=== PATIENT | male | born 1960 | race Caucasian/White ===

== ENCOUNTER 2021-07-30 06:00 | Inpatient (IN) | payer OTHER, SELFPAY ==
[2021-07-30] VITALS (14 sets, daily range): BP systolic 120–153; BP diastolic 73–99; PULSE 66–93; RESP 16–29; TEMP 36.6–36.9; O2SAT 92–97; BMI 24.3; BMI 24.5
--- NOTE | 2021-07-30 06:10 | RAD_ITS ---
STUDY: X-RAY CHEST REASON FOR EXAM: Male, 61 years old patient with cough. TECHNIQUE: Single AP portable view of the chest. COMPARISON: Prior comparison studies are not available for review at this time. FINDINGS: Cardiac monitoring leads are present. The lungs are expanded. There is heterogeneous airspace consolidation within the right upper lobe. There is heterogeneous bilateral ground glass attenuation present in both lungs. There is some peribronchial cuffing. There are small bilateral pleural effusions. Normal size heart. Normal mediastinum and ange. There is prominence of the pulmonary hilar arteries without peripheral pulmonary vascular congestion. There is atherosclerotic calcification of the aortic arch with tortuosity. Normal visualized thoracic spine. Normal visualized ribs, clavicles, and shoulders. There is no demonstrated abnormality of the visualized soft tissue structures of the upper abdomen. RAD/Chest 1 View (Portable) IMPRESSION: Bilateral multifocal pneumonia. Electronically Signed: Raysa Santamaria MD at 7:33 EDT , Service support ,
--- NOTE | 2021-07-30 06:10 | EKG12_ITS ---
Test Reason : SOB Blood Pressure : / mmHG Vent. Rate : 071 BPM Atrial Rate : 071 BPM P-R Int : 082 ms QRS Dur : 126 ms QT Int : 464 ms P-R-T Axes : 075 087 198 degrees QTc Int : 504 ms Sinus rhythm with short DE Non-specific intra-ventricular conduction block Inferior infarct , age undetermined , cannot be excluded Abnormal ECG Confirmed by MELINDA SMALL, MORENITA ([id number]), editorial specialist LENA NEWMAN ([id number]) on 08/01/2021 9:25:54 AM Referred By: ALY Confirmed By:MORENITA LAWRENCE MD
--- NOTE | 2021-07-30 06:14 | EDS_ITS ---
HPI History of Present Illness Chief Complaint: Shortness of Breath Informant: patient and spouse/S.O. Narrative Narrative: Patient presents with worsening dyspnea. This patient did have Covid in early June. He states it did take a fair amount out of him. He has had some mild dyspnea since but mostly had overall weakness and weight loss. He has been slowly improving. He states now the last 2 or so weeks he has been having wheezing and increased coughing. He is bringing up some whitish sputum. No blood. He states he is sore along the anterior lower chest with coughing but not having chest pain. No leg pain or swelling. Never had a DVT or PE. He has smoked a pack a day or more for 35 to 40 years. He has used inhalers before. He also gets Primatene Mist that he buys [id number] and his use that a lot. No fevers or chills. Primatene does help his symptoms but it does not resolve it. Nothing specifically makes things worse. He is not having fevers. Past medical history: Suspected COPD, positive glaucoma Medicines are timolol eyedrops No known drug allergies No recent surgeries Positive smoker lives with family [facility] Medical History Glaucoma Home Medications timolol 07/30/21 [History Last Taken Unknown] Allergy/AdvReac Type Severity Reaction Status Date / Time No Known Allergies Allergy Verified 07/30/21 06:05 Social History Smoking Status: Current every day smoker tobacco type: cigarettes ROS ROS ED Constitutional Constitutional ED: Denies chills, fever(s) or sweats Eyes Eyes: Denies blurry vision ENT ENT ED: Denies rhinorrhea or sore throat Cardiovascular Cardiovascular: Denies palpitations or racing heartbeat Respiratory/Chest Respiratory/Chest: Reports cough, dyspnea and sputum Gastrointestinal Gastrointestinal: Denies abdominal pain, nausea or vomiting Genitourinary Genitourinary ED: Denies dysuria Musculoskeletal Musculoskeletal: Denies arthralgias or myalgias Integumentary Denies rash Neurologic Neurologic: Denies headache(s), paresthesias or weakness Psychiatric Psychiatric: Denies anxiety Endocrine Endocrinology: Denies polydipsia or polyuria Hematologic/Lymphatic Hematologic/Lymphatic: Denies easy bleeding or easy bruising Allergic/Immunologic Allergic/Immunologic ED: Denies urticaria EXAM Physical Exam Const Vital Signs: 07/30/21 06:01 07/30/21 06:06 07/30/21 06:25 Temperature 98.0 F Temperature Source Oral Pulse Rate 93 69 Respiratory Rate 29 H 20 H Respiratory Effort Short of Breath Short of Breath Labored Blood Pressure 140/99 H Blood Pressure Mean 112 Pulse Ox 92 96 Oxygen Delivery Method Room Air Room Air Room Air Patient is in no acute distress but he does have some increased work of breathing. He is able to carry on a normal conversation but does pause a little bit to catch his breath. Positive well nourished and well developed General Appearance ED: well developed and NAD HEENT Reports moist mucous membranes; Denies dry mucous membranes atraumatic Mouth ED: No dry mucous membranes Mouth: No dry mucous membranes Eyes General Eye ED: Negative for pale conjunctiva or scleral icterus Neck no lymphadenopathy and no JVD Resp Resp Narrative: Patient does have slight increased work of breathing. He has decreased air motion and bilateral expiratory wheezing. I hear no rales or rhonchi. There is no pain with a deep breath or palpation. Auscultation: wheezes; Negative for rales or rhonchi Cardio regular rate, regular rhythm and no murmurs GI non-tender and non-distended Palpation: soft Back/Spine no CVA tenderness and normal to inspection Extremity normal to inspection Extremity Narrative: No edema, cords, asymmetry or tenderness along the deep venous system. General Extremety ED: Negative for edema or tenderness General Extremity: Negative for edema Neuro oriented x3 Sensorium / Orientation: alert Psych mental status grossly normal Skin Lesions: no lesions Rashes: no rashes MDM MDM MDM Narrative Medical decision making narrative: 06: 35 patient is actually shown marked improvement with his breathing treatments. He is moving significantly more air and his wheezing is essentially resolved. He feels markedly better. We are awaiting further results. Blood work came back showed mild elevation of his white count. Electrolytes look normal. Glucose is also minimally elevated. Troponin was quite high at 1110. Although this could be from global hypoxia that is relatively high. I went back and talked to the patient again. He states he does get some soreness of his chest primarily with coughing. He states he has some muscle aches all over but that has been there ever since Covid is not different. I really cannot get a history of any acute or recent chest pain pressure or discomfort. I also looked at his x-ray. He does have some findings of Covid but he also has a right small pleural effusion what appears to be a pneumonia in the right upper lobe toward the base. I have added a lactate and blood cultures. We will start antibiotics and aspirin. I discussed case with hospitalist. I have cardiology on page to notify them also. I also discussed case with cardiology. Patient will be admitted. He may need further evaluation including possible CT scan, stress test and/or heart catheterization. Lab Data Labs: Laboratory Results - last 24 hr 07/30/21 07/30/21 06:04 06:04 WBC 11.4 H RBC 4.40 L Hgb 14.4 Hct 43.6 MCV 99.1 H MCH 32.7 H MCHC 33.0 RDW Std Deviation 47.1 H RDW Coeff of Donna 12.7 Plt Count 330 MPV 10.8 Immature Gran % (Auto) 0.400 Neut % (Auto) 74.6 H Lymph % (Auto) 16.7 L Garrard % (Auto) 6.2 Eos % (Auto) 1.5 Baso % (Auto) 0.6 Absolute Neuts (auto) 8.5 H Absolute Lymphs (auto) 1.90 Nucleated RBC % 0 Sodium 138 Potassium 4.5 Chloride 105 Carbon Dioxide 27.0 Anion Gap 6 BUN 9 Creatinine 0.89 Estim Creat Clear Calc 86.06 Est GFR (MDRD) Af Amer 112 Est GFR (MDRD) Non-Af 92 BUN/Creatinine Ratio 10.1 Glucose 111 H Calcium 9.2 Troponin I High Sens 1110 H* EKG Initial EKG: Comments: EKG done for dyspnea and discomfort of his chest with coughing only. EKG read by me shows normal sinus rhythm with overall rate of 71. There is some suspicion of P pulmonale likely with longstanding COPD. No sign of acute infarct or ischemia. MA interval is just slightly short. QRS duration is normal. QTc is slightly long at 504 ms. He does have nonspecific ST flattening. I am not able to find an old EKG on our system for comparison. Discharge Plan Dx/Rx/DC Orders Clinical Impression: COPD with exacerbation, Non-ST elevation RI (NSTEMI), Community acquired pneumonia Disposition Disposition: Acute Care [facility]
[2021-07-30 06:24] LABS: Absolute Neutrophil Count 8.5 X10^3/uL (2.0-7.7); Basophil# 0.07 X10^3/uL; Basophil% 0.6 % (0-1); Eosinophil# 0.17 X10^3/uL; Eosinophils% 1.5 % (0-5); Hematocrit 43.6 % (40-54); Hemoglobin 14.4 g/dL (13.0-16.5); Lymphocyte % 16.7 % (19-41); Mean Corpuscular Hgb 32.7 pg (27.0-32.0); Mean Corpuscular Volume 99.1 fL (80-94); Mean Platelet Vol. 10.8 fl (6.2-12.0); Monocyte% 6.2 % (0-10); NRBC Flagged by Analyzer 0 % (0-5); Neutrophil # 8.46 X10^3/uL (2.7-7.7); Neutrophil % 74.6 % (47-70); Platelet Count 330 K/mm3 (150-450); RBC Distribution Width CV 12.7 % (11.6-14.6); RBC Distribution Width SD 47.1 fl (35.1-43.9); White Blood Count 11.4 K/mm3 (4.4-11.0)
[2021-07-30] MEDS: Ipratropium/Albuterol Sulfate 3 ML AMPUL.NEB INHALATION ×3 (06:24→19:23)
[2021-07-30] MEDS: Albuterol 2.5 MG/3 ML VIAL.NEB. INHALATION (06:24)
[2021-07-30] MEDS: MethylPREDNISolone 125 MG/2 ML Vial IV (06:26)
[2021-07-30 06:51] LABS: Anion Gap 6 (5-15); BUN 9 mg/dL (7-18); BUN/Creat Ratio 10.1 RATIO (10-20); Calcium,Total 9.2 mg/dL (8.5-10.1); Chloride 105 mmol/L (98-107); Creatinine, Serum 0.89 mg/dL (0.70-1.30); EST Glomerular Filtration Rate 92 mL/min (>60); Est Glom Filt Rate - Afr Amer 112 mL/min (>60); Estimated Creatinine Clearance 86.06 ml/min; Glucose 111 mg/dL (74-106); Potassium 4.5 mmol/L (3.5-5.1); Sodium Level 138 mmol/L (136-145); Troponin-I HS 1110 pg/mL (3.0-78.0)
--- NOTE | 2021-07-30 07:04 | NURSING ---
DR SCHUSTER FOR DR LU
[2021-07-30] MEDS: Aspirin 81 MG TAB.CHEW 324 MG PO (07:14)
--- NOTE | 2021-07-30 07:19 | NURSING ---
PCU [place] ELEVATED TROP
[2021-07-30] MEDS: Ceftriaxone 1 GM/50 ML BAG IV (07:41)
--- NOTE | 2021-07-30 07:57 | ECHOD_ITS ---
Reason For Study: NSTEMI Procedure This was a 2D Doppler, Color Flow transthoracic echocardiogram. The exam was of adequate technical quality. Exam performed portable in patient room. Left Ventricle Borderline enlarged left ventricle. Segmental dysfunction with preserved ejection fraction (see wall motion). The estimated ejection fraction is 60 %. There is evidence of diastolic dysfunction. Infero-Basal: Akinetic. Right Ventricle Normal RV size. Normal systolic function. Atria The left atrium is mildly enlarged. Normal right atrium. No doppler evidence for ASD. Mitral Valve There is mild mitral annular calcification. Mild diffuse mitral valve thickening. Mild focal mitral valve calcification of the anterior leaflet. Moderate (2+) eccentric mitral valve insufficiency. Tricuspid Valve Normal tricuspid valve. Mild to moderate (1-2+) tricuspid valve insufficiency. Right ventricular systolic pressure estimated to be 86 mmHg. Aortic Valve Trisinus/trileaflet aortic valve. Mild diffuse aortic valve calcification. Mild (1+) aortic valve insufficiency. Pulmonic Valve The pulmonic valve is not well visualized. Trivial pulmonic valve insufficiency. Great Vessels The aortic root is not well visualized. Pericardium/Pleural No pericardial effusion. MMode/2D Measurements & Calculations LVIDd: 5.7 cm IVSd: 1.4 cm LA dimension: 4.7 cm LVIDs: 4.1 cm LVPWd: 1.3 cm RVDd: 3.7 cm FS: 27.3 % LAV(MOD-bp): 90.7 ml LA A4 area: 24.4 cm2 RA A4 area: 17.4 cm2 LAV(MOD-bp) Indexed: 47.6 ml/m2 LAV(MOD-sp2): 101.7 ml LAV(MOD-sp4): 76.7 ml Time Measurements MV dec time: 0.19 sec Doppler Measurements & Calculations MV E max ganga: 163.1 cm/sec Lat Peak E' Ganga: 8.0 cm/sec Med Peak E' Ganga: 11.0 cm/sec MV A max ganga: 81.0 cm/sec E/E' lat: 20.4 E/E' med: 14.9 MV E/A: 2.0 MV V2 max: 165.0 cm/sec MV P1/2t max ganga: 165.7 cm/sec Ao V2 max: 161.6 cm/sec MV max P.9 mmHg MV P1/2t: 80.7 msec Ao max P.4 mmHg MV V2 mean: 78.4 cm/sec MV dec slope: 601.4 cm/sec2 MV mean P.1 mmHg MVA(P1/2t): 2.7 cm2 MV V2 VTI: 38.5 cm LV V1 max: 109.0 cm/sec MR max ganga: 579.5 cm/sec PA V2 max: 101.1 cm/sec LV V1 max P.8 mmHg MR max P.3 mmHg MR mean ganga: 444.2 cm/sec MR mean P.7 mmHg MR VTI: 180.5 cm TR max ganga: 455.4 cm/sec TR max P.9 mmHg ECHO/Echo Complete Interpretation Summary Borderline enlarged left ventricle. Segmental dysfunction with preserved ejection fraction (see wall motion). The estimated ejection fraction is 60 %. The left atrium is mildly enlarged. There is mild mitral annular calcification. Mild diffuse mitral valve thickening. Mild focal mitral valve calcification of the anterior leaflet. Moderate (2+) eccentric mitral valve insufficiency. Mild to moderate (1-2+) tricuspid valve insufficiency. Mild diffuse aortic valve calcification. Mild (1+) aortic valve insufficiency. Trivial pulmonic valve insufficiency. Right ventricular systolic pressure estimated to be 86 mmHg c/w severe pulmonar y hypertension. There is evidence of diastolic dysfunction. Ordering Physician: Parminder Summers Referring Physician: No PCP noted Performed By: Regulo Jack RCS
[2021-07-30 08:07] LABS: Lactic Acid 1.1 mmol/L (0.4-1.9)
[2021-07-30 08:30] LABS: International Normalized Ratio 1.2; Partial Thromboplast Time 36.5 Seconds (24.1-36.2); Prothrombin Time (Protime)PT. 14.2 SECONDS (11.7-14.9)
[2021-07-30] MEDS: 0.9% Normal Saline 1,000 ML 75 ML IV ×2 (08:33→21:00)
--- NOTE | 2021-07-30 08:49 | NURSING ---
Pt states he had flu shot this year, but unable to tell what month he had it.
--- NOTE | 2021-07-30 08:50 | PCS.PANDOC ---
PANDEMIC DOCUMENTATION INITIATED: Date: 05/19/2021 Time: 190
[2021-07-30 09:01] LABS: Cholesterol 213 mg/dL (200); High Density Lipoprotein 34 mg/dL; Triglycerides 119 mg/dL; Troponin-I HS 1078 pg/mL (3.0-78.0); Very Low Density Lipoprotein 24 mg/dL (5-40)
--- NOTE | 2021-07-30 09:02 | CON.PCM.CA_ITS ---
Assessment & Plan Assessment/Plan (1) Non-ST elevation GA (NSTEMI): PLAN: The patient does have abnormal cardiac enzymes. It is unclear at this time whether this represents a type I event from an acute coronary syndrome versus a type II event brought out by his underlying ongoing pulmonary disease process. At the moment he does not appear to have symptoms compatible with classic acute coronary syndrome/unstable angina pectoris, etc. He does not appear to have acute ECG changes. He will continue to be monitored. He will have follow-up ECGs. He will have an echocardiogram to assess his left ventricular wall motion and systolic function. He will be treated medically for the possibility of underlying CAD with a combination of agents such as aspirin, antiplatelet agents, anticoagulant agents, nitrates as needed, beta-blockers, etc. He will have a fasting lipid profile performed to evaluate his cardiovascular risks and proceed with treatment as deemed appropriate. Eventually he may need further evaluation with diagnostic cardiac catheterization-once his pulmonary process is further evaluated/treated. (2) Community acquired pneumonia: PLAN: There is concern that the patient has an underlying acute pneumonitis superimposed upon his history of COVID-19. His chest x-ray is certainly concerning for bilateral infiltrates. His previous [facility] radiologic studies are unavailable for review/comparison. He will continue evaluation care per internal medicine. (3) COPD with exacerbation: PLAN: The patient does have a history of longstanding tobacco use and may have a history of underlying COPD which may be exacerbated during this process. Again he will continue his pulmonary evaluation care per internal medicine at this time. Addt'l Comments The patient's case was discussed and reviewed with the patient as well as the [facility] emergency department staff. Aforementioned information was also conveyed to the [facility] hospital staff. This note was generated using a voice recognition system and there may be incorrect words, spelling or punctuation that were not noted when reviewing the office note prior to saving. HPI Consult Data Date of Consult: 07/30/21 HPI Narrative HPI Narrative: JOHNY SANTAMARIA, is a 61 year old white male who presents for cardiovascular consultation based upon concerns of abnormal cardiac enzymes in the setting of shortness of breath in the setting of recovering COVID-19. The patient states that in June of this year he was diagnosed with COVID-19. He remained at home and quarantine for 2 weeks. He states he actually remained off of work for additional week for additional rest and recuperation. He did present for outpatient evaluation through the [facility] system based upon his condition and following his quarantine time concerns of fevers documented at home of 102 and 103. He states when he was evaluated as an outpatient he had no fevers. He does not recall receiving any separate COVID-19 outpatient medical therapy. He states a chest x-ray was performed and subsequently a chest CT scan. The results of those studies are unavailable for review. He presented to [facility] based upon concerns of progressive shortness of breath and dyspnea. He states at home he has felt more short of breath and dyspneic and at times has felt better with respect to his breathing sitting up than being in the supine position. He denies no symptoms of acute classic orthopnea or PND. He has not developed peripheral pitting edema. He denies any chest discomfort separate than the discomfort he has experienced when he is coughing. There has been no report of syncope. He states he has had spells in the past where if he feels that he develops tunnel vision, becomes nauseated, has diaphoresis, and sometimes has to go outside to breathe fresh air to feel better. He admits that he has been a smoker since his early 20s. He states he has not been evaluated for a physician for some years. To the best of his knowledge she has no cardiovascular history. In the emergency department he was evaluated by the ED staff. He was found to have abnormal troponin I levels. His ECG demonstrated sinus rhythm with the appearance of a nonspecific IVCD and inferior GA of indeterminate age cannot be excluded. There were no acute ECG changes. A chest x-ray was performed which demonstrated bilateral pulmonary infiltrates. He was recommended for further inpatient evaluation from a cardiopulmonary status. [facility]LY [facility], [facility] Medical History (Updated 07/30/21 @ 08:31 by Barbra Major) Asthma Glaucoma Home Medications timolol 07/30/21 [History Last Taken Unknown] Allergy/AdvReac Type Severity Reaction Status Date / Time No Known Allergies Allergy Verified 07/30/21 06:05 Social History (Updated 07/30/21 @ 08:31 by Barbra Major) household members: spouse housing: house current occupational status: employed Smoking Status: Heavy Smoker (>10/day) alcohol intake: current details: 8 beers per night per pt ROS Constitutional Constitutional: Reports fever(s) Eyes Eyes: Reports as per HPI ENT HEENT: Reports as per HPI Cardiovascular Cardiovascular: Reports dyspnea Respiratory/Chest Respiratory/Chest: Reports cough and dyspnea Gastrointestinal Gastrointestinal: Reports as per HPI Genitourinary Genitourinary: Reports as per HPI Musculoskeletal Musculoskeletal: Reports as per HPI Integumentary Integumentary: Reports as per HPI Neurologic Neurologic: Reports as per HPI Physical Exam Const alert, oriented x3 and no apparent distress Orientation / Consciousness: awake HEENT normocephalic, head/scalp atraumatic and hearing grossly normal bilaterally Eyes PERRL, EOMs intact bilaterally and conjunctivae normal Neck full ROM, supple and no JVD Chest inspection of chest normal Resp normal respiratory effort Resp Narrative: Scattered: Auscultated more anterior than posterior Auscultation: rhonchi Cardio regular rate, regular rhythm, S1 normal heart sound and S2 normal heart sound GI normal to inspection, nondistended, normoactive bowel sounds Extremity no pedal edema Skin no rashes or lesions noted Neuro oriented x3, moves all extremities, no focal motor deficits and no sensory defi cits noted Psych mental status grossly normal Risk Stratification Risk Stratification Applicable: Yes Age >/= 65: No >/= 3 CAD Risk Factors (HTN, HLD, DM, family hx of CAD, or current smoker): No Aspirin Use in the Past 7 Days: No Severe Angina (>/= episodes in 24 hours): No EKG ST Changes >/= 0.5mm: No Positive Cardiac Marker: Yes GEORGE Risk Stratification Score: 1 GEORGE % Risk: 5% Risk Objective Data Vital Signs: Vital Signs Temp Pulse Resp BP Pulse Ox 98.4 F 77 18 148/92 H 96 07/30/21 08:15 07/30/21 08:42 07/30/21 08:15 07/30/21 08:15 07/30/21 08:15 Oxygen Delivery Method Room Air Weight: 165 lb 12.8 oz Body Mass Index (BMI) 24.5 Lab / Micro Data Result Diagrams: 07/30/21 06:04 07/30/21 06:04 Labs: Laboratory Results - last 24 hr 07/30/21 06:04: WBC 11.4 H, RBC 4.40 L, Hgb 14.4, Hct 43.6, MCV 99.1 H, MCH 32.7 H, MCHC 33.0, RDW Std Deviation 47.1 H, RDW Coeff of Donna 12.7, Plt Count 330, MPV 10.8, Immature Gran % (Auto) 0.400, Neut % (Auto) 74.6 H, Lymph % (Auto) 16.7 L, Screven % (Auto) 6.2, Eos % (Auto) 1.5, Baso % (Auto) 0.6, Absolute Neuts (auto) 8.5 H, Absolute Lymphs (auto) 1.90, Nucleated RBC % 0 07/30/21 06:04: Sodium 138, Potassium 4.5, Chloride 105, Carbon Dioxide 27.0, Anion Gap 6, BUN 9, Creatinine 0.89, Estim Creat Clear Calc 86.06, Est GFR (MDRD) Af Amer 112, Est GFR (MDRD) Non-Af 92, BUN/Creatinine Ratio 10.1, Glucose 111 H, Calcium 9.2, Troponin I High Sens 1110 H* 07/30/21 07:25: Lactic Acid 1.1 07/30/21 08:10: Troponin I High Sens 1078 H*, Triglycerides 119, Cholesterol 213 H, LDL Cholesterol 155 H, VLDL Cholesterol 24, HDL Cholesterol 34 L Cardiology Labs/Tests 07/30/21 06:04: WBC 11.4 H, RBC 4.40 L, Hgb 14.4, Hct 43.6, MCV 99.1 H, MCH 32.7 H, MCHC 33.0, Plt Count 330, MPV 10.8, Immature Gran % (Auto) 0.400, Neut % (Auto) 74.6 H, Lymph % (Auto) 16.7 L, Screven % (Auto) 6.2, Eos % (Auto) 1.5, Baso % (Auto) 0.6, Absolute Neuts (auto) 8.5 H, Nucleated RBC % 0 07/30/21 06:04: Sodium 138, Potassium 4.5, Chloride 105, Carbon Dioxide 27.0, Anion Gap 6, BUN 9, Creatinine 0.89, Est GFR (MDRD) Af Amer 112, Est GFR (MDRD) Non-Af 92, BUN/Creatinine Ratio 10.1, Glucose 111 H, Calcium 9.2 07/30/21 07:25: Lactic Acid 1.1 07/30/21 08:10: Triglycerides 119, Cholesterol 213 H, LDL Cholesterol 155 H, VLDL Cholesterol 24, HDL Cholesterol 34 L Rhythm: Sinus rhythm EKG: As noted above Radiography Diagnostic Testing: Radiology Impression Chest X-Ray 07/30/21 06:10 IMPRESSION: Bilateral multifocal pneumonia. Electronically Signed: Raysa Santamaria MD at 7:33 EDT , Service support ,
[2021-07-30] MEDS: Heparin Injection (Vial) 5,000 UNIT/ML VIAL 4000 UNIT IV (09:40)
[2021-07-30] MEDS: Clopidogrel Bisulfate 300 MG Tablet PO (09:40)
[2021-07-30] MEDS: HEPARIN/D5w 25,000 UNITS 25,000 UNITS/250 ML IV.SOLN. 9 UNITS IV (09:41)
[2021-07-30] MEDS: Carvedilol 3.125 MG TABLET PO ×2 (10:32→20:59)
--- NOTE | 2021-07-30 11:50 | CASEMGMT ---
JV EISENBERG assessment: Face to Face with patient for initial transition planning/care coordination assessment. JV EISENBERG introduced self and role at [facility], pt voices understanding and consents to assessment. Pt is sitting up on side of bed in no distress on room air. Pt is A/Ox4 and answers questions appropriately. Care providers, pharmacy, and demographics verified. Presentation: Intermittent SOB worse w/ exertion for last several weeks, muscle aches, MARTINEZ Admitting dx: NSTEMI, Pna w/ COPD PCP: Pt states no PCP so list provided to pt. Specialists: None [facility]erred [facility] Insurance: MMO Prescription Benefit: MMO Living Will/HPOA: Pt states does not currently have LW/HPOA but states he and his are 'working on' getting it completed. LNOK: Mariaelena Santamaria, Living Arrangements: Pt lives with in 1 story home with basement and states no concerns at home. Pt is independent with ADL's. Transportation: Pt states drives self and states no transportation concerns. DME/HHC: Pt states no current DME or need for any further DME. Pt states no hx of HHC or SNF. Pt states no concerns with going home at time of discharge. Pt works [employer]. Pt states smokes a pack of cigarettes daily and drinks 8 beers daily. Pt states no further concerns/needs. CM to follow for any further discharge planning/needs. Advised pt to ask for CM if any further questions/concerns/needs arise, voices understanding. Pt Goal: Home Plan[place]V EISENBERG
[2021-07-30 13:28] LABS: Troponin-I HS 1005 pg/mL (3.0-78.0)
--- NOTE | 2021-07-30 13:32 | HP.PCM.HOS_ITS ---
[facility] - General General Date of Admission: 07/30/21 HPI Narrative JOHNY HENSON, is a 61 M who presents to the hospital with 2 weeks worth of dyspnea on exertion. He states that it is occurring with any type of exertion during the last 2 weeks. He has noticed that he is also had some shortness of breath at home with rest when trying to lay back and now has to sit almost upright in order to not be short of breath he denies any chest pain, lightheadedness, dizziness. He has not seen a doctor since he was a teenager but does state that he has a family history of heart disease in his father and he is a current pack-a-day smoker. He notes that he is being followed up as an outpatient for a lung nodule in his right lung however today in the ER he was found to have a right-sided pneumonia as well as possibly COPD secondary to his tobacco use. He did have significant lung sounds on exam in the ER and was started on breathing treatments which greatly improved his shortness of breath. He was also found to have a troponin of over thousand. [facility] Medical History (Updated 07/30/21 @ 13:[address] Parminder Summers MD) Asthma Glaucoma Home Medications timolol 07/30/21 [History Last Taken Unknown] Allergy/AdvReac Type Severity Reaction Status Date / Time No Known Allergies Allergy Verified 07/30/21 06:05 Family History (Updated 07/30/21 @ 13:[address] Parminder Summers MD) Other Diabetes Heart disease no surgical history Social History (Updated 07/30/21 @ 08:31 by Barbra Major) household members: spouse housing: house current occupational status: employed Smoking Status: Heavy Smoker (>10/day) alcohol intake: current details: 8 beers per night per pt ROS Constitutional Constitutional: Denies chills, fatigue, fever(s) or malaise Eyes Eyes: Denies blurry vision ENT HEENT: Denies headache(s) or nasal discharge Cardiovascular Cardiovascular: Reports dyspnea on exertion and orthopnea; Denies chest pain or syncope Respiratory/Chest Respiratory/Chest: Reports shortness of breath at rest; Denies cough or shortness of breath with exertion Gastrointestinal Gastrointestinal: Denies constipation, diarrhea, nausea or vomiting Genitourinary Genitourinary: Denies dysuria Neurologic Neurologic: Denies focal weakness, numbness or tremor(s) Psychiatric Psychiatric: Denies anxiety or depression Vital Signs Vital Signs Vital Signs: 07/30/21 06:01 07/30/21 06:06 07/30/21 06:25 Temperature 98.0 F Temperature Source Oral Pulse Rate 93 69 Respiratory Rate 29 H 20 H Respiratory Effort Short of Breath Short of Breath Labored Respiratory Depth Respiratory Pattern Blood Pressure 140/99 H Blood Pressure [BP] Blood Pressure Mean 112 Blood Pressure Mean [BP] Blood Pressure Source Blood Pressure Source [BP] Blood Pressure Position Blood Pressure Position [BP] Blood Pressure Location Blood Pressure Location [BP] Pulse Ox 92 96 Oxygen Delivery Method Room Air Room Air Room Air 07/30/21 07:21 07/30/21 08:15 07/30/21 08:20 Temperature 98.2 F 98.4 F Temperature Source Temporal Oral Pulse Rate 74 72 Respiratory Rate 26 H 18 Respiratory Effort Normal Non-Labored Respiratory Depth Normal Respiratory Pattern Normal Blood Pressure 120/97 H 148/92 H Blood Pressure [BP] Blood Pressure Mean 104 110 Blood Pressure Mean [BP] Blood Pressure Source Monitor Blood Pressure Source [BP] Blood Pressure Position Sitting Blood Pressure Position [BP] Blood Pressure Location Right Arm Blood Pressure Location [BP] Pulse Ox 95 96 Oxygen Delivery Method Room Air Room Air Room Air 07/30/21 08:42 07/30/21 10:30 Temperature Temperature Source Pulse Rate 77 70 Respiratory Rate Respiratory Effort Respiratory Depth Respiratory Pattern Blood Pressure Blood Pressure [BP] 153/84 H Blood Pressure Mean Blood Pressure Mean [BP] 107 Blood Pressure Source Blood Pressure Source [BP] Monitor Blood Pressure Position Blood Pressure Position [BP] Sitting Blood Pressure Location Blood Pressure Location [BP] Right Arm Pulse Ox Oxygen Delivery Method Weight Weight: 165 lb 12.8 oz Body Mass Index (BMI) 24.5 Physical Exam Const alert, oriented x3 and no apparent distress General Appearance: cooperative HEENT normocephalic and moist oral mucous membranes Eyes PERRL, EOMs intact bilaterally and conjunctivae normal Neck supple and no JVD Resp normal respiratory effort, no retractions, no use of accessory muscles and clear to auscultation bilaterally Auscultation: Negative for crackles, rales, rhonchi or wheezes Cardio regular rate, regular rhythm, S1 normal heart sound, S2 normal heart sound and n o murmurs GI soft to palpation, non-tender and non-distended; Negative for hepatosplenomegaly Extremity no clubbing, cyanosis or edema Skin no rashes or lesions noted Neuro no focal motor deficits and no sensory deficits noted Psych affect normal Appearance: appropriate Results Lab / Micro Data Result Diagrams: 07/30/21 06:04 07/30/21 06:04 Labs: Laboratory Results - last 24 hr 07/30/21 06:04: WBC 11.4 H, RBC 4.40 L, Hgb 14.4, Hct 43.6, MCV 99.1 H, MCH 32.7 H, MCHC 33.0, RDW Std Deviation 47.1 H, RDW Coeff of Donna 12.7, Plt Count 330, MPV 10.8, Immature Gran % (Auto) 0.400, Neut % (Auto) 74.6 H, Lymph % (Auto) 16.7 L, [place] % (Auto) 6.2, Eos % (Auto) 1.5, Baso % (Auto) 0.6, Absolute Neuts (auto) 8.5 H, Absolute Lymphs (auto) 1.90, Nucleated RBC % 0 07/30/21 06:04: Sodium 138, Potassium 4.5, Chloride 105, Carbon Dioxide 27.0, Anion Gap 6, BUN 9, Creatinine 0.89, Estim Creat Clear Calc 86.06, Est GFR (MDRD) Af Amer 112, Est GFR (MDRD) Non-Af 92, BUN/Creatinine Ratio 10.1, Glucose 111 H, Calcium 9.2, Troponin I High Sens 1110 H* 07/30/21 06:04: PT 14.2, INR 1.2, APTT 36.5 H 07/30/21 07:25: Lactic Acid 1.1 07/30/21 08:10: Troponin I High Sens 1078 H*, Triglycerides 119, Cholesterol 213 H, LDL Cholesterol 155 H, VLDL Cholesterol 24, HDL Cholesterol 34 L 07/30/21 12:15: Troponin I High Sens 1005 H* Radiology Impression Chest X-Ray 07/30/21 06:10 IMPRESSION: Bilateral multifocal pneumonia. Electronically Signed: Raysa Henson MD at 7:33 EDT , Service support , Echocardiogram 10/27/21 07:57 Interpretation Summary Borderline enlarged left ventricle. Segmental dysfunction with preserved ejection fraction (see wall motion). The estimated ejection fraction is 60 %. The left atrium is mildly enlarged. There is mild mitral annular calcification. Mild diffuse mitral valve thickening. Mild focal mitral valve calcification of the anterior leaflet. Moderate (2+) eccentric mitral valve insufficiency. Mild to moderate (1-2+) tricuspid valve insufficiency. Mild diffuse aortic valve calcification. Mild (1+) aortic valve insufficiency. Trivial pulmonic valve insufficiency. Right ventricular systolic pressure estimated to be 86 mmHg c/w severe pulmonary hypertension. There is evidence of diastolic dysfunction. Ordering Physician: Parminder Summers Referring Physician: No PCP noted Performed By: Regulo Jack RCS Assessment & Plan Assessment/Plan (1) Non-ST elevation [place] (NSTEMI): (2) COPD with exacerbation: (3) Community acquired pneumonia: (4) Pulmonary hypertension: PLAN: 1. Non-STEMI/severe pulmonary hypertension -Echo demonstrated severe pulmonary hypertension with an RVSP of 86 mmHg as well as segmental wall dysfunction with normal EF -Appreciate cardiology's input, will continue with the heparin drip -Continue with Coreg, will start him on lisinopril as well as Lipitor -Once off the heparin drip can transition to aspirin and he will likely need further outpatient work-up with a heart cath pending resolution of his pneumonia -Triglycerides of 119 with a total cholesterol of 213 and LDL of 155 and HDL of 34 -We will likely also need initiation of Lasix secondary to signs of orthopnea 2. COPD exacerbation with community-acquired pneumonia/tobacco abuse -Chest x-ray demonstrates a right middle lobe consolidation with bilateral groundglass opacities -We will continue with azithromycin and Rocephin -Continue with p.o. prednisone as well as duo nebs -Smokes a pack a day does not need 1 nicotine patch. Discussed cessation DVT: Heparin drip Charges/Coding Visit Charges Inpatient E&M: 44770 Init Hosp L3
[2021-07-30 14:56] LABS: Partial Thromboplast Time 43.3 Seconds (24.1-36.2)
[2021-07-30] MEDS: Atorvastatin Calcium 40 MG Tablet PO (20:59)
[2021-07-30 21:40] LABS: Partial Thromboplast Time 38.8 Seconds (24.1-36.2)
[2021-07-30] MEDS: Heparin Injection (Vial) 5,000 UNIT/ML VIAL IV (21:55)
[2021-07-31] VITALS (11 sets, daily range): BP systolic 126–150; BP diastolic 71–88; PULSE 68–86; RESP 16–22; TEMP 36.3–36.6; O2SAT 94–99
[2021-07-31 04:09] LABS: Absolute Lymphocyte Count 1.93 X10^3/uL (0.83-4.51); Absolute Neutrophil Count 11.7 X10^3/uL (2.0-7.7); Basophil# 0.04 X10^3/uL; Basophil% 0.3 % (0-1); Eosinophil# 0.02 X10^3/uL; Eosinophils% 0.1 % (0-5); Hematocrit 40.7 % (40-54); Hemoglobin 13.5 g/dL (13.0-16.5); Lymphocyte # 1.93 X10^3/ul (0.83-4.51); Lymphocyte % 13.3 % (19-41); Mean Corp Hgb Conc 33.2 g/dL (32-36); Mean Corpuscular Hgb 32.6 pg (27.0-32.0); Mean Corpuscular Volume 98.3 fL (80-94); Mean Platelet Vol. 10.8 fl (6.2-12.0); Monocyte# 0.75 X10^3/uL; Monocyte% 5.2 % (0-10); NRBC Flagged by Analyzer 0 % (0-5); Neutrophil # 11.67 X10^3/uL (2.7-7.7); Neutrophil % 80.5 % (47-70); Platelet Count 356 K/mm3 (150-450); RBC Distribution Width CV 12.9 % (11.6-14.6); RBC Distribution Width SD 46.1 fl (35.1-43.9); Red Blood Count 4.14 M/mm3 (4.6-6.2); White Blood Count 14.5 K/mm3 (4.4-11.0)
[2021-07-31 04:19] LABS: Anion Gap 7 (5-15); BUN 15 mg/dL (7-18); BUN/Creat Ratio 16.9 RATIO (10-20); Chloride 107 mmol/L (98-107); Creatinine, Serum 0.89 mg/dL (0.70-1.30); EST Glomerular Filtration Rate 92 mL/min (>60); Est Glom Filt Rate - Afr Amer 111 mL/min (>60); Estimated Creatinine Clearance 86.06 ml/min; Glucose 131 mg/dL (74-106); Potassium 4.6 mmol/L (3.5-5.1); Sodium Level 138 mmol/L (136-145)
[2021-07-31 04:24] LABS: Partial Thromboplast Time 64.5 Seconds (24.1-36.2)
--- NOTE | 2021-07-31 05:29 | EKG12_ITS ---
Test Reason : AM EKG Blood Pressure : / mmHG Vent. Rate : 074 BPM Atrial Rate : 074 BPM P-R Int : 110 ms QRS Dur : 100 ms QT Int : 436 ms P-R-T Axes : 050 074 033 degrees QTc Int : 483 ms Sinus rhythm with short NV Nonspecific ST and T wave abnormality Prolonged QT Abnormal ECG Confirmed by MELINDA SMALL, MORENITA ([id number]), manager editorial LENA NEWMAN ([id number]) on 08/14/2021 9:09:04 AM Referred By: LANDEN Confirmed By:MORENITA LAWRENCE MD
[2021-07-31] MEDS: Ipratropium/Albuterol Sulfate 3 ML AMPUL.NEB INHALATION ×4 (07:15→19:23)
[2021-07-31] MEDS: HEPARIN/D5w 25,000 UNITS 25,000 UNITS/250 ML IV.SOLN. 12 UNITS IV (08:00)
--- NOTE | 2021-07-31 08:28 | PN.CARD_ITS ---
Subjective Subjective The patient is awake and alert. He continues to cough. He states he has noted some wheezing. He states he was only able to sleep approximately 3 hours last night because of his coughing. He was able to be somewhat in a supine position for a brief period of time, however, based upon his coughing he states he cannot stay there for any prolonged period of time. He denies any ongoing chest discomfort, palpitations, or sensations of near syncope. Objective Data Vital Signs: Vital Signs Temp Pulse Resp BP Pulse Ox 97.7 F L 76 22 H 144/88 H 95 07/31/21 03:00 07/31/21 07:15 07/31/21 07:15 07/31/21 03:00 07/31/21 07:15 Oxygen Delivery Method Room Air Weight: 165 lb 12.602 oz Body Mass Index (BMI) 24.5 Intake & Output: Intake and Output for Last 24 Hours 07/29/21 07/30/21 07/31/21 23:59 23:59 23:59 Intake Total 1840.75 / 1840.75 120.8 / 120.8 Output Total 0 / 0 Balance 1840.75 / 1840.75 120.8 / 120.8 Lab / Micro Data Result Diagrams: 07/31/21 03:58 07/31/21 03:58 Labs: Laboratory Results - last 24 hr 07/30/21 06:04: PT 14.2, INR 1.2, APTT 36.5 H 07/30/21 08:10: Troponin I High Sens 1078 H*, Triglycerides 119, Cholesterol 213 H, LDL Cholesterol 155 H, VLDL Cholesterol 24, HDL Cholesterol 34 L 07/30/21 12:15: Troponin I High Sens 1005 H* 07/30/21 14:35: APTT 43.3 H 07/30/21 21:09: APTT 38.8 H 07/31/21 03:58: WBC 14.5 H, RBC 4.14 L, Hgb 13.5, Hct 40.7, MCV 98.3 H, MCH 32.6 H, MCHC 33.2, RDW Std Deviation 46.1 H, RDW Coeff of Donna 12.9, Plt Count 356, MPV 10.8, Immature Gran % (Auto) 0.600, Neut % (Auto) 80.5 H, Lymph % (Auto) 13.3 L, [place] % (Auto) 5.2, Eos % (Auto) 0.1, Baso % (Auto) 0.3, Absolute Neuts (auto) 11.7 H, Absolute Lymphs (auto) 1.93, Nucleated RBC % 0 07/31/21 03:58: Sodium 138, Potassium 4.6, Chloride 107, Carbon Dioxide 24.0, Anion Gap 7, BUN 15, Creatinine 0.89, Estim Creat Clear Calc 86.06, Est GFR (MDRD) Af Amer 111, Est GFR (MDRD) Non-Af 92, BUN/Creatinine Ratio 16.9, Glucose 131 H, Calcium 9.0 07/31/21 03:58: APTT 64.5 H Cardiology Labs/Tests 07/30/21 06:04: PT 14.2, INR 1.2, APTT 36.5 H 07/30/21 08:10: Triglycerides 119, Cholesterol 213 H, LDL Cholesterol 155 H, VLDL Cholesterol 24, HDL Cholesterol 34 L 07/30/21 14:35: APTT 43.3 H 07/30/21 21:09: APTT 38.8 H 07/31/21 03:58: WBC 14.5 H, RBC 4.14 L, Hgb 13.5, Hct 40.7, MCV 98.3 H, MCH 32.6 H, MCHC 33.2, Plt Count 356, MPV 10.8, Immature Gran % (Auto) 0.600, Neut % (Auto) 80.5 H, Lymph % (Auto) 13.3 L, [place] % (Auto) 5.2, Eos % (Auto) 0.1, Baso % (Auto) 0.3, Absolute Neuts (auto) 11.7 H, Nucleated RBC % 0 07/31/21 03:58: Sodium 138, Potassium 4.6, Chloride 107, Carbon Dioxide 24.0, Anion Gap 7, BUN 15, Creatinine 0.89, Est GFR (MDRD) Af Amer 111, Est GFR (MDRD) Non-Af 92, BUN/Creatinine Ratio 16.9, Glucose 131 H, Calcium 9.0 07/31/21 03:58: APTT 64.5 H Rhythm: Sinus rhythm EKG: Sinus rhythm; subtle nonspecific ST/T wave abnormality ECHO: As noted below Radiography Diagnostic Testing: Radiology Impression Echocardiogram 07/30/21 07:57 Interpretation Summary Borderline enlarged left ventricle. Segmental dysfunction with preserved ejection fraction (see wall motion). The estimated ejection fraction is 60 %. The left atrium is mildly enlarged. There is mild mitral annular calcification. Mild diffuse mitral valve thickening. Mild focal mitral valve calcification of the anterior leaflet. Moderate (2+) eccentric mitral valve insufficiency. Mild to moderate (1-2+) tricuspid valve insufficiency. Mild diffuse aortic valve calcification. Mild (1+) aortic valve insufficiency. Trivial pulmonic valve insufficiency. Right ventricular systolic pressure estimated to be 86 mmHg c/w severe pulmonary hypertension. There is evidence of diastolic dysfunction. Ordering Physician: Parminder Summers Referring Physician: No PCP noted Performed By: Regulo Jack RCS Physical Exam Const alert, oriented x3 and no apparent distress Orientation / Consciousness: awake HEENT normocephalic, head/scalp atraumatic and hearing grossly normal bilaterally Eyes PERRL, EOMs intact bilaterally and conjunctivae normal Neck full ROM, supple and no JVD Chest inspection of chest normal Resp normal respiratory effort Resp Narrative: Scattered: Auscultated more anterior than posterior Auscultation: rhonchi and wheezes inspiratory wheezes and throughout Cardio regular rate, regular rhythm, S1 normal heart sound and S2 normal heart sound GI normal to inspection, nondistended, normoactive bowel sounds Extremity no pedal edema Skin no rashes or lesions noted Neuro oriented x3, moves all extremities, no focal motor deficits and no sensory deficits noted Psych mental status grossly normal Assessment & Plan Assessment/Plan (1) Non-ST elevation SD (NSTEMI): PLAN: The patient does have abnormal cardiac enzymes. It is unclear at this time whether this represents a type I event from an acute coronary syndrome versus a type II event brought out by his underlying ongoing p ulmonary disease process. At the moment he does not appear to have symptoms compatible with classic acute coronary syndrome/unstable angina pectoris, etc. He does not appear to have new acute ECG changes. He will continue to be monitored. His echocardiogram is as noted. He will be treated medically for the possibility of underlying CAD with a combination of agents such as aspirin, antiplatelet agents, anticoagulant agents, nitrates as needed, beta-blockers, etc. His lipid labs are elevated and thus he has been placed on lipid-lowering therapy. Eventually he may need further evaluation with diagnostic cardiac catheterization-once his pulmonary process is further evaluated/treated. How ever, this may have to be postponed, as long as he remains symptomatically and hemodynamically stable from a cardiac standpoint, until his underlying acute pulmonary disease process improves. (2) Community acquired pneumonia: PLAN: There is concern that the patient has an underlying acute pneumonitis superimposed upon his history of COVID-19. His chest x-ray is certainly concerning for bilateral infiltrates. His previous [facility] radiologic studies are unavailable for review/comparison. He will continue evaluation care per internal medicine. This has included antibiotic therapy. (3) COPD with exacerbation: PLAN: The patient does have a history of longstanding tobacco use and may have a history of underlying COPD which may be exacerbated during this process. Again he will continue his pulmonary evaluation care per internal medicine at this time. (4) HLD (hyperlipidemia): PLAN: Again he has been placed on lipid-lowering therapy. (5) Lung nodule: PLAN: As per internal medicine, he does have a lung nodule, he is being evaluated as an outpatient through the [facility]. Addt'l Comments The patient's case was discussed and reviewed with Dr. Segura. This note was generated using a voice recognition system and there may be incorrect words, spelling or punctuation that were not noted when reviewing the office note prior to saving.
[2021-07-31] MEDS: Carvedilol 3.125 MG TABLET PO ×2 (09:06→20:47)
[2021-07-31] MEDS: Lisinopril 5 MG Tablet PO (09:06)
[2021-07-31] MEDS: Clopidogrel Bisulfate 75 MG Tablet PO (09:07)
[2021-07-31] MEDS: Furosemide 20 MG Tablet PO (09:07)
[2021-07-31] MEDS: Aspirin 81 MG TAB.CHEW PO (09:07)
[2021-07-31] MEDS: Azithromycin 250 MG Tablet 500 MG PO (09:07)
[2021-07-31] MEDS: predniSONE 20 MG Tablet 40 MG PO (09:07)
[2021-07-31] MEDS: Ceftriaxone 1 GM/50 ML BAG IV (09:10)
[2021-07-31 10:13] LABS: Partial Thromboplast Time 53.5 Seconds (24.1-36.2)
--- NOTE | 2021-07-31 11:30 | PN.HOSP_ITS ---
Subjective Subjective Doing well, says that her shortness of breath is improving with laying down. No lightheadedness or dizziness. Objective Data Objective Data Vital Signs: Vital Signs Temp Pulse Resp BP Pulse Ox 97.9 F 80 20 H 150/88 H 95 07/31/21 09:00 07/31/21 09:00 07/31/21 10:49 07/31/21 09:00 07/31/21 09:00 Oxygen Delivery Method Room Air Weight: 165 lb 12.602 oz Body Mass Index (BMI) 24.5 Intake & Output: Intake and Output for Last 24 Hours 07/30/21 07/31/21 08/01/21 03:59 03:59 03:59 Intake Total 1840.75 / 1840.75 1798.8 / 1798.8 Output Total 0 / 0 Balance 1840.75 / 1840.75 1798.8 / 1798.8 Lab / Micro Data Result Diagrams: 07/31/21 03:58 07/31/21 03:58 Labs: Laboratory Results - last 24 hr 07/30/21 12:15: Troponin I High Sens 1005 H* 07/30/21 14:35: APTT 43.3 H 07/30/21 21:09: APTT 38.8 H 07/31/21 03:58: WBC 14.5 H, RBC 4.14 L, Hgb 13.5, Hct 40.7, MCV 98.3 H, MCH 32.6 H, MCHC 33.2, RDW Std Deviation 46.1 H, RDW Coeff of Donna 12.9, Plt Count 356, MPV 10.8, Immature Gran % (Auto) 0.600, Neut % (Auto) 80.5 H, Lymph % (Auto) 13.3 L, [place] % (Auto) 5.2, Eos % (Auto) 0.1, Baso % (Auto) 0.3, Absolute Neuts (auto) 11.7 H, Absolute Lymphs (auto) 1.93, Nucleated RBC % 0 07/31/21 03:58: Sodium 138, Potassium 4.6, Chloride 107, Carbon Dioxide 24.0, Anion Gap 7, BUN 15, Creatinine 0.89, Estim Creat Clear Calc 86.06, Est GFR (MDRD) Af Amer 111, Est GFR (MDRD) Non-Af 92, BUN/Creatinine Ratio 16.9, Glucose 131 H, Calcium 9.0 07/31/21 03:58: APTT 64.5 H 07/31/21 09:55: APTT 53.5 H Physical Exam Const alert, oriented x3 and no apparent distress General Appearance: cooperative HEENT normocephalic and moist oral mucous membranes Eyes PERRL, EOMs intact bilaterally and conjunctivae normal Neck supple and no JVD Resp normal respiratory effort, no retractions and no use of accessory muscles Auscultation: wheezes; Negative for crackles, rales or rhonchi Cardio regular rate, regular rhythm, S1 normal heart sound, S2 normal heart sound and no murmurs GI soft to palpation, non-tender and non-distended; Negative for hepatosplenomegaly Extremity no clubbing, cyanosis or edema Skin no rashes or lesions noted Neuro no focal motor deficits and no sensory deficits noted Psych affect normal Appearance: appropriate Assessment & Plan Assessment/Plan (1) Non-ST elevation MD (NSTEMI): (2) COPD with exacerbation: (3) Community acquired pneumonia: (4) Pulmonary hypertension: PLAN: 1. Non-STEMI/severe pulmonary hypertension -Echo demonstrated severe pulmonary hypertension with an RVSP of 86 mmHg as well as segmental wall dysfunction with normal EF -Appreciate cardiology's input, will continue with the heparin drip -Continue with Coreg, will start him on lisinopril as well as Lipitor -Given pulmonary hypertension, will discontinue his IV fluids and start him on Lasix -Once off the heparin drip can transition to Plavix and he will likely need fu rther outpatient work-up with a heart cath pending resolution of his pneumonia -Triglycerides of 119 with a total cholesterol of 213 and LDL of 155 and HDL of 34 2. COPD exacerbation with community-acquired pneumonia/tobacco abuse -Chest x-ray demonstrates a right middle lobe consolidation with bilateral groundglass opacities -We will continue with azithromycin and Rocephin -Continue with p.o. prednisone as well as duo nebs -Smokes a pack a day does not need 1 nicotine patch. Discussed cessation -He will need to follow-up with pulmonology as an outpatient to monitor his pulmonary nodule as well as his pulmonary hypertension DVT: Heparin drip Charges/Coding Visit Charges Inpatient E&M: 76985 Subs Hosp L2
[2021-07-31 16:45] LABS: Partial Thromboplast Time 41.7 Seconds (24.1-36.2)
[2021-07-31] MEDS: Atorvastatin Calcium 40 MG Tablet PO (20:48)
[2021-07-31 23:20] LABS: Partial Thromboplast Time 59.9 Seconds (24.1-36.2)
[2021-08-01] VITALS (8 sets, daily range): BP systolic 115–131; BP diastolic 76–78; PULSE 60–70; RESP 16–20; TEMP 36.4–36.8; O2SAT 93–97
[2021-08-01] MEDS: HEPARIN/D5w 25,000 UNITS 25,000 UNITS/250 ML IV.SOLN. 14 UNITS IV (01:36)
[2021-08-01 05:18] LABS: Absolute Lymphocyte Count 3.45 X10^3/uL (0.83-4.51); Absolute Neutrophil Count 10.6 X10^3/uL (2.0-7.7); Basophil# 0.06 X10^3/uL; Basophil% 0.4 % (0-1); Eosinophil# 0.09 X10^3/uL; Eosinophils% 0.6 % (0-5); Hematocrit 38.4 % (40-54); Hemoglobin 12.7 g/dL (13.0-16.5); Lymphocyte # 3.45 X10^3/ul (0.83-4.51); Lymphocyte % 22.9 % (19-41); Mean Corp Hgb Conc 33.1 g/dL (32-36); Mean Corpuscular Hgb 32.7 pg (27.0-32.0); Mean Platelet Vol. 10.8 fl (6.2-12.0); Monocyte# 0.75 X10^3/uL; NRBC Flagged by Analyzer 0 % (0-5); Neutrophil # 10.63 X10^3/uL (2.7-7.7); Neutrophil % 70.4 % (47-70); Platelet Count 336 K/mm3 (150-450); RBC Distribution Width CV 13.2 % (11.6-14.6); RBC Distribution Width SD 47.8 fl (35.1-43.9); Red Blood Count 3.88 M/mm3 (4.6-6.2); White Blood Count 15.1 K/mm3 (4.4-11.0)
[2021-08-01] MEDS: Ondansetron 4 MG/2 ML Vial IV (05:24)
[2021-08-01 05:27] LABS: Partial Thromboplast Time 51.5 Seconds (24.1-36.2)
[2021-08-01 05:45] LABS: Anion Gap 6 (5-15); BUN 19 mg/dL (7-18); BUN/Creat Ratio 19.6 RATIO (10-20); Calcium,Total 8.7 mg/dL (8.5-10.1); Chloride 107 mmol/L (98-107); Creatinine, Serum 0.97 mg/dL (0.70-1.30); EST Glomerular Filtration Rate 83 mL/min (>60); Est Glom Filt Rate - Afr Amer 101 mL/min (>60); Estimated Creatinine Clearance 78.96 ml/min; Glucose 110 mg/dL (74-106); Potassium 4.1 mmol/L (3.5-5.1); Sodium Level 138 mmol/L (136-145)
[2021-08-01] MEDS: Ipratropium/Albuterol Sulfate 3 ML AMPUL.NEB INHALATION ×2 (07:10→11:13)
--- NOTE | 2021-08-01 08:51 | PCM.PN.CARD ---
Subjective Subjective The patient is awake and alert. He denies ongoing chest discomfort. He states his main concern is his residual cough at this time. Objective Data Vital Signs: Vital Signs Temp Pulse Resp BP Pulse Ox 97.5 F L 65 20 H 126/78 H 93 08/01/21 02:46 08/01/21 06:59 08/01/21 07:10 08/01/21 02:46 08/01/21 07:10 Oxygen Delivery Method Room Air Weight: 168 lb 6.931 oz Body Mass Index (BMI) 24.5 Intake & Output: Intake and Output for Last 24 Hours 07/30/21 07/31/21 08/01/21 23:59 23:59 23:59 Intake Total 1840.75 / 1840.75 2854.86 / 2854.86 395.43 / 395.43 Output Total 0 / 0 Balance 1840.75 / 1840.75 2854.86 / 2854.86 395.43 / 395.43 Lab / Micro Data Result Diagrams: 08/01/21 05:00 08/01/21 05:00 Labs: Laboratory Results - last 24 hr 07/31/21 09:55: APTT 53.5 H 07/31/21 16:12: APTT 41.7 H 07/31/21 23:00: APTT 59.9 H 08/01/21 05:00: Sodium 138, Potassium 4.1, Chloride 107, Carbon Dioxide 25.0, Anion Gap 6, BUN 19 H, Creatinine 0.97, Estim Creat Clear Calc 78.96, Est GFR (MDRD) Af Amer 101, Est GFR (MDRD) Non-Af 83, BUN/Creatinine Ratio 19.6, Glucose 110 H, Calcium 8.7 08/01/21 05:00: APTT 51.5 H 08/01/21 05:00: WBC 15.1 H, RBC 3.88 L, Hgb 12.7 L, Hct 38.4 L, MCV 99.0 H, MCH 32.7 H, MCHC 33.1, RDW Std Deviation 47.8 H, RDW Coeff of Donna 13.2, Plt Count 336, MPV 10.8, Immature Gran % (Auto) 0.700, Neut % (Auto) 70.4 H, Lymph % (Auto) 22.9, [place] % (Auto) 5.0, Eos % (Auto) 0.6, Baso % (Auto) 0.4, Absolute Neuts (auto) 10.6 H, Absolute Lymphs (auto) 3.45, Nucleated RBC % 0 Micro: Microbiology 07/30/21 07:25 Blood Culture (Wb) - Left Hand Blood Culture - Preliminary No growth in 48 hours. 07/30/21 07:25 Blood Culture (Wb) - Anticubital Left Blood Culture - Preliminary No growth in 48 hours. Cardiology Labs/Tests 07/31/21 09:55: APTT 53.5 H 07/31/21 16:12: APTT 41.7 H 07/31/21 23:00: APTT 59.9 H 08/01/21 05:00: Sodium 138, Potassium 4.1, Chloride 107, Carbon Dioxide 25.0, Anion Gap 6, BUN 19 H, Creatinine 0.97, Est GFR (MDRD) Af Amer 101, Est GFR (MDRD) Non-Af 83, BUN/Creatinine Ratio 19.6, Glucose 110 H, Calcium 8.7 08/01/21 05:00: APTT 51.5 H 08/01/21 05:00: WBC 15.1 H, RBC 3.88 L, Hgb 12.7 L, Hct 38.4 L, MCV 99.0 H, MCH 32.7 H, MCHC 33.1, Plt Count 336, MPV 10.8, Immature Gran % (Auto) 0.700, Neut % (Auto) 70.4 H, Lymph % (Auto) 22.9, [place] % (Auto) 5.0, Eos % (Auto) 0.6, Baso % (Auto) 0.4, Absolute Neuts (auto) 10.6 H, Nucleated RBC % 0 Rhythm: Sinus rhythm Physical Exam Const alert, oriented x3 and no apparent distress Orientation / Consciousness: awake HEENT normocephalic, head/scalp atraumatic and hearing grossly normal bilaterally Eyes PERRL, EOMs intact bilaterally and conjunctivae normal Neck full ROM, supple and no JVD Chest inspection of chest normal Resp normal respiratory effort Resp Narrative: Scattered: Auscultated more anterior than posterior Auscultation: rhonchi Cardio regular rate, regular rhythm, S1 normal heart sound and S2 normal heart sound GI normal to inspection, nondistended, normoactive bowel sounds Extremity no pedal edema Skin no rashes or lesions noted Neuro oriented x3, moves all extremities, no focal motor deficits and no sensory deficits noted Psych mental status grossly normal Assessment & Plan Assessment/Plan (1) Non-ST elevation RI (NSTEMI): PLAN: The patient does have abnormal cardiac enzymes. It is unclear at this time whether this represents a type I event from an acute coronary syndrome versus a type II event brought out by his underlying ongoing pulmonary disease process. At the moment he does not appear to have symptoms compatible with classic acute coronary syndrome/unstable angina pectoris, etc. He does not appear to have new acute ECG changes. He will continue to be monitored. His echocardiogram is as noted. He will be treated medically for the possibility of underlying CAD with a combination of agents such as aspirin, antiplatelet agents, anticoagulant agents, nitrates as needed, beta-blockers, etc. His lipid labs are elevated and thus he has been placed on lipid-lowering therapy. Eventually he may need further evaluation with diagnostic cardiac catheterization-once his pulmonary process is further evaluated/treated. However, this may have to be postponed, as long as he remains symptomatically and hemodynamically stable from a cardiac standpoint, until his underlying acute pulmonary disease process improves. (2) Community acquired pneumonia: PLAN: There is concern that the patient has an underlying acute pneumonitis superimposed upon his history of COVID-19. His chest x-ray is certainly concerning for bilateral infiltrates. His previous [facility] radiologic studies are unavailable for review/comparison. He will continue evaluation care per internal medicine. This has included antibiotic therapy. (3) COPD with exacerbation: PLAN: The patient does have a history of longstanding tobacco use and may have a history of underlying COPD which may be exacerbated during this process. Again he will continue his pulmonary evaluation care per internal medicine at this time. (4) HLD (hyperlipidemia): PLAN: Again he has been placed on lipid-lowering therapy. (5) Lung nodule: PLAN: As per internal medicine, he does have a lung nodule, he is being evaluated as an outpatient through the [facility] system. Addt'l Comments Overall, the patient will continue medical therapy. At this point in time his IV heparin will be discontinued. He will continue pulmonary evaluation care per internal medicine. Over time, as his pulmonary process hopefully improves he will be considered for further evaluation with diagnostic cardiac catheterization. This note was generated using a voice recognition system and there may be incorrect words, spelling or punctuation that were not noted when reviewing the office note prior to saving.
[2021-08-01] MEDS: Aspirin 81 MG TAB.CHEW PO (09:11)
[2021-08-01] MEDS: Azithromycin 250 MG Tablet 500 MG PO (09:11)
[2021-08-01] MEDS: Lisinopril 5 MG Tablet PO (09:11)
[2021-08-01] MEDS: Furosemide 20 MG Tablet PO (09:11)
[2021-08-01] MEDS: Carvedilol 3.125 MG TABLET PO (09:11)
[2021-08-01] MEDS: Clopidogrel Bisulfate 75 MG Tablet PO (09:11)
[2021-08-01] MEDS: predniSONE 20 MG Tablet 40 MG PO (09:11)
[2021-08-01] MEDS: Ceftriaxone 1 GM/50 ML BAG IV (09:15)
[2021-08-01 12:38] LABS: Partial Thromboplast Time 29.8 Seconds (24.1-36.2)
--- NOTE | 2021-08-01 12:44 | PCM.DC ---
Discharge Instructions Diet Discharge Diet: Low fat / Low cholesterol Activity Discharge Activity: Return to Normal Activity Dressing / Incision Call your doctor if you observe: Fever of 101 or Higher, Shortness of breath, Dizziness, Fainting spells, Swelling in the ankles, Chest pain and Increased palpitations (irregular heartbeat) Follow Up Care Test Results: Test results from this visit will be discussed in further detail at your follow-up appointment, if applicable. Discharge Plan Admission Admit Date/Time: 07/30/21 07:07 Attending Provider: Parminder Summers Primary Care Provider: Care Physician,No Primary Consulting Providers: Kulwant Martínez Discharge Orders/Prescriptions Prescriptions: New atorvastatin 40 mg Tablet 40 mg PO QHS Qty: 30 RF: 0 prednisone 20 mg Tablet 40 mg PO BREAKFAST Qty: 14 RF: 0 clopidogrel 75 mg Tablet 75 mg PO DAILY Qty: 30 RF: 0 carvedilol 3.125 mg Tablet 3.125 mg PO BID Qty: 60 RF: 0 aspirin 81 mg Tablet,Chewable 81 mg PO 0800 Qty: 30 RF: 0 lisinopril 5 mg Tablet 5 mg PO DAILY Qty: 30 RF: 0 furosemide 20 mg Tablet 20 mg PO DAILY Qty: 30 RF: 0 cefdinir 300 mg capsule 300 mg PO BID Qty: 6 RF: 0 albuterol sulfate 90 mcg/actuation HFA aerosol inhaler 2 puff inhalation Q6H PRN (Reason: shortness of breath or wheezing) Qty: 8.5 RF: 0 Continued timolol 1 drp EACH EYE BID RF: 0 Referrals / Follow Up: Mars Arnold DO [STAFF PHYSICIAN] - Within 3 Months Kulwant Martínez MD [STAFF PHYSICIAN] - Within 1 Month Kulwant Eng MD [STAFF PHYSICIAN] - 1-2 Days if not improving Care Physician,No Primary [Primary Care Provider] - Disposition Disposition (needs filled in before D/C Order can be placed): Home, Self Care
--- NOTE | 2021-08-01 14:49 | CASEMGMT ---
Pt's meds were sent to [facility] pharmacy but they are not in-network with pt's insurance. Pt would like [facility]s [facility] pharmacy aware and will transfer meds. Pt voices no further questions/concerns/needs. Pt has been on room air since admission. Zan CARIAS CM
--- NOTE | 2021-08-01 15:00 | PHA.DC.MR ---
Pharmacy Service has performed discharge medication reconciliation for this patient. The patient's discharge medication list was reviewed for discrepancies and discrepancies were resolved. Medication education papers prepared, patient discharged when I went to [employer]. Home Medications timolol 1 drp EACH EYE BID 07/30/21 albuterol sulfate 2 puff INHALATION Q6H PRN #8.5 g 08/01/21 aspirin 81 mg PO 0800 #30 tab 08/01/21 atorvastatin 40 mg PO QHS #30 tab 08/01/21 carvedilol 3.125 mg PO BID #60 tab 08/01/21 cefdinir 300 mg PO BID #6 cap 08/01/21 clopidogrel 75 mg PO DAILY #30 tab 08/01/21 furosemide 20 mg PO DAILY #30 tab 08/01/21 lisinopril 5 mg PO DAILY #30 tab 08/01/21 prednisone 40 mg PO BREAKFAST #14 tab 08/01/21
--- NOTE | 2021-08-01 17:21 | DS.PCM_ITS ---
Providers Date of Admission: 07/30/21 Primary Care Physician: No Primary Care Phys Consultations 07/30/21 07:57 Consult: Cardiology Routine Consulting Provider: Kulwant Martínez Reason for Consult: NSTEMI EMERGENT Consult: No MD Notified: Yes Date Notified: 07/30/21 Time Notified: 07:10 Method of Notification: Text Reason For Visit: NSTEMI AND PNEUMONIA WITH COPD Diagnosis Discharge Diagnosis (1) Non-ST elevation [place] (NSTEMI): Status: Acute Code(s): I21.4 - Non-ST elevation (NSTEMI) myocardial infarction (2) Community acquired pneumonia: Status: Acute Code(s): J18.9 - Pneumonia, unspecified organism (3) COPD with exacerbation: Status: Chronic Code(s): J44.1 - Chronic obstructive pulmonary disease with (acute) exacerbation (4) HLD (hyperlipidemia): Status: Acute Code(s): E78.5 - Hyperlipidemia, unspecified (5) Lung nodule: Status: Acute Code(s): R91.1 - Solitary pulmonary nodule Medications at Discharge Home Medications timolol 1 drp EACH EYE BID 07/30/21 albuterol sulfate 2 puff INHALATION Q6H PRN #8.5 g 08/01/21 aspirin 81 mg PO 0800 #30 tab 08/01/21 atorvastatin 40 mg PO QHS #30 tab 08/01/21 carvedilol 3.125 mg PO BID #60 tab 08/01/21 cefdinir 300 mg PO BID #6 cap 08/01/21 clopidogrel 75 mg PO DAILY #30 tab 08/01/21 furosemide 20 mg PO DAILY #30 tab 08/01/21 lisinopril 5 mg PO DAILY #30 tab 08/01/21 prednisone 40 mg PO BREAKFAST #14 tab 08/01/21 Hospital Course Operations None Procedures 2-D Echocardiogram Summary of Care Provided Minutes Spent on Discharge: 45 Hospital Course: Per HPI: JOHNY HENSON, is a 61 M who presents to the hospital with 2 weeks worth of dyspnea on exertion. He states that it is occurring with any type of exertion during the last 2 weeks. He has noticed that he is also had some shortness of breath at home with rest when trying to lay back and now has to sit almost upright in order to not be short of breath he denies any chest pain, lightheadedness, dizziness. He has not seen a doctor since he was a teenager but does state that he has a family history of heart disease in his father and he is a current pack-a-day smoker. He notes that he is being followed up as an outpatient for a lung nodule in his right lung however today in the ER he was found to have a right-sided pneumonia as well as possibly COPD secondary to his tobacco use. He did have significant lung sounds on exam in the ER and was started on breathing treatments which greatly improved his shortness of breath. He was also found to have a troponin of over thousand. Hospital Course: 1. Non-STEMI/severe pulmonary hypertension -Echo demonstrated severe pulmonary hypertension with an RVSP of 86 mmHg as well as segmental wall dysfunction with normal EF -Appreciate cardiology's input, will continue with the heparin drip -Continue with Coreg, will start him on lisinopril as well as Lipitor -Given pulmonary hypertension, will discontinue his IV fluids and start him on Lasix -Once off the heparin drip can transition to Plavix and he will likely need further outpatient work-up with a heart cath pending resolution of his pneumonia -Triglycerides of 119 with a total cholesterol of 213 and LDL of 155 and HDL of 34 -Discussed with him the plan for discharge today, he expressed understanding was most of going home and he wants to go home today. He was discharged on quite a few medications having come in with not being on any medications and having not seen a doctor since he was a teenager. We will continue both his aspirin and his Plavix as well as a statin given his LDL of 155 and his non-STEMI. He was also be discharged on lisinopril as well as Coreg to maintain his blood pressure. And will start him on Lasix 20 mg p.o. daily for pulmonary hypertension I do recommend that he follow-up with pulmonology as an outpatient for management. He will need to follow-up with cardiology as an outpatient for further evaluation of his wall motion abnormality and an outpatient cath once his COPD exacerbation and community-acquired pneumonia resolves. 2. COPD exacerbation with community-acquired pneumonia/tobacco abuse -Chest x-ray demonstrates a right middle lobe consolidation with bilateral groundglass opacities -We will continue with azithromycin and Rocephin -Continue with p.o. prednisone as well as duo nebs -Smokes a pack a day does not need 1 nicotine patch. Discussed cessation -He will need to follow-up with pulmonology as an outpatient to monitor his pulmonary nodule as well as his pulmonary hypertension -He has completed azithromycin will be discharged on 7 more days of steroids as well as an albuterol inhaler. He will also complete 3 more days of oral Omnicef to complete his course for his bacterial pneumonia. He is aware that he does have a pulmonary nodule that is being followed at the [facility], however he follows with one of the [place] resident inspector they can take over management and monitoring of this nodule. Physical Exam Const alert, oriented x3 and no apparent distress General Appearance: cooperative HEENT normocephalic and moist oral mucous membranes Eyes PERRL, EOMs intact bilaterally and conjunctivae normal Neck supple and no JVD Resp normal respiratory effort, no retractions and no use of accessory muscles Auscultation: wheezes; Negative for crackles, rales or rhonchi Cardio regular rate, regular rhythm, S1 normal heart sound, S2 normal heart sound and no murmurs GI soft to palpation, non-tender and non-distended; Negative for hepatosplenomegaly Extremity no clubbing, cyanosis or edema Skin no rashes or lesions noted Neuro no focal motor deficits and no sensory deficits noted Psych affect normal Appearance: appropriate Weight / BMI Weight Weight: 168 lb 6.931 oz Body Mass Index (BMI) 24.5 ABG / Lab / Microbiology Data Result Diagrams: 08/01/21 05:00 08/01/21 05:00 Laboratory: Laboratory Results - last 24 hr 07/31/21 23:00: APTT 59.9 H 08/01/21 05:00: Sodium 138, Potassium 4.1, Chloride 107, Carbon Dioxide 25.0, Anion Gap 6, BUN 19 H, Creatinine 0.97, Estim Creat Clear Calc 78.96, Est GFR (MDRD) Af Amer 101, Est GFR (MDRD) Non-Af 83, BUN/Creatinine Ratio 19.6, Glucose 110 H, Calcium 8.7 08/01/21 05:00: APTT 51.5 H 08/01/21 05:00: WBC 15.1 H, RBC 3.88 L, Hgb 12.7 L, Hct 38.4 L, MCV 99.0 H, MCH 32.7 H, MCHC 33.1, RDW Std Deviation 47.8 H, RDW Coeff of Donna 13.2, Plt Count 336, MPV 10.8, Immature Gran % (Auto) 0.700, Neut % (Auto) 70.4 H, Lymph % (Auto) 22.9, [place] % (Auto) 5.0, Eos % (Auto) 0.6, Baso % (Auto) 0.4, Absolute Neuts (auto) 10.6 H, Absolute Lymphs (auto) 3.45, Nucleated RBC % 0 08/01/21 11:20: APTT 29.8 Microbiology: Microbiology 07/30/21 07:25 Blood Culture (Wb) - Left Hand Blood Culture - Preliminary No growth in 48 hours. 07/30/21 07:25 Blood Culture (Wb) - Anticubital Left Blood Culture - Preliminary No growth in 48 hours. D/C Instructions Discharge Diet: Low fat / Low cholesterol Call your doctor if you observe: Fever of 101 or Higher, Shortness of breath, Dizziness, Fainting spells, Swelling in the ankles, Chest pain and Increased palpitations (irregular heartbeat) Meaningful Use Info Meaningful Use Diagnoses (Choose all that apply): None applicable Discharge Plan Admission Admit Date/Time: 07/30/21 07:07 Attending Provider: Parminder Summers Primary Care Provider: Care Physician,No Primary Consulting Providers: Kulwant Martínez Instructions Additional Instructions / Restrictions: Patient Problems: Altered Health Status related to Hospitalization Patient Goals: *Optimal Level of Health *Keep Appointments *Medication Compliance *Remain Safe Discharge Orders/Prescriptions Prescriptions: New atorvastatin 40 mg Tablet 40 mg PO QHS Qty: 30 RF: 0 prednisone 20 mg Tablet 40 mg PO BREAKFAST Qty: 14 RF: 0 clopidogrel 75 mg Tablet 75 mg PO DAILY Qty: 30 RF: 0 carvedilol 3.125 mg Tablet 3.125 mg PO BID Qty: 60 RF: 0 aspirin 81 mg Tablet,Chewable 81 mg PO 0800 Qty: 30 RF: 0 lisinopril 5 mg Tablet 5 mg PO DAILY Qty: 30 RF: 0 furosemide 20 mg Tablet 20 mg PO DAILY Qty: 30 RF: 0 cefdinir 300 mg capsule 300 mg PO BID Qty: 6 RF: 0 albuterol sulfate 90 mcg/actuation HFA aerosol inhaler 2 puff inhalation Q6H PRN (Reason: shortness of breath or wheezing) Qty: 8.5 RF: 0 Continued timolol 1 drp EACH EYE BID RF: 0 Referrals / Follow Up: Mars Arnold DO [STAFF PHYSICIAN] - Within 3 Months Kulwant Martínez MD [STAFF PHYSICIAN] - Within 1 Month Kulwant Eng MD [STAFF PHYSICIAN] - 1-2 Days if not improving Care Physician,No Primary [Primary Care Provider] - Disposition Disposition (needs filled in before D/C Order can be placed): Home, Self Care Charges/Coding Visit Charges Inpatient E&M: 97511 Disch Hosp
== END 2021-08-01 15:13 | disposition home or self-care (01) | DRG 280 ==
LOC: ED 07:16 → PCU 07:25
PROVIDERS: Internal Medicine Cardiovascular Disease; Admitting Provider Family Medicine; Emergency Provider Emergency Medicine; Visit Provider Family Medicine
DX: I21.4 Non-ST elevation (NSTEMI) myocardial infarction (principal); J15.9 Unspecified bacterial pneumonia; J44.0 Chronic obstructive pulmonary disease with (acute) lower respiratory infection; J44.1 Chronic obstructive pulmonary disease with (acute) exacerbation; I27.20 Pulmonary hypertension, unspecified; E78.5 Hyperlipidemia, unspecified; R91.1 Solitary pulmonary nodule; F17.210 Nicotine dependence, cigarettes, uncomplicated; Z23 Encounter for immunization; Z79.899 Other long term (current) drug therapy; Z86.16 Personal history of COVID-19; Z82.49 Family history of ischemic heart disease and other diseases of the circulatory system
CPT/HCPCS: 36415; 71045; 80048; 80061; 83605; 84484; 85025; 85610; 85730; 87040; 93005; 93306; 94640; 99251; 99285; 99406; J7030; Q9957; A4216; G0463; J2405; J3490

== ENCOUNTER 2021-08-07 15:22 | Emergency (ER) | payer OTHER, SELFPAY ==
[2021-08-07] VITALS (8 sets, daily range): BP systolic 108–149; BP diastolic 80–97; PULSE 60–73; RESP 15–28; TEMP 35.7–36.7; O2SAT 94–97; BMI 24.3
--- NOTE | 2021-08-07 15:49 | CT_ITS ---
EXAM: CT ANGIOGRAPHY CHEST WITHOUT AND WITH INTRAVENOUS CONTRAST CLINICAL INDICATION: dyspnea TECHNIQUE: Helically acquired angiography images were obtained of the chest without and with intravenous contrast. This CT exam was performed using one or more of the following dose reduction techniques: automated exposure control, adjustment of the mA and/or kV according to patient size, and/or use of iterative reconstruction technique. This report was created using [employer] report generation technology. MIP reconstructed images were created and reviewed. CONTRAST: IV 100mL [id number] COMPARISON: None. FINDINGS: PULMONARY ARTERIES: No demonstrated pulmonary embolism or arterial dissection. AORTA: Unremarkable. Normal in caliber. No evidence of dissection. GREAT VESSELS OF AORTIC ARCH: Unremarkable. Normal in caliber. No evidence of dissection. LUNGS AND PLEURAL SPACES: There is bilateral pneumonia. There are bilateral pleural effusions. No mass. HEART: Unremarkable. Heart size is normal. No pericardial effusion. No signs of right heart strain, ratio of right ventricle to left ventricle measures less than 1. MEDIASTINUM: Unremarkable. No mediastinal or hilar adenopathy. Esophagus is unremarkable. No hiatal hernia. THYROID: Unremarkable. No thyroid lesions. BONES/JOINTS: There are degenerative findings of the thoracic spine. No suspicious lytic or blastic abnormality. CT/CTA Chest W/WO Contrast IMPRESSION: 1. No demonstrated pulmonary embolism or arterial dissection. 2. There is bilateral pneumonia. 3. There are bilateral pleural effusions. Electronically Signed: Kirt Allen MD at 19:06 EDT , Service support ,
--- NOTE | 2021-08-07 16:02 | EX.ED.DYSGE1 ---
HPI History of Present Illness Chief Complaint: Shortness of Breath Narrative Narrative: Patient is a 61-year-old male with past medical history of asthma and COPD who has smoked a pack a day for approximately 30 years. He reports he had Covid around mid June. He states that he was seen in the hospital last week secondary to shortness of breath and was admitted at time with pneumonia and possible heart damage. He states he was discharged from the hospital on Wednesday and had 1 or 2 good days but then his shortness of breath has returned and secondary to this he presents for reevaluation [facility] Medical History Asthma Glaucoma HLD (hyperlipidemia) Lung nodule Home Medications timolol 1 drp EACH EYE BID 07/30/21 [History Last Taken Unknown] albuterol sulfate 2 puff INHALATION Q6H PRN #8.5 g 08/01/21 [Rx Last Taken Unknown] aspirin 81 mg PO 0800 #30 tab 08/01/21 [Rx Last Taken Unknown] atorvastatin 40 mg PO QHS #30 tab 08/01/21 [Rx Last Taken Unknown] carvedilol 3.125 mg PO BID #60 tab 08/01/21 [Rx Last Taken Unknown] clopidogrel 75 mg PO DAILY #30 tab 08/01/21 [Rx Last Taken Unknown] furosemide 20 mg PO DAILY #30 tab 08/01/21 [Rx Last Taken Unknown] lisinopril 5 mg PO DAILY #30 tab 08/01/21 [Rx Last Taken Unknown] prednisone 40 mg PO BREAKFAST #14 tab 08/01/21 [Rx Last Taken Unknown] ipratropium-albuterol 3 ml INHALATION Q6H PRN #180 ml 08/07/21 [Rx Last Taken Unknown] Allergy/AdvReac Type Severity Reaction Status Date / Time No Known Allergies Allergy Verified 08/07/21 15:23 Family History (Updated 07/30/21 @ 13:[address] Parminder Summers MD) Other Diabetes Heart disease Social History (Updated 07/30/21 @ 08:31 by Barbra Major) household members: spouse housing: house current occupational status: employed Smoking Status: Heavy Smoker (>10/day) alcohol intake: current details: 8 beers per night per pt ROS ROS ED Constitutional Constitutional ED: Denies chills or fever(s) ENT ENT ED: Denies sore throat Cardiovascular Cardiovascular: Denies chest pain Respiratory/Chest Respiratory/Chest: Reports cough and dyspnea Gastrointestinal Gastrointestinal: Denies abdominal pain, diarrhea, nausea or vomiting Genitourinary Genitourinary ED: Denies dysuria Musculoskeletal Musculoskeletal: Denies myalgias Integumentary Denies rash Neurologic Neurologic: Denies headache(s) Hematologic/Lymphatic Hematologic/Lymphatic: Denies easy bleeding or easy bruising EXAM Physical Exam Const Vital Signs: 08/07/21 15:23 08/07/21 15:56 08/07/21 16:00 Temperature 96.2 F L 98.0 F Temperature Source Temporal Oral Pulse Rate 73 71 Respiratory Rate 18 28 H Respiratory Effort Short of Breath Respiratory Pattern Blood Pressure 149/86 H 130/80 H Blood Pressure Mean 107 96 Pulse Ox 97 94 Oxygen Delivery Method Room Air Room Air Room Air 08/07/21 16:35 08/07/21 17:17 08/07/21 19:04 Temperature Temperature Source Pulse Rate 68 72 63 Respiratory Rate 20 H 18 15 Respiratory Effort Respiratory Pattern Normal Blood Pressure 108/81 H 113/86 H Blood Pressure Mean 90 95 Pulse Ox 97 95 Oxygen Delivery Method Room Air Room Air Positive well nourished and well developed General Appearance ED: well developed HEENT Reports moist mucous membranes HEENT Narrative: No tongue or lip swelling no oral lesions no airway edema or compromise Eyes PERRL and EOMs intact bilaterally Neck supple and no JVD Resp normal respiratory effort Resp Narrative: Breath sounds are diminished throughout with diffuse expiratory wheeze and faint rhonchi in bilateral bases but no respiratory distress changes noted Cardio regular rate and regular rhythm Rate: other Other Details: Radial pulses are +2-4 bilaterally are equal and symmetric GI normal to inspection, nondistended, normoactive bowel sounds, non-tender, non-distended and no masses GI Narrative: No voluntary guarding or rigidity no pulsatile mass or fluid wave Auscultation: normoactive bowel sounds Palpation: soft Extremity normal to inspection Extremity Narrative: No asymmetric edema no pitting edema negative Homans' sign bilaterally Neuro oriented x3 and CN's II-XII intact bilaterally Sensorium / Orientation: alert Motor Exam: strength 5/5 throughout Psych mental status grossly normal Skin no rashes or lesions noted MDM MDM MDM Narrative Medical decision making narrative: Patient presented to the ER afebrile and in no acute respiratory distress with a pulse ox in the mid 90s on room air. With his recent diagnosis of pneumonia as well as a non-STEMI I did elect to perform repeat laboratory studies. His white count is slightly elevated consistent with his recent steroid use. His troponin is also elevated at 346 per chart review reveals this is downtrending with his most recent admission have been in the thousands. I elected perform a repeat Covid test which was negative and a CTA at this time with his worsening symptoms. CT revealed no PE but did show pleural effusion and persistent multifocal pneumonia. Patient was ambulated and his pulse ox remained approximately 95% on room air. Therefore at this time I feel this is troponin is downtrending and he is currently been treated for heart failure on Lasix as well as pneumonia and he does not have signs of sepsis or worsening cardiac damage or need for supplemental oxygen that he can be discharged and follow-up on an outpatient basis Lab Data Attestation: I reviewed the patient's lab results. Labs: Laboratory Results - last 24 hr 08/07/21 08/07/21 08/07/21 15:40 15:40 15:40 WBC 14.3 H RBC 4.39 L Hgb 14.3 Hct 43.3 MCV 98.6 H MCH 32.6 H MCHC 33.0 RDW Std Deviation 46.7 H RDW Coeff of Donna 13.1 Plt Count 404 MPV 11.1 Immature Gran % (Auto) 0.500 Neut % (Auto) 69.5 Lymph % (Auto) 22.0 [place] % (Auto) 6.0 Eos % (Auto) 1.4 Baso % (Auto) 0.6 Absolute Neuts (auto) 9.9 H Absolute Lymphs (auto) 3.15 Nucleated RBC % 0 PT 13.5 INR 1.1 APTT 30.7 Sodium 140 Potassium 4.4 Chloride 105 Carbon Dioxide 27.0 Anion Gap 8 BUN 19 H Creatinine 1.10 Estim Creat Clear Calc 69.63 Est GFR (MDRD) Af Amer 87 Est GFR (MDRD) Non-Af 72 BUN/Creatinine Ratio 17.3 Glucose 117 H Lactic Acid Calcium 9.2 Magnesium 2.5 Troponin I High Sens 346 H* B-Natriuretic Peptide 08/07/21 08/07/21 15:40 16:17 WBC RBC Hgb Hct MCV MCH MCHC RDW Std Deviation RDW Coeff of Donna Plt Count MPV Immature Gran % (Auto) Neut % (Auto) Lymph % (Auto) [place] % (Auto) Eos % (Auto) Baso % (Auto) Absolute Neuts (auto) Absolute Lymphs (auto) Nucleated RBC % PT INR APTT Sodium Potassium Chloride Carbon Dioxide Anion Gap BUN Creatinine Estim Creat Clear Calc Est GFR (MDRD) Af Amer Est GFR (MDRD) Non-Af BUN/Creatinine Ratio Glucose Lactic Acid 1.2 Calcium Magnesium Troponin I High Sens B-Natriuretic Peptide 1067.4 H Radiography Diagnostic Testing: Clinical Impression(s) from Imaging Studies Chest CTA 08/07/21 15:49 IMPRESSION: 1. No demonstrated pulmonary embolism or arterial dissection. 2. There is bilateral pneumonia. 3. There are bilateral pleural effusions. Electronically Signed: Kirt Allen MD at 19:06 EDT , Service support , Discharge Plan Triage Chief Complaint: Shortness of Breath ED Provider: Cr Oh Dx/Rx/DC Orders Clinical Impression: Pneumonia, Pleural effusion, Dyspnea Instructions: Pleural Effusion, Treating Pneumonia, ED Dyspnea Prescriptions: New ipratropium-albuterol 0.5 mg-3 mg(2.5 mg base)/3 mL solution for nebulization 3 ml inhalation Q6H PRN (Reason: shortness of breath or wheezing) Qty: 180 RF: 0 No Action timolol 1 drp EACH EYE BID RF: 0 atorvastatin 40 mg Tablet 40 mg PO QHS Qty: 30 RF: 0 prednisone 20 mg Tablet 40 mg PO BREAKFAST Qty: 14 RF: 0 clopidogrel 75 mg Tablet 75 mg PO DAILY Qty: 30 RF: 0 carvedilol 3.125 mg Tablet 3.125 mg PO BID Qty: 60 RF: 0 aspirin 81 mg Tablet,Chewable 81 mg PO 0800 Qty: 30 RF: 0 lisinopril 5 mg Tablet 5 mg PO DAILY Qty: 30 RF: 0 furosemide 20 mg Tablet 20 mg PO DAILY Qty: 30 RF: 0 albuterol sulfate 90 mcg/actuation HFA aerosol inhaler 2 puff inhalation Q6H PRN (Reason: shortness of breath or wheezing) Qty: 8.5 RF: 0 Primary Care Provider: Care Physician,No Primary Referrals: Alfredo Chiang MD [STAFF PHYSICIAN] - 3-5 Days Care Physician,No Primary [Primary Care Provider] - Disposition Disposition: Home, Self Care
[2021-08-07 16:14] LABS: Absolute Lymphocyte Count 3.15 X10^3/uL (0.83-4.51); Absolute Neutrophil Count 9.9 X10^3/uL (2.0-7.7); Basophil# 0.08 X10^3/uL; Basophil% 0.6 % (0-1); Eosinophils% 1.4 % (0-5); Hematocrit 43.3 % (40-54); Hemoglobin 14.3 g/dL (13.0-16.5); Lymphocyte # 3.15 X10^3/ul (0.83-4.51); Mean Corpuscular Hgb 32.6 pg (27.0-32.0); Mean Corpuscular Volume 98.6 fL (80-94); Mean Platelet Vol. 11.1 fl (6.2-12.0); Monocyte# 0.86 X10^3/uL; NRBC Flagged by Analyzer 0 % (0-5); Neutrophil # 9.93 X10^3/uL (2.7-7.7); Neutrophil % 69.5 % (47-70); Platelet Count 404 K/mm3 (150-450); RBC Distribution Width CV 13.1 % (11.6-14.6); RBC Distribution Width SD 46.7 fl (35.1-43.9); Red Blood Count 4.39 M/mm3 (4.6-6.2); White Blood Count 14.3 K/mm3 (4.4-11.0)
[2021-08-07] MEDS: MethylPREDNISolone 125 MG/2 ML Vial IV (16:15)
[2021-08-07 16:53] LABS: International Normalized Ratio 1.1; Prothrombin Time (Protime)PT. 13.5 SECONDS (11.7-14.9)
[2021-08-07 16:54] LABS: Partial Thromboplast Time 30.7 Seconds (24.1-36.2)
[2021-08-07 16:58] LABS: BNP,B-Type NATRIURETIC PEPTIDE 1067.4 pg/mL (0-100)
[2021-08-07 17:04] LABS: Lactic Acid 1.2 mmol/L (0.4-1.9)
[2021-08-07] MEDS: Ipratropium/Albuterol Sulfate 3 ML AMPUL.NEB INHALATION (17:14)
[2021-08-07] MEDS: Albuterol 2.5 MG/3 ML VIAL.NEB. INHALATION (17:14)
[2021-08-07 17:36] LABS: Anion Gap 8 (5-15); BUN 19 mg/dL (7-18); BUN/Creat Ratio 17.3 RATIO (10-20); Calcium,Total 9.2 mg/dL (8.5-10.1); Chloride 105 mmol/L (98-107); EST Glomerular Filtration Rate 72 mL/min (>60); Est Glom Filt Rate - Afr Amer 87 mL/min (>60); Estimated Creatinine Clearance 69.63 ml/min; Glucose 117 mg/dL (74-106); Magnesium 2.5 mg/dL (1.6-2.6); Potassium 4.4 mmol/L (3.5-5.1); Sodium Level 140 mmol/L (136-145); Troponin-I HS 346 pg/mL (3.0-78.0)
[2021-08-07] MEDS: Furosemide 40 MG/4 ML Vial IV (19:28)
== END 2021-08-07 20:16 | disposition home or self-care (01) ==
PROVIDERS: Emergency Provider Emergency Medicine
DX: J44.0 Chronic obstructive pulmonary disease with (acute) lower respiratory infection (principal); J18.9 Pneumonia, unspecified organism; J90 Pleural effusion, not elsewhere classified; I50.9 Heart failure, unspecified; E78.5 Hyperlipidemia, unspecified; F17.200 Nicotine dependence, unspecified, uncomplicated; Z79.02 Long term (current) use of antithrombotics/antiplatelets; Z79.82 Long term (current) use of aspirin; Z79.52 Long term (current) use of systemic steroids; Z79.899 Other long term (current) drug therapy; Z86.16 Personal history of COVID-19
CPT/HCPCS: 71275; 80048; 83605; 83735; 83880; 84484; 85025; 85610; 85730; 87426; 94640; 96374; 96375; 99283; Q9967; A4216; J1940

== ENCOUNTER 2021-10-30 10:11 | Outpatient (CLI) | payer BC, SELFPAY ==
[2021-10-30 10:16] LABS: Bacteria 0 SEEN /hpf (None Seen); Mucous, Urine 0 SEEN /hpf (<or=2+); Red Blood Cells-Urine 0 SEEN /hpf (0-5)
[2021-10-30 12:26] LABS: Color, Urine Yellow (Yellow); Glucose, Dipstick Normal (Normal); Ketone-Dipstick Negative (Negative); Leukocyte Esterase-Dipstick 25 /ul (Negative); Nitrite-Dipstick Negative (Negative); Occult Blood-Urine Negative /ul (Negative); Protein-Dipstick Negative (Negative); Urine Bilirubin Dipstick Negative (Negative); Urine Clarity Clear (Clear); Urine Urobilinogen Normal (Normal)
[2021-10-30 12:31] LABS: Absolute Lymphocyte Count 1.95 X10^3/uL (0.83-4.51); Absolute Neutrophil Count 7.6 X10^3/uL (2.0-7.7); Basophil# 0.07 X10^3/uL; Basophil% 0.7 % (0-1); Eosinophil# 0.16 X10^3/uL; Eosinophils% 1.5 % (0-5); Hematocrit 50.2 % (40-54); Hemoglobin 17.1 g/dL (13.0-16.5); Lymphocyte # 1.95 X10^3/ul (0.83-4.51); Lymphocyte % 18.6 % (19-41); Mean Corp Hgb Conc 34.1 g/dL (32-36); Mean Corpuscular Hgb 34.1 pg (27.0-32.0); Monocyte% 6.7 % (0-10); NRBC Flagged by Analyzer 0 % (0-5); Neutrophil # 7.55 X10^3/uL (2.7-7.7); Neutrophil % 72.1 % (47-70); Platelet Count 155 K/mm3 (150-450); RBC Distribution Width CV 14.1 % (11.6-14.6); RBC Distribution Width SD 51.9 fl (35.1-43.9); Red Blood Count 5.02 M/mm3 (4.6-6.2); White Blood Count 10.5 K/mm3 (4.4-11.0)
[2021-10-30 12:36] LABS: Squamous Epithelial Cells - UA 0-5 SEEN /hpf (0-5); White Blood Cells 0-5 SEEN /hpf (0-5)
[2021-10-30 13:17] LABS: ALB/GLOB Ratio 0.9 RATIO (0.9-2.4); AST(SGOT) 26 U/L (15-37); Alanine Aminotransfer ALT/SGPT 22 U/L (16-61); Albumin, Serum 3.5 g/dL (3.2-5.0); Alkaline Phosphatase 75 U/L (45-117); Anion Gap 7 (5-15); BUN 8 mg/dL (7-18); BUN/Creat Ratio 8.5 RATIO (10-20); Calcium,Total 9.3 mg/dL (8.5-10.1); Chloride 107 mmol/L (98-107); Cholesterol 268 mg/dL (200); Creatinine, Serum 0.94 mg/dL (0.70-1.30); EST Glomerular Filtration Rate 86 mL/min (>60); Est Glom Filt Rate - Afr Amer 104 mL/min (>60); Globulin 3.9 g/dL (2.2-4.2); Glucose 103 mg/dL (74-106); High Density Lipoprotein 42 mg/dL; Potassium 4.4 mmol/L (3.5-5.1); Protein, Total 7.4 g/dL (6.4-8.2); Sodium Level 138 mmol/L (136-145); Thyroid Stim Hormone (TSH) 1.96 uIU/mL (0.358-3.74); Triglycerides 190 mg/dL; Very Low Density Lipoprotein 38 mg/dL (5-40)
[2021-10-31 15:51] LABS: Ferritin 358 ng/mL (26-388); Iron Binding Capacity,Total 392 ug/dL (250-450)
[2021-10-31 16:22] LABS: Hemoglobin A1c 5.3 % (3.8-5.6)
[2021-10-31 17:52] LABS: Thyroid Peroxidase AB < 8 IU/mL (0-34)
[2021-11-03 18:08] LABS: Transferrin 296 mg/dL (177-329)
== END 2021-10-30 23:59 | disposition short-term general hospital (02) ==
LOC: MFPLAB 10:13
PROVIDERS: PCP Family Medicine; Referring Provider Family Medicine; Visit Provider Family Medicine
DX: R73.09 Other abnormal glucose (principal); D75.1 Secondary polycythemia; I10 Essential (primary) hypertension; E04.1 Nontoxic single thyroid nodule
CPT/HCPCS: 36415; 80053; 80061; 81001; 82728; 83036; 83550; 84439; 84443; 84466; 85025; 86376

== ENCOUNTER 2021-12-04 09:42 | Outpatient (CLI) | payer BC, SELFPAY ==
--- NOTE | 2021-12-04 09:48 | US_ITS ---
STUDY: THYROID ULTRASOUND REASON FOR EXAM: Male, 61 years old. NODULE TECHNIQUE: Ultrasound evaluation of the thyroid was performed with real-time and static ayala-scale imaging. COMPARISON: None. FINDINGS: RIGHT LOBE: The right lobe of the thyroid gland measures 4.9 x 2.1 cm. There is a homogeneous echotexture. There are no demonstrated solid, cystic or complex lesions. LEFT LOBE: The left lobe of the thyroid gland measures 5.1 x 2.1 cm. There is a homogeneous echotexture. There are no demonstrated solid, cystic or complex lesions. ISTHMUS: The isthmus measures 2 mm. US/Thyroid IMPRESSION: There are no acute findings on this ultrasound examination of the thyroid. Electronically Signed: Kirt Allen MD at 22:16 EST ,
== END 2021-12-04 23:59 | disposition home or self-care (01) ==
LOC: US 09:43
PROVIDERS: PCP Family Medicine; Referring Provider Family Medicine; Visit Provider Family Medicine
DX: E04.1 Nontoxic single thyroid nodule (principal)
CPT/HCPCS: 76536

== ENCOUNTER → 2022-02-17 | Outpatient (CLI) | payer BC, SELFPAY ==
[2022-02-17 10:40] LABS: Bacteria 0 SEEN /hpf (None Seen); Mucous, Urine 0 SEEN /hpf (<or=2+); Red Blood Cells-Urine 0 SEEN /hpf (0-5); Squamous Epithelial Cells - UA 0 SEEN /hpf (0-5); White Blood Cells 0 SEEN /hpf (0-5)
[2022-02-17 12:17] LABS: Color, Urine Yellow (Yellow); Glucose, Dipstick Normal (Normal); Ketone-Dipstick Negative (Negative); Leukocyte Esterase-Dipstick Negative /ul (Negative); Nitrite-Dipstick Negative (Negative); Occult Blood-Urine 10 /ul (Negative); Protein-Dipstick Negative (Negative); Urine Bilirubin Dipstick Negative (Negative); Urine Clarity Clear (Clear); Urine Urobilinogen Normal (Normal)
[2022-02-17 12:19] LABS: Absolute Lymphocyte Count 1.75 X10^3/uL (0.83-4.51); Absolute Neutrophil Count 4.8 X10^3/uL (2.0-7.7); Basophil# 0.05 X10^3/uL; Basophil% 0.7 % (0-1); Eosinophil# 0.09 X10^3/uL; Eosinophils% 1.2 % (0-5); Hematocrit 47.7 % (40-54); Hemoglobin 15.7 g/dL (13.0-16.5); Lymphocyte # 1.75 X10^3/ul (0.83-4.51); Mean Corp Hgb Conc 32.9 g/dL (32-36); Mean Corpuscular Hgb 33.8 pg (27.0-32.0); Mean Corpuscular Volume 102.8 fL (80-94); Mean Platelet Vol. 12.2 fl (6.2-12.0); Monocyte# 0.53 X10^3/uL; Monocyte% 7.3 % (0-10); NRBC Flagged by Analyzer 0 % (0-5); Neutrophil # 4.84 X10^3/uL (2.7-7.7); Neutrophil % 66.3 % (47-70); Platelet Count 166 K/mm3 (150-450); RBC Distribution Width CV 12.9 % (11.6-14.6); RBC Distribution Width SD 48.7 fl (35.1-43.9); Red Blood Count 4.64 M/mm3 (4.6-6.2); White Blood Count 7.3 K/mm3 (4.4-11.0)
[2022-02-17 12:24] LABS: AST(SGOT) 62 U/L (15-37); Alanine Aminotransfer ALT/SGPT 59 U/L (16-61); Albumin, Serum 3.9 g/dL (3.2-5.0); Alkaline Phosphatase 93 U/L (45-117); Anion Gap 6 (5-15); BUN 8 mg/dL (7-18); BUN/Creat Ratio 6.2 RATIO (10-20); Calcium,Total 9.3 mg/dL (8.5-10.1); Chloride 107 mmol/L (98-107); Cholesterol 230 mg/dL (200); Creatinine, Serum 1.29 mg/dL (0.70-1.30); EST Glomerular Filtration Rate 60 mL/min (>60); Est Glom Filt Rate - Afr Amer 72 mL/min (>60); Globulin 3.9 g/dL (2.2-4.2); Glucose 113 mg/dL (74-106); High Density Lipoprotein 43 mg/dL; Potassium 4.6 mmol/L (3.5-5.1); Protein, Total 7.8 g/dL (6.4-8.2); Sodium Level 140 mmol/L (136-145); Triglycerides 350 mg/dL; Very Low Density Lipoprotein 70 mg/dL (5-40)
== END | disposition home or self-care (01) ==
LOC: MFPLAB 10:38
PROVIDERS: PCP Family Medicine; Visit Provider Family Medicine
DX: R73.09 Other abnormal glucose (principal); E78.5 Hyperlipidemia, unspecified
CPT/HCPCS: 36415; 80053; 80061; 81001; 83036; 85025

== ENCOUNTER → 2024-06-07 | Outpatient (CLI) | payer BC, MEDICARE, SELFPAY ==
[2024-06-07 09:09] LABS: Bacteria 0 SEEN /hpf (None Seen); Mucous, Urine 0 SEEN /hpf (<or=2+); Red Blood Cells-Urine 0 SEEN /hpf (0-5); White Blood Cells 0 SEEN /hpf (0-5)
[2024-06-07 10:35] LABS: Absolute Lymphocyte Count 1.83 X10^3/uL (0.83-4.51); Absolute Neutrophil Count 4.9 X10^3/uL (2.0-7.7); Basophil# 0.08 X10^3/uL; Eosinophil# 0.47 X10^3/uL; Eosinophils% 5.8 % (0-5); Hematocrit 52.3 % (40-54); Hemoglobin 17.6 g/dL (13.0-16.5); Lymphocyte # 1.83 X10^3/ul (0.83-4.51); Lymphocyte % 22.7 % (19-41); Mean Corp Hgb Conc 33.7 g/dL (32-36); Mean Corpuscular Hgb 33.7 pg (27.0-32.0); Monocyte# 0.81 X10^3/uL; NRBC Flagged by Analyzer 0 % (0-5); Neutrophil # 4.85 X10^3/uL (2.7-7.7); Neutrophil % 60.3 % (47-70); Platelet Count 130 K/mm3 (150-450); RBC Distribution Width CV 12.4 % (11.6-14.6); RBC Distribution Width SD 46.4 fl (35.1-43.9); Red Blood Count 5.23 M/mm3 (4.6-6.2); White Blood Count 8.1 K/mm3 (4.4-11.0)
[2024-06-07 10:42] LABS: Color, Urine Yellow (Yellow); Glucose, Dipstick Normal (Normal); Ketone-Dipstick Negative (Negative); Leukocyte Esterase-Dipstick 25 /ul (Negative); Nitrite-Dipstick Negative (Negative); Occult Blood-Urine 25 /ul (Negative); Protein-Dipstick 15 mg/dl (Negative); Urine Bilirubin Dipstick Negative (Negative); Urine Clarity Clear (Clear); Urine Urobilinogen Normal (Normal)
[2024-06-07 11:07] LABS: ALB/GLOB Ratio 0.9 RATIO (0.9-2.4); AST(SGOT) 73 U/L (15-37); Alanine Aminotransfer ALT/SGPT 74 U/L (16-61); Albumin, Serum 3.6 g/dL (3.2-5.0); Alkaline Phosphatase 86 U/L (45-117); Anion Gap 7 (5-15); BUN 7 mg/dL (7-18); BUN/Creat Ratio 6.5 RATIO (10-20); Calcium,Total 9.7 mg/dL (8.5-10.1); Chloride 104 mmol/L (98-107); Cholesterol 282 mg/dL (200); Creatinine, Serum 1.07 mg/dL (0.70-1.30); EST Glomerular Filtration Rate 74 mL/min (>60); Est Glom Filt Rate - Afr Amer 89 mL/min (>60); Globulin 4.1 g/dL (2.2-4.2); Glucose 124 mg/dL (74-106); High Density Lipoprotein 60 mg/dL; Potassium 4.7 mmol/L (3.5-5.1); Protein, Total 7.7 g/dL (6.4-8.2); Sodium Level 138 mmol/L (136-145); Triglycerides 99 mg/dL; Very Low Density Lipoprotein 20 mg/dL (5-40)
[2024-06-07 11:11] LABS: Squamous Epithelial Cells - UA 0-5 SEEN /hpf (0-5)
[2024-06-08 11:30] LABS: Ferritin 876 ng/mL (26-388); Iron 154 ug/dL (65-175); Iron Binding Capacity,Total 369 ug/dL (250-450); PERCENT IRON SATURATION 41.7 % (15.0-55.0)
[2024-06-08 12:12] LABS: Hemoglobin A1c 5.4 % (3.8-5.6)
== END | disposition home or self-care (01) ==
LOC: MFPLAB 09:03
PROVIDERS: PCP Family Medicine; Visit Provider Family Medicine
DX: R73.09 Other abnormal glucose (principal); D75.1 Secondary polycythemia; R79.89 Other specified abnormal findings of blood chemistry
CPT/HCPCS: 36415; 80053; 80061; 81001; 82728; 83036; 83540; 83550; 85025

== ENCOUNTER → 2024-06-09 | Outpatient (CLI) | payer BC, MEDICARE, SELFPAY ==
[2024-06-09 16:12] LABS: Ferritin 855 ng/mL (26-388); Iron 154 ug/dL (65-175); Iron Binding Capacity,Total 362 ug/dL (250-450); PERCENT IRON SATURATION 42.5 % (15.0-55.0)
[2024-06-09 16:43] LABS: Hepatitis B Surface Antibody Non-Reactive; Hepatitis B Surface Antigen Non-Reactive (Nonreactive); Hepatitis C Antibody Non-Reactive (Nonreactive)
[2024-06-09 19:39] LABS: Hemoglobin A1c 5.3 % (3.8-5.6)
[2024-06-11 08:09] LABS: Transferrin 302 mg/dL (177-329)
== END | disposition home or self-care (01) ==
LOC: MFPLAB 11:59
PROVIDERS: PCP Family Medicine; Visit Provider Family Medicine
DX: R73.09 Other abnormal glucose (principal); R79.89 Other specified abnormal findings of blood chemistry; D75.1 Secondary polycythemia
CPT/HCPCS: 36415; 82728; 83036; 83540; 83550; 84466; 86706; 86803; 87340

== ENCOUNTER → 2024-06-23 | Outpatient (CLI) | payer BC, MEDICARE, SELFPAY ==
--- NOTE | 2024-06-23 07:05 | CT_ITS ---
STUDY: CT CHEST WITHOUT CONTRAST REASON FOR EXAM: Male, 64 years old. NODULE RADIATION DOSAGE (If Supplied By Facility): CTDIvol = ( 10.08 ) mGy, DLP = ( 425.81 ) mGycm TECHNIQUE: Transaxial imaging was performed without the administration of intravenous contrast material. Multiplanar coronal and sagittal images were reformatted. Individualized dose optimization techniques were used for this CT. COMPARISON: Comparison is made with prior study dated August 07, 2021. FINDINGS: CHEST There is a 6 mm calcified granuloma in the anterior aspect of the left upper lobe as seen on axial image #47. Scarring in the right lung apex with a bullous formation. Minimal scarring in the anterolateral aspect of the lingular segment of the left upper lobe. There is no demonstrated pleural abnormality. There are calcifications of the coronary arteries. There are multiple small lymph nodes within the mediastinum, which are normal in size and morphology most compatible with reactive lymph hyperplasia. Normal hilar regions. Normal unenhanced pulmonary arteries. There is atherosclerotic calcification of the aortic arch with tortuosity and elongation of the aortic arch and descending thoracic aorta. There are degenerative changes of the thoracic spine. Calcified splenic granulomas. CT/Chest without Contrast IMPRESSION: Calcified granuloma in the anterior aspect of the left upper lobe as well as scarring with bullous changes in the right lung apex. Electronically Signed: Bruno Ray MD at 10:18 EDT ,
== END | disposition home or self-care (01) ==
PROVIDERS: PCP Family Medicine; Referring Provider Family Medicine; Visit Provider Family Medicine
DX: R91.1 Solitary pulmonary nodule (principal)
CPT/HCPCS: 71250

== ENCOUNTER → 2024-10-10 | Outpatient (CLI) | payer BC, MEDICARE, SELFPAY ==
--- NOTE | 2024-10-10 08:43 | ECHOCS_ITS ---
Reason For Study: PHTN Procedure This was a 2D Doppler, Color Flow transthoracic echocardiogram. Myocardial strain analysis was performed in this exam to aid in the assessment of cardiac function. Contrast injection was performed. Exam performed in department. Left Ventricle Moderately dilated left ventricle. The left ventricular ejection fraction is 45 %. There are regional wall motion abnormalities as specified. Infero-Basal: Akinetic. Posterior-Basal: Akinetic. Mid-Posterior: Akinetic. Septal [place] : Hypokinetic. Right Ventricle Normal RV size. Mild RVH. Normal systolic function. Atria The left atrium is moderately enlarged. The right atrium is moderately enlarged. Mitral Valve Bileaflet diffuse mitral valve thickening. Moderately severe (3+) eccentric mitral valve insufficiency. Tricuspid Valve Normal tricuspid valve. Moderately severe (3+) tricuspid valve insufficiency. Pulmonary artery systolic pressure is 86 mmHg. Severe pulmonary hypertension. Aortic Valve Trisinus/trileaflet aortic valve. Mild focal aortic valve thickening. Mild-Moderate (1-2+) aortic valve insufficiency. Pulmonic Valve Normal pulmonic valve. Great Vessels Normal aortic root. Mild pulmonary artery dilation. The inferior vena cava is dilated. and partially collapses. Pericardium/Pleural No pericardial effusion. Medication Diluted definity 1.5ml given slow IV push to enhance endocardial definition. MMode/2D Measurements & Calculations LVIDd: 6.3 cm IVSd: 1.4 cm asc Aorta Diam: 3.1 cm LVIDs: 5.0 cm LVPWd: 0.69 cm RVDd: 4.0 cm FS: 20.3 % LAV(MOD-bp): 114.3 ml LVAd ap4: 39.2 cm2 LVAd ap2: 46.7 cm2 LAV(MOD-bp) Indexed: 57.9 ml/m2 LVLd ap4: 8.5 cm LVLd ap2: 9.1 cm LAV(MOD-sp2): 113.5 ml EDV(MOD-sp4): 147.2 ml EDV(MOD-sp2): 195.9 ml LAV(MOD-sp4): 105.4 ml EDV(sp4-el): 154.4 ml EDV(sp2-el): 202.6 ml LVAs ap4: 27.0 cm2 LVAs ap2: 32.4 cm2 LVLs ap4: 7.9 cm LVLs ap2: 8.5 cm ESV(MOD-sp4): 74.4 ml ESV(MOD-sp2): 108.8 ml ESV(sp4-el): 78.8 ml ESV(sp2-el): 105.5 ml EF(MOD-sp4): 49.5 % EF(MOD-sp2): 44.5 % EF(sp4-el): 49.0 % SV(MOD-sp4): 72.8 ml SV(MOD-sp2): 87.1 ml SV(sp4-el): 75.6 ml SI(MOD-sp4): 36.8 ml/m2 SI(MOD-sp2): 44.1 ml/m2 LA A4 area: 30.7 cm2 LA dimension(2D): 5.1 cm RA A4 area: 24.9 cm2 TAPSE: 1.8 cm Time Measurements MV dec time: 0.19 sec Doppler Measurements & Calculations MV E max ganga: 156.7 cm/sec Lat Peak E' Ganga: 5.5 cm/sec Med Peak E' Ganga: 3.6 cm/sec MV A max ganga: 56.5 cm/sec E/E' lat: 28.3 E/E' med: 43.3 MV E/A: 2.8 MV dec slope: 833.7 cm/sec2 Ao V2 max: 168.2 cm/sec AI max ganga: 474.5 cm/sec Ao max P.3 mmHg AI max P.1 mmHg Ao V2 mean: 110.2 cm/sec AI dec slope: 256.5 cm/sec2 Ao mean P.8 mmHg AI P1/2t: 541.8 msec Ao V2 VTI: 34.6 cm AV (velocity ratio): 0.68 LV V1 max: 106.9 cm/sec PA V2 max: 91.1 cm/sec PI end-d ganga: 124.2 cm/sec LV V1 max P.6 mmHg LV V1 mean P.1 mmHg LV V1 mean: 64.9 cm/sec LV V1 VTI: 23.6 cm TR max ganga: 445.7 cm/sec TR max P.4 mmHg ECHO/Echo Complete W/ Contrast Interpretation Summary The left ventricular ejection fraction is 45 %. Moderately dilated left ventricle. Moderately severe (3+) eccentric mitral valve insufficiency. Pulmonary artery systolic pressure is 86 mmHg. Severe pulmonary hypertension. Mild-Moderate (1-2+) aortic valve insufficiency. and partially collapses. Paired with the previous the left ventricular systolic function is less and the pulmonary pressures are about the same. Contrast injection was performed. Ordering Physician: Darrion Chaparro V Referring Physician: Marcelino Taylor Performed By: Ellyn Marie, WIN, RVT
== END | disposition home or self-care (01) ==
LOC: CVS 08:41
PROVIDERS: PCP Family Medicine; Referring Provider Internal Medicine Pulmonary Disease; Visit Provider Internal Medicine Pulmonary Disease
DX: I27.20 Pulmonary hypertension, unspecified (principal)
CPT/HCPCS: 93306; Q9957; A4216; C8929

== ENCOUNTER → 2024-10-16 | Outpatient (CLI) | payer BC, MEDICARE, SELFPAY ==
[2024-10-16 15:57] LABS: Absolute Lymphocyte Count 2.06 X10^3/uL (0.83-4.51); Absolute Neutrophil Count 4.2 X10^3/uL (2.0-7.7); Basophil# 0.08 X10^3/uL; Basophil% 1.1 % (0-1); Eosinophil# 0.13 X10^3/uL; Eosinophils% 1.8 % (0-5); Hematocrit 50.9 % (40-54); Hemoglobin 16.4 g/dL (13.0-16.5); Lymphocyte # 2.06 X10^3/ul (0.83-4.51); Lymphocyte % 28.9 % (19-41); Mean Corp Hgb Conc 32.2 g/dL (32-36); Mean Corpuscular Hgb 32.5 pg (27.0-32.0); Mean Corpuscular Volume 100.8 fL (80-94); Mean Platelet Vol. 11.7 fl (6.2-12.0); Monocyte# 0.66 X10^3/uL; Monocyte% 9.3 % (0-10); NRBC Flagged by Analyzer 0 % (0-5); Neutrophil # 4.16 X10^3/uL (2.7-7.7); Neutrophil % 58.5 % (47-70); Platelet Count 157 K/mm3 (150-450); RBC Distribution Width CV 13.5 % (11.6-14.6); RBC Distribution Width SD 50.6 fl (35.1-43.9); Red Blood Count 5.05 M/mm3 (4.6-6.2); White Blood Count 7.1 K/mm3 (4.4-11.0)
[2024-10-16 16:31] LABS: ALB/GLOB Ratio 0.9 RATIO (0.9-2.4); AST(SGOT) 34 U/L (15-37); Alanine Aminotransfer ALT/SGPT 27 U/L (16-61); Albumin, Serum 3.6 g/dL (3.2-5.0); Alkaline Phosphatase 86 U/L (45-117); Anion Gap 6 (5-15); BUN 7 mg/dL (7-18); BUN/Creat Ratio 6.1 RATIO (10-20); Calcium,Total 9.3 mg/dL (8.5-10.1); Chloride 107 mmol/L (98-107); Cholesterol 193 mg/dL (200); Creatinine, Serum 1.15 mg/dL (0.70-1.30); EST Glomerular Filtration Rate 68 mL/min (>60); Est Glom Filt Rate - Afr Amer 82 mL/min (>60); Globulin 3.9 g/dL (2.2-4.2); Glucose 98 mg/dL (74-106); High Density Lipoprotein 39 mg/dL; Potassium 4.1 mmol/L (3.5-5.1); Protein, Total 7.5 g/dL (6.4-8.2); Sodium Level 138 mmol/L (136-145); Triglycerides 145 mg/dL; Very Low Density Lipoprotein 29 mg/dL (5-40)
== END | disposition home or self-care (01) ==
PROVIDERS: PCP Family Medicine; Referring Provider Family Medicine; Visit Provider Family Medicine
DX: E78.5 Hyperlipidemia, unspecified (principal)
CPT/HCPCS: 36415; 80053; 80061; 85025

== ENCOUNTER → 2024-11-07 | Outpatient (CLI) | payer BC, MEDICARE, SELFPAY ==
--- NOTE | 2024-11-07 17:04 | STRESSREP ---
Stress Test Report Exercise myocardial perfusion stress test. 64-year-old man with a history of coronary artery disease and dyspnea Stress protocol: Resting EKG demonstrates sinus rhythm with a rate of 57 bpm resting blood pressure is 96/62 mmHg. The patient exercised according to the regular Drew protocol for a total duration of 3 minutes and 47 seconds attaining a maximum heart rate of 137 bpm which was 88% of maximum predicted heart rate; the maximum workload was 6.4 metabolic equivalents. At rest there were no ST or T wave changes noted to suggest ischemia and at peak exercise 1.[address] depression was noted in leads II, III and aVF and [address] depression noted in V5 and V6 suggestive of ischemia. No clinical angina was noted but the patient got markedly short of breath. The peak blood pressure was 122/64 mmHg. this was an inadequate blood pressure response to exercise. Rate-pressure product was 15,200. Myocardial perfusion protocol. 13 mCi of technetium 99m sestamibi was injected at rest. The patient exercised according to regular Drew protocol for total duration of 3 minutes and 47 seconds and at peak exercise 45 mCi of technetium 99m sestamibi was injected stress images were obtained stress and rest images were reconstructed in comparing the short axis vertical long and horizontal long axis. Gated images were also obtained. Perfusion SPECT analysis: Review of the stress images demonstrate a mildly dilated cardiac silhouette size. There is an extensive defect noted involving the mid anterior wall anteroseptal wall and apex. A medium size defect is also noted involving the inferior wall. The resting images demonstrate improvement in part of the inferior wall and the distal anterior wall. The apex defect appears to be persistent. The above is suggestive of multivessel disease with ischemia involving the anteroseptal wall, inferior wall, and an infarct involving the apex. Gated SPECT analysis: The gated ejection fraction is 35%. Conclusion: Abnormal exercise myocardial perfusion stress test at a low to moderate workload Reduced ejection fraction.
== END | disposition home or self-care (01) ==
LOC: CVS 07:21
PROVIDERS: PCP Family Medicine; Referring Provider Family Medicine; Visit Provider Family Medicine
DX: I25.10 Atherosclerotic heart disease of native coronary artery without angina pectoris (principal)
CPT/HCPCS: 78452; 93017; A9500; A4216

== ENCOUNTER → 2024-11-10 | Outpatient (CLI) | payer BC, MEDICARE, SELFPAY ==
[2024-11-10 15:15] LABS: Absolute Lymphocyte Count 2.61 X10^3/uL (0.83-4.51); Absolute Neutrophil Count 7.3 X10^3/uL (2.0-7.7); Basophil% 0.9 % (0-1); Eosinophil# 0.22 X10^3/uL; Hematocrit 54.7 % (40-54); Lymphocyte # 2.61 X10^3/ul (0.83-4.51); Lymphocyte % 23.6 % (19-41); Mean Corp Hgb Conc 33.5 g/dL (32-36); Mean Corpuscular Hgb 32.6 pg (27.0-32.0); Mean Corpuscular Volume 97.5 fL (80-94); Mean Platelet Vol. 11.1 fl (6.2-12.0); Monocyte# 0.81 X10^3/uL; Monocyte% 7.3 % (0-10); NRBC Flagged by Analyzer 0 % (0-5); Neutrophil # 7.27 X10^3/uL (2.7-7.7); Neutrophil % 65.8 % (47-70); Platelet Count 172 K/mm3 (150-450); RBC Distribution Width CV 12.6 % (11.6-14.6); RBC Distribution Width SD 45.3 fl (35.1-43.9); Red Blood Count 5.61 M/mm3 (4.6-6.2); White Blood Count 11.1 K/mm3 (4.4-11.0)
[2024-11-10 15:22] LABS: Hemoglobin 18.3 g/dL (13.0-16.5)
[2024-11-10 15:47] LABS: Anion Gap 5 (5-15); BUN 14 mg/dL (7-18); BUN/Creat Ratio 12.5 RATIO (10-20); Calcium,Total 10.1 mg/dL (8.5-10.1); Chloride 103 mmol/L (98-107); Creatinine, Serum 1.12 mg/dL (0.70-1.30); EST Glomerular Filtration Rate 70 mL/min (>60); Est Glom Filt Rate - Afr Amer 84 mL/min (>60); Glucose 96 mg/dL (74-106); Potassium 4.5 mmol/L (3.5-5.1); Sodium Level 139 mmol/L (136-145)
== END | disposition home or self-care (01) ==
LOC: LAB 14:22
PROVIDERS: PCP Family Medicine; Referring Provider Internal Medicine Cardiovascular Disease; Visit Provider Internal Medicine Cardiovascular Disease
DX: I27.20 Pulmonary hypertension, unspecified (principal); I21.4 Non-ST elevation (NSTEMI) myocardial infarction; I25.10 Atherosclerotic heart disease of native coronary artery without angina pectoris; R06.00 Dyspnea, unspecified; I05.9 Rheumatic mitral valve disease, unspecified
CPT/HCPCS: 36415; 80048; 85025

== ENCOUNTER 2024-11-15 10:19 | Day surgery (SDC) | payer BC, MEDICARE, SELFPAY ==
[2024-11-14 07:44] VITALS: BMI 25.9
[2024-11-15 12:36] LABS: Blood Gas Specimen Type VEN; O2 Delivery Device Not entered; SITE Not entered; VBG BASE EXCESS -4 mmol/L (-1.0-3.5); VBG Bicarbonate 22 mmol/L (22-26); VBG PO2 89 mmHg (25-40); VBG SO2 97 % (50-70); VBG TCO2 23 mmol/L (23-33); VBG pCO2 37.2 mmHg (41-51); VBG pH 7.37 (7.32-7.42)
[2024-11-15 12:42] LABS: Blood Gas Specimen Type VEN; O2 Delivery Device Not entered; SITE Not entered; VBG BASE EXCESS -1 mmol/L (-1.0-3.5); VBG Bicarbonate 24 mmol/L (22-26); VBG PO2 37 mmHg (25-40); VBG SO2 68 % (50-70); VBG TCO2 25 mmol/L (23-33); VBG pCO2 41.3 mmHg (41-51); VBG pH 7.37 (7.32-7.42)
[2024-11-15 12:47] LABS: Blood Gas Specimen Type VEN; O2 Delivery Device Not entered; SITE Not entered; VBG BASE EXCESS 0 mmol/L (-1.0-3.5); VBG Bicarbonate 25 mmol/L (22-26); VBG PO2 34 mmHg (25-40); VBG SO2 64 % (50-70); VBG TCO2 27 mmol/L (23-33); VBG pCO2 43.5 mmHg (41-51); VBG pH 7.37 (7.32-7.42)
--- NOTE | 2024-11-15 13:24 | CL.D_ITS ---
Patient Name: JOHNY HENSON Study Date: 11/15/2024 Performing: Jamarcus Redd MD Ht: 69 inches 175.26 cm : 1960 Wt: 176 lbs 79.83 kg Age: 64 Gender: male BSA: 1.96 PROCEDURE(S) PERFORMED DC05-(38431)RHC/LHC/COR/LV CLINICAL PROFILE AND INDICATIONS Indications: Suspected CAD, Suspected CAD Heart Failure: NYHA Class: 3, Newly Diagnosed: Yes, Heart Failure Type: Systolic Stress/Imaging Date: 10/28/24 CAD Presentations: Stable angina. CONCLUSIONS Severe triple-vessel disease noted with dilated cardiomyopathy and reduced ejection fraction of 25%, 2+-3+ mitral regurgitation, moderate pulmonary hypertension RECOMMENDATIONS Surgery consult for coronary revascularization DESCRIPTION OF PROCEDURE The patient arrived to the procedure lab. The risks and benefits of the procedure as well as a full description of our services here and current unavailability of surgical backup were fully explained to the patient and/or their significant other prior to the catheterization. The Timeout was completed, verifying the correct patient and procedure. The patient's procedural site was prepped and draped in the usual fashion. Local anesthetic was given subcutaneously to right radial region with Lidocaine 2%. Using a modified Seldinger technique, arterial access was obtained via the right radial artery, a 6Fr sheath was inserted. Venous access was obtained via the right brachiocephalic vein, a 7Fr sheath was inserted. A 7Fr thermal dilution catheter was inserted and right heart pressures were recorded, it was then advanced to PA position for cardiac outputs. O2 saturations were then obtained. Thermal dilution cardiac outputs were then recorded. The Thermal dilution catheter was then removed. Left Coronary Artery selective angiography was performed in multiple views using a 5 Fr. 4.0 [place] catheter. Right Coronary Artery selective angiography was then performed in multiple views using a 5 Fr. 4.0 [place] catheter. Left Ventriculography was performed in POSADAS projection using a 5 Fr. Pigtail catheter. LV to AO pullback pressures were then recorded.The arterial sheath was pulled and a TR Band was applied for hemostasis. 10cc air. The venous sheath was then pulled and manual compression applied until hemostasis achieved CORONARY ANGIOGRAPHY DOMINANCE: Right Dominant LEFT HEART ASSESSMENT Left Ventricular Ejection Fraction: by LV Gram 25 % Inferior Mid Akinesis. Anterior Hypokinesis - Severe Depressed Left Ventricular systolic function RIGHT HEART ASSESSMENT Thermal CO: 4.12 Thermal CI: 2.1 PW: 14/12 10 PA: 60/19 32 RV: 63/-1 7 RA: 8/5 4 PVR: 427 Right Heart pressures - elevated LEFT MAIN: Mild calcification, Mild luminal irregularities LEFT ANTERIOR DESCENDING ARTERY: Moderate calcification, Medium size vessel with severe disease noted in the midsegment with calcification of approximately 90% and then distally of small vessel noted CIRCUMFLEX ARTERY: Medium size nondominant vessel. There is a proximal 90% stenosis noted. A small AV groove branch is noted. [id number] collaterals are noted. RAMUS: Medium size vessel with sequential 80% stenotic lesions noted in the proximal and mid segments. RIGHT CORONARY ARTERY: occluded in the proximal section with [id number] collaterals filling almost the entire vessel. COLLATERAL FLOW: Collateral flow from Left to Right COMPLICATIONS No Complications PROCEDURE MEDICATIONS Fentanyl 50 mcg IV Versed 1 mg IV Heparin given IA 11/15/2024 12:26:45 SUMMARY OF HEMODYNAMIC DATA Time AIR REST ECG 10:37:47 ECG 12:08:15 RA 8/5 (4) SV 12:40:24 PW 14/ (10) PV 12:41:17 PW 16/ (13) 12:41:27 PA 60/19 (32) PA 12:43:39 PA 64/19 (35) 12:46:58 RV 63/-1, 7 12:47:05 RA 9/6 (4) 12:47:22 AO 155/63 (95) SA 12:49:43 LV 163/1, 7 12:56:13 LV 159/2, 7 12:56:26 LV 121/0, 5 12:57:57 LVp 119/4, 16 12:58:02 AOp 132/52 (82) 12:58:07 13:16:35 Type SV CO (l/m) CI (l/m/ HR Time AIR REST Thermal 67.50 4.12 2.10 61 10:37:47 Label % O2 Pres/Loc Time AIR REST AO 97 PV 12:37:10 RA 68 SV 12:48:49 PA 64 PA 12:48:58 Signed By Jamarcus Redd MD On 11/15/2024 13:23:59 Signed By Jamarcus Redd MD On 11/15/2024 13:23:42 Jamarcus Redd MD
== END 2024-11-15 14:49 | disposition home or self-care (01) ==
PROVIDERS: PCP Family Medicine; Referring Provider Internal Medicine Cardiovascular Disease; Visit Provider Internal Medicine Cardiovascular Disease
DX: I25.118 Atherosclerotic heart disease of native coronary artery with other forms of angina pectoris (principal); I27.20 Pulmonary hypertension, unspecified; J44.9 Chronic obstructive pulmonary disease, unspecified; I42.0 Dilated cardiomyopathy; I05.1 Rheumatic mitral insufficiency; I25.2 Old myocardial infarction; F10.10 Alcohol abuse, uncomplicated; F17.200 Nicotine dependence, unspecified, uncomplicated; E78.5 Hyperlipidemia, unspecified; Y90.9 Presence of alcohol in blood, level not specified; Z79.51 Long term (current) use of inhaled steroids; Z79.899 Other long term (current) drug therapy
CPT/HCPCS: 82803; 93460; 99152; 99153; Q9967; C1751; C1769; C1894

== ENCOUNTER → 2025-03-19 | Outpatient (CLI) | payer BC, MEDICARE, SELFPAY ==
[2025-03-19 10:27] LABS: Absolute Lymphocyte Count 2.41 X10^3/uL (0.83-4.51); Absolute Neutrophil Count 5.1 X10^3/uL (2.0-7.7); Basophil# 0.09 X10^3/uL; Basophil% 1.1 % (0-1); Eosinophils% 2.4 % (0-5); Hematocrit 45.8 % (40-54); Hemoglobin 15.4 g/dL (13.0-16.5); Lymphocyte # 2.41 X10^3/ul (0.83-4.51); Lymphocyte % 28.5 % (19-41); Mean Corp Hgb Conc 33.6 g/dL (32-36); Mean Corpuscular Hgb 33.6 pg (27.0-32.0); Mean Corpuscular Volume 99.8 fL (80-94); Mean Platelet Vol. 11.2 fl (6.2-12.0); Monocyte# 0.68 X10^3/uL; NRBC Flagged by Analyzer 0 % (0-5); Neutrophil # 5.05 X10^3/uL (2.7-7.7); Neutrophil % 59.6 % (47-70); Platelet Count 167 K/mm3 (150-450); RBC Distribution Width SD 47.8 fl (35.1-43.9); Red Blood Count 4.59 M/mm3 (4.6-6.2); White Blood Count 8.5 K/mm3 (4.4-11.0)
[2025-03-19 10:55] LABS: Anion Gap 12 (5-15); BUN 12 mg/dL (4-19); BUN/Creat Ratio 10.7 RATIO (10-20); Calcium,Total 9.3 mg/dL (7.6-11.0); Carbon Dioxide 22.6 mmol/L (21.0-32.0); Chloride 102 mmol/L (98-108); Creatinine, Serum 1.08 mg/dL (0.70-1.20); EST Glomerular Filtration Rate 76 (>60); Glucose 111 mg/dL (70-99); Potassium 4.5 mmol/L (3.3-5.1); Sodium Level 137 mmol/L (133-145)
== END | disposition home or self-care (01) ==
LOC: LAB 09:34
PROVIDERS: PCP Family Medicine; Referring Provider Internal Medicine Interventional Cardiology; Visit Provider Internal Medicine Interventional Cardiology
DX: Z01.810 Encounter for preprocedural cardiovascular examination (principal)
CPT/HCPCS: 36415; 80048; 85025

== ENCOUNTER → 2025-04-10 | Outpatient (CLI) | payer BC, MEDICARE, SELFPAY ==
--- NOTE | 2025-04-10 09:33 | CR.HP_ITS ---
CR - History & Physical General Arrival date:: 04/10/25 Arrival time:: 09:33 Date of Referral:: 04/03/25 Date of CR Evaluation:: 04/10/25 Referring Physician: Dr. Redd Primary Diagnosis: PCI w/stenting History of Present Cardiac Event Onset Date PTCA or coronary stenting:: Yes Vessel: LAD and Ramus Intermedius on 03/29/25 Medications Ambulatory Orders ?Medication ?Instructions ?Recorded albuterol sulfate 90 mcg/actuation 2 puff inhalation Q 6H PRN 08/01/21 aerosol inhaler shortness of breath or wheez ing #8.5 grams furosemide 20 mg tablet 20 mg PO DAILY #30 tabs 07/05 06/24 lisinopril 2.5 mg tablet 2.5 mg PO QDAY 11/08/24 rosuvastatin 40 mg tablet 40 mg PO QDAY 11/08/24 aspirin 81 mg tablet,delayed 81 mg PO DAILY #30 tabs 0 11/10/24 release (Adult Aspirin Regimen) latanoprost 0.005 % eye drops 1 drp ophthalmic (eye) Q HS 11/10/24 tiotropium 2.5 mcg-olodaterol 2.5 2 puff inhalation QD AY 11/10/24 mcg/actuation mist for inhalation (Stiolto Respimat) clopidogrel 75 mg tablet 75 mg PO QDAY 04/03/25 dorzolamide-timolol (PF) 2 %-0.5 % 1 drp ophthalmic (e ye) BID 04/03/25 eye drops in a dropperette Allergies Allergies No Known Allergies Allergy (Verified 02/05/25 16:10) Sleep Disorder Evaluation Hx of Sleep Apnea: No Do you snore loudly (louder than talking or can be heard through closed doors)?: No Do you often feel tired/ fatigued/ sleepy during daytime?: No Has anyone observed you stop breathing during sleep?: No History of Hypertension (for STOP score): No STOP Results: Negative Advanced Directives Advanced Directives Do you have a Healthcare Power of Quality Assurance Supervisor Trim?: Yes Living Will: Yes Advance Directives Information Provided: Yes Advance Directives on File: No DNR Order?:: No Past Medical History Covid-19 Screening Physicial Symptoms Other Clinical Concerns Exposure Risk Pertinent Comorbidities 65 years or older:: Yes Has a chronic lung disease or moderate to severe asthma:: Yes Has a serious heart condition:: Yes Past Medical Illness Past Medical History (Updated 02/06/25 @ 07:[address] Tramaine Garrison MD) Alcohol abuse F10.10 Elevated ferritin R79.89 Decreased cardiac ejection fraction R93.1 Mitral valve disease I05.9 CAD (coronary artery disease) I25.10 Dyspnea R06.00 Chest pain R07.9 Lung nodule R91.1 HLD (hyperlipidemia) E78.5 Pulmonary hypertension I27.20 Asthma J45.909 Non-ST elevation MS (NSTEMI) (07/30/21) I21.4 COPD with exacerbation J44.1 Glaucoma H40.9 Past Surgical History Past Surgical History (Updated 04/03/25 @ 09:06 by Elizabeth De Leon) Stented coronary artery (02/27/25) Z95.5 2.5 X 28 mm Synergy XD BASIL to LAD, and a 3.0 X 32 mm Synergy XD BASIL to Proximal Mid Ramus Intermedius 02/27/[address] Almodovar at [facility]. History of dilation of urethra Z98.890 Hx of tonsillectomy Z90.89 Family History Summary Family History Other Diabetes Heart disease Social History Smoking History Smoking Status: Current every day smoker Years Smokin Packs Smoked per Day: 0.2 Alcohol Use Alcohol Usage: Yes Substance Abuse Hx Substance Use: No Occupation Occupation (List type of work in comments):: Retired Social Environment Status Marital Status: Current Living Arrangements Living Environment:: Spouse Children How many children do you have?: 1 Do any of your children live nearby?: Yes Safety Do you feel safe in your surroundings?: Yes Assistance Do you need any assistance at home?: no Review of Systems Review of Systems Hints Review of Present Symptoms: Reports Shortness of Breath at Rest, Shortness of Breath with Exertion, PVD, Angina, Dizziness/Lightheadedness, Fatigue, Appetite - Normal, Appetite - Special Diet and Sleep - Normal; Denies Operative Discomfort, Wound Healing, Heart Arrhythmia/Irregularities or Sexual Changes Pain Is Patient Pain Free?: Yes Risk Factor Assessment Chief Complaint Chief Complaint: PCI w/stenting Vital Signs Pulse Ox: 98 Blood Pressure: 142/62 Pulse Pulse Rate: 63 Pulse Rhythm: Regular Hypertension Blood Pressure Sitting - Right Arm: 142/62 Obesity Height: 5 ft 9 in Weight:: 176 lb Weight in Pounds: 176.0 lbs Body Mass Index (BMI): 25.9 Nutritional Referral for Obesity: No Physical Inactivity Physical Inactivity: Reg Exercise 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) Risk Stratification Risk Guidelines: Moderate Risk: Risk Factor for Diabetes, Risk Factor for Obesity, Risk Factor for Sedentary Lifestyle and Risk Factor for Depression and Highest Risk: Risk Factor for Smoking, Risk Factor for Dyslipidemia and Risk Factor for Hypertension For Smoking Smoking Risk Guidelines For Dyslipidemia Dyslipidemia Risk Guidelines For Diabetes Mellitus Diabetes Risk Guidelines For Obesity/Overweight Obesity/Overweight Risk Guidelines For Hypertension Hypertension Risk Guidelines For Sedentary Lifestyle Sedentary Lifestyle Risk Guidelines For Depression Depression Risk Guidelines Family History Family History Other Diabetes Heart disease Motivation Motivation to Participate On a scale of 1 to 10, how prepared are you to commit to attending program?: 1 What do you see as barriers to successfully being able to complete the program?: nothing What do you see as the benefits of succesfully completing the program? In other words, what do you hope to get out of participating in the program?: improve BP Are there issues you are dealing with that will interfere with completing the program?: no Do you have a spouse or signficant other, family or friends who will help support you to complete the program?: yes
--- NOTE | 2025-04-10 09:39 | PCM.CR.ITP ---
Diagnosis General Information Admitting Diagnosis: PCI w/stenting Personal Learning Style:: Audio/Visual Barriers to Learning: No Barriers Stage of change r/t lifestyle modifications:: Contemplation Gave educational material for:: Treating Heart Disease, How The Heart Works, What it means to have Heart Disease, How Coronary Artery Disease is Diagnosed, Heart Procedures, What Heart Medications Do, Risk Factors & Modifications, Living an Active Life, Nutrition, Emotions & Heart Disease, Stress Management & Relaxation and Sleep Disorders & Heart Disease Education/Goals Cardiac Rehabilitation Goals Personal Goals: Initial Assessment: Improve energy level, Get back to work, or to resume activities faster, Improve muscle strength and endurance and Control risk factors (learn risk factor modification) Scale for measuring improvement of personal goals Diagnosis & Disease Process Outcomes/Goals: Pt IDs own risk factors & lifestyle modifications by Session 10, Verbalizes symptoms of angina & response by session 3. and Pt independently manages Plan/Interventions: Assist Pt to ID & engage in lifestyle modification to reduce CVD risk, Instruct on individual risk factors, Review symptoms of angina & emergency actions and Review secondary diagnosis & identify educational needs. 30 day Reassessments:: Not Met 30 day Reassessments:: Not Met 30 day Reassessments:: Not Met 30 day Reassessments:: Not Met Final Reassessments:: Not Met Safety Referral to Physical Therapy: No Referral to [facility] Case Management: No Fall Risk Assessed:: Yes Assistive Devices:: None Exercise - Initial Assessment Visit Date of Eval: 04/10/25 (initial eval ) Mets: Pre-: >3 METS for 30 minutes by discharge, >5 METS for 30 minutes by discharge, >7 METS for 30 minutes by discharge and Unable to meet goal due to: (see comment below) Physician Prescribed Exercise Modalities: Treadmill, Rower, Schwinn Airdyne AD-7, SciFit Stepper, SciFit Pro-II Ergometer and TruliooFit Lateral [place] Frequency: 3x/week for 12 weeks [36 sessions] Intensity: 60-80% of age predicted maximum heart rate reserve Duration: 30 - 45 minutes Current METSs:: 3 Target Heart Rate:: 92-116 EKG Type: SR-short LA syndrome-occas ectopic vent beat Outcomes & Goals Goals:: Verbalizes understanding of THR, RPE & goal METS by session 6, Documents in home exercise log/reports 30 min aerobic 5 day/wk by DC, Demonstrates accurate pulse taking by DC and Other additional outcome/goals: see below Intervention & Plan Exercise Program Goals: Instruct on personal THR & RPE, Instruct on MET level & personal MET goal, Show patient to take own pulse /validate performance until accurate, Instruct on home exercise and Other additional plan/int Physical Activity Home Exercise Physical Activity - Home Exercise: Safe Exercise, Warm-up, Self-monitoring, Cool-Down, Home Exercise > 30 min Daily and Sitting Time <3 hours/daily Outcomes & Goals Outcomes/Goals: Demonstrates correct Warm-up/exercise Cool-Down (S3) if = 2.5 METs, Verbalizes symptoms of exercise intolerance by Session 3 (S3), Demonstrate safe equipment use (S3) & follows exercise prescrition (6) and Other: See below Intervention & Plan Plan/Intervention: Instruct warm-up & cool-down if exercising at > 2 METs, Instruct on symptoms of exercise intolerance & actions to take, Instruct & monitor on saf, Assess intial functional capacity & safety risk and Other See below Nutrition - Initial Assessment Program Goals Nutrition Program Goals Patient has diagnosis of Hyperlipidemia (ICD E78)?: Yes Visit Date of Eval: 04/10/25 (initial eval ) Cholesterol/Lipids (Other Core Measures) Determine presence & major risk factors that modify LDL goal: Cigarette smoking, Hypertension or hypertensive medication, Low HDL cholesterol <40 mg/dL*, Family history of premature CHD in Male < 55 years: female <65 yearsFa and Age men > 45 years; women >/= 55 years Outcomes/Goals: Pt IDs own risk factors & lifestyle modifications by Session 10, Verbalizes symptoms of angina & response by session 3. and Pt independently manages Intervention/Plan: Advocate for lipid panel cholesterol medication if applicable, Instruct on personal lipid levels & lipid goals/NCEP guidelines, Instruct on cholesterol and Other additional plan/int Referral to dietitian:: No Diabetes (Other Core Measures) Diabetes Type: Not Applicable Weight Mgt (Other Care) Height: 5 ft 9 in Weight:: 176 lb BMI: 25.9 Diagnosis Overweight/Obesity BMI> 30% ICD-10 E66: No Diagnosis High BMI/Morbid Obesity BMI> 35% ICD-10 Z68: No Outcomes/Goals: Pt sets, maintains & shows weight loss goal & trend during rehab and Other additional outcomes/goals Intervention/Plan: Instruct on ideal BMI & set weight loss goal w/patient, Assist pt to ID & incorporate diet changes for weight loss by S9, Refer to Structured Weight Loss program as appropriate, Encourage goal of using 250-300dcal per session for weight loss and Other additional plan/interventions Healthy Eating Habits Will attend diet classes:: Yes Outcomes/Goals:: Consume diet rich in vegs,fruits,whole grain/high fiber,fish,lean meat, Limit sat/trans fats,cholesterol & added salts & sugars and Other additional outcome/goals: Intervention/Plan:: Assess current eating habits and Other Additional plan/interventions Education Gave educational materials for:: Signs & symptoms of hypoglycemia, Signs & symptoms of hyperglycemia, Relate diabetes to coronary artery disease and Healthy eating Core - Initial Assessment Visit Date of Eval: 04/10/25 (initial eval ) Medication Compliance Preventative Medication(s):: Aspirin, [place] inhibitor, Clopidogrel/P2Y12 inhibit and Statin/lipid H/O mental health issues: depression, anxiety, or addiction?: No Doesn?t believe in the benefits of treatment?: No Believes medications are unnecessary or harmful?: No Has a concern about medication side effects?: No Expresses concern over the cost of medications?: No Outcomes/Goals: Verbalizes medications,desired effect & common side effects @ DC, Pt self-reports following medication regimen, Keeps card in wallet w/medications listed by DC and Other additional outcome/goals: Interventions/plans: Instruct on medication effects & side effects, Review medication list w/patient every two weeks, Instruct importance of taking meds as ordered & assist problem solving and Other additional Tobacco Use Tobacco Use: Cigarettes How many cigarettes do you smoke per day?: 2 Years Smokin Outcomes/Goals: Smoking cessation achieved or maintained by discharge, Identify aids/strategies for achieving smoking cessation by session 6 and Other additional outcome/goals Interventions/plan: Instruct on effects of smoking & provide smoking cessation resource, Assist pt to set quit date & provide encouragement, Assist pt to develop strategies to achieve/maintain quit date, Assist pt w/nicotine replacement & medication for cessation success and Other additional plan/interventions Hypertension Resting Blood Pressure:: 142/62 [place] [employer] Hypertension Guidelines Outcomes/Goals: Able to verbalize/achieve optimal blood pressure <130/80, Incorporates diet changes & exercise for blood pressure control by DC and Other additional outcomes/goals Interventions/plan: Instruct on optimal blood pressure, hypertension & medications, Instruct on effects of sodium, alcohol, stress, exercise &hypertension and Other additional plan/interventions Tobacco Cessation Referral Smoking Cessation Referral:: No Individual Education/Counseling:: No Education Schedule Given:: Yes Psychosocial - Initial Assess VIsit Date of Eval: 04/10/25 (initial eval ) History of previous Mental disease:: No Target Goals Target Goals Psychosocial Test Tool Used:: PHQ-9 Questionnaire phq-9 Severity Referral to Behavioral Health PS - Interventions: Yes: Attend Stress Management Classes Outcomes/Goals: See list Psychosocial Outcomes/Goals:: ID's personal stressors & 2 strategies to manage stress by discharge and Other Additional outcome/goals: Intervention/Plan: See List Interventions/Plan:: Assess stressors,coping strategies & signs of derpression on admission, Instruct/assist pt to develop coping & personal stress Mgt strategies, Refer to Behavioral Health if appropriate, Refer to Physician if appropriate, Instruct patient to recognize signs & symptoms of depression, Instruct patient to recog and Other additional plan/intervention Comments:: Pt denies any psychosocial issues at this time. Patient Health Questionnaire PHQ-9 Screening Initial Assessment: 1. Little interest or pleasure in doing things: Not at all 2. Feeling down, depressed, or hopeless: Not at all 3. Trouble falling or staying asleep, or sleeping too much: Not at all 4. Feeling tired or having little energy: Several days 5. Poor appetite or overeating: Not at all 6. Feeling bad about yourself -- or that you are a failure or have let yourself or your family down: Not at all 7. Trouble concentrating on things, such as reading the newspaper or watching television: Not at all 8. Moving or speaking so slowly that other people could have noticed. Or the opposite - being so fidgety or restless that you have been moving around a lot more than usual: Nearly every day 9. Thoughts that you would be better off , or of hurting yourself in some way: Not at all How difficult have these problems made it for you to do your work, take care of things at home, or get along with other people?: Not difficult at all Total Score: 4 CHAYO-Q SV Test Statements CAD is a disease of the arteries in the heart: True Examples of risk factors for heart disease: True Angina is chest pain or discomfort: True The benefits of resistance training include: I Don't Know Eating more meat and dairy products: I Don't Know Anti-platelet medications such as aspirin are important: True The only effective way to manage stress: False An exercise warm-up slowly increases heart rate: I Don't Know Prepared, processed foods usually have high sodium: True Depression is common after a heart attack: I Don't Know The statin medications lower cholesterol: I Don't Know To control blood pressure, lower the amount of sodium: I Don't Know If someone gets chest discomfort during walking: False Transfats are partially hydrogenated vegetable oils: I Don't Know Sleep apnea that is not treated increases the risk: False To control cholesterol, one should become a vegetarian: False Someone knows if he/she is exercising at the right level: I Don't Know Diabetes cannot be prevented with exercise & health eating: I Don't Know Stress is a large risk for heart attack: I Don't Know A diet that can help lower blood pressure is rich in: I Don't Know Total Score Total Correct Responses: 8 Self-Efficacy 6-Item Scale Initial Assessment: We would like to know how confident you are in doing certain activities. Please select your confidence level for: Fatigue Select Number: 5 Physical Discomfort or Pain Select Number: 5 Emotional Distress Select Number: 10 Other Symptoms or Health Problems Select Number: 5 Different Tasks and Activities Select Number: 5 Medication Select Number: 5 Total Score:: 5 Nutrition Survey Nutrition Survey Instructions Scoring Instructions Nutrition Survey Initial: Have you lost >10 lbs over the past 2 months without trying?: No Are you following a special diet at home for diabetes, low fat, or low salt?: No Are you interested in meeting with a dietitian for help understanding your diet?: No Do you eat less than 3 meals a day?: Yes Do you eat fatty meats (garner, sausage, ribs, etc), fried foods, desserts, large amounts of salad dressings, margarine, butter, or cheese most days?: Yes Do you have food allergies? [Enter types in comment field]: No Do you eat in restaurants more than 3 times a week?: No Do you season food with salt, seasoning salt, or garlic salt?: Yes Do you used canned, boxed, frozen meals, or soups, seasoning packets?: Yes Total Score:: 4 Exercise - 30-day Assessment Physician Prescribed Exercise Modalities: Treadmill, Rower, Schwinn Airdyne AD-7, SciFit Stepper, SciFit Pro-II Ergometer and SciFit Lateral Relay Tester Helper Exercise - 60-day Assessment Physician Prescribed Exercise Modalities: Treadmill, Rower, Schwinn Airdyne AD-7, SciFit Stepper, SciFit Pro-II Ergometer and SciFit Lateral [place] Exercise - 90-day Assessment Physician Prescribed Exercise Modalities: Treadmill, Rower, Schwinn Airdyne AD-7, SciFit Stepper, SciFit Pro-II Ergometer and SciFit Lateral Relay Tester Helper Exercise - Final/Discharge Physician Prescribed Exercise Modalities: Treadmill, Rower, Schwinn Airdyne AD-7, SciFit Stepper, SciFit Pro-II Ergometer and SciFit Lateral Relay Tester Helper Frequency: 3x/week for 12 weeks [36 sessions] Intensity: 60-80% of age predicted maximum heart rate reserve Current METSs:: 3 Target Heart Rate:: 92-116 Nutrition - 30-Day Assessment Weight Mgt (Other Care) Height: 5 ft 9 in Weight:: 176 lb BMI: 25.9 Nutrition - 60-Day Assessment Weight Mgt (Other Care) Height: 5 ft 9 in Weight:: 176 lb BMI: 25.9 Core - 30-Day Assessment Tobacco Use Years Smokin Core - Final Assessment Hypertension Resting Blood Pressure:: 142/62 [place] [employer] Hypertension Guidelines Core - 60-Day Assessment Hypertension Resting Blood Pressure:: 142/62 [place] [employer] Hypertension Guidelines Psychosocial - 30-Day Assess Target Goals Target Goals Referral to Behavioral Health PS - Interventions: Yes: Attend Stress Management Classes Psychosocial - 60-Day Assess Target Goals Target Goals Referral to Behavioral Health PS - Interventions: Yes: Attend Stress Management Classes Psychosocial - 90-Day Assess Target Goals Target Goals Referral to Behavioral Health PS - Interventions: Yes: Attend Stress Management Classes Psychosocial - Final Assessmen Target Goals Target Goals Referral to Behavioral Health PS - Interventions: Yes: Attend Stress Management Classes Nutrition - 90-Day Assessment Weight Mgt (Other Care) Height: 5 ft 9 in Weight:: 176 lb BMI: 25.9 Nutrition - Final Assessment Program Goals Patient has diagnosis of Hyperlipidemia (ICD E78)?: Yes Weight Mgt (Other Care) Height: 5 ft 9 in Weight:: 176 lb BMI: 25.9
[2025-04-10 10:01] VITALS: BP 142/62; PULSE 63; O2SAT 98
[2025-04-10 10:40] VITALS: BP 142/62; BMI 25.9
== END | disposition home or self-care (01) ==
PROVIDERS: PCP Family Medicine; Referring Provider Internal Medicine Cardiovascular Disease; Visit Provider Internal Medicine Cardiovascular Disease
DX: I25.10 Atherosclerotic heart disease of native coronary artery without angina pectoris (principal); I27.20 Pulmonary hypertension, unspecified; J44.1 Chronic obstructive pulmonary disease with (acute) exacerbation; I70.8 Atherosclerosis of other arteries; I05.9 Rheumatic mitral valve disease, unspecified; I25.2 Old myocardial infarction; E78.5 Hyperlipidemia, unspecified; J45.909 Unspecified asthma, uncomplicated; F10.10 Alcohol abuse, uncomplicated; F17.200 Nicotine dependence, unspecified, uncomplicated; R93.1 Abnormal findings on diagnostic imaging of heart and coronary circulation; Y90.0 Blood alcohol level of less than 20 mg/100 ml; Z95.5 Presence of coronary angioplasty implant and graft

== ENCOUNTER → 2025-04-26 | Outpatient (CLI) | payer BC, MEDICARE, SELFPAY ==
[2025-04-10 10:40] VITALS: BMI 25.9
--- NOTE | 2025-04-26 09:35 | ART_ITS ---
Reason For Study Reason For Study: Claudication Procedure A bilateral lower extremity continuous wave Doppler with analog waveform analysis,segmental pressures,and ankle brachial indexes without exercise. Left Segmental Pressures Left brachial= 79mmHg. Left high thigh = 71mmHg. Left low thigh = 87mmHg. Left calf = 58mmHg. Left posterior tibial artery = 64mmHg. Left dorsalis pedis artery = 79mmHg. The left dorsalis pedis waveforms are monophasic. The left posterior tibial artery waveforms are monophasic. Right Segmental Pressures Right brachial= 137mmHg. Right posterior tibial artery = 163mmHg. Right dorsalis pedis artery = 152mmHg. Right digit = 59 mmHg. The right dorsalis pedis waveforms are biphasic. The right posterior tibial artery waveforms are triphasic. Indices The right ankle brachial index by the dorsalis pedis is 1.11. The right ankle brachial index by the posterior tibial artery is 1.19. The right digital-brachial index is 0.43. The left ankle brachial index by the dorsalis pedis is 0.58. The left ankle brachial index by the posterior tibial artery is 0.47. VL/Lower Ext Art Exam w/o Exercis Interpretation Summary Right SHERYL 1.19, normal. Doppler/PVR waveforms of the right leg normal at rest. TBI diminished, pedal/digit disease vs spasm. Left SHERYL 0.58, moderate arterial insufficiency. Doppler/PVR waveforms and segme ntal pressures reveal aorto-iliac, distal SFA/popliteal disease. Ordering Physician: Marcelino Marie Referring Physician: Marcelino Taylor Performed By: Mamie Hsu RVT
== END | disposition home or self-care (01) ==
LOC: CVS 09:35
PROVIDERS: PCP Family Medicine; Referring Provider Nurse Practitioner Family; Visit Provider Nurse Practitioner Family
DX: I73.9 Peripheral vascular disease, unspecified (principal); R93.1 Abnormal findings on diagnostic imaging of heart and coronary circulation; F10.10 Alcohol abuse, uncomplicated; F17.200 Nicotine dependence, unspecified, uncomplicated; Y90.9 Presence of alcohol in blood, level not specified; Z95.5 Presence of coronary angioplasty implant and graft
CPT/HCPCS: 93923

== ENCOUNTER 2025-04-30 09:15 | Outpatient (RCR) | payer BC, MEDICARE, SELFPAY ==
[2025-04-10 10:40] VITALS: BMI 25.9
== END 2025-05-03 23:59 ==
LOC: CR 09:15
PROVIDERS: PCP Family Medicine; Referring Provider Internal Medicine Cardiovascular Disease; Visit Provider Internal Medicine Cardiovascular Disease
DX: Z95.5 Presence of coronary angioplasty implant and graft (principal); I70.8 Atherosclerosis of other arteries; Z72.0 Tobacco use; F10.10 Alcohol abuse, uncomplicated; R93.1 Abnormal findings on diagnostic imaging of heart and coronary circulation; I05.9 Rheumatic mitral valve disease, unspecified; I25.10 Atherosclerotic heart disease of native coronary artery without angina pectoris; R06.00 Dyspnea, unspecified; E78.5 Hyperlipidemia, unspecified; I27.20 Pulmonary hypertension, unspecified; J45.909 Unspecified asthma, uncomplicated; I21.4 Non-ST elevation (NSTEMI) myocardial infarction; J44.1 Chronic obstructive pulmonary disease with (acute) exacerbation
CPT/HCPCS: 93798

== ENCOUNTER 2025-05-30 09:15 | Outpatient (RCR) | payer BC, MEDICARE, SELFPAY ==
[2025-04-10 10:40] VITALS: BMI 25.9
--- NOTE | 2025-05-07 07:01 | CR.ITP_ITS ---
Exercise - Initial Assessment Visit Session #:: 6 Physician Prescribed Exercise Modalities: Treadmill, Schwinn Airdyne AD-7 and SciFit Stepper Nutrition - Initial Assessment Weight Mgt (Other Care) Height: 5 ft 9 in Weight:: 176 lb 8 oz BMI: 26.0 Core - Initial Assessment Tobacco Use Years Smokin Psychosocial - Initial Assess Target Goals Target Goals Referral to Behavioral Health PS - Interventions: Yes: Attend Stress Management Classes Patient Health Questionnaire PHQ-9 Screening 30-Day Re-eval Assessment: 1. Little interest or pleasure in doing things: Not at all 2. Feeling down, depressed, or hopeless: Not at all 3. Trouble falling or staying asleep, or sleeping too much: Not at all 4. Feeling tired or having little energy: Several days 5. Poor appetite or overeating: Not at all 6. Feeling bad about yourself -- or that you are a failure or have let yourself or your family down: Not at all 7. Trouble concentrating on things, such as reading the newspaper or watching television: Not at all 8. Moving or speaking so slowly that other people could have noticed. Or the opposite - being so fidgety or restless that you have been moving around a lot more than usual: Nearly every day 9. Thoughts that you would be better off , or of hurting yourself in some way: Not at all How difficult have these problems made it for you to do your work, take care of things at home, or get along with other people?: Not difficult at all Total Score: 4 Self-Efficacy 6-Item Scale 30-Day Re-eval Assessment: We would like to know how confident you are in doing certain activities. Please select your confidence level for: Fatigue Select Number: 5 Physical Discomfort or Pain Select Number: 5 Emotional Distress Select Number: 10 Other Symptoms or Health Problems Select Number: 5 Different Tasks and Activities Select Number: 5 Medication Select Number: 5 Total Score:: 5 Nutrition Survey Nutrition Survey Instructions Scoring Instructions Exercise - 30-day Assessment Visit Date of Eval: 05/07/25 Session #:: 6 Physician Prescribed Exercise Modalities: Treadmill, Schwinn Airdyne AD-7 and SciFit Stepper Frequency: 3x/week for 12 weeks [36 sessions] Intensity: 60-80% of age predicted maximum heart rate reserve Duration: 30 - 45 minutes Current METSs:: 3.9 Target Heart Rate:: 92-116 Current RPE:: 12-15 Maximum Excercise HR:: 90 Resting Blood Pressure: 132/58 Maximum Exercise Blood Pressure: 152/76 EKG Type: NSR w/rare PAC, PVC Outcomes & Goals Goals:: Verbalizes understanding of THR, RPE & goal METS by session 6, Documents in home exercise log/reports 30 min aerobic 5 day/wk by DC, Demonstrates accurate pulse taking by DC and Other additional outcome/goals: see below Intervention & Plan Exercise Program Goals: Instruct on personal THR & RPE, Instruct on MET level & personal MET goal, Show patient to take own pulse /validate performance until accurate, Instruct on home exercise and Other additional plan/int Physical Activity Home Exercise Physical Activity - Home Exercise: Safe Exercise, Warm-up, Self-monitoring, Cool-Down, Home Exercise > 30 min Daily and Sitting Time <3 hours/daily Outcomes & Goals Outcomes/Goals: Demonstrates correct Warm-up/exercise Cool-Down (S3) if = 2.5 METs, Verbalizes symptoms of exercise intolerance by Session 3 (S3), Demonstrate safe equipment use (S3) & follows exercise prescrition (6) and Other: See below Intervention & Plan Plan/Intervention: Instruct warm-up & cool-down if exercising at > 2 METs, Instruct on symptoms of exercise intolerance & actions to take, Instruct & monitor on saf, Assess intial functional capacity & safety risk and Other See below 30-day Reassessments 30 day Reassessments:: Progressing Reassessment Notes & Comments:: RPE explained to pt. Pt demonstrates understanding in his daily sessions. Exercise - 60-day Assessment Physician Prescribed Exercise Modalities: Treadmill, Schwinn Airdyne AD-7 and SciFit Stepper Exercise - 90-day Assessment Physician Prescribed Exercise Modalities: Treadmill, Schwinn Airdyne AD-7 and SciFit Stepper Exercise - Final/Discharge Physician Prescribed Exercise Modalities: Treadmill, Schwinn Airdyne AD-7 and SciFit Stepper Nutrition - 30-Day Assessment Program Goals Nutrition Program Goals Patient has diagnosis of Hyperlipidemia (ICD E78)?: Yes Visit Date of Eval: 05/07/25 Session #:: 6 Cholesterol/Lipids (Other Core Measures) Determine presence & major risk factors that modify LDL goal: Cigarette smoking, Hypertension or hypertensive medication, Low HDL cholesterol <40 mg/dL*, Family history of premature CHD in Male < 55 years: female <65 yearsFa and Age men > 45 years; women >/= 55 years Outcomes/Goals: Pt IDs own risk factors & lifestyle modifications by Session 10, Verbalizes symptoms of angina & response by session 3., Pt independently manages and Other Additional Outcomes/Goals: Intervention/Plan: Advocate for lipid panel cholesterol medication if applicable, Instruct on personal lipid levels & lipid goals/NCEP guidelines, Instruct on cholesterol and Other additional plan/int Diabetes (Other Core Measures) Diabetes Type: Not Applicable Weight Mgt (Other Care) Height: 5 ft 9 in Weight:: 176 lb 8 oz BMI: 26.0 Diagnosis Overweight/Obesity BMI> 30% ICD-10 E66: No Diagnosis High BMI/Morbid Obesity BMI> 35% ICD-10 Z68: No Outcomes/Goals: Pt sets, maintains & shows weight loss goal & trend during rehab and Other additional outcomes/goals Intervention/Plan: Instruct on ideal BMI & set weight loss goal w/patient, Assist pt to ID & incorporate diet changes for weight loss by S9, Refer to Structured Weight Loss program as appropriate, Encourage goal of using 250- 300dcal per session for weight loss and Other additional plan/interventions Healthy Eating Habits Will attend diet classes:: Yes Outcomes/Goals:: Consume diet rich in vegs,fruits,whole grain/high fiber,fish,lean meat, Limit sat/trans fats,cholesterol & added salts & sugars and Other additional outcome/goals: Intervention/Plan:: Assess current eating habits and Other Additional plan/interventions 30-day Reassessments:: Progressing Reassessment Notes & Comments:: Pt is scheduled to attend nutrition class. Heart healthy low sodium diet is encouraged. Pt will be asked to keep a food diary. Education Gave educational materials for:: Signs & symptoms of hypoglycemia, Signs & symptoms of hyperglycemia, Relate diabetes to coronary artery disease and Healthy eating Nutrition - 60-Day Assessment Weight Mgt (Other Care) Height: 5 ft 9 in Weight:: 176 lb 8 oz BMI: 26.0 Core - 30-Day Assessment Visit Date of Eval: 05/07/25 Session #:: 6 Medication Compliance Preventative Medication(s):: Aspirin, [place] inhibitor, Clopidogrel/P2Y12 inhibit and Statin/lipid H/O mental health issues: depression, anxiety, or addiction?: No Doesn?t believe in the benefits of treatment?: No Believes medications are unnecessary or harmful?: No Has a concern about medication side effects?: No Expresses concern over the cost of medications?: No Outcomes/Goals: Verbalizes medications,desired effect & common side effects @ DC, Pt self-reports following medication regimen, Keeps card in wallet w/medications listed by DC and Other additional outcome/goals: Interventions/plans: Instruct on medication effects & side effects, Review medication list w/patient every two weeks, Instruct importance of taking meds as ordered & assist problem solving and Other additional 30-day Reassessments:: Progressing Reassessment Notes & Comments:: 04/23 Lisinopril increased to 20 mg and added Farxiga. Tobacco Use Tobacco Use: Cigarettes How many cigarettes do you smoke per day?: 2 Years Smokin Outcomes/Goals: Smoking cessation achieved or maintained by discharge, Identify aids/strategies for achieving smoking cessation by session 6 and Other additional outcome/goals Interventions/plan: Instruct on effects of smoking & provide smoking cessation resource, Assist pt to set quit date & provide encouragement, Assist pt to develop strategies to achieve/maintain quit date, Assist pt w/nicotine replacement & medication for cessation success and Other additional plan/interventions 30-day Reassessments:: Progressing Reassessment Notes & Comments:: Pt will attend smoking class. Pt is also encouraged to participate in 1 on 1 smoking cessation. Hypertension Hypertension Diagnosis:: Hypertension ICD-10 I10 Resting Blood Pressure:: 132/58 [place] [employer] Hypertension Guidelines Peak Exercise Blood Pressure:: 152/76 Outcomes/Goals: Able to verbalize/achieve optimal blood pressure <130/80, Incorporates diet changes & exercise for blood pressure control by DC and Other additional outcomes/goals Interventions/plan: Instruct on optimal blood pressure, hypertension & medications, Instruct on effects of sodium, alcohol, stress, exercise &hypertension and Other additional plan/interventions 30 day Reassessments:: Progressing Reassessment Notes & Comments:: 04/23 Lisinopril increased to 20 mg and added Farxiga. Will continue to monitor. Tobacco Cessation Referral Education Schedule Given:: Yes Psychosocial - 30-Day Assess VIsit Date of Eval: 05/07/25 History of previous Mental disease:: No Target Goals Target Goals Psychosocial Test Tool Used:: PHQ-9 Questionnaire phq-9 Severity See PHQ-9 Score: 4 Referral to Behavioral Health PS - Interventions: Yes: Attend Stress Management Classes Outcomes/Goals: See list Psychosocial Outcomes/Goals:: ID's personal stressors & 2 strategies to manage stress by discharge and Other Additional outcome/goals: Intervention/Plan: See List Interventions/Plan:: Assess stressors,coping strategies & signs of derpression on admission, Instruct/assist pt to develop coping & personal stress Mgt strategies, Refer to Behavioral Health if appropriate, Refer to Physician if appropriate, Instruct patient to recognize signs & symptoms of depression, Instruct patient to recog and Other additional plan/intervention 30-day Reassessments: 30 day Reassessments:: Progressing Reassessment Notes & Comments:: Pt denies any psychosocial issues at this time. Pt will attend stress management class. Will continue to monitor. Psychosocial - 60-Day Assess Target Goals Target Goals Referral to Behavioral Health PS - Interventions: Yes: Attend Stress Management Classes Outcomes/Goals: See list Psychosocial Outcomes/Goals:: ID's personal stressors & 2 strategies to manage stress by discharge and Other Additional outcome/goals: Psychosocial - 90-Day Assess Target Goals Target Goals Referral to Behavioral Health PS - Interventions: Yes: Attend Stress Management Classes Psychosocial - Final Assessmen Target Goals Target Goals Referral to Behavioral Health PS - Interventions: Yes: Attend Stress Management Classes Nutrition - 90-Day Assessment Weight Mgt (Other Care) Height: 5 ft 9 in Weight:: 176 lb 8 oz BMI: 26.0 Nutrition - Final Assessment Weight Mgt (Other Care) Height: 5 ft 9 in Weight:: 176 lb 8 oz BMI: 26.0
[2025-05-07 07:14] VITALS: BP 132/58; BMI 26.0
== END 2025-06-03 23:59 ==
LOC: CR 09:15
PROVIDERS: PCP Family Medicine; Referring Provider Internal Medicine Cardiovascular Disease; Visit Provider Internal Medicine Cardiovascular Disease
DX: Z95.5 Presence of coronary angioplasty implant and graft (principal); I70.8 Atherosclerosis of other arteries; Z72.0 Tobacco use; F10.10 Alcohol abuse, uncomplicated; R93.1 Abnormal findings on diagnostic imaging of heart and coronary circulation; I05.9 Rheumatic mitral valve disease, unspecified; I25.10 Atherosclerotic heart disease of native coronary artery without angina pectoris; R06.00 Dyspnea, unspecified; E78.5 Hyperlipidemia, unspecified; I27.20 Pulmonary hypertension, unspecified; J45.909 Unspecified asthma, uncomplicated; I21.4 Non-ST elevation (NSTEMI) myocardial infarction; J44.1 Chronic obstructive pulmonary disease with (acute) exacerbation
CPT/HCPCS: 93798

== ENCOUNTER → 2025-06-07 | Outpatient (CLI) | payer BC, MEDICARE, SELFPAY ==
[2025-05-07 07:14] VITALS: BMI 26.0
[2025-06-05 09:53] VITALS: BMI 25.8
--- NOTE | 2025-06-07 06:15 | CT_ITS ---
PROCEDURE: CTA ABD W/RUNOFF W/WO CONTRAST 06/07/2025 REASON FOR EXAM: LLE PAD WITH CLAUDICATION Two-dimensional reconstructions were obtained. TECHNIQUE: Procedure Code: [id number] Modality: CT Procedure: CTA ABD W/RUNOFF W/WO CONTRAST Multiplanar Sagittal and Coronal images were obtained. CONTRAST: Isovue 370 VOLUME: 100 mL One or more dose reduction techniques were used (e.g., Automated exposure control, adjustment of the mA and/or kV according to patient size, use of iterative reconstruction technique). RADIATION DOSE SUMMARY: CTDlvol: 25 mGy DLP: 1249 mGycm COMPARISON: None. FINDINGS: Lung bases: Mild emphysematous changes. ABDOMEN Liver: Moderate fatty infiltration of the liver particularly near the gallbladder fossa. No focal mass. Biliary system: Negative. Negative for intrahepatic or extrahepatic ductal dilatation. Gallbladder: Slightly contracted. Negative for cholecystitis. Spleen: Negative. Pancreas: Negative. Adrenals: Negative. Kidneys: Vascular calcifications of the renal vessels. Negative. Negative for kidney stones, cysts or masses. Bowel: Increased stool in the colon with occasional diverticula. Negative for small or large-bowel obstruction. Appendix: Negative Vasculature: Moderate atherosclerotic vascular calcifications of the abdominal aorta and its branches. Abdominal aorta and iliac vessels. Moderate vascular calcifications. However the mesenteric vessels and renal arteries are patent. Mild disease in both iliac systems without significant stenosis. Right lower extremity: Right common femoral artery patent. No significant stenosis in the proximal or mid right femoral artery. Moderate disease in the distal right femoral artery extends to the adductor canal. Mild disease in the right popliteal artery. Three-vessel origin in the right calf. Moderate disease throughout the calf with poor flow in the calf and single-vessel flow into the right ankle and foot through the posterior tibial artery. Left lower extremity: Mild disease of the left common femoral artery. Severe disease in the left superficial femoral artery which is occluded within 3 cm of the hip. There is reconstitution of flow in the distal aspect of the left thigh in the distal left femoral artery as it enters the adductor canal likely through collateralization. The length of occluded segment of left superficial femoral artery is a proximally 20 cm. Vascular disease in the left popliteal artery with moderate stenosis. Three-vessel origin in the left calf with overall poor flow in the left calf and single-vessel flow into the left foot through the posterior tibial artery. No ulcerations. Peritoneum / Retroperitoneum: Negative. PELVIS Lymph nodes: Negative for inguinal or iliac adenopathy. Bladder: Negative. Reproductive Organs: Prostate negative. Bones and Soft Tissues: Age appropriate degenerative changes of the lumbar spine hips and pelvis. CT/CTA Abd w/Runoff W/WO Contrast IMPRESSION: Negative for acute intra-abdominal or pelvic pathology. 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 Overall poor flow into both calves and feet. Reading Location: [id number]
--- OUTSIDE RECORDS SUMMARY | 2025-06-07 06:17 | XMS RPT_ITS | CCD ---
Author Organization [facility] Care Team Providers Care Stone Operator Name Role Phone Lali Taylor MD Primary Care Provider Noman Burroughs Unavailable Inocencio Mckeon MD Unavailable INOCENCIO MCKEON Attending Unavailable KALPANA PEARCE Referring Unavailable LALI TAYLOR Primary Care Unavailable INOCENCIO MCKEON Referring Unavailable KALPANA PEARCE Attending Unavailable LALI TAYLOR Primary Care Unavailable LALI TAYLOR Primary Care Unavailable INOCENCIO MCKEON Referring Unavailable LALI TAYLOR Primary Care Unavailable INOCENCIO MCKEON Referring Unavailable Unavailable Primary Care Provider Unavailmago perez Unavailable Primary Care Provider UnavailDr. Lali Ramirez MD Primary Care Provider Dr. Lali Taylor MD Referring Provider Dr. Tramaine Garrison MD Attending Provider Consuelo Almodovar MD Attending Provider Consuelo Almodovar MD Referring Provider Lali Taylor MD Primary Care Provider Lali Marie CNP Unavailable Dr. Jamarcus Redd MD Attending Provider Dr. Jamarcus Redd MD Referring Provider Frank BETANCUR-Lali Chavez Attending Provider Lali Mora Referring Provider CONSUELO ALMODOVAR Attending Unavailable KAYLENE ANNA Referring Unavailable LALI TAYLOR Primary Care Unavailable MALOU ROE Attending Unavailable SELF, SELF Referring Unavailable TRAMAINE, JAMARCUS S Referring Unavailable ZAINA OLIVA Attending Unavailable WILLEKAYLENE Referring Unavailable ABHISHEKSTE, KAYLENE Chavez Attending Unavailable KISTE, KAYLENE Chavez Referring Unavailable KISTE, KAYLENE Chavez Attending Unavailable KISTE, KAYLENE Chavez Referring Unavailable KIEKAYLENE Attending Unavailable CONSUELO ALMODOVAR Admitting Unavailable GUMARMINDA, CONSUELO Gómez Attending Unavailable KAYLENE ANNA Attending Unavailable ABHISHEKSTE, KAYLENE Chavez Referring Unavailable GUMINA, CONSUELO Gómez Attending Unavailable WILLE, KAYLENE Chavez Referring Unavailable Bailey Gerber Attending Provider Lali Taylor Referring Unavailable Lali Taylor Primary Care Unavailable Lali Tayolr Attending Unavailable SchLali peck Referring Unavailable SchLali peck Primary Care Unavailable Tramaine, [place] Attending Unavailable Tramaine, [place] Consulting Unavailable Sibsmooth, Darrion V Consulting Unavailable Lali Taylor Consulting Unavailable Lali Taylor Primary Care Unavailable Tramaine, Jamarcus Attending Unavailable Lali Taylor Primary Care Unavailable Roof AUTOCUTTER, Lali Ascencio Referring Unavailable Tramaine Garrison Attending Unavailable Lali Taylor Primary Care Unavailable Roof AUTOCUTTER, Lali Ascencio Referring Unavailable Roof AUTOCUTTER, Lali Ascencio Attending Unavailable Lali Taylor Primary Care Unavailable Tramaine, [place] Attending Unavailable Tramaine, [place] Referring Unavailable Lali Taylor Primary Care Unavailable Tramaine, [place] Referring Unavailable Tramaine, Jamarcus Attending Unavailable Tramaine Garrison Attending Unavailable Lali Taylor Primary Care Unavailable Lali Taylor Referring Unavailable Lali Taylor Primary Care Unavailable Tramaine, Jamarcus Attending Unavailable Tramaine, [place] Referring Unavailable Lali Taylor Primary Care Unavailable Lali Taylor Referring Unavailable Roof AUTOCUTTER, Lali Ascencio Attending Unavailable Lali Taylor Referring Unavailable Lali Taylor Primary Care Unavailable Lali Taylor Attending Unavailable Tramaine, Jamarcus Consulting Unavailable Sibilia, Darrion V Consulting Unavailable Tramaine, [place] Attending Unavailable Tramaine, [place] Referring Unavailable SchLali peck Primary Care Unavailable Sibsmooth, Darrion V Attending Unavailable Lali Taylor Primary Care Unavailable Lali Taylor Primary Care Unavailable Tramaine, [place] Referring Unavailable Tramaine, [place] Attending Unavailable Tramaine, [place] Referring Unavailable Tramaine, Jamarcus Attending Unavailable Schinner, Lali E Primary Care Unavailable Consuelo Almodovar Referring Unavailable Gumarminda, Consuelo Attending Unavailable Schinner, Lali E Primary Care Unavailable Schinner, Lali E Primary Care Unavailable Schinner, Lali E Attending Unavailable Schinner, Lali E Primary Care Unavailable Schinner, Lali E Referring Unavailable Bailey Sapp Attending Unavailable Schinner, Lali E Primary Care Unavailable Schinner, Lali E Attending Unavailable Schinner, Lali E Referring Unavailable Schinner, Lali E Primary Care Unavailable Schinner, Lali E Attending Unavailable Schinner, Lali E Referring Unavailable Schinner, Lali E Primary Care Unavailable Tramaine, [place] Attending Unavailable Schinner, Lali E Primary Care Unavailable Lali Marie NP Attending Unavailable Schinner, Lali E Referring Unavailable Schinner, Lali E Primary Care Unavailable Tramaine, Jamarcus Attending Unavailable Sibilia, Darrion V Referring Unavailable Sibilia, Darrion V Attending Unavailable Schinner, Lali E Primary Care Unavailable Allergies Allergy Classification Reported Allergen(s) Allergy Type Date of Onset Reaction(s) Facility (4 sources) environmental [Other] Propensity to adverse reactions 6 [facility] Work Phone: (1 source) OTHER; Translations: [OTHER] Propensity to adverse reactions (disorder) 6 [facility] Repository (6 sources) *Seasonal Propensity to adverse reactions to substance 5 [facility] Medications Current Medications Medication Drug Class(es) Dates Sig (Normalized) Sig (Original) albuterol 0.833 mg/ml / ipratropium bromide 0.167 mg/ml inhalation solution (10 sources) Anticholinergic, beta2-Adrenergic Agonist Start: 08-07-2021 take 1 mL by inhalation every six hours Ipratropium-Albut niya Active 3 ML INHALATION EVERY 6 HOURS 180 August 07, 2021 8:08pm Start: 08-07-2021 End: 11-10-2024 take 1 mL by inhalation every six hours as needed for wheezing Ipratropium-Albuterol 0.5 mg-3 mg(2.5 mg base)/3 mL solution for nebulization Discontinued 3 mL INHALATION EVERY 6 HOURS as needed for shortness of breath or wheezing 180 0 August 07, 2021 12:00am November 10, 2024 2:42pm clopidogrel 75 mg oral tablet (20 sources) [id number] Platelet Inhibitor Start: 04-03-2025 take 1 tablet by mouth once daily Clopidogrel 75 mg tablet Active 75 mg PO daily April 03, 2025 12:00am Start: 03-31-2025 take 1 tablet by niya th once daily Clopidogrel 75 MG tablet Take 1 tablet by mouth daily. 30 tablet 11 03/31/2025 Active Start: 03-31-2025 End: 03-30-2025 take 75 mg by mouth once daily 75 mg, Oral, DAILY, Fir st dose on Wed03/31/25 at 0900, Until Discontinued Start: 03-30-2025 End: 03-30-2025 take 1 dose by mouth once 600 mg, Oral, ONCE, 1 dose, On Wed03/30/25 at 1000, Post-op/Post-Proc Start: 08-01-2021 End: 11-10-2024 take 1 tablet by mouth once daily Clopidogrel 75 mg Tablet Discontinued 75 mg PO DAILY 30 0 August 01, 2021 12:00am November 10, 2024 2:42pm dapagliflozin 10 mg oral tablet (9 sources) Sodium-Glucose Cotransporter 2 Inhibitor Start: 04-17-2025 End: 05-17-2025 take 1 tablet by mouth once daily Dapagliflozin Propanediol (Farxiga) 10 mg tablet Active 10 mg PO DAILY 90 3 May 17, 2025 9:02am preservative-free dorzolamide 20 mg/ml / timolol 5 mg/ml ophthalmic solution (16 sources) Carbonic Anhydrase Inhibitor, beta-Adrenergic Harper Start: 04-03-2025 Dorzolamide-Timolo l (Pf) 2-0.5 % dropperette Active 1 NMA OPHTHALMIC TWICE A DAY April 03, 2025 12:00am Start: 05-25-2024 take 1 drop(s) into the eye(s) twice daily dorzolamide-timolol (COSOPT) 22.3-6.8 mg/mL ophthalmic solution Use 1 Drop in both eyes two times a day. 05/25/2024 Active furosemide 20 mg oral tablet (14 sources) Loop Diuretic Start: 08-01-2021 End: 06-27-2025 take 1 tablet by mouth once daily Furosemide 20 mg Tablet Active 20 mg PO DAILY 30 0 August 01, 2021 12:00am latanoprost 0.05 mg/ml ophthalmic solution (19 sources) Prostaglandin Analog Start: 11-10-[address] 0.005 % drops Active 1 NMA OPHTHALMIC AT BEDTIME November 10, 2024 1:00am Start: 05-25-2024 End: 03-30-2025 1 drop, Both Eyes, DAILY, Fi rst dose on Wed03/29/25 at 1400, Until Discontinued, Remove contact lenses lisinopril 40 mg oral tablet (20 sources) Angiotensin Converting Enzyme Inhibitor Start: 05-17-2025 take 1 tablet by mouth once daily Lisinopril 40 mg tablet Active 40 mg PO daily 90 3 May 17, 2025 8:57am Start: 04-19-2025 End: 05-17-2025 take 1 tablet by mouth once daily Lisinopril 20 mg tablet Discontinued 20 mg PO daily 90 3 April 19, 2025 4:35pm May 17, 2025 8:58am Start: 04-17-2025 End: 04-19-2025 take 2 tablets by mouth once daily Lisinopril 10 mg tablet Discontinued 20 mg PO daily April 17, 2025 9:42am April 19, 2025 4:36pm Start: 04-17-2025 End: 04-17-2025 take 1 tablet by mouth once daily Lisinopril 10 mg tablet Discontinued 10 mg PO daily April 17, 2025 12:00am April 17, 2025 9:43am Start: 03-30-2025 End: 03-30-2025 take 1 tablet by mouth once daily Lisinopril 10 MG tablet Take 1 tablet by mouth daily. 30 tablet 5 03/30/2025 Active Start: 11-08-2024 End: 04-17-2025 take 1 tablet by mouth once daily Lisinopril 2.5 mg tablet Discontinued 2.5 mg PO daily November 08, 2024 1:00am April 17, 2025 9:05am Start: 08-01-2021 End: 11-08-2024 take 1 tablet by mouth once daily Lisinopril 5 mg Tablet Discontinued 5 mg PO DAILY 30 August 01, 2021 12:00am November 08, 2024 12:28pm Tiotropium-Olodaterol (19 sources) Anticholinergic, beta2-Adrenergic Agonist Start: 11-10-2024 Tiotropium-Olodaterol (Stiolto Respimat) 2.5-2.5 mcg/actuation mist Active 2 NMA INHALATION daily November 10, 2024 1:00am Start: 06-08-2024 End: 03-30-2025 take 2 puff(s) by inhalation once daily 2 puff, Inhalation, DAILY, First dose on Aida 03/29/25 at 1215, Until Discontinued, For self-administered inhalers, contact Respiratory Therapy for canister activation. predniSONE 20 mg oral tablet (10 sources) Start: 08-01-2021 take 40 mg by mouth at breakfast Prednisone Active 40 MG PO WITH BREAKFAST 14 August 01, 2021 12:45pm Start: 08-01-2021 End: 11-08-2024 take 2 tablets by mouth at breakfast Prednisone 20 mg Tablet Discontinued 40 mg PO WITH BREAKFAST 14 0 August 01, 2021 12:00am November 08, 2024 12:28pm Completed/Discontinued Medications Medication Drug Class(es) Dates Sig (Normalized) Sig (Original) acetaminophen 325 mg / oxyCODONE hydrochloride 7.5 mg oral tablet (1 source) Opioid Agonist Start: 11-25-2016 End: 06-24-2021 take 1 tablet by mouth every four hours as needed oxyCODONE-acetamin ophen (PERCOCET) 7.5-325 mg tablet Take 1 tablet by mouth every 4 hours as needed. 20 tablet 11/25/2016 06/24/2021 Discontinued (Other) [id number] 200 actuat albuterol 0.09 mg/actuat metered dose inhaler (20 sources) beta2-Adrenergic Agonist Start: 03-29-2025 End: 03-30-2025 Start: 08-01-2021 take 1 puff(s) by in halation every six hours Albuterol Sulfate Active 2 PUFF INHALATION EVERY 6 HOURS 8.5 August 01, 2021 12:48pm Start: 08-01-2021 Albuterol Sulf ate 90 mcg/actuation HFA aerosol inhaler Active 2 NMA INHALATION EVERY 6 HOURS as needed for shortness of breath or wheezing 8.5 0 October 29th, 2021 12:00am take 2 puff(s) by in halation every four hours as needed Albuterol 108 (90 Base) MCG/ACT Aero Soln inhaler Inhale 2 puffs every 4 hours as needed. Active aspirin 81 mg chewable tablet (20 sources) Platelet Aggregation Inhibitor, Nonsteroidal Anti-inflammatory Drug Start: 03-30-2025 End: 03-30-2025 take 81 mg by mouth once daily 81 mg, Oral, DAILY, First dose on Wed03/30/25 at 0900, Until Discontinued Start: 03-29-2025 End: 03-29-2025 324 mg, Oral, ONCE, 1 dose, On Aida 03/29/25 at 0900, Patient to receive at least 30 minutes prior to procedure. Instruct patient to chew and not swallow., Pre-op/Pre-Proc Start: 11-10-2024 take 1 tablet by niya th once daily Aspirin (Adult Aspirin Regimen) 81 mg tablet,delayed release (DR/EC) Active 81 mg PO DAILY 30 November 10, 2024 1:00am Start: 08-01-2021 End: 11-10-2024 Aspirin 81 mg Tablet,Chewabl e Discontinued 81 mg PO 0800 30 August 01, 2021 12:00am November 10, 2024 2:42pm atorvastatin 40 mg oral tablet (10 sources) HMG-CoA Reductase Inhibitor Start: 08-01-2021 End: 11-08-2024 take 1 tablet by mouth at bedtime Atorvastatin 40 mg Tablet Discontinued 40 mg PO AT BEDTIME 30 August 01, 2021 12:00am November 08, 2024 12:28pm bimatoprost (1 source) Prostaglandin Analog End: 06-24-2021 BIMATOPROST (LUMIGAN OPHTHALMIC) Use in eyes. 06/24/2021 Discontinued (Other) carvedilol 3.125 mg oral tablet (10 sources) alpha-Adrenergic Harper, beta-Adrenergic Harper Start: 08-01-2021 End: 11-10-2024 take 1 tablet by mouth twice daily Carvedilol 3.125 mg Tablet Discontinued 3.125 mg PO TWICE A DAY 60 August 01, 2021 12:00am November 10, 2024 2:42pm dorzolamide 20 mg/ml ophthalmic solution (1 source) Carbonic Anhydrase Inhibitor Start: 03-29-2025 End: 03-30-2025 1 drop, Both Eyes, 2 TIMES DAILY, First dose on Wed03/29/25 at 1400, Until Discontinued, If given with other meds, separate by 5 minutes iohexol (OMNIPAQUE) 350 MG/ML injection 1-171 mL (1 source) Start: 01-02-2025 End: 01-02-2025 1-171 mL, Intravenous, ONCE, 1 dose, On Wed01/02/25 at 1130, Extravasation Risk, CT Procedure phenazopyridine hydrochloride 200 mg oral tablet (1 source) Start: 11-25-2016 End: 06-24-2021 take 1 tablet by mouth twice daily phenazopyridine (PYRIDIUM) 200 mg tablet Take 1 tablet by mouth twice daily. 30 tablet 11/25/2016 06/24/2021 Discontinued (Other) polymyxin b [id number] unt/ml / trimethoprim 1 mg/ml ophthalmic solution (1 source) Dihydrofolate Reductase Inhibitor Antibacterial, Polymyxin-class Antibacterial Start: 06-23-2019 End: 06-24-2021 take 1 drop(s) into the eye(s) every four hours trimethoprim-polymyx in eye drops (POLYTRIM) ophthalmic solution Indications: Conjunctivitis of both eyes, unspecified conjunctivitis type Use 1 Drop in both eyes every 4 hours. 1 Bottle 06/23/2019 06/24/2021 Discontinued (Other) rosuvastatin calcium 20 mg oral tablet (16 sources) HMG-CoA Reductase Inhibitor Start: 03-30-2025 End: 03-30-2025 take 40 mg by mouth once daily 40 mg, Oral, DAILY, First dose on Wed03/30/25 at 0900, Until Discontinued Start: 11-08-2024 take 1 tablet by [facility] once daily Rosuvastatin 40 mg tablet Active 40 mg PO daily November 08, 2024 1:00am 250 ml sodium chloride 9 mg/ml injection (3 sources) Start: 03-29-2025 End: 03-29-2025 take 3 mL intravenously every hour 3 mL/kg/hr 81.6 kg Dosing weight (244.8 mL/hr), Intravenous, CONTINUOUS, Starting on Wed03/29/25 at 1130, Until Wed03/29/25 at 1429, Administer for Post Low Raw Sugar Cutter Hydration to Prevent Acute Kidney Injury. , Post-op/Post-Proc Start: 03-29-2025 End: 03-29-2025 Intravenous, at 75 mL/hr, CO NTINUOUS, Starting on Wed03/29/25 at 0900, Until Aida 03/29/25 at 1442, Pre-op/Pre-Proc Start: 01-02-2025 End: 01-02-2025 1-100 mL, Intravenous, ONCE NEEDED, 1 dose, Starting on Wed01/02/25 at 1117, Until Wed01/02/25 at 1117, Flush, CT Procedure tamsulosin hydrochloride 0.4 mg oral capsule (1 source) alpha-Adrenergic Harper Start: 10-28-2016 End: 06-24-2021 take 1 capsule by mouth once daily tamsulosin ER (FLOMAX) 0.4 mg cp24 Take 1 capsule by mouth once daily. 90 capsule 4 10/28/2016 06/24/2021 Discontinued (Other) ticagrelor 90 mg oral tablet (1 source) Start: 03-29-2025 End: 03-29-2025 180 mg, Oral, ONCE, 1 dose, On Wed03/29/25 at 0945, Maintenance doses of aspirin above 100mg reduce the effectiveness of ticagrelor and should be avoided. After any initial dose, use with aspirin 81mg per day. 12 hr timolol 5 mg/ml ophthalmic solution (12 sources) beta-Adrenergic Harper Start: 03-29-2025 End: 03-30-2025 Start: 07-30-2021 timolol Active 1 DRP EACH EYE TWICE A DAY July 30, 2021 6:06am Start: 07-30-2021 End: 04-03-2025 timolol Discontinued 1 NMA E ACH EYE TWICE A DAY July 30, 2021 12:00am April 03, 2025 9:15am glaucoma Start: 07-30-2021 timolol Active 1 NMA EACH EYE TWICE A DAY July 30, 2021 12:00am glaucoma Start: 07-30-2021 timolol Active 1 NMA EACH EYE TWICE A DAY July 30, 2021 12:00am End: 06-24-2021 TIMOLOL OPHTHALMIC Use in ey es. 06/24/2021 Discontinued (Other) Problems Active Problems Problem Classification Problem Date Documented Date Episodic/Chronic Acute myocardial infarction (9 sources) Myocardial infarction; Translations: [Non-ST elevation (NSTEMI) myocardial infarction] Onset: 07-30-2021 11-08-2024 Chronic Alcohol-related disorders (20 sources) Alcohol abuse; Translations: [Alcohol abuse, uncomplicated] Onset: 11-20-2016 11-20-2016 Chronic Asthma (17 sources) Asthma; Translations: [Unspecified asthma, uncomplicated] 11-08-2024 Chronic Chronic obstructive pulmonary disease and bronchiectasis (9 sources) Acute exacerbation of chronic obstructive airways disease; Translations: [Chronic obstructive pulmonary disease with (acute) exacerbation] 11-08-2024 Chronic Congestive heart failure; nonhypertensive (4 sources) Chronic combined systolic and diastolic heart failure; Translations: [Chronic combined systolic (congestive) and diastolic (congestive) heart failure] Onset: 02-13-2025 02-13-2025 Chronic Coronary atherosclerosis and other heart disease (20 sources) Arteriosclerotic vascular disease; Translations: [Atherosclerotic heart disease of [place] coronary artery without angina pectoris] Onset: 11-21-2024 02-13-2025 Chronic Coronary atherosclerosis and other heart disease (18 sources) Stented coronary artery; Translations: [Presence of coronary angioplasty implant and graft] Onset: 02-27-2025 04-03-2025 Episodic Comment on above: 2.5 X 28 mm Synergy XD BASIL to LAD, and a 3.0 X 32 mm Synergy XD BASIL to Proximal Mid Ramus Intermedius 02/27/[address] Almodovar at [facility]. Disorders of lipid metabolism (18 sources) Hyperlipidemia; Translations: [Hyperlipidemia, unspecified] Onset: 11-06-2024 11-08-2024 Chronic Essential hypertension (7 sources) Essential hypertension; Translations: [Essential (primary) hypertension] Onset: 05-17-2025 05-17-2025 Chronic Glaucoma (9 sources) Glaucoma; Translations: [Unspecified glaucoma] 11-08-2024 Chronic Heart valve disorders (19 sources) Mitral valve disorder; Translations: [Rheumatic mitral valve disease, unspecified] Onset: 05-17-2025 11-08-2024 Chronic Hyperplasia of prostate (4 sources) Benign prostatic hypertrophy with outflow obstruction; Translations: [Benign prostatic hyperplasia with lower urinary tract symptoms] Onset: 11-18-2016 11-18-2016 Chronic Immunizations and screening for infectious disease (1 source) Suspected disease caused by 2019-nCoV; Translations: [Suspected COVID-19 virus infection] 06-23-2021 Episodic Other circulatory disease (2 sources) Stricture of artery; Translations: [Stricture of artery] Onset: 01-02-2025 Chronic Other lower respiratory disease (20 sources) Dyspnea; Translations: [Dyspnea, unspecified] 11-08-2024 Episodic Other lower respiratory disease (10 sources) Nodule of lung; Translations: [Solitary pulmonary nodule] 07-31-2021 Episodic Other screening for suspected conditions (not mental disorders or infectious disease) (20 sources) Protein level - finding; Translations: [Other specified abnormal findings of blood chemistry] Onset: 06-27-2024 06-21-2024 Episodic Peripheral and visceral atherosclerosis (20 sources) Stenosis of left subclavian artery; Translations: [Stricture of artery] Onset: 05-01-2025 01-02-2025 Chronic Comment on above: Duplex- <50% stenosi s bilateralCTA- images reviewed, 50% right ICA stenosis, 25% left ICA stenosis, right CCA 25% stenosis, left CCA 42% stenosis, left subclavian occlusion that extends to origin of vertebral, right vertebral occlusion Pleurisy; pneumothorax; pulmonary collapse (10 sources) Pleural effusion; Translations: [Pleural effusion, not elsewhere classified] 08-15-2021 Episodic Pneumonia (except that caused by tuberculosis or sexually transmitted disease) (20 sources) Community acquired pneumonia; Translations: [Pneumonia, unspecified organism] 11-08-2024 Episodic Pulmonary heart disease (20 sources) Pulmonary hypertension; Translations: [Pulmonary hypertension, unspecified] Onset: 09-20-2024 11-08-2024 Chronic Residual codes; unclassified (18 sources) Tobacco user; Translations: [Tobacco use] 11-10-2024 Episodic Residual codes; unclassified (1 source) Tobacco use; Translations: [Tobacco use] Onset: 04-17-2025 Episodic Substance-related disorders (1 source) Nicotine dependence, cigarettes, uncomplicated; Translations: [Nicotine dependence, cigarettes, uncomplicated] Onset: 11-21-2024 Chronic Unclassified (8 sources) Presence of stent in coronary artery Unclassified (8 sources) Occlusion of left subclavian artery Unclassified (8 sources) Tobacco abuse Unclassified (8 sources) Decreased cardiac ejection fraction Unclassified (8 sources) Mitral valve disease Unclassified (8 sources) Non-ST elevation myocardial infarction (NSTEMI) Unclassified (8 sources) Chronic obstructive pulmonary disease with acute exacerbation Unclassified (8 sources) Z95.5 - Presence of coronary angioplasty implant and graft,I70.8 - Atherosclerosis of other arteries,Z72.0 - Tobacco use,F10.10 - Alcohol abuse, uncomplicated,R93.1 - Abnormal findings on diagnostic imaging of heart and coronary circulation,I05.9 - Rheumatic mitral valve disease, unspecified,I25.10 - Atherosclerotic heart disease of [place] coronary artery without angina pectoris,R06.00 - Dyspnea, unspecified,E78.5 - Hyperlipidemia, unspecified,I27.20 - Pulmonary hypertension, unspecified,J45.909 - Unspecified asthma, uncomplicated,I21.4 - Non-ST elevation (NSTEMI) myocardial infarction,J44.1 - Chronic obstructive pulmonary disease with (acute) exacerbation Past or Other Problems Problem Classification Problem Date Documented Date Episodic/Chronic Diabetes mellitus without complication (1 source) Other abnormal glucose; Translations: [Other abnormal glucose] Onset: 07-01-2024 Episodic Genitourinary symptoms and ill-defined conditions (4 sources) Increased frequency of urination; Translations: [Frequency of micturition] Onset: 11-18-2016 11-18-2016 Episodic Nonspecific chest pain (10 sources) Chest pain; Translations: [Chest pain, unspecified] Onset: 11-10-2024 11-08-2024 Episodic Open wounds of extremities (4 sources) Open wound of finger; Translations: [Unspecified open wound of unspecified finger without damage to nail, initial encounter] Onset: 03-11-2006 04-13-2024 Episodic Other circulatory disease (4 sources) Other specified symptoms and signs involving the circulatory and respiratory systems; Translations: [Other symptoms involving cardiovascular system] Onset: 12-13-2024 12-13-2024 Episodic Other diseases of bladder and urethra (4 sources) Urethral stricture; Translations: [Unspecified urethral stricture, male, unspecified site] Onset: 12-02-2016 12-02-2016 Episodic Other lower respiratory disease (1 source) Dyspnea, unspecified; Translations: [Dyspnea, unspecified] Onset: 11-10-2024 Episodic Other lower respiratory disease (1 source) Shortness of breath; Translations: [Shortness of breath] Onset: 11-21-2024 Episodic Other lower respiratory disease (1 source) Solitary pulmonary nodule; Translations: [Solitary pulmonary nodule] Onset: 07-18-2024 Episodic Residual codes; unclassified (4 sources) Tobacco use and exposure - finding; Translations: [Tobacco use] Onset: 11-20-2016 11-20-2016 Episodic Urinary tract infections (4 sources) Urinary tract infectious disease; Translations: [Urinary tract infection, site not specified] Onset: 11-18-2016 Resolved: 08-12-2019 08-12-2019 Episodic Results Test Name Value Interpretation Reference Range Facility MR/BMSCullen 05-23-2025 MR/BMSANIYAH [facility] Vascular Surgery [address] [place] [address] OFFICE VISIT Date of Service: 05/23/25 MR#: [id number] Acct: [id number] Name: JOHNY SANTAMARIA Jr. Rep #: [id number] : 1960 Provider: ARGENTINA Hobson Age/Sex: 65/M [facility] Status: Signed Intake Vital Signs 04/17/25 08:53 05/17/25 08:21 05/23/25 08:21 Height 5 ft 9 in 5 ft 9 in Weight: 174 lb 175 lb BMI 25.7 BP 140/75 H 153/70 H Blood Pressure Location Lt brachial Rt brachial Position Sitting Sitting Respiration 18 18 Pulse 61 56 L Pulse Source NIBP Monitor Temp 98.4 F Temp Source Temporal Pulse Oximetry (%) 100 Oxygen Delivery Method room air Intake Visit Reasons: Discuss Results Is patient in pain?: No Allergies No Known Allergies Allergy (Verified 05/23/25 08:20) Medications ???Medication ???Instructions ???Recorded ???Confirmed ???Type albuterol sulfate 90 mcg/actuation 2 puff inhalation Q6H PRN 05/23/25 Rx aerosol inhaler shortness of breath or wheezing #8.5 grams furosemide 20 mg tablet 20 mg PO DAILY #30 tabs 08/01/21 0 05/23/25 Rx rosuvastatin 40 mg tablet 40 mg PO QDAY 11/08/24 05/23/25 Hi story aspirin 81 mg tablet,delayed 81 mg PO DAILY #30 tabs 11/10/24 0 05/23/25 Rx release (Adult Aspirin Regimen) latanoprost 0.005 % eye drops 1 drp ophthalmic (eye) QHS 5 05/23/25 History tiotropium 2.5 mcg-olodaterol 2.5 2 puff inhalation QDAY 11/10/24 0 05/23/25 History mcg/actuation mist for inhalation (Stiolto Respimat) clopidogrel 75 mg tablet 75 mg PO QDAY 04/03/25 05/23/25 Hi story dorzolamide-timolol (PF) 2 %-0.5 % 1 drp ophthalmic (eye) BID 04/0305/23/25 History eye drops in a dropperette dapagliflozin propanediol 10 mg 10 mg PO DAILY #90 tabs 05/17/25 0 05/23/25 Rx tablet (Farxiga) lisinopril 40 mg tablet 40 mg PO QDAY #90 tabs 05/17/25 Rx Have you fallen in the past year?: No PFSH Medical History Alcohol abuse Elevated ferritin Decreased cardiac ejection fraction Mitral valve disease CAD (coronary artery disease) Dyspnea Chest pain Lung nodule HLD (hyperlipidemia) Pulmonary hypertension Asthma Non-ST elevation NM (NSTEMI) (07/30/21) COPD with exacerbation Glaucoma Surgical History Stented coronary artery (02/27/25) History of dilation of urethra Hx of tonsillectomy Family History Other Diabetes Heart disease Social History household members: spouse housing: house current occupational status: employed Smoking Status: Light Smoker (<10/day) alcohol intake: current alcohol intake frequency: 3 or more drinks per day Alcohol type: beer details: 12 beers per night per pt substance use type: does not use caffeine: Yes Type: coffee Number of servings: 2 HPI HPI HPI: JOHNY SANTAMARIA, is a 65 M who presents to the office today as referred back by [facility] following abnormal LEAS to discuss results and management. 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 He since was evaluated at [facility] and ultimately underwent PCI rather than CABG due to the feeling CABG would be too high risk. He is now in cardiac rehab, reports this is going well overall; reports he is to have a repeat echo soon. He notes that since his PCI he has had pain in his LLE with walking; he does not have any similar symptoms in his RLE. He notes he can walk about 5 minutes on the treadmill at 1.7mph pace in cardiac rehab before he has to take a minute to allow his LLE pain to subside before walking again. He notes the symptoms start in the calf/behind the knee but if he pushes through that it eventually goes up to his hip. He usually likes to camp and generally be active outside and this has been very limiting in that regard as well. He does not have rest pain or wounds. He has not had any prior lower extremity arterial interventions. He completed LEAS ordered for claudication which demonstrated L SHERYL 0.58 with monophasic waveforms and R SHERYL 1.19 with multiphasic waveforms. ROS General General: Yes fatigue and weakness; No weight change, appetite, colon cancer or breast cancer HEENT HEENT: No difficulty swallowing, eye injury, eye surgery, swollen glands or hoarseness Endo Endocrine: Yes (more content not included)... Normal [facility] Cardiology Visit Reporton Cardiology Visit Report [facility] [address] [place] [address] OFFICE VISIT Date of Service: 05/17/25 MR#: [id number] Acct: [id number] Name: JOHNY SANTAMARIA Jr. Rep #: [id number] : 1960 Provider: RIKI mirza Age/Sex: 65/M Location[place] [facility] [place] Status: Signed HPI HPI History of Present Illness Details: 65-year-old man with a history of significant tobacco and alcohol use who had presented to the hospital in July 2021 with progressive shortness of breath. He denied any classic chest discomfort and did not have any syncope. He was seen in the emergency room at that time and his EKG demonstrated evidence of a possible inferior myocardial infarction. At the time of his evaluation he was noted to have significant pulmonary hypertension with pulm artery systolic pressures which were elevated. There was a discussion as to whether he would undergo a cardiac catheterization but for reasons that are not entirely clear he never underwent the above. He later complained of shortness of breath and was scheduled for and underwent an echocardiographic evaluation which demonstrated an ejection fraction of 45% with segmental wall motion abnormalities, severe mitral regurgitation, 3+ tricuspid gestation and severe pulmonary hypertension with pulmonary systolic pressure estimated to be 86 mmHg. He denied any chest pain. He also underwent stress testing which was noted to be abnormal at a workload of 6.4 metabolic equivalents. It suggested multivessel disease with ischemia involving the anteroseptal wall, inferior wall, and infarct involving the apex. He was sent to us for further evaluation and definitive management. He continues to use tobacco products and alcohol albeit less. Heart catheterization 11/15/2024 showed severe triple- vessel disease with mid segment LAD with 90% stenosis, proximal LCx with 90% stenosis, ramus with 80% stenosis, and occluded RCA with [id number] collateral flow. He was evaluated with [facility] and he proceeded with BASIL to mid LAD and proximal ramus intermedius at [facility] on 02/27/2025. He denies chest, arm, jaw, or neck discomfort. He acknowledges palpitations that he describes as fast. He denies bilateral lower extremity edema. He acknowledges shortness of breath activity and shortness of breath at rest. He states that this comes and goes. He denies orthopnea, cough, or PND. He acknowledges dizziness. He denies lightheadedness, near-syncope, syncope, or weakness. He acknowledges fatigue. Intake Vital Signs 04/17/25 08:53 05/07/25 07:14 05/17/25 08:21 Height 5 ft 9 in 5 ft 9 in 5 ft 9 in Weight: 174 lb BMI 25.7 BP 140/75 H Blood Pressure Location Lt brachial Position Sitting Respiration 18 Pulse 61 Pulse Source NIBP Intake Visit Reasons: 1 M FU Tub Mender Required: No Is patient in pain?: No Allergies No Known Allergies Allergy (Verified 05/17/25 08:28) Medications ???Medication ???Instructions ???Recorded ???Confirmed ???Type albuterol sulfate 90 mcg/actuation 2 puff inhalation Q6H PRN 05/17/25 Rx aerosol inhaler shortness of breath or wheezing #8.5 grams furosemide 20 mg tablet 20 mg PO DAILY #30 tabs 08/01/21 0 05/17/25 Rx rosuvastatin 40 mg tablet 40 mg PO QDAY 11/08/24 05/17/25 Hi story aspirin 81 mg tablet,delayed 81 mg PO DAILY #30 tabs 11/10/24 0 05/17/25 Rx release (Adult Aspirin Regimen) latanoprost 0.005 % eye drops 1 drp ophthalmic (eye) QHS 5 05/17/25 History tiotropium 2.5 mcg-olodaterol 2.5 2 puff inhalation QDAY 11/10/24 0 05/17/25 History mcg/actuation mist for inhalation (Stiolto Respimat) clopidogrel 75 mg tablet 75 mg PO QDAY 04/03/25 05/17/25 Hi story dorzolamide-timolol (PF) 2 %-0.5 % 1 drp ophthalmic (eye) BID 04/0305/17/25 History eye drops in a dropperette dapagliflozin propanediol 10 mg 10 mg PO DAILY #90 tabs 05/17/25 0 05/17/25 Rx tablet (Farxiga) lisinopril 40 mg tablet 40 mg PO QDAY #90 tabs 05/17/25 Rx Ejection fraction %: 45 Have you fallen in the past year?: No PFSH Medical History Alcohol abuse Elevated ferritin Decreased cardiac ejection fraction Mitral valve disease CAD (coronary artery disease) Dyspnea Chest pain Lung nodule HLD (hyperlipidemia) Pulmonary hypertension Asthma Non-ST elevation NM (NSTEMI) (07/30/21) COPD with exacerbation Glaucoma Surgical History Stented coronary artery (02/27/25) History of dilation of urethra Hx of tonsillectomy Family History Other Diabetes Heart disease Social History household members: spouse housing: house current occupationa (more content not included)... Normal [facility] No Panel InformationOrdered By: David Vences on 05-07-2025 [facility] [address] [place] [address] CR - Individual Treatment Plan MR#: [id number] Acct: [id number] Name: JOHNY SANTAMARIA Jr. Rep #:[id number] : 1960 65 From: David Stephens BS, RVT PCP: Dr. Lali Taylor MD DOS: 01/26 Exercise - Initial Assessment Visit Session #:: 6 Physician Prescribed Exercise Modalities: Treadmill, Schwinn Airdyne AD-7 and SciFit Stepper Nutrition - Initial Assessment Weight Mgt (Other Care) Height: 5 ft 9 in Weight:: 176 lb 8 oz BMI: 26.0 Core - Initial Assessment Tobacco Use Years Smokin Psychosocial - Initial Assess Target Goals Target Goals Referral to Behavioral Health PS - Interventions: Yes: Attend Stress Management Classes Patient Health Questionnaire PHQ-9 Screening 30-Day Re-eval Assessment: 1. Little interest or pleasure in doing things: Not at all 2. Feeling down, depressed, or hopeless: Not at all 3. Trouble falling or staying asleep, or sleeping too much: Not at all 4. Feeling tired or having little energy: Several days 5. Poor appetite or overeating: Not at all 6. Feeling bad about yourself -- or that you are a failure or have let yourself or your family down: Not at all 7. Trouble concentrating on things, such as reading the newspaper or watching television: Not at all 8. Moving or speaking so slowly that other people could have noticed. Or the opposite - being so fidgety or restless that you have been moving around a lot more than usual: Nearly every day 9. Thoughts that you would be better off , or of hurting yourself in some way: Not at all How difficult have these problems made it for you to do your work, take care of things at home, or get along with other people?: Not difficult at all Total Score: 4 Self-Efficacy 6-Item Scale 30-Day Re-eval Assessment: We would like to know how confident you are in doing certain activities. Please select your confidence level for: Fatigue Select Number: 5 Physical Discomfort or Pain Select Number: 5 Emotional Distress Select Number: 10 Other Symptoms or Health Problems Select Number: 5 Different Tasks and Activities Select Number: 5 Medication Select Number: 5 Total Score:: 5 Nutrition Survey Nutrition Survey Instructions Scoring Instructions Exercise - 30-day Assessment Visit Date of Eval: 05/07/25 Session #:: 6 Physician Prescribed Exercise Modalities: Treadmill, Schwinn Airdyne AD-7 and SciFit Stepper Frequency: 3x/week for 12 weeks [36 sessions] Intensity: 60-80% of age predicted maximum heart rate reserve Duration: 30 - 45 minutes Current METSs:: 3.9 Target Heart Rate:: 92-116 Current RPE:: 12-15 Maximum Excercise HR:: 90 Resting Blood Pressure: 132/58 Maximum Exercise Blood Pressure: 152/76 EKG Type: NSR w/rare PAC, PVC Outcomes & Goals Goals:: Verbalizes understanding of THR, RPE & goal METS by session 6, Documentsin home exercise log/reports 30 min aerobic 5 day/wk by DC, Demonstrates accurate pulse taking by DC and Other additional outcome/goals: see below Intervention & Plan Exercise Program Goals: Instruct on personal THR & RPE, Instruct on MET level & personal MET goal, Show patient to take own pulse /validate performance until accurate, Instruct on home exercise and Other additional plan/int Physical Activity Home Exercise Physical Activity - Home Exercise: Safe Exercise, Warm-up, Self-monitoring, Cool-Down, Home Exercise > 30 min Daily and Sitting Time <3 hours/daily Outcomes & Goals Outcomes/Goals: Demonstrates correct Warm-up/exercise Cool-Down (S3) if = 2.5 METs, Verbalizes symptoms of exercise intolerance by Session 3 (S3), Demonstratesafe equipment use (S3) & follows exercise prescrition (6) and Other: See below Intervention & Plan Plan/Intervention: Instruct warm-up & cool-down if exercising at > 2 METs, Instruct on symptoms of exercise intolerance & actions to take, Instruct & monitor on saf, Assess intial functional capacity & safety risk and Other See below 30-day Reassessments 30 day Reassessments:: Progressing Reassessment Notes & Comments:: RPE explained to pt. Pt demonstrates understanding in his daily sessions. Exercise - 60-day Assessment Physician Prescribed Exercise Modalities: Treadmill, Schwinn Airdyne AD-7 and SciFit Stepper Exercise - 90-day Assessment Physician Prescribed Exercise Modalities: Treadmill, Schwinn Airdyne AD-7 and SciFit Stepper Exercise - Final/Discharge Physician Prescribed Exercise Modalities: Treadmill, Schwinn Airdyne AD-7 and SciFit Stepper Nutrition - 30-Day Assessment Program Goals Nutrition Program Goals Patient has diagnosis of Hyperlipidemia (ICD E78)?: Yes Visit Date of Eval: 05/07/25 Session #:: 6 Cholesterol/Lipids (Other Core Measures) Determine presence & major risk factors that modify LDL goal: Cigarette smoking,Hypertension or hypertensive medication, Low HDL cholesterol <40 mg/dL*, Family history of premature CHD in Male < 55 years: female <65 yearsFa and Age men > 45years; women >/= 55 years Outcomes/Goals: Pt IDs own risk factors & (more content not included)... [facility] Arterial study reportOrdered By: Tramaine Garrison on 04-26-2025 Noninvasive arteriosclerosis study report [facility] [address] [place] [address] Lower Ext Art Exam w/o Exercis 04/26/25 0940 MR#: [id number] Acct: [id number] Name: JOHNY SANTAMARIA Everardo Braden Rep #:[id number] : 1960 65 From: Tramaine Coburn Attending Dr: RIKI Muhammad Sta tus: REG CLI Ordering Dr: Lali Marie NP AUTOCUTTER-C Date: 04/26/25 Location: [facility] Sex: M C Admitted: Reason For Study Reason For Study: Claudication Procedure A bilateral lower extremity continuous wave Doppler with analog waveform analysis,segmental pressures,and ankle brachial indexes without exercise. Left Segmental Pressures Left brachial= 79mmHg. Left high thigh = 71mmHg. Left low thigh = 87mmHg. Left calf = 58mmHg. Left posterior tibial artery = 64mmHg. Left dorsalis pedis artery = 79mmHg. The left dorsalis pedis waveforms are monophasic. The left posterior tibial artery waveforms are monophasic. Right Segmental Pressures Right brachial= 137mmHg. Right posterior tibial artery = 163mmHg. Right dorsalispedis artery = 152mmHg. Right digit = 59 mmHg. The right dorsalis pedis waveforms are biphasic. The right posterior tibial artery waveforms are triphasic. Indices The right ankle brachial index by the dorsalis pedis is 1.11. The right ankle brachial index by the posterior tibial artery is 1.19. The right digital-brachial index is 0.43. The left ankle brachial index by the dorsalis pedis is 0.58. The left ankle brachial index by the posterior tibial artery is 0.47. VL/Lower Ext Art Exam w/o Exercis Interpretation Summary Right SHERYL 1.19, normal. Doppler/PVR waveforms of the right leg normal at rest. TBI diminished, pedal/digit disease vs spasm. Left SHERYL 0.58, moderate arterial insufficiency. Doppler/PVR waveforms and segmental pressures reveal aorto-iliac, distal SFA/popliteal disease. Ordering Physician: Lali Marie Referring Physician: Lali Taylor Performed By: Mamie Hsu Monica 04/26/251852 Date _ Tramaine Garrison MD CC: AUTOCUTTER-Kathy Marie; Dr. Lali Taylor MD ~ Date Dictated: 04/26/25939 Date Transcribed: 04/26/251852 Bartender: Signed [facility] Work Phone: Lower Ext Art Exam w/o Exerc aris 04-26-2025 Lower Ext Art Exam w/o Exercis [facility] [address] [place] [address]. [place] [address] Lower Ext Art Exam w/o Exercis 04/26/25939 MR#: [id number] Acct: [id number] Name: JOHNY SANTAMARIA Jr. Rep #: [id number] : 1960 65 From: Tramaine Garrison MD Attending Dr: Lali Marie, AUTOCUTTER-C Status: REG CLI Ordering Dr: Lali Marie AUTOCUTTER AUTOCUTTER-C Date: 04/26/25 Location: [facility] Sex: M C Admitted: Reason For Study Reason For Study: Claudication Procedure A bilateral lower extremity continuous wave Doppler with analog waveform analysis,segmental pressures,and ankle brachial indexes without exercise. Left Segmental Pressures Left brachial= 79mmHg. Left high thigh = 71mmHg. Left low thigh = 87mmHg. Left calf = 58mmHg. Left posterior tibial artery = 64mmHg. Left dorsalis pedis artery = 79mmHg. The left dorsalis pedis waveforms are monophasic. The left posterior tibial artery waveforms are monophasic. Right Segmental Pressures Right brachial= 137mmHg. Right posterior tibial artery = 163mmHg. Right dorsalis pedis artery = 152mmHg. Right digit = 59 mmHg. The right dorsalis pedis waveforms are biphasic. The right posterior tibial artery waveforms are triphasic. Indices The right ankle brachial index by the dorsalis pedis is 1.11. The right ankle brachial index by the posterior tibial artery is 1.19. The right digital-brachial index is 0.43. The left ankle brachial index by the dorsalis pedis is 0.58. The left ankle brachial index by the posterior tibial artery is 0.47. VL/Lower Ext Art Exam w/o Exercis Interpretation Summary Right SHERYL 1.19, normal. Doppler/PVR waveforms of the right leg normal at rest. TBI diminished, pedal/digit disease vs spasm. Left SHERYL 0.58, moderate arterial insufficiency. Doppler/PVR waveforms and segmental pressures reveal aorto-iliac, distal SFA/popliteal disease. Ordering Physician: Lali Marie Referring Physician: Lali Taylor Performed By: Mamie Hsu RVT 04/26/251852 Date Tramaine Garrison MD CC: RIKI Marie; Dr. Lali Taylor MD Date Dictated: 04/26/25939 Date Transcribed: 04/26/251852 Bartender: Signed Normal [facility] Cardiology Visit Reporton Cardiology Visit Report [facility] [address] [place] [address] OFFICE VISIT Date of Service: 04/17/25 MR#: [id number] Acct: [id number] Name: JOHNY SANTAMARIA Jr. Rep #: [id number] : 1960 Provider: RIKI mirza Age/Sex: 65/M [place] [facility] [place] Status: Signed HPI HPI History of Present Illness Details: 65-year-old man with a history of significant tobacco and alcohol use who had presented to the hospital in July 2021 with progressive shortness of breath. He denied any classic chest discomfort and did not have any syncope. He was seen in the emergency room at that time and his EKG demonstrated evidence of a possible inferior myocardial infarction. At the time of his evaluation he was noted to have significant pulmonary hypertension with pulm artery systolic pressures which were elevated. There was a discussion as to whether he would undergo a cardiac catheterization but for reasons that are not entirely clear he never underwent the above. He later complained of shortness of breath and was scheduled for and underwent an echocardiographic evaluation which demonstrated an ejection fraction of 45% with segmental wall motion abnormalities, severe mitral regurgitation, 3+ tricuspid gestation and severe pulmonary hypertension with pulmonary systolic pressure estimated to be 86 mmHg. He denied any chest pain. He also underwent stress testing which was noted to be abnormal at a workload of 6.4 metabolic equivalents. It suggested multivessel disease with ischemia involving the anteroseptal wall, inferior wall, and infarct involving the apex. He was sent to us for further evaluation and definitive management. He continues to use tobacco products and alcohol albeit less. Heart catheterization 11/15/2024 showed severe triple- vessel disease with mid segment LAD with 90% stenosis, proximal LCx with 90% stenosis, ramus with 80% stenosis, and occluded RCA with [id number] collateral flow. He was evaluated with [facility] and he proceeded with BASIL to mid LAD and proximal ramus intermedius at [facility] on 02/27/2025. He denies arm, jaw, or neck discomfort. He states occasional chest twinges. He states palpitations that is occasional he described as fast. He denies bilateral lower extremity edema. He denies claudication. He states shortness of breath with activity and shortness of breath at rest. He denies orthopnea or PND. He denies chronic cough. He denies significant, sudden weight gain. He states lightheadedness and dizziness. He denies near-syncope or syncope. He denies blood in urine, blood in stool, or epistaxis. He denies fever with chills. He denies myalgia. He states fatigue. His exercise level has remained stable. Intake Vital Signs 11/10/24 13:37 11/15/24 10:37 04/10/25 09:45 04/17/25 08:53 Height 5 ft 9 in 5 ft 9 in 5 ft 9 in 5 ft 9 in Weight: 176 lb BMI 25.9 BP 171/82 H Blood Pressure Location Rt brachial Position Sitting Respiration 18 Pulse 64 Pulse Source NIBP Intake Visit Reasons: 4 M FU Tub Mender Required: No Is patient in pain?: No Allergies No Known Allergies Allergy (Verified 04/17/25 09:03) Medications ???Medication ???Instructions ???Recorded ???Confirmed ???Type albuterol sulfate 90 mcg/actuation 2 puff inhalation Q6H PRN 04/17/25 Rx aerosol inhaler shortness of breath or wheezing #8.5 grams furosemide 20 mg tablet 20 mg PO DAILY #30 tabs 08/01/21 0 04/17/25 Rx rosuvastatin 40 mg tablet 40 mg PO QDAY 11/08/24 04/17/25 Hi story aspirin 81 mg tablet,delayed 81 mg PO DAILY #30 tabs 11/10/24 0 04/17/25 Rx release (Adult Aspirin Regimen) latanoprost 0.005 % eye drops 1 drp ophthalmic (eye) QHS //2 5 04/17/25 History tiotropium 2.5 mcg-olodaterol 2.5 2 puff inhalation QDAY 11/10/24 0 04/17/25 History mcg/actuation mist for inhalation (Stiolto Respimat) clopidogrel 75 mg tablet 75 mg PO QDAY 04/03/25 04/17/25 Hi story dorzolamide-timolol (PF) 2 %-0.5 % 1 drp ophthalmic (eye) BID 04/0304/17/25 History eye drops in a dropperette dapagliflozin propanediol 10 mg 10 mg PO DAILY #30 tabs 04/17/25 0 04/17/25 Rx tablet (Farxiga) lisinopril 10 mg tablet 20 mg PO QDAY 04/17/25 04/17/25 Hi story Ejection fraction %: 45 Have you fallen in the past year?: No PFSH Medical History Alcohol abuse Elevated ferritin Decreased cardiac ejection fraction Mitral valve disease CAD (coronary artery disease) Dyspnea Chest pain Lung nodule HLD (hyperlipidemia) Pulmonary hypertension Asthma Non-ST elevation NM (NSTEMI) (07/30/21) COPD with exacerbation Glaucoma Surgical History Stented coronary artery (02/27/25) History of dilation of urethra Hx of tons (more content not included)... Normal [facility] Cardiac rehabilitation evalu ation reportOrdered By: David Vences on 04-11-2025 Study report [facility] [address] [place] [address] CR - History & Physical MR#: [id number] Acct: [id number] Name: JOHNY SANTAMARIA Jr. Rep #:[id number] : 1960 65 From: David Stephens BS, RVT PCP: Dr. Lali Taylor MD DOS: 05/28 CR - History & Physical General Arrival date:: 04/10/25 Arrival time:: 09:33 Date of Referral:: 04/03/25 Date of CR Evaluation:: 04/10/25 Referring Physician: Dr. Redd Primary Diagnosis: PCI w/stenting History of Present Cardiac Event Onset Date PTCA or coronary stenting:: Yes Vessel: LAD and Ramus Intermedius on 03/29/25 Medications Ambulatory Orders ?Medication ?Instructions ?Recorded albuterol sulfate 90 mcg/actuation 2 puff inhalation Q 6H PRN 08/01/21 aerosol inhaler shortness of breath or wheez ing #8.5 grams furosemide 20 mg tablet 20 mg PO DAILY #30 tabs 07/05 06/24 lisinopril 2.5 mg tablet 2.5 mg PO QDAY 11/08/24 rosuvastatin 40 mg tablet 40 mg PO QDAY 11/08/24 aspirin 81 mg tablet,delayed 81 mg PO DAILY #30 tabs 0 11/10/24 release (Adult Aspirin Regimen) latanoprost 0.005 % eye drops 1 drp ophthalmic (eye) Q HS 11/10/24 tiotropium 2.5 mcg-olodaterol 2.5 2 puff inhalation QD AY 11/10/24 mcg/actuation mist for inhalation (Stiolto Respimat) clopidogrel 75 mg tablet 75 mg PO QDAY 04/03/25 dorzolamide-timolol (PF) 2 %-0.5 % 1 drp ophthalmic (e ye) BID 04/03/25 eye drops in a dropperette Allergies Allergies No Known Allergies Allergy (Verified 02/05/25 16:10) Sleep Disorder Evaluation Hx of Sleep Apnea: No Do you snore loudly (louder than talking or can be heard through closed doors)?:No Do you often feel tired/ fatigued/ sleepy during daytime?: No Has anyone observed you stop breathing during sleep?: No History of Hypertension (for STOP score): No STOP Results: Negative Advanced Directives Advanced Directives Do you have a Healthcare Power of Genomics Scientist?: Yes Living Will: Yes Advance Directives Information Provided: Yes Advance Directives on File: No DNR Order?:: No Past Medical History Covid-19 Screening Physicial Symptoms Other Clinical Concerns Exposure Risk Pertinent Comorbidities 65 years or older:: Yes Has a chronic lung disease or moderate to severe asthma:: Yes Has a serious heart condition:: Yes Past Medical Illness Past Medical History (Updated 02/06/25 @ 07:[address] Tramaine Garrison MD) Alcohol abuse F10.10 Elevated ferritin R79.89 Decreased cardiac ejection fraction R93.1 Mitral valve disease I05.9 CAD (coronary artery disease) I25.10 Dyspnea R06.00 Chest pain R07.9 Lung nodule R91.1 HLD (hyperlipidemia) E78.5 Pulmonary hypertension I27.20 Asthma J45.909 Non-ST elevation NM (NSTEMI) (07/30/21) I21.4 COPD with exacerbation J44.1 Glaucoma H40.9 Past Surgical History Past Surgical History (Updated 04/03/25 @ 09:06 by Elizabeth De Leon) Stented coronary artery (02/27/25) Z95.5 2.5 X 28 mm Synergy XD BASIL to LAD, and a 3.0 X 32 mm Synergy XD BASIL to Proximal Mid Ramus Intermedius 02/27/[address] Almodovar at [facility]. History of dilation of urethra Z98.890 Hx of tonsillectomy Z90.89 Family History Summary Family History Other Diabetes Heart disease Social History Smoking History Smoking Status: Current every day smoker Years Smokin Packs Smoked per Day: 0.2 Alcohol Use Alcohol Usage: Yes Substance Abuse Hx Substance Use: No Occupation Occupation (List type of work in comments):: Retired Social Environment Status Marital Status: Current Living Arrangements Living Environment:: Spouse Children How many children do you have?: 1 Do any of your children live nearby?: Yes Safety Do you feel safe in your surroundings?: Yes Assistance Do you need any assistance at home?: no Review of Systems Review of Systems Hints Review of Present Symptoms: Reports Shortness of Breath at Rest, Shortness of Breath with Exertion, PVD, Angina, Dizziness/Lightheade dness, Fatigue, Appetite - Normal, Appetite - Special Diet and Sleep - Normal; Denies Operative Discomfort, Wound Healing, Heart Arrhythmia/Irregular ities or Sexual Changes Pain Is Patient Pain Free?: Yes Risk Factor Assessment Chief Complaint Chief Complaint: PCI w/stenting Vital Signs Pulse Ox: 98 Blood Pressure: 142/62 Pulse Pulse Rate: 63 Pulse Rhythm: Regular Hypertension Blood Pressure Sitting - Right Arm: 142/62 Obesity Height: 5 ft 9 in Weight:: 176 lb Weight in Pounds: 176.0 lbs Body Mass Index (BMI): 25.9 Nutritional Referral for Obesity: No Physical Inactivity Physical Inactivity: Reg Exercise 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 [facility] No Panel InformationOrdered By: David Vences on 04-11-2025 [facility] Cardiac Rehab [address] [place] [address] CR - Individual Treatment Plan MR#: [id number] Acct: [id number] Name: JOHNY SANTAMARIA JrMendy Rep #:[id number] : 1960 65 From: David Stephens BS, RVT PCP: Dr. Lali Taylor MD DOS: 05/28 Diagnosis General Information Admitting Diagnosis: PCI w/stenting Personal Learning Style:: Audio/Visual Barriers to Learning: No Barriers Stage of change r/t lifestyle modifications:: Contemplation Gave educational material for:: Treating Heart Disease, How The Heart Works, What it means to have Heart Disease, How Coronary Artery Disease is Diagnosed, Heart Procedures, What Heart Medications Do, Risk Factors & Modifications, Living an Active Life, Nutrition, Emotions & Heart Disease, Stress Management & Relaxation and Sleep Disorders & Heart Disease Education/Goals Cardiac Rehabilitation Goals Personal Goals: Initial Assessment: Improve energy level, Get back to work, or to resume activities faster, Improve muscle strength and endurance and Control risk factors (learn risk factor modification) Scale for measuring improvement of personal goals Diagnosis & Disease Process Outcomes/Goals: Pt IDs own risk factors & lifestyle modifications by Session 10,Verbalizes symptoms of angina & response by session 3. and Pt independently manages Plan/Interventions: Assist Pt to ID & engage in lifestyle modification to reduceCVD risk, Instruct on individual risk factors, Review symptoms of angina & emergency actions and Review secondary diagnosis & identify educational needs. 30 day Reassessments:: Not Met 30 day Reassessments:: Not Met 30 day Reassessments:: Not Met 30 day Reassessments:: Not Met Final Reassessments:: Not Met Safety Referral to Physical Therapy: No Referral to [facility] Case Management: No Fall Risk Assessed:: Yes Assistive Devices:: None Exercise - Initial Assessment Visit Date of Eval: 04/10/25 (initial eval ) Mets: Pre-: >3 METS for 30 minutes by discharge, >5 METS for 30 minutes by discharge, >7 METS for 30 minutes by discharge and Unable to meet goal due to: (see comment below) Physician Prescribed Exercise Modalities: Treadmill, Rower, Schwinn Airdyne AD-7, SciFit Stepper, AwarenessHubFit Pro-II Ergometer and AwarenessHubFit Lateral Plexiglas Former Frequency: 3x/week for 12 weeks [36 sessions] Intensity: 60-80% of age predicted maximum heart rate reserve Duration: 30 - 45 minutes Current METSs:: 3 Target Heart Rate:: 92-116 EKG Type: SR-short IN syndrome-occas ectopic vent beat Outcomes & Goals Goals:: Verbalizes understanding of THR, RPE & goal METS by session 6, Documentsin home exercise log/reports 30 min aerobic 5 day/wk by DC, Demonstrates accurate pulse taking by DC and Other additional outcome/goals: see below Intervention & Plan Exercise Program Goals: Instruct on personal THR & RPE, Instruct on MET level & personal MET goal, Show patient to take own pulse /validate performance until accurate, Instruct on home exercise and Other additional plan/int Physical Activity Home Exercise Physical Activity - Home Exercise: Safe Exercise, Warm-up, Self-monitoring, Cool-Down, Home Exercise > 30 min Daily and Sitting Time <3 hours/daily Outcomes & Goals Outcomes/Goals: Demonstrates correct Warm-up/exercise Cool-Down (S3) if = 2.5 METs, Verbalizes symptoms of exercise intolerance by Session 3 (S3), Demonstratesafe equipment use (S3) & follows exercise prescrition (6) and Other: See below Intervention & Plan Plan/Intervention: Instruct warm-up & cool-down if exercising at > 2 METs, Instruct on symptoms of exercise intolerance & actions to take, Instruct & monitor on saf, Assess intial functional capacity & safety risk and Other See below Nutrition - Initial Assessment Program Goals Nutrition Program Goals Patient has diagnosis of Hyperlipidemia (ICD E78)?: Yes Visit Date of Eval: 04/10/25 (initial eval ) Cholesterol/Lipids (Other Core Measures) Determine presence & major risk factors that modify LDL goal: Cigarette smoking,Hypertension or hypertensive medication, Low HDL cholesterol <40 mg/dL*, Family history of premature CHD in Male < 55 years: female <65 yearsFa and Age men > 45years; women >/= 55 years Outcomes/Goals: Pt IDs own risk factors & lifestyle modifications by Session 10,Verbalizes symptoms of angina & response by session 3. and Pt independently manages Intervention/Plan: Advocate for lipid panel cholesterol medication if applicable, Instruct on personal lipid levels & lipid goals/NCEP guidelines, Instruct on cholesterol and Other additional plan/int Referral to dietitian:: No Diabetes (Other Core Measures) Diabetes Type: Not Applicable Weight Mgt (Other Care) Height: 5 ft 9 in Weight:: 176 lb BMI: 25.9 Diagnosis Overweight/Obesity BMI> 30% ICD-10 E66: No Diagnosis High BMI/Morbid Obesity BMI> 35% ICD-10 Z68: No Outcomes/Goals: Pt sets, maintains & shows weight loss goal & trend during rehaband Other additional outcomes/goals Intervention/Plan: Instruct on ideal BMI & set weight loss goal w/patient, Assist pt to ID & incorporate (more content not included)... [facility] CR - History AND Physicalon 04-10-2025 CR - History & Physical [facility] Cardiac Rehab [address] [place] [address] CR - History Physical MR#: [id number] Acct: [id number] Name: JOHNY SANTAMARIA JrMendy Rep #: [id number] : 1960 65 From: David GRIMES, RVT PCP: Dr. Lali Taylor MD DOS: 04/10/25 CR - History Physical General Arrival date:: 04/10/25 Arrival time:: 09:33 Date of Referral:: 04/03/25 Date of CR Evaluation:: 04/10/25 Referring Physician: Dr. Redd Primary Diagnosis: PCI w/stenting History of Present Cardiac Event Onset Date PTCA or coronary stenting:: Yes Vessel: LAD and Ramus Intermedius on 03/29/25 Medications Ambulatory Orders ???Medication ???Instructions ???Recorded albuterol sulfate 90 mcg/actuation 2 puff inhalation Q6H PRN aerosol inhaler shortness of breath or wheezing #8.5 grams furosemide 20 mg tablet 20 mg PO DAILY #30 tabs 08/01/21 lisinopril 2.5 mg tablet 2.5 mg PO QDAY 11/08/24 rosuvastatin 40 mg tablet 40 mg PO QDAY 11/08/24 aspirin 81 mg tablet,delayed 81 mg PO DAILY #30 tabs 11/10/24 release (Adult Aspirin Regimen) latanoprost 0.005 % eye drops 1 drp ophthalmic (eye) QHS 11/10/ 5 tiotropium 2.5 mcg-olodaterol 2.5 2 puff inhalation QDAY 11/10/24 mcg/actuation mist for inhalation (Stiolto Respimat) clopidogrel 75 mg tablet 75 mg PO QDAY 04/03/25 dorzolamide-timolol (PF) 2 %-0.5 % 1 drp ophthalmic (eye) BID 04/03 eye drops in a dropperette Allergies Allergies No Known Allergies Allergy (Verified 02/05/25 16:10) Sleep Disorder Evaluation Hx of Sleep Apnea: No Do you snore loudly (louder than talking or can be heard through closed doors)?: No Do you often feel tired/ fatigued/ sleepy during daytime?: No Has anyone observed you stop breathing during sleep?: No History of Hypertension (for STOP score): No STOP Results: Negative Advanced Directives Advanced Directives Do you have a Healthcare Power of Genomics Scientist?: Yes Living Will: Yes Advance Directives Information Provided: Yes Advance Directives on File: No DNR Order?:: No Past Medical History Covid-19 Screening Physicial Symptoms Other Clinical Concerns Exposure Risk Pertinent Comorbidities 65 years or older:: Yes Has a chronic lung disease or moderate to severe asthma:: Yes Has a serious heart condition:: Yes Past Medical Illness Past Medical History (Updated 02/06/25 @ 07:[address] Tramaine Garrison MD) Alcohol abuse F10.10 Elevated ferritin R79.89 Decreased cardiac ejection fraction R93.1 Mitral valve disease I05.9 CAD (coronary artery disease) I25.10 Dyspnea R06.00 Chest pain R07.9 Lung nodule R91.1 HLD (hyperlipidemia) E78.5 Pulmonary hypertension I27.20 Asthma J45.909 Non-ST elevation NM (NSTEMI) (07/30/21) I21.4 COPD with exacerbation J44.1 Glaucoma H40.9 Past Surgical History Past Surgical History (Updated 04/03/25 @ 09:06 by Elizabeth De Leon) Stented coronary artery (02/27/25) Z95.5 2.5 X 28 mm Synergy XD BASIL to LAD, and a 3.0 X 32 mm Synergy XD BASIL to Proximal Mid Ramus Intermedius 02/27/[address] Almodovar at [facility]. History of dilation of urethra Z98.890 Hx of tonsillectomy Z90.89 Family History Summary Family History Other Diabetes Heart disease Social History Smoking History Smoking Status: Current every day smoker Years Smokin Packs Smoked per Day: 0.2 Alcohol Use Alcohol Usage: Yes Substance Abuse Hx Substance Use: No Occupation Occupation (List type of work in comments):: Retired Social Environment Status Marital Status: Current Living Arrangements Living Environment:: Spouse Children How many children do you have?: 1 Do any of your children live nearby?: Yes Safety Do you feel safe in your surroundings?: Yes Assistance Do you need any assistance at home?: no Review of Systems Review of Systems Hints Review of Present Symptoms: Reports Shortness of Breath at Rest, Shortness of Breath with Exertion, PVD, Angina, Dizziness/Lightheade dness, Fatigue, Appetite - Normal, Appetite - Special Diet and Sleep - Normal; Denies Operative Discomfort, Wound Healing, Heart Arrhythmia/Irregular ities or Sexual Changes Pain Is Patient Pain Free?: Yes Risk Factor Assessment Chief Complaint Chief Complaint: PCI w/stenting Vital Signs Pulse Ox: 98 Blood Pressure: 142/62 Pulse Pulse Rate: 63 Pulse Rhythm: Regular Hypertension Blood Pressure Sitting - Right Arm: 142/62 Obesity Height: 5 ft 9 in Weight:: 176 lb Weight in Pounds: 176.0 lbs Body Mass Index (BMI): 25.9 Nutritional Referral for Obesity: No Physical Inactivity Physical Inactivity: Reg Exercise 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) Risk Stratification Risk Guidelines: Moderate Risk: Risk Factor for Diabetes, Risk Factor for Obesity, Risk Factor for Sedentary Lifestyle and (more content not included)... Normal [facility] INVASIVE CARDIOVASCULAR PROC [place] 04-02-2025 INVASIVE CARDIOVASCULAR PROCEDURE Impression: Successful PCI to mid LAD and proximal ramus intermedius Recommendations: Continue DAPT for ideally 6-12 months then SAPT indefinitely Medical therapy for CAD Cardiac rehab Follow up with outpatient marketing outreach coordinator Access: Right femoral artery Left Heart Catheterization / Coronary angiogram: It is a right dominant system. 1. The left main is normal. 2. The LAD has a 99% subtotal occlusion in the mid vessel. There is mild-moderate disease in the proximal LAD. 3. The LCx has moderate disease up to 40% in the mid vessel. 4. There is a large ramus intermedius vessel with serial 80% lesions in the proximal and mid vessel (DFR 0.72) 4. The RCA was not selectively engaged, it is occluded proximally and fills via L to R collaterals. 5. LVEDP is 4 mm Hg; there is no aortic valve gradient. Intervention: The left coronary artery was engaged using a XB 3.5 guide and baseline angiography was performed. A WHisper guidewire was used to cross the mid LAD lesion. The lesion was pre dilated with a 2.0 balloon and then a 2.5 X 28 BASIL was deployed. Stent deployment balloon was then removed. Repeat angiography showed good results with GEORGE 3 flow through the vessel. Next, the RI lesion was wired with a Comet guidewire, the proximal-mid vessel was dilated with a 3.0 balloon and then a 3.0 X 32 BASIL was deployed. Repeat angiography showed good results with GEORGE 3 flow through the vessel. Table formatting from the original result was not included. Images from the original result were not included. Johny Santamaria Invasive Cardiology Cath Procedure Ordering Physician: CONSUELO ALMODOVAR Order #: [id number] Study Date: 03/29/2025 Patient Information Name MRN Description Johny Santamaria Jr. [id number] y.o. male Location Name Address [facility] [address] [facility] [address] Physicians Panel Physicians Referring Physician Case Authorizing Physician Consuelo Almodovar MD, PhD (Primary) Consuelo Almodovar MD, PhD Consuelo Almodovar MD, PhD Chris Pelayo MD (Fellow) Procedures STENT-CORONARY IFR CORONARY BALLOON ANGIOPLASTY-CORONARY LEFT HEART CATHETERIZATION Indications 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 [I25.119 (ICD-10-CM)] Abnormal findings on cardiac catheterization [R93.1 (ICD-10-CM)] Conclusion Impression: Successful PCI to mid LAD and proximal ramus intermedius Recommendations: Continue DAPT for ideally 6-12 months then SAPT indefinitely Medical therapy for CAD Cardiac rehab Follow up with outpatient marketing outreach coordinator Access: Right femoral artery Left Heart Catheterization / Coronary angiogram: It is a right dominant system. 1. The left main is normal. 2. The LAD has a 99% subtotal occlusion in the mid vessel. There is mild-moderate disease in the proximal LAD. 3. The LCx has moderate disease up to 40% in the mid vessel. 4. There is a large ramus intermedius vessel with serial 80% lesions in the proximal and mid vessel (DFR 0.72) 4. The RCA was not selectively engaged, it is occluded proximally and fills via L to R collaterals. 5. LVEDP is 4 mm Hg; there is no aortic valve gradient. Intervention: The left coronary artery was engaged using a XB 3.5 guide and baseline angiography was performed. A WHisper guidewire was used to cross the mid LAD lesion. The lesion was pre dilated with a 2.0 balloon and then a 2.5 X 28 BASIL was deployed. Stent deployment balloon was then removed. Repeat angiography showed good results with GEORGE 3 flow through the vessel. Next, the RI lesion was wired with a Comet guidewire, the proximal-mid vessel was dilated with a 3.0 balloon and then a 3.0 X 32 BASIL was deployed. Repeat angiography showed good results with GEORGE 3 flow through the vessel. Medical History Diagnosis Date Comment Source Asthma COPD (chronic obstructive pulmonary disease) Essential hypertension, benign NM (myocardial infarction) Procedure The risks and alternatives of the procedure and sedation were explained. Informed consent was obtained. The patient was brought to the dental laboratory technician apprentice and placed on the table. The planned puncture sites were prepped and draped in the usual sterile fashion. Coronary Findings Diagnostic Dominance: Right Left Anterior Descending Mid LAD lesion is 99% stenosed. Ramus Intermedius Ramus lesion is 80% stenosed. Instantaneous wave-free ratio calculation was performed on the lesion. GUIDEWIRE COMET II .014IN 185CM VASCULAR PRESSURE STERILE used for measurements. DFR measurements obtained were 0.74, 0.72, and 0.69 respectively. Left Circumflex Prox Cx to Mid Cx lesion is 40% stenosed. Right Coronary Artery Prox RCA lesion is 100% stenosed. Second Right Posterolateral Branch Collaterals 2nd RPL filled by collaterals from 2nd Sept. Intervention Mid LAD lesion PCI The pre-interventional distal flow is normal (GEORGE 3). - A CATHETE (more content not included)... Normal [facility], POCon 2024 ACT LOW RANGE, POC 174 High [facility] Interpretation and review of laboratory results Abnormal [facility] Test performed at address of the patient encounter. [facility] ACT LOW RANGE, POC 182 High [facility] Interpretation and review of laboratory results Abnormal [facility] Test performed at address of the patient encounter. [facility] ACT LOW RANGE, POC 182 High [facility] Interpretation and review of laboratory results Abnormal [facility] Test [facility] the [facility] High [facility] Interpretation and review of laboratory results Abnormal [facility] Test performed at address of the patient encounter. [facility] ACT LOW RANGE, POC [facility] Comment on above: Out of Range High. The test result is outside clinical range and should not be used for patient-management decisions. Test performed at address of the patient encounter. [facility] ACT LOW RANGE, POC [facility] Comment on above: Out of Range High. The test result is outside clinical range and should not be used for patient-management decisions. Test performed at address of the patient encounter. [facility] Absolute lymphocyte countOrd ered By: Consuelo Almodovar on 03-19-2025 Lymphocytes Auto (Unsp spec) [#/Vol] 2.41 10*3/uL 0.83-4.51 [facility] Absolute neutrophil countOrd ered By: Consuelo Almodovar on 03-19-2025 Neutrophils (Bld) [#/Vol] 5.1 10*3/uL 2.0-7.7 [facility] Anion gap in Serum or Plasma Ordered By: Consuelo Almodovar on 03-19-2025 Anion gap [Moles/Vol] 12 mmol/L 02-15 [facility] Automated lymphocyte count a s percentage of total leukocytesOrdered By: Consuelo Almodovar on 03-19-2025 Lymphocytes/100 WBC Auto (Unsp spec) 28.5 % [facility] BUN/creatinine ratioOrdered By: Consuelo Almodovar on 03-19-2025 Urea nitrogen/Creatinine [Mass ratio] 10.7 mg/mg - [facility] Basic Metabolic Profile (BMP )on 03-19-2025 BUN/CRE 10.7 RATIO Normal 07-23 [facility] Comment on above: Performed By: #### L 500.2500, L100.0100 #### [facility] Laboratory [address] [place], [address] Calcium [Mass/Vol] 9.3 mg/dL Normal 7.6-11.0 [facility] Comment on above: Performed By: #### L 500.2500, L100.0100 #### [facility] [address] [place], [address] Chloride [Moles/Vol] 102 mmol/L Normal 98-108 [facility] Comment on above: Performed By: #### L 500.2500, L100.0100 #### [facility] [address] [place], [address] CO2 [Moles/Vol] 22.6 mmol/L Normal 21.0-32.0 [facility] Comment on above: Performed By: #### L 500.2500, L100.0100 #### [facility] [address] [place], [address] Creatinine [Mass/Vol] 1.08 mg/dL Normal 0.70-1.20 [facility] Comment on above: Performed By: #### L 500.2500, L100.0100 #### [facility] [address] [place], [address] GAP 12 Normal 5-15 [facility] Comment on above: Performed By: #### L 500.2500, L100.0100 #### [facility] [address] [place], [address] GFR/1.73 sq M.predicted among non-blacks MDRD (S/P/Bld) [Vol rate/Area] 76 mL/min/{1.73_m2} Normal >60 [facility] Comment on above: Result Comment: mL/m in/1.73m2 CKD-EPI Creatinine Equation (2020) Performed By: #### L 500.2500, L100.0100 #### [facility] [address] [place], [address] Glucose [Mass/Vol] 111 mg/dL High 70-99 [facility] Comment on above: Performed By: #### L 500.2500, L100.0100 #### [facility] [address] [place], [address] Potassium [Moles/Vol] 4.5 mmol/L Normal 3.3-5.1 [facility] Comment on above: Performed By: #### L 500.2500, L100.0100 #### [facility] [address] [place], [address] Sodium [Moles/Vol] 137 mmol/L Normal 133-145 [facility] Comment on above: Performed By: #### L 500.2500, L100.0100 #### [facility] [address] [place], [address] Urea nitrogen [Mass/Vol] 12 mg/dL Normal 4-19 [facility] Comment on above: Performed By: #### L 500.2500, L100.0100 #### [facility] [address] [place], [address] Basophil percentageOrdered B y: Consuelo Almodovar on 03-19-2025 Basophils/100 WBC (Bld) 1.1 % High 0-1 [facility] CBC W/Diff, Automatedon 03-04 Absolute Lymph 2.41 X10 3/uL Normal 0.83-4.51 [facility] Comment on above: Performed By: #### L 500.2500, L100.0100 #### [facility] Laboratory [address] [place], [address] Absolute Neut 5.1 X10 3/uL Normal 2.0-7.7 [facility] Comment on above: Performed By: #### L 500.2500, L100.0100 #### [facility] [address] [place], [address] Basophils/100 WBC (Bld) 1.1 % High 0-1 [facility] Comment on above: Performed By: #### L 500.2500, L100.0100 #### [facility] [address] [place], [address] Eosinophils/100 WBC (Bld) 2.4 % Normal 0-5 [facility] Comment on above: Performed By: #### L 500.2500, L100.0100 #### [facility] [address] [place], [address] Erythrocyte distribution width (RBC) [Ratio] 13.0 % Normal 11.6-14.6 [facility] Comment on above: Performed By: #### L 500.2500, L100.0100 #### [facility] [address] [place], [address] Hematocrit (Bld) [Volume fraction] 45.8 % Normal 40-54 [facility] Comment on above: Performed By: #### L 500.2500, L100.0100 #### [facility] [address] [place], [address] Hemoglobin (Bld) [Mass/Vol] 15.4 g/dL Normal 13.0-16.5 [facility] Comment on above: Performed By: #### L 500.2500, L100.0100 #### [facility] [address] [place], [address] IG% 0.400 Normal 0.0-0.9 [facility] Comment on above: Result Comment: IG% - Immature Granulocytes (promyelocytes, myelocytes and metamyelocytes) > 1% indicates that a LEFT SHIFT is Present. Performed By: #### L 500.2500, L100.0100 #### [facility] [address] [place], [address] Lymphocytes/100 WBC (Bld) 28.5 % Normal 19-41 [facility] Comment on above: Performed By: #### L 500.2500, L100.0100 #### [facility] [address] [place], [address] MCH (RBC) [Entitic mass] 33.6 pg High 27.0-32.0 [facility] Comment on above: Performed By: #### L 500.2500, L100.0100 #### [facility] [address] [place], [address] MCHC (RBC) [Mass/Vol] 33.6 g/dL Normal 32-36 [facility] Comment on above: Performed By: #### L 500.2500, L100.0100 #### [facility] [address] [place], [address] MCV (RBC) [Entitic vol] 99.8 fL High 80-94 [facility] Comment on above: Performed By: #### L 500.2500, L100.0100 #### [facility] [address] [place], [address] Monocytes/100 WBC (Bld) 8.0 % Normal 0-10 [facility] Comment on above: Performed By: #### L 500.2500, L100.0100 #### [facility] [address] [place], [address] Neutrophils/100 WBC (Bld) 59.6 % Normal 47-70 [facility] Comment on above: Performed By: #### L 500.2500, L100.0100 #### [facility] [address] [place], [address] Nucleated RBC (Bld) [#/Vol] 0 10*3/uL Normal 0-5 [facility] Comment on above: Performed By: #### L 500.2500, L100.0100 #### [facility] [address] [place], [address] Platelet mean volume (Bld) [Entitic vol] 11.2 fL Normal 6.2-12.0 [facility] Comment on above: Performed By: #### L 500.2500, L100.0100 #### [facility] [address] [place], [address] Platelets (Bld) [#/Vol] 167 10*3/uL Normal 150-450 [facility] Comment on above: Performed By: #### L 500.2500, L100.0100 #### [facility] [address] [place], [address] RBC (Bld) [#/Vol] 4.59 10*6/uL Low 4.6-6.2 [facility] Comment on above: Performed By: #### L 500.2500, L100.0100 #### [facility] [address] [place], [address] RDW SD 47.8 fl High 35.1-43.9 [facility] Comment on above: Performed By: #### L 500.2500, L100.0100 #### [facility] [address] [place], [address] WBC (Bld) [#/Vol] 8.5 10*3/uL Normal 4.4-11.0 [facility] Comment on above: Performed By: #### L 500.2500, L100.0100 #### [facility] [address] [place], [address] Carbon dioxide, total [Moles /volume] in Central venous bloodOrdered By: Consuelo Almodovar on 03-19-2025 CO2 [Moles/Vol] 22.6 mmol/L 21.0-32.0 [facility] Chloride assayOrdered By: Reina Almodovar on 03-19-2025 Chloride [Moles/Vol] 102 mmol/L 98-108 [facility] Eosinophil percentageOrdered By: Consuelo Almodovar on 03-19-2025 Eosinophils/100 WBC (Bld) 2.4 % 0-5 [facility] Erythrocyte distribution wid th ratioOrdered By: Consuelo Almodovar on 03-19-2025 Erythrocyte distribution width (RBC) [Ratio] 13.0 % 11.6-14.6 [facility] Erythrocyte distribution wid th standard deviationOrdered By: Consuelo Almodovar on 03-19-2025 Erythrocyte distribution width (RBC) [Ratio] 47.8 fl High 35.1-43.9 [facility] Glomerular filtration rate ( GFR) estimation/1.73 sq m using serum, plasma, or whole bOrdered By: Consuelo Almodovar on 03-19-2025 GFR/1.73 sq M.predicted among non-blacks MDRD (S/P/Bld) [Vol rate/Area] 76 mL/min/{1.73_m2} >60 [facility] Comment on above: mL/min/1.73m2 CKD-EP I Creatinine Equation (2020) Hematocrit Auto (Bld) [Volum e fraction]Ordered By: Consuelo Almodovar on 03-19-2025 Hematocrit (Bld) [Volume fraction] 45.8 % 40-54 [facility] Hemoglobin measurementOrdere d By: Consuelo Almodovar on 03-19-2025 Hemoglobin (Bld) [Mass/Vol] 15.4 g/dL 13.0-16.5 [facility] Immature granulocytes/100 WB C Auto (Bld)Ordered By: Consuelo Almodovar on 03-19-2025 Immature granulocytes/100 WBC (Bld) 0.400 % 0.0-0.9 [facility] Comment on above: IG% - Immature Granu locytes (promyelocytes, myelocytes and metamyelocytes) > 1% indicates that a LEFT SHIFT is Present. MCV (mean corpuscular volume ) determinationOrdered By: Consuelo Almodovar on 03-19-2025 MCV (RBC) [Entitic vol] 99.8 fL High 80-94 [facility] Mean corpuscular hemoglobin (MCH) determinationOrdered By: Consuelo Almodovar on 03-19-2025 MCH (RBC) [Entitic mass] 33.6 pg High 27.0-32.0 [facility] Mean corpuscular hemoglobin concentration (MCHC) determinationOrdered By: Consuelo Almodovar on 03-19-2025 MCHC (RBC) [Mass/Vol] 33.6 g/dL 32-36 [facility] Mean platelet volume determi nationOrdered By: Consuelo Almodovar on 03-19-2025 Platelet mean volume (Bld) [Entitic vol] 11.2 fL 6.2-12.0 [facility] Monocyte percentageOrdered B y: Consuelo Almodovar on 03-19-2025 Monocytes/100 WBC (Bld) 8.0 % 0-10 [facility] Neutrophil percentageOrdered By: Consuelo Almodovar on 03-19-2025 Neutrophils/100 WBC (Bld) 59.6 % 47-70 [facility] Nucleated red blood cell per centageOrdered By: Consuelo Almodovar on 03-19-2025 Nucleated RBC/100 WBC (Bld) [Ratio] 0 % 0-5 [facility] Platelet countOrdered By: Reina Almodovar on 03-19-2025 Platelets (Bld) [#/Vol] 167 10*3/uL 150-450 [facility] Potassium measurement (mass/ volume)Ordered By: Consuelo Almodovar on 03-19-2025 Potassium (Unsp spec) [Mass/Vol] 4.5 mmol/L 3.3-5.1 [facility] RBC Auto (Bld) [#/Vol]Ordere d By: Consuelo Almodovar on 03-19-2025 RBC (Bld) [#/Vol] 4.59 10*6/uL Low 4.6-6.2 [facility] Serum creatinine measurement (mass/volume)Ordered By: Consuelo Almodovar on 03-19-2025 Creatinine [Mass/Vol] 1.08 mg/dL 0.70-1.20 [facility] Serum glucose measurement (m ass/volume)Ordered By: Consuelo Almodovar on 03-19-2025 Glucose [Mass/Vol] 111 mg/dL High 70-99 [facility] Serum or plasma calcium kelli urement (mass/volume)Ordered By: Consuelo Almodovar on 03-19-2025 Calcium [Mass/Vol] 9.3 mg/dL 7.6-11.0 [facility] Serum or plasma urea nitroge n measurement (mass/volume)Ordered By: Consuelo Almodovar on 03-19-2025 Urea nitrogen [Mass/Vol] 12 mg/dL 4-19 [facility] Sodium levelOrdered By: Ken Almodovar on 03-19-2025 Sodium [Moles/Vol] 137 mmol/L 133-145 [facility] White blood cell (WBC) count Ordered By: Consuelo Almodovar on 03-19-2025 WBC (Bld) [#/Vol] 8.5 10*3/uL 4.4-11.0 [facility] CBC,PLATELETSon 02-13-2025 Hematocrit (Bld) [Volume fraction] 47.6 % Normal 39.6-48.8 [facility] Comment on above: Performed By: #### [facility] #### [facility] (DEFAULT) [address] [address] Hemoglobin (Bld) [Mass/Vol] 15.8 g/dL Normal 13.4-16.8 [facility] Comment on above: Performed By: #### H [facility] #### [facility] (DEFAULT) [address] [address] MCV (RBC) [Entitic vol] 100.0 fL High 79.0-94.5 [facility] Comment on above: Performed By: #### H [facility] #### [facility] (DEFAULT) [address] [address] Mean Cell Hgb 33.2 pg Normal 26.1-33.3 [facility] Comment on above: Performed By: #### H EMOGC #### U [facility] (DEFAULT) [address] [address] Mean Cell Hgb Conc 33.2 g/dL Normal 31.9-36.5 [facility] Comment on above: Performed By: #### H EMOGC #### U [facility] (DEFAULT) [address] [address] Platelet mean volume (Bld) [Entitic vol] 11.6 fL Normal 8.7-12.3 [facility] Comment on above: Performed By: #### H EMOGC #### A[facility] (DEFAULT) [address] [address] Platelets (Bld) [#/Vol] 180 10*3/uL Normal 146-337 [facility] Comment on above: Performed By: #### H EMOGC #### [facility] (DEFAULT) [address] [address] RBC (Bld) [#/Vol] 4.76 10*6/uL Normal 4.38-5.83 [facility] Comment on above: Performed By: #### H EMOGC #### [facility] (DEFAULT) [address] [address] RBC Distribution 13.9 % Normal 10.9-14.3 [facility] Comment on above: Performed By: #### H EMOGC #### [facility] (DEFAULT) [address] [address] WBC (Bld) [#/Vol] 10.41 10*3/uL High 3.73-10.10 [facility] Comment on above: Performed By: #### H EMOGC #### [facility] (DEFAULT) [address] [address] CHEM 6 (LYTES, BUN CREA)on 0 5-13-2025 Anion gap [Moles/Vol] 16 mmol/L Normal 7-17 [facility] Comment on above: Performed By: #### Kathy HM6, HDLT #### [facility] (DEFAULT) [address] [place] [address] Chloride [Moles/Vol] 100 mmol/L Normal 98-108 [facility] Comment on above: Performed By: #### C HM6, HDLT #### [facility] (DEFAULT) [address] [place] [address] CO2 [Moles/Vol] 28 mmol/L Normal 21-31 [facility] Comment on above: Performed By: #### C HM6, HDLT #### [facility] (DEFAULT) [address] [place] [address] Creatinine [Mass/Vol] 1.00 mg/dL Normal 0.70-1.30 [facility] Comment on above: Performed By: #### Kathy HM6, HDLT #### [facility] (DEFAULT) [address] [place] [address] GFR/1.73 sq M.predicted among non-blacks MDRD (S/P/Bld) [Vol rate/Area] 84 mL/min/{1.73_m2} Normal >=60 [facility] Comment on above: Result Comment: Repo rted eGFR is based on the CKD-EPI 2020 equation using creatinine, age, and sex. Performed By: #### C HM6, HDLT #### [facility] (DEFAULT) [address] [place] [address] Potassium [Moles/Vol] 4.1 mmol/L Normal 3.5-5.0 [facility] Comment on above: Performed By: #### C HM6, HDLT #### [facility] (DEFAULT) [address] [place] [address] Sodium [Moles/Vol] 140 mmol/L Normal 135-145 [facility] Comment on above: Performed By: #### C HM6, HDLT #### [facility] (DEFAULT) [address] [place] [address] Urea nitrogen [Mass/Vol] 8 mg/dL Normal 7-25 [facility] Comment on above: Performed By: #### C HM6, HDLT #### [facility] (DEFAULT) [address] [place] [address] Urea nitrogen/Creatinine [Mass ratio] 8 mg/mg Normal [facility] Comment on above: Performed By: #### C HM6, HDLT #### [facility] (DEFAULT) [address] [place] [address] LIPID PANEL W CALCULATED LDL on 02-13-2025 Calculated LDL Cholesterol 104 mg/dL High 0-99 [facility] Comment on above: Result Comment: [<10 0 mg/dL: Optimal] [100-129 mg/dL: Near Optimal] [130-159 mg/dL: Borderline High] [160-189 mg/dL: High] [>189 mg/dL: Very High] Performed By: #### C HM6, HDLT #### [facility] (DEFAULT) [address] [place] [address] Cholesterol [Mass/Vol] 187 mg/dL Normal <200 [facility] Comment on above: Result Comment: [<20 0 mg/dL: Desirable] [200-239 mg/dL: Borderline High] [>239 mg/dL: High] Performed By: #### C HM6, HDLT #### [facility] (DEFAULT) [address] [place] [address] Cholesterol in HDL [Mass/Vol] 55 mg/dL Normal >=40 [facility] Comment on above: Result Comment: [<40 mg/dL: Low (High Risk)] [>59 mg/dL: High (Low Risk)] Performed By: #### C HM6, HDLT #### [facility] (DEFAULT) [address] [place] [address] Non HDL Cholesterol 132 mg/dL High <130 [facility] Comment on above: Performed By: #### C HM6, HDLT #### [facility] (DEFAULT) [address] [place] [address] Total Cholesterol/HDL Ratio 3.4 Normal <4.5 [facility] Comment on above: Performed By: #### C HM6, HDLT #### [facility] (DEFAULT) [address] [place] [address] Triglyceride [Mass/Vol] 139 mg/dL Normal <150 [facility] Comment on above: Result Comment: [<15 0 mg/dL: Desirable] [150-199 mg/dL: Borderline] [200-499 mg/dL: High] [>500 mg/dL: Very High] Performed By: #### C HM6, HDLT #### [facility] (DEFAULT) [address] [place] [address] Laboratory - Chemistry and C hemistry - challengeon 02-13-2025 Anion gap [Moles/Vol] 16 mmol/L 7 - 17 mmol/L [facility] Chloride [Moles/Vol] 100 mmol/L 98 - 10 8 mmol/L [facility] Cholesterol [Mass/Vol] 187 mg/dL NINF - 200 mg/dL [facility] Comment on above: [<200 mg/dL: Desirab le] [200-239 mg/dL: Borderline High] [>239 mg/dL: High] Cholesterol in HDL [Mass/Vol] 55 mg/dL 40 - PINF mg/dL [facility] Comment on above: [<40 mg/dL: Low (Hig h Risk)] [>59 mg/dL: High (Low Risk)] Cholesterol in LDL [Mass/Vol] 104 mg/dL High 0 - 99 mg/dL [facility] Comment on above: [<100 mg/dL: Optimal ] [100-129 mg/dL: Near Optimal] [130-159 mg/dL: Borderline High] [160-189 mg/dL: High] [>189 mg/dL: Very High] Cholesterol non HDL [Mass/Vol] 132 mg/dL High NINF - 130 mg/dL [facility] Cholesterol.total/Marcela sterol in HDL [Mass ratio] 3.4 {ratio} NINF - 4.5 [facility] CO2 [Moles/Vol] 28 mmol/L 21 - 31 mmol/L [facility] Creatinine [Mass/Vol] 1 mg/dL 0.70 - 1.30 mg/dL [facility] Potassium [Moles/Vol] 4.1 mmol/L 3.5 - 5.0 mmol/L [facility] Sodium [Moles/Vol] 140 mmol/L 135 - 145 mmol/L [facility] Triglyceride [Mass/Vol] 139 mg/dL NINF - 150 mg/dL [facility] Comment on above: [<150 mg/dL: Desirab le] [150-199 mg/dL: Borderline] [200-499 mg/dL: High] [>500 mg/dL: Very High] Urea nitrogen [Mass/Vol] 8 mg/dL 7 - 25 mg/dL [facility] Urea nitrogen/Creatinine [Mass ratio] 8 mg/mg [facility] Laboratory - Hematology and Cell countson 02-13-2025 Erythrocyte distribution width (RBC) [Ratio] 13.9 % 10.9 - 14.3 % [facility] Hematocrit (Bld) [Volume fraction] 47.6 % 39.6 - 48.8 % [facility] Hemoglobin (Bld) [Mass/Vol] 15.8 g/dL 13.4 - 16.8 g/dL [facility] MCH (RBC) [Entitic mass] 33.2 pg 26.1 - 33.3 pg [facility] MCHC (RBC) [Mass/Vol] 33.2 g/dL 31.9 - 36.5 g/dL [facility] MCV (RBC) [Entitic vol] 100 fL High 79.0 - 94.5 fL [facility] Platelet mean volume (Bld) [Entitic vol] 11.6 fL 8.7 - 12.3 fL [facility] Platelets (Bld) [#/Vol] 180 10*3/uL 146 - 337 K/uL [facility] RBC (Bld) [#/Vol] 4.76 10*6/uL [facility] WBC (Bld) [#/Vol] 10.41 10*3/uL High 3.73 - 10 .10 K/uL [facility] No Panel Informationon 02-13 eGFR, CKD-EPI, Male 84 - PINF [facility] Comment on above: Reported eGFR is bas ed on the CKD-EPI 2020 equation using creatinine, age, and sex. Interpretation and review of laboratory results Abnormal [facility] Interpretation and review of laboratory results Abnormal [facility] MR/BMS.Joao 02-05-2025 MR/BMS.CUCO [facility] Vascular Surgery [address] [place] [address] OFFICE VISIT Date of Service: 02/05/25 MR#: [id number] Acct: [id number] Name: JOHNY SANTAMARIA Everardo Braden Rep #: [id number] : 1960 Provider: Dr. Tramaine Garrison MD Age/Sex: 64/M Location: [facility] Status: Signed Intake Vital Signs 11/15/24 10:37 02/05/25 16:08 Height 5 ft 9 in Weight: 176 lb 179 lb BP 158/74 H Blood Pressure Location Rt radial Position Sitting Respiration 16 Pulse 62 Pulse Source Monitor Temp 98.2 F Temp Source Temporal Pulse Oximetry (%) 98 Oxygen Delivery Method room air Intake Visit Reasons: Subclavian/carotid stenosis Is patient in pain?: No Allergies No Known Allergies Allergy (Verified 02/05/25 16:10) Medications ???Medication ???Instructions ???Recorded ???Confirmed ???Type timolol 1 drp EACH EYE BID glaucoma 02/05/25 History albuterol sulfate 90 mcg/actuation 2 puff inhalation Q6H PRN 02/05/25 Rx aerosol inhaler shortness of breath or wheezing #8.5 grams furosemide 20 mg tablet 20 mg PO DAILY #30 tabs 08/01/21 0 02/05/25 Rx lisinopril 2.5 mg tablet 2.5 mg PO QDAY 11/08/24 02/05/25 H istory rosuvastatin 40 mg tablet 40 mg PO QDAY 11/08/24 02/05/25 Hi story aspirin 81 mg tablet,delayed 81 mg PO DAILY #30 tabs 11/10/24 0 02/05/25 Rx release (Adult Aspirin Regimen) latanoprost 0.005 % eye drops 1 drp ophthalmic (eye) QHS 5 02/05/25 History tiotropium 2.5 mcg-olodaterol 2.5 2 puff inhalation QDAY 11/10/24 0 02/05/25 History mcg/actuation mist for inhalation (Stiolto Respimat) Have you fallen in the past year?: Yes PFSH Medical History Alcohol abuse Elevated ferritin Decreased cardiac ejection fraction Mitral valve disease CAD (coronary artery disease) Dyspnea Chest pain Lung nodule HLD (hyperlipidemia) Pulmonary hypertension Asthma Non-ST elevation NM (NSTEMI) (07/30/21) COPD with exacerbation Glaucoma Surgical History History of dilation of urethra Hx of tonsillectomy Family History Other Diabetes Heart disease Social History household members: spouse housing: house current occupational status: employed Smoking Status: Heavy Smoker (>10/day) alcohol intake: current details: 8 beers per night per pt HPI HPI HPI: JOHNY SANTAMARIA, is a 64 M who presents to the office today for evaluation of arch vessel disease prior to planned CABG/valve replacement. He denies episodes of lateralized numbness/weakness/vi dean loss/speech difficultly. He does have episodes of dizziness/tunnel vision/diaphoresis that have occurred a few times a year for the past several years with no clear association with any activity. No arm claudication or dizziness with repetitive arm use. He has had a duplex and CTA at [facility]. ROS General General: Yes fatigue; No weight change, appetite, colon cancer, breast cancer or weakness HEENT HEENT: No difficulty swallowing, eye injury, eye surgery, swollen glands or hoarseness Endo Endocrine: No thyroid disease, diabetes mellitus, thyroid cancer, Hair loss, heat intolerance or cold intolerance Skin Skin: No rash or changing moles Musc Musculoskeletal: No back problems, arthritis, rheumatoid arthritis, gout or joint pain Cardio Cardiovascular: Yes murmur, high blood pressure and heart attack; No pacemaker, heart disease, atrial fibrillation, heart stent, palpitations, shortness of breath with exertion or chest pain Psych Psychiatric: No depression, anxiety or hearing voices Resp Respiratory: Yes shortness of breath, No sleep apnea, No cough, Yes COPD, Yes asthma, No emphysema and Yes wheezing Gastro Gastrointestinal: No abdominal pain, No nausea or vomiting, Yes diarrhea, No constipation, No blood in stool, No acid reflux, No hemorrhoids, No ulcers, No gallbladder problem and No black,tarry stools Delmer Hematologic: Yes blood thinners, No blood disorders, No bleeding, No anemia and No blood clots Neuro Neurologic: No system reviewed and no additional complaints, except as documented, No as per HPI, No abnormal gait, No abnormal hearing, No abnormal movements, No abnormal speech, No behavioral changes, No burning sensations, No confusion, No convulsions, Yes disequilibrium, Yes dizziness, No localized weakness, No frequent falls, No headache(s), No lack of coordination, No loss of vision, No memory loss, Yes numbness, Yes other visual disturbances, No radicular pain, No restless legs, No sensory deficit, No syncope, Yes tingling, No tremor(s), No weakness and No other E (more content not included)... Normal [facility] CT ANGIO NECKon 01-09-2025 CT ANGIO NECK EXAM: CT ANGIO NECK, 01/02/2025 11:43 AM COMPARISON: Comparison is made to previous CT angiogram of the chest dated January 02, 2025. CLINICAL INDICATIONS: 64 years Male concerned for left subclavian stenosis RELEVANT CLINICAL HISTORY: I77.1:Subclavian artery stenosis, left TECHNIQUE: A series of transaxial multislice computerized tomographic images are obtained with helical technique from top of aortic arch to vertex following bolus intravenous administration of nonionic contrast. Axial thin section source images, as well as sagittal and coronal thin section reformats, were provided at the scanner. Additional multiplanar and 3D reconstructions were provided. CONTRAST: iohexol (OMNIPAQUE) 350 MG/ML injection 1-171 mL; Route of Administration: Intravenous; Dose: 100 mL. FINDINGS: AORTIC ARCH: Conventional anatomic origin of the great vessels. Scattered atherosclerotic calcifications of the aortic arch are noted. Atherosclerotic calcifications of the origins of the great vessels are present. There is approximately 65 percent stenosis of the origin of the left common carotid artery. Extensive calcification is noted involving the proximal left subclavian which appears occluded. There is reconstitution of flow within the left subclavian artery at the level of the takeoff of the left vertebral artery. This may relate to a subclavian steal. An ultrasound could be obtained in further evaluation and confirmation of this finding.. RIGHT CAROTID ARTERY: Common carotid artery demonstrates evidence of atherosclerotic calcifications at its origin with approximately 55 percent stenosis noted. Scattered atherosclerotic calcifications of the right common carotid artery are present elsewhere.. Internal carotid artery origin at the bifurcation demonstrates evidence of extensive atherosclerotic calcifications with approximately 50 percent stenosis noted.. More distal cervical segments of the internal carotid artery are patent and normal in caliber. LEFT CAROTID ARTERY: Common carotid artery is patent and normal in caliber with scattered atherosclerotic calcifications noted. Internal carotid artery origin at the bifurcation demonstrates extensive atherosclerotic calcifications with approximately 50 percent stenosis noted.. More distal cervical segments of the internal carotid artery are patent and normal in caliber. RIGHT VERTEBRAL ARTERY: Origin is patent. More distal cervical segments demonstrate multifocal areas of significant stenosis and occlusion with atherosclerotic calcifications noted within the foramen transversarium at C5.. LEFT VERTEBRAL ARTERY: Origin demonstrates severe stenosis with atherosclerotic calcifications.. More distal cervical segments are patent and normal in caliber. OTHER: No dissection or pseudoaneurysm. Atherosclerotic calcifications of the carotid siphons are noted without significant stenoses however. IMPRESSION: 1. Occlusion of the proximal left subclavian artery with reconstitution of flow at the level of the left vertebral artery. This raises a question of possible subclavian steal. An ultrasound is recommended in further evaluation. 2. 65 percent stenosis at the origin of the left common carotid artery with approximately 50 percent stenosis at the left carotid bifurcation. 3. 55 percent stenosis at the origin of the right common carotid artery with approximately 50 percent stenosis at the right carotid bifurcation. 4. Evidence of occlusion of the right vertebral artery throughout the cervical region multifocal areas of significant stenosis and/or occlusion related to atherosclerotic calcifications. 5. Severe stenosis of the origin of the left vertebral artery.. Normal [facility] CT ANGIO CHEST (NONCORONARY) on 01-02-2025 CT ANGIO CHEST (NONCORONARY) EXAM: CT ANGIO CHEST (NONCORONARY), 01/02/2025 11:42 AM CLINICAL INDICATIONS: concerned for left subclavian stenosis COMPARISON: No prior studies available for comparison. TECHNIQUE: The imaging was performed using a MDCT system. It included a spiral acquisition from the shoulders to the upper abdomen in order to assess the entire thoracic aorta and arch vessels, as well as suprarenal abdominal aorta. 3D reconstruction was performed on an independent workstation based on specific patient condition and were reviewed and approved by David Kaba MD. CONTRAST: iohexol (OMNIPAQUE) 350 MG/ML injection 1-171 mL; Route of Administration: Intravenous; Dose: 70 mL. FINDINGS: Chest Wall: Degenerative changes of the thoracic spine Mediastinum: Normal, without adenopathy Karol: Calcified granulomatous nodes Pleural Spaces: Normal, without thickening/effusion or pneumothorax Lung Parenchyma: Biapical parenchymal scarring. Emphysematous changes. Remote granulomatous disease. No consolidation or mass. Pericardium: Normal, without thickening/effusion Atria: Mildly dilated left atrium. Right Ventricle: Normal Left Ventricle: Sequela of remote left ventricular infarct. Coronary Arteries: Moderate to severe multivessel coronary calcifications. Valves: Mild aortic valve leaflets calcifications. Pulmonary Arteries: Normal Thoracic Aorta: Severe atherosclerotic disease, with ulcerative plaques and projecting thrombi/plaques within the region of the isthmus/proximal descending segment (series 7, image 147). The descending thoracic aorta measures up to 3 cm in diameter proximally. No dissection. Arch Branches: Proximally occluded 4.7 cm segment of the proximal left subclavian artery, with distal reconstitution. At least moderate stenosis of the origin of the left common carotid artery (series 13, image 240).. Abdominal Aorta: Severe diffuse atherosclerotic disease. No aneurysm or dissection to the extent visualized. Liver: Normal Biliary System: Normal Pancreas: Normal Spleen: Calcified granulomas. Kidneys: Normal Adrenal Glands: Normal Abdominal Wall: Normal IMPRESSION: 1. Proximally occluded left subclavian artery, with distal reconstitution as described above. 2. Moderate stenosis at the origin of the left common carotid artery. 3. Other ancillary findings are noted as above. Normal [facility] IMPRESSION: 1. Proximally occluded left subclavian artery, with distal reconstitution as described above. 2. Moderate stenosis at the origin of the left common carotid artery. 3. Other ancillary findings are noted as above. OLOGY EXAM: CT ANGIO CHEST (NONCORONARY), 01/02/2025 11:42 AM CLINICAL INDICATIONS: concerned for left subclavian stenosis COMPARISON: No prior studies available for comparison. TECHNIQUE: The imaging was performed using a MDCT system. It included a spiral acquisition from the shoulders to the upper abdomen in order to assess the entire thoracic aorta and arch vessels, as well as suprarenal abdominal aorta. 3D reconstruction was performed on an independent workstation based on specific patient condition and were reviewed and approved by David Kaba MD. CONTRAST: iohexol (OMNIPAQUE) 350 MG/ML injection 1-171 mL; Route of Administration: Intravenous; Dose: 70 mL. FINDINGS: Chest Wall: Degenerative changes of the thoracic spine Mediastinum: Normal, without adenopathy Karol: Calcified granulomatous nodes Pleural Spaces: Normal, without thickening/effusion or pneumothorax Lung Parenchyma: Biapical parenchymal scarring. Emphysematous changes. Remote granulomatous disease. No consolidation or mass. Pericardium: Normal, without thickening/effusion Atria: Mildly dilated left atrium. Right Ventricle: Normal Left Ventricle: Sequela of remote left ventricular infarct. Coronary Arteries: Moderate to severe multivessel coronary calcifications. Valves: Mild aortic valve leaflets calcifications. Pulmonary Arteries: Normal Thoracic Aorta: Severe atherosclerotic disease, with ulcerative plaques and projecting thrombi/plaques within the region of the isthmus/proximal descending segment (series 7, image 147). The descending thoracic aorta measures up to 3 cm in diameter proximally. No dissection. Arch Branches: Proximally occluded 4.7 cm segment of the proximal left subclavian artery, with distal reconstitution. At least moderate stenosis of the origin of the left common carotid artery (series 13, image 240).. Abdominal Aorta: Severe diffuse atherosclerotic disease. No aneurysm or dissection to the extent visualized. Liver: Normal Biliary System: Normal Pancreas: Normal Spleen: Calcified granulomas. Kidneys: Normal Adrenal Glands: Normal Abdominal Wall: Normal RADIOLOGY David Kaba MB [facility] - 01/02/2025 EXAM: CT ANGIO CHEST (NONCORONARY), 01/02/2025 11:42 AM CLINICAL INDICATIONS: concerned for left subclavian stenosis COMPARISON: No prior studies available for comparison. TECHNIQUE: The imaging was performed using a MDCT system. It included a spiral acquisition from the shoulders to the upper abdomen in order to assess the entire thoracic aorta and arch vessels, as well as suprarenal abdominal aorta. 3D reconstruction was performed on an independent workstation based on specific patient condition and were reviewed and approved by David Kaba MD. CONTRAST: iohexol (OMNIPAQUE) 350 MG/ML injection 1-171 mL; Route of Administration: Intravenous; Dose: 70 mL. FINDINGS: Chest Wall: Degenerative changes of the thoracic spine Mediastinum: Normal, without adenopathy Karol: Calcified granulomatous nodes Pleural Spaces: Normal, without thickening/effusion or pneumothorax Lung Parenchyma: Biapical parenchymal scarring. Emphysematous changes. Remote granulomatous disease. No consolidation or mass. Pericardium: Normal, without thickening/effusion -- Atria: Mildly dilated left atrium. Right Ventricle: Normal Left Ventricle: Sequela of remote left ventricular infarct. Coronary Arteries: Moderate to severe multivessel coronary calcifications. Valves: Mild aortic valve leaflets calcifications. Pulmonary Arteries: Normal -- Thoracic Aorta: Severe atherosclerotic disease, with ulcerative plaques and projecting thrombi/plaques within the region of the isthmus/proximal descending segment (series 7, image 147). The descending thoracic aorta measures up to 3 cm in diameter proximally. No dissection. Arch Branches: Proximally occluded 4.7 cm segment of the proximal left subclavian artery, with distal reconstitution. At least moderate stenosis of the origin of the left common carotid artery (series 13, image 240).. -- Abdominal Aorta: Severe diffuse atherosclerotic disease. No aneurysm or dissection to the extent visualized. -- Liver: Normal Biliary System: Normal Pancreas: Normal Spleen: Calcified granulomas. Kidneys: Normal Adrenal Glands: Normal Abdominal Wall: Normal IMPRESSION IMPRESSION: 1. Proximally occluded left subclavian artery, with distal reconstitution as described above. 2. Moderate stenosis at the origin of the left common carotid artery. 3. Other ancillary findings are noted as above. [facility] Radiology Study observation (narrative) [facility] CT ANGIO CHEST (NONCORONARY) Ordered By: David Kaba on 01-02-2025 [facility] Liver ultrasound attenuation by transient elastographyon 12-13-2024 IMPRESSION: Mild hepatic steatosis. Elastography values are consistent with minimal risk of clinically significant fibrosis. OLOGY EXAM: ULTRASOUND ABDOMEN LIVER WITH ELASTOGRAPHY, 12/13/2024 14:39 PM CLINICAL INDICATIONS: ETOH use F10.10:ETOH abuse COMPARISON: CT chest dated June 23, 2024. TECHNIQUE: Real-time ultrasound evaluation of the right upper quadrant was performed utilizing a curved array transducer. Duplex scan is performed. Color flow images and spectral waveforms obtained. Elastography performed on a Haile Epiq scanner within segment 8 of liver. The patient was in supine position. Transducer used C5-1. FINDINGS: Liver: Mild increased hepatic echogenicity with normal echotexture and contour.No focal hepatic lesions. Doppler ultrasound demonstrates hepatopetal flow in the main portal vein. Flow velocity is 26.1 cm/sec which is normal. Ascites: There is no ascites in the visualized abdomen. Elastography: Elastography data demonstrates the median stiffness value of 1.29 m/s 5 kPa). Elastography Interpretation: <1.37m/s (<5.7 kPa) - Minimal risk of any clinically significant fibrosis. >1.37m/s but <2.2m/s (>5.7 kPa but < 15 kPa) - Moderate risk of having clinically significant fibrosis (additional testing required). >2.2 m/s (>15 kPa) - Advanced fibrosis/cirrhosis RADIOLOGY Radha Ferrara MD - 12/13/2024 EXAM: ULTRASOUND ABDOMEN LIVER WITH ELASTOGRAPHY, 12/13/2024 14:39 PM CLINICAL INDICATIONS: ETOH use F10.10:ETOH abuse COMPARISON: CT chest dated June 23, 2024. TECHNIQUE: Real-time ultrasound evaluation of the right upper quadrant was performed utilizing a curved array transducer. Duplex scan is performed. Color flow images and spectral waveforms obtained. Elastography performed on a Haile Epiq scanner within segment 8 of liver. The patient was in supine position. Transducer used C5-1. FINDINGS: Liver: Mild increased hepatic echogenicity with normal echotexture and contour.No focal hepatic lesions. Doppler ultrasound demonstrates hepatopetal flow in the main portal vein. Flow velocity is 26.1 cm/sec which is normal. Ascites: There is no ascites in the visualized abdomen. Elastography: Elastography data demonstrates the median stiffness value of 1.29 m/s 5 kPa). Elastography Interpretation: <1.37m/s (<5.7 kPa) - Minimal risk of any clinically significant fibrosis. >1.37m/s but <2.2m/s (>5.7 kPa but < 15 kPa) - Moderate risk of having clinically significant fibrosis (additional testing required). >2.2 m/s (>15 kPa) - Advanced fibrosis/cirrhosis IMPRESSION IMPRESSION: Mild hepatic steatosis. Elastography values are consistent with minimal risk of clinically significant fibrosis. [facility] Radiology Study observation (narrative) [facility] Liver ultrasound attenuation by transient elastographyOrdered By: Radha Ferrara on 12-13-2024 [facility] Work Phone: US ABDOMEN LIVER W/ ELASTOGR APHYon 12-13-2024 US ABDOMEN LIVER W/ ELASTOGRAPHY EXAM: ULTRASOUND ABDOMEN LIVER WITH ELASTOGRAPHY, 12/13/2024 14:39 PM CLINICAL INDICATIONS: ETOH use F10.10:ETOH abuse COMPARISON: CT chest dated June 23, 2024. TECHNIQUE: Real-time ultrasound evaluation of the right upper quadrant was performed utilizing a curved array transducer. Duplex scan is performed. Color flow images and spectral waveforms obtained. Elastography performed on a Haile Epiq scanner within segment 8 of liver. The patient was in supine position. Transducer used C5-1. FINDINGS: Liver: Mild increased hepatic echogenicity with normal echotexture and contour.No focal hepatic lesions. Doppler ultrasound demonstrates hepatopetal flow in the main portal vein. Flow velocity is 26.1 cm/sec which is normal. Ascites: There is no ascites in the visualized abdomen. Elastography: Elastography data demonstrates the median stiffness value of 1.29 m/s 5 kPa). Elastography Interpretation: <1.37m/s (<5.7 kPa) - Minimal risk of any clinically significant fibrosis. >1.37m/s but <2.2m/s (>5.7 kPa but < 15 kPa) - Moderate risk of having clinically significant fibrosis (additional testing required). >2.2 m/s (>15 kPa) - Advanced fibrosis/cirrhosis IMPRESSION: Mild hepatic steatosis. Elastography values are consistent with minimal risk of clinically significant fibrosis. Normal [facility] US.doppler Carotid arteries - bilateralOrdered By: Nuvia Waterman on 12-13-2024 [facility] Work Phone: US.doppler Carotid arteries - bilateralon 12-13-2024 Radiology Study observation (narrative) [facility] Cardiac Cath [facility] Cardiac Cath Diagnostic [facility] Imaging Services [address] [place] [address] Cardiac Cath Diagnostic MR#: [id number] Acct: [id number] Name: JOHNY SANTAMARIA . Rep #: [id number] : 1960 64 From: Jamarcus Redd MD PCP: Dr. Lali Taylor MD Status:REG [facility] Patient Name: JOHNY SANTAMARIA Study Date: 11/15/2024 Performing: Jamarcus Redd MD Ht: 69 inches 175.26 cm : 1960 Wt: 176 lbs 79.83 kg Age: 64 Gender: male BSA: 1.96 PROCEDURE(S) PERFORMED DC05-(40420)RHC/LHC/ COR/LV CLINICAL PROFILE AND INDICATIONS Indications: Suspected CAD, Suspected CAD Heart Failure: NYHA Class: 3, Newly Diagnosed: Yes, Heart Failure Type: Systolic Stress/Imaging Date: 10/28/24 CAD Presentations: Stable angina. CONCLUSIONS Severe triple-vessel disease noted with dilated cardiomyopathy and reduced ejection fraction of 25%, 2+-3+ mitral regurgitation, moderate pulmonary hypertension RECOMMENDATIONS Surgery consult for coronary revascularization DESCRIPTION OF PROCEDURE The patient arrived to the procedure lab. The risks and benefits of the procedure as well as a full description of our services here and current unavailability of surgical backup were fully explained to the patient and/or their significant other prior to the catheterization. The Timeout was completed, verifying the correct patient and procedure. The patient's procedural site was prepped and draped in the usual fashion. Local anesthetic was given subcutaneously to right radial region with Lidocaine 2%. Using a modified Seldinger technique, arterial access was obtained via the right radial artery, a 6Fr sheath was inserted. Venous access was obtained via the right brachiocephalic vein, a 7Fr sheath was inserted. A 7Fr thermal dilution catheter was inserted and right heart pressures were recorded, it was then advanced to PA position for cardiac outputs. O2 saturations were then obtained. Thermal dilution cardiac outputs were then recorded. The Thermal dilution catheter was then removed. Left Coronary Artery selective angiography was performed in multiple views using a 5 Fr. 4.0 [place] catheter. Right Coronary Artery selective angiography was then performed in multiple views using a 5 Fr. 4.0 [place] catheter. Left Ventriculography was performed in POSADAS projection using a 5 Fr. Pigtail catheter. LV to AO pullback pressures were then recorded.The arterial sheath was pulled and a TR Band was applied for hemostasis. 10cc air. The venous sheath was then pulled and manual compression applied until hemostasis achieved CORONARY ANGIOGRAPHY DOMINANCE: Right Dominant LEFT HEART ASSESSMENT Left Ventricular Ejection Fraction: by LV Gram 25 % Inferior Mid Akinesis. Anterior Hypokinesis - Severe Depressed Left Ventricular systolic function RIGHT HEART ASSESSMENT Thermal CO: 4.12 Thermal CI: 2.1 PW: 14/12 10 PA: 60/19 32 RV: 63/-1 7 RA: 8/5 4 PVR: 427 Right Heart pressures - elevated LEFT MAIN: Mild calcification, Mild luminal irregularities LEFT ANTERIOR DESCENDING ARTERY: Moderate calcification, Medium size vessel with severe disease noted in the midsegment with calcification of approximately 90% and then distally of small vessel noted CIRCUMFLEX ARTERY: Medium size nondominant vessel. There is a proximal 90% stenosis noted. A small AV groove branch is noted. Faor-qn-aczsa collaterals are noted. RAMUS: Medium size vessel with sequential 80% stenotic lesions noted in the proximal and mid segments. RIGHT CORONARY ARTERY: occluded in the proximal section with xtto-sk-wbuwp collaterals filling almost the entire vessel. COLLATERAL FLOW: Collateral flow from Left to Right COMPLICATIONS No Complications PROCEDURE MEDICATIONS Fentanyl 50 mcg IV Versed 1 mg IV Heparin given IA 11/15/2024 12:26:45 SUMMARY OF HEMODYNAMIC DATA Time AIR REST ECG 10:37:47 ECG 12:08:15 RA 8/5 (4) SV 12:40:24 PW 14/12 (10) PV 12:41:17 PW 16/13 (13) 12:41:27 PA 60/19 (32) PA 12:43:39 PA 64/19 (35) 12:46:58 RV 63/-1, 7 12:47:05 RA 9/6 (4) 12:47:22 AO 155/63 (95) SA 12:49:43 LV 163/1, 7 12:56:13 LV 159/2, 7 12:56:26 LV 121/0, 5 12:57:57 LVp 119/4, 16 12:58:02 AOp 132/52 (82) 12:58:07 13:16:35 Type SV CO (l/m) CI (l/m/ HR Time AIR REST Thermal 67.50 4.12 2.10 61 10:37:47 Label % O2 Pres/Loc Time AIR REST AO 97 PV 12:37:10 RA 68 SV 12:48:49 PA 64 PA 12:48:58 Signed By Jamarcus Redd MD On 11/15/2024 13:23:59 Signed By Jamarcus Redd MD On 11/15/2024 13:23:42 Jamarcus Redd MD 11/15/24 1324 Date Jamarcus Redd MD Cosigner Signature: Date (if indicated) CC: Dr. Jamarcus Redd MD; Dr. Lali Taylor MD (more content not included)... Normal [facility] Venous Blood Gason 5 Blood Gas Type IMANI Normal [facility] Comment on above: Performed By: #### L 9000.0810 ####[facility] [address] [place], [address] CO2 [Moles/Vol] 27 mmol/L Normal 23-33 [facility] Comment on above: Performed By: #### L 9000.0810 ####[facility] [address] [place], [address] HCO3 (Bld) [Moles/Vol] 25 mmol/L Normal 22-26 [facility] Comment on above: Performed By: #### L 9000.0810 ####[facility] [address] [place], [address] O2 Delivery Dev Not entered Normal [facility] Comment on above: Performed By: #### L 9000.0810 ####[facility] [address] [place], [address] SITE Not entered Normal [facility] Comment on above: Performed By: #### L 9000.0810 ####[facility] [address] [place], [address] VBG BE 0 mmol/L Normal -1.0-3.5 [facility] Comment on above: Performed By: #### L 9000.0810 ####[facility] [address] [place], [address] VBG pCO2 43.5 mmHg Normal 41-51 [facility] Comment on above: Performed By: #### L 9000.0810 ####[facility] [address] [place], [address] VBG pH 7.37 Normal 7.32-7.42 [facility] Comment on above: Performed By: #### L 9000.0810 ####[facility] [address] [place], [address] VBG PO2 34 mmHg Normal 25-40 [facility] Comment on above: Performed By: #### L 9000.0810 ####[facility] [address] [place], [address] VBG SO2 64 Normal 50-70 [facility] Comment on above: Performed By: #### L 9000.0810 ####[facility] [address] [place], [address] Blood Gas Type IMANI Normal [facility] Comment on above: Performed By: #### L 9000.0810 ####[facility] [address] [place], [address] CO2 [Moles/Vol] 25 mmol/L Normal 23-33 [facility] Comment on above: Performed By: #### L 9000.0810 ####[facility] [address] [place], [address] HCO3 (Bld) [Moles/Vol] 24 mmol/L Normal 22-26 [facility] Comment on above: Performed By: #### L 9000.0810 ####[facility] [address] [place], [address] O2 Delivery Dev Not entered Normal [facility] Comment on above: Performed By: #### L 9000.0810 ####[facility] [address] [place], [address] SITE Not entered Normal [facility] Comment on above: Performed By: #### L 9000.0810 ####[facility] [address] [place], [address] VBG BE -1 mmol/L Normal -1.0-3.5 [facility] Comment on above: Performed By: #### L 9000.0810 ####[facility] [address] [place], [address] VBG pCO2 41.3 mmHg Normal 41-51 [facility] Comment on above: Performed By: #### L 9000.0810 ####[facility] [address] [place], [address] VBG pH 7.37 Normal 7.32-7.42 [facility] Comment on above: Performed By: #### L 9000.0810 ####[facility] [address] [place], [address] VBG PO2 37 mmHg Normal 25-40 [facility] Comment on above: Performed By: #### L 9000.0810 ####[facility] [address] [place], [address] VBG SO2 68 Normal 50-70 [facility] Comment on above: Performed By: #### L 9000.0810 ####[facility] [address] [place], [address] Blood Gas Type IAMNI Normal [facility] Comment on above: Performed By: #### L 9000.0810 ####[facility] [address] [place], [address] CO2 [Moles/Vol] 23 mmol/L Normal 23-33 [facility] Comment on above: Performed By: #### L 9000.0810 ####[facility] [address] [place], [place], [address] HCO3 (Bld) [Moles/Vol] 22 mmol/L Normal 22-26 [facility] Comment on above: Performed By: #### L 9000.0810 ####[facility] [address] [place], [address] O2 Delivery Dev Not entered Normal [facility] Comment on above: Performed By: #### L 9000.0810 ####[facility] [address] [place], [address] SITE Not entered Normal [facility] Comment on above: Performed By: #### L 9000.0810 ####[facility] [address] [place], [address] VBG BE -4 mmol/L Low -1.0-3.5 [facility] Comment on above: Performed By: #### L 9000.0810 ####[facility] [address] [place], [address] VBG pCO2 37.2 mmHg Low 41-51 [facility] Comment on above: Performed By: #### L 9000.0810 ####[facility] [address] [place], [address] VBG pH 7.37 Normal 7.32-7.42 [facility] Comment on above: Performed By: #### L 9000.0810 ####[facility] [address] [place], [address] VBG PO2 89 mmHg High 25-40 [facility] Comment on above: Performed By: #### L 9000.0810 ####[facility] [address] [place], [address] VBG SO2 97 High 50-70 [facility] Comment on above: Performed By: #### L 9000.0810 ####[facility] [address] [place], [address] 12 Lead EKG performed by [facility] on 11-10-2024 12 Lead EKG performed by [facility] [address] [place] [address] 12 Lead EKG performed by [facility] 11/10/24 1337 MR#: [id number] Acct: [id number] Name: JOHNY SANTAMARIA Rep #: [id number] : 1960 64 From: Jamarcus Redd MD Attending Dr: Dr. Jamarcus Redd MD Status: DEP A MB Ordering Dr: Jamarcus Redd MD Date: 11/10/24 Location: [facility] Sex: M C Admitted: [facility]/12 Lead EKG performed by [facility] ECG Report Interpretation ------Sinus Rhythm -Short IN syndrome - occasional ectopic ventricular beat ABNORMAL Electronically signed on 11/15/2024 at 09:39 by Jamarcus Redd Software Version 8610 11/15/24 0944 Date Jamarcus Redd MD CC: Dr. Lali Taylor MD Date Dictated: 11/10/241336 Date Transcribed: 11/10/241336 Bartender: CO Signed Normal [facility] Basic Metabolic Profile (BMP )on 11-10-2024 BUN/CRE 12.5 RATIO Normal 10-20 [facility] Comment on above: Performed By: #### L 100.0100, L500.2500 ####[facility] [address] [place], [address] CA,Total 10.1 mg/dL Normal 8.5-10.1 [facility] Comment on above: Performed By: #### L 100.0100, L500.2500 ####[facility] [address] [place], [address] Chloride [Moles/Vol] 103 mmol/L Normal 98-107 [facility] Comment on above: Performed By: #### L 100.0100, L500.2500 ####[facility] [address] [place], [address] CO2 [Moles/Vol] 30.0 mmol/L Normal 21.0-32.0 [facility] Comment on above: Performed By: #### L 100.0100, L500.2500 ####[facility] [address] [place], [address] Creatinine [Mass/Vol] 1.12 mg/dL Normal 0.70-1.30 [facility] Comment on above: Result Comment: The validity of the calculated GFR GFRAA in patients over 70 years has not been determined. Clinical correlation is essential. Performed By: #### L 100.0100, L500.2500 ####[facility] [address] [place], [address] EST GFR - AA 84 mL/min Normal >60 [facility] Comment on above: Result Comment: Afri can Fijian GFR Calc Performed By: #### L 100.0100, L500.2500 ####[facility] [address] [place], [address] GAP 5 Normal 5-15 [facility] Comment on above: Performed By: #### L 100.0100, L500.2500 ####[facility] [address] [place], [address] GFR/1.73 sq M.predicted among non-blacks MDRD (S/P/Bld) [Vol rate/Area] 70 mL/min/{1.73_m2} Normal >60 [facility] Comment on above: Result Comment: Non- GFR Calc Performed By: #### L 100.0100, L500.2500 ####[facility] [address] [place], [address] Glucose [Mass/Vol] 96 mg/dL Normal 74-106 [facility] Comment on above: Performed By: #### L 100.0100, L500.2500 ####[facility] [address] [place], [address] Potassium [Moles/Vol] 4.5 mmol/L Normal 3.5-5.1 [facility] Comment on above: Performed By: #### L 100.0100, L500.2500 ####[facility] [address] [place], [address] Sodium [Moles/Vol] 139 mmol/L Normal 136-145 [facility] Comment on above: Performed By: #### L 100.0100, L500.2500 ####[facility] [address] [place], [address] Urea nitrogen [Mass/Vol] 14 mg/dL Normal 7-18 [facility] Comment on above: Performed By: #### L 100.0100, L500.2500 ####[facility] [address] [place], [address] CBC W/Diff, Automatedon Hemoglobin (Bld) [Mass/Vol] 18.3 g/dL Invalid Interpretation Code 13.0-16.5 [facility] Comment on above: Result Comment: CRIT ICAL VALUE CALLED TO Greg DE LEON RN 11/10/24 1522 oRsaline Monteiro. RESULTS READ BACK BY . Performed By: #### L 100.0100, L500.2500 ####[facility] [address] [place], [address] Absolute Lymph 2.61 X10 3/uL Normal 0.83-4.51 [facility] Comment on above: Performed By: #### L 100.0100, L500.2500 ####[facility] [address] [place], [address] Absolute Neut 7.3 X10 3/uL Normal 2.0-7.7 [facility] Comment on above: Performed By: #### L 100.0100, L500.2500 ####[facility] [address] [place], [address] Basophils/100 WBC (Bld) 0.9 % Normal 0-1 [facility] Comment on above: Performed By: #### L 100.0100, L500.2500 ####[facility] [address] [place], [address] Eosinophils/100 WBC (Bld) 2.0 % Normal 0-5 [facility] Comment on above: Performed By: #### L 100.0100, L500.2500 ####[facility] [address] [place], [address] Erythrocyte distribution width (RBC) [Ratio] 12.6 % Normal 11.6-14.6 [facility] Comment on above: Performed By: #### L 100.0100, L500.2500 ####[facility] [address] [place], [address] Hematocrit (Bld) [Volume fraction] 54.7 % High 40-54 [facility] Comment on above: Performed By: #### L 100.0100, L500.2500 ####[facility] [address] [place], [address] IG% 0.400 Normal 0.0-0.9 [facility] Comment on above: Result Comment: IG% - Immature Granulocytes (promyelocytes, myelocytes and metamyelocytes) > 1% indicates that a LEFT SHIFT is Present. Performed By: #### L 100.0100, L500.2500 ####[facility] [address] [place], [address] Lymphocytes/100 WBC (Bld) 23.6 % Normal 19-41 [facility] Comment on above: Performed By: #### L 100.0100, L500.2500 ####[facility] [address] [place], [address] MCH (RBC) [Entitic mass] 32.6 pg High 27.0-32.0 [facility] Comment on above: Performed By: #### L 100.0100, L500.2500 ####[facility] [address] [place], [address] MCHC (RBC) [Mass/Vol] 33.5 g/dL Normal 32-36 [facility] Comment on above: Performed By: #### L 100.0100, L500.2500 ####[facility] [address] [place], [address] MCV (RBC) [Entitic vol] 97.5 fL High 80-94 [facility] Comment on above: Performed By: #### L 100.0100, L500.2500 ####[facility] [address] [place], [address] Monocytes/100 WBC (Bld) 7.3 % Normal 0-10 [facility] Comment on above: Performed By: #### L 100.0100, L500.2500 ####[facility] [address] [place], [address] Neutrophils/100 WBC (Bld) 65.8 % Normal 47-70 [facility] Comment on above: Performed By: #### L 100.0100, L500.2500 ####[facility] [address] [place], [address] Nucleated RBC (Bld) [#/Vol] 0 10*3/uL Normal 0-5 [facility] Comment on above: Performed By: #### L 100.0100, L500.2500 ####[facility] [address] [place], [address] Platelet mean volume (Bld) [Entitic vol] 11.1 fL Normal 6.2-12.0 [facility] Comment on above: Performed By: #### L 100.0100, L500.2500 ####[facility] [address] [place], [address] Platelets (Bld) [#/Vol] 172 10*3/uL Normal 150-450 [facility] Comment on above: Performed By: #### L 100.0100, L500.2500 ####[facility] [address] [place], [address] RBC (Bld) [#/Vol] 5.61 10*6/uL Normal 4.6-6.2 [facility] Comment on above: Performed By: #### L 100.0100, L500.2500 ####[facility] [address] [place], [address] RDW SD 45.3 fl High 35.1-43.9 [facility] Comment on above: Performed By: #### L 100.0100, L500.2500 ####[facility] [address] [place], [address] WBC (Bld) [#/Vol] 11.1 10*3/uL High 4.4-11.0 [facility] Comment on above: Performed By: #### L 100.0100, L500.2500 ####[facility] [address] [place], [address] Cardiology Visit Reporton Cardiology Visit Report [facility] [address] [place], [place] [address] OFFICE VISIT Date of Service: 11/10/24 MR#: [id number] Acct: [id number] Name: JOHNY SANTAMARIA . Rep #: [id number] : 1960 Provider: Dr. Jamarcus Redd MD Age/Sex: 64/M Location: [facility] Status: Signed HPI HPI History of Present Illness Details: 64-year-old man with a history of significant tobacco and alcohol use who had presented to the hospital in July 2021 with progressive shortness of breath. He denied any classic chest discomfort and did not have any syncope. He was seen in the emergency room at that time and his EKG demonstrated evidence of a possible inferior myocardial infarction. At the time of his evaluation he was noted to have significant pulmonary hypertension with pulm artery systolic pressures which were elevated. There was a discussion as to whether he would undergo a cardiac catheterization but for reasons that are not entirely clear he never underwent the above. More recently he has complained of shortness of breath and was scheduled for and underwent an echocardiographic evaluation which demonstrated an ejection fraction of 45% with segmental wall motion abnormalities, severe mitral regurgitation, 3+ tricuspid gestation and severe pulmonary hypertension with pulmonary systolic pressure estimated to be 86 mmHg. He denied any chest pain. He also underwent stress testing which was noted to be abnormal at a workload of 6.4 metabolic equivalents. It suggested multivessel disease with ischemia involving the anteroseptal wall, inferior wall, and infarct involving the apex. He was sent to us for further evaluation and definitive management. He complains of occasional fast pounding and some dizziness. He did have a near syncopal episode 2 weeks ago. He continues to use tobacco products and alcohol albeit less. His physical exam demonstrates a soft systolic murmur and an S3 noted left sternal border his electrocardiogram demonstrates sinus rhythm with a previous inferior infarct rate of 64 bpm poor R wave progression suggestive of an anterior infarct and premature ventricular complexes. Intake Vital Signs 08/07/21 15:23 11/10/24 13:37 Height 5 ft 9 in 5 ft 9 in Weight: 176 lb BMI 25.9 BP 97/66 Blood Pressure Location Lt brachial Position Sitting Respiration 16 Pulse 61 Pulse Source Monitor Intake Visit Reasons: HX of CP, Dyspnea w/ CAD, Pulmonary HTN (Sibilia) Tub Mender Required: No Accompanied by: Significant Other Is patient in pain?: No Allergies No Known Allergies Allergy (Verified 11/10/24 13:41) Medications ???Medication ???Instructions ???Recorded ???Confirmed ???Type timolol 1 drp EACH EYE BID glaucoma 11/10/24 History albuterol sulfate 90 mcg/actuation 2 puff inhalation Q6H PRN 11/10/24 Rx aerosol inhaler shortness of breath or wheezing #8.5 grams furosemide 20 mg tablet 20 mg PO DAILY #30 tabs 08/01/21 0 11/10/24 Rx lisinopril 2.5 mg tablet 2.5 mg PO QDAY 11/08/24 11/10/24 H istory rosuvastatin 40 mg tablet 40 mg PO QDAY 11/08/24 11/10/24 Hi story latanoprost 0.005 % eye drops 1 drp ophthalmic (eye) QHS 5 11/10/24 History tiotropium 2.5 mcg-olodaterol 2.5 2 puff inhalation QDAY 11/10/24 0 11/10/24 History mcg/actuation mist for inhalation (Stiolto Respimat) Have you fallen in the past year?: No PFSH Medical History Alcohol abuse Elevated ferritin Decreased cardiac ejection fraction Mitral valve disease CAD (coronary artery disease) Dyspnea Chest pain Lung nodule HLD (hyperlipidemia) Pulmonary hypertension Asthma Non-ST elevation NM (NSTEMI) (07/30/21) COPD with exacerbation Glaucoma Surgical History History of dilation of urethra Hx of tonsillectomy Family History Other Diabetes Heart disease Social History household members: spouse housing: house current occupational status: employed Smoking Status: Heavy Smoker (>10/day) alcohol intake: current details: 8 beers per night per pt ROS Const Const: Negative for fatigue, weakness, headache(s) (More pressure in head than ache), daytime sleepiness or difficulty sleeping Eyes Eyes: Positive for blurry vision ENT ENT: Positive for dizziness; Negative for headache(s) (More pressure in head than ache) or Nosebleed/epistaxis Cardio Chest Pain: No Palpitations: Yes feels like its: fast and pounding Edema: None Resp Respiratory: Positive for SOB with activity and SOB at rest; Negative for SOB orthopnea SOB lying down or Cough GI GI: Negative n (more content not included)... Normal [facility] Stress Reporton 11-07-2024 Stress Report [facility] [address] [place] [address] MR#: [id number] Acct: [id number] Name: SIXTOJOHNY Everardo Braden Rep #: [id number] : 1960 64 From: Jamarcus Redd MD Primary Care: Dr. Lali Taylor MD Status: REG CLI Referring Dr: Lali Taylor MD Sex: M C Stress Test Report Exercise myocardial perfusion stress test. 64-year-old man with a history of coronary artery disease and dyspnea Stress protocol: Resting EKG demonstrates sinus rhythm with a rate of 57 bpm resting blood pressure is 96/62 mmHg. The patient exercised according to the regular Drew protocol for a total duration of 3 minutes and 47 seconds attaining a maximum heart rate of 137 bpm which was 88% of maximum predicted heart rate; the maximum workload was 6.4 metabolic equivalents. At rest there were no ST or T wave changes noted to suggest ischemia and at peak exercise 1.[address] depression was noted in leads II, III and aVF and [address] depression noted in V5 and V6 suggestive of ischemia. No clinical angina was noted but the patient got markedly short of breath. The peak blood pressure was 122/64 mmHg. this was an inadequate blood pressure response to exercise. Rate-pressure product was 15,200. Myocardial perfusion protocol. 13 mCi of technetium 99m sestamibi was injected at rest. The patient exercised according to regular Drew protocol for total duration of 3 minutes and 47 seconds and at peak exercise 45 mCi of technetium 99m sestamibi was injected stress images were obtained stress and rest images were reconstructed in comparing the short axis vertical long and horizontal long axis. Gated images were also obtained. Perfusion SPECT analysis: Review of the stress images demonstrate a mildly dilated cardiac silhouette size. There is an extensive defect noted involving the mid anterior wall anteroseptal wall and apex. A medium size defect is also noted involving the inferior wall. The resting images demonstrate improvement in part of the inferior wall and the distal anterior wall. The apex defect appears to be persistent. The above is suggestive of multivessel disease with ischemia involving the anteroseptal wall, inferior wall, and an infarct involving the apex. Gated SPECT analysis: The gated ejection fraction is 35%. Conclusion: Abnormal exercise myocardial perfusion stress test at a low to moderate workload Reduced ejection fraction. 11/07/241708 Date Jamarcus Redd MD CC: Dr. Lali Taylor MD; Dr. Darrion Chaparro MD Date Dictated: 11/07/241703 Date Transcribed: 11/07/241703 Bartender: CO Signed Normal [facility] CBC W/Diff, Automatedon 10-04 Absolute Lymph 2.06 X10 3/uL Normal 0.83-4.51 [facility] Comment on above: Order Comment: Order Date: 07/13/24Order Info: 4-1 - CBCD Performed By: #### L 500.4050, L500.4100, L100.0100 ####[facility] [address] [place], [address] Absolute Neut 4.2 X10 3/uL Normal 2.0-7.7 [facility] Comment on above: Order Comment: Order Date: 07/13/24Order Info: 4- - CBCD Performed By: #### L 500.4050, L500.4100, L100.0100 ####[facility] [address] [place], [address] Basophils/100 WBC (Bld) 1.1 % High 0-1 [facility] Comment on above: Order Comment: Order Date: 07/13/24Order Info: 183- - CBCD Performed By: #### L 500.4050, L500.4100, L100.0100 ####[facility] [address] [place], [address] Eosinophils/100 WBC (Bld) 1.8 % Normal 0-5 [facility] Comment on above: Order Comment: Order Date: 07/13/24Order Info: 183- - CBCD Performed By: #### L 500.4050, L500.4100, L100.0100 ####[facility] [address] [place], [address] Erythrocyte distribution width (RBC) [Ratio] 13.5 % Normal 11.6-14.6 [facility] Comment on above: Order Comment: Order Date: 07/13/24Order Info: 0184-1 - CBCD Performed By: #### L 500.4050, L500.4100, L100.0100 ####[facility] [address] [place], [address] Hematocrit (Bld) [Volume fraction] 50.9 % Normal 40-54 [facility] Comment on above: Order Comment: Order Date: 07/13/24Order Info: 018- - CBCD Performed By: #### L 500.4050, L500.4100, L100.0100 ####[facility] [address] [place], [address] Hemoglobin (Bld) [Mass/Vol] 16.4 g/dL Normal 13.0-16.5 [facility] Comment on above: Order Comment: Order Date: 07/13/24Order Info: 183- - CBCD Performed By: #### L 500.4050, L500.4100, L100.0100 ####[facility] [address] [place], [address] IG% 0.400 Normal 0.0-0.9 [facility] Comment on above: Order Comment: Order Date: 07/13/24Order Info: 183-10 - CBCD Result Comment: IG% - Immature Granulocytes (promyelocytes, myelocytes and metamyelocytes) > 1% indicates that a LEFT SHIFT is Present. Performed By: #### L 500.4050, L500.4100, L100.0100 ####[facility] [address] [place], [address] Lymphocytes/100 WBC (Bld) 28.9 % Normal 19-41 [facility] Comment on above: Order Comment: Order Date: 07/13/24Order Info: 018- - CBCD Performed By: #### L 500.4050, L500.4100, L100.0100 ####[facility] [address] [place], [address] MCH (RBC) [Entitic mass] 32.5 pg High 27.0-32.0 [facility] Comment on above: Order Comment: Order Date: 07/13/24Order Info: 018- - CBCD Performed By: #### L 500.4050, L500.4100, L100.0100 ####[facility] [address] [place], [address] MCHC (RBC) [Mass/Vol] 32.2 g/dL Normal 32-36 [facility] Comment on above: Order Comment: Order Date: 07/13/24Order Info: 0184-1 - CBCD Performed By: #### L 500.4050, L500.4100, L100.0100 ####[facility] [address] [place], [address] MCV (RBC) [Entitic vol] 100.8 fL High 80-94 [facility] Comment on above: Order Comment: Order Date: 07/13/24Order Info: 0184-1 - CBCD Performed By: #### L 500.4050, L500.4100, L100.0100 ####[facility] [address] [place], [address] Monocytes/100 WBC (Bld) 9.3 % Normal 0-10 [facility] Comment on above: Order Comment: Order Date: 07/13/24Order Info: 0184-1 - CBCD Performed By: #### L 500.4050, L500.4100, L100.0100 ####[facility] [address] [place], [address] Neutrophils/100 WBC (Bld) 58.5 % Normal 47-70 [facility] Comment on above: Order Comment: Order Date: 07/13/24Order Info: 0184-1 - CBCD Performed By: #### L 500.4050, L500.4100, L100.0100 ####[facility] [address] [place], [address] Nucleated RBC (Bld) [#/Vol] 0 10*3/uL Normal 0-5 [facility] Comment on above: Order Comment: Order Date: 07/13/24Order Info: 0184-1 - CBCD Performed By: #### L 500.4050, L500.4100, L100.0100 ####[facility] [address] [place], [address] Platelet mean volume (Bld) [Entitic vol] 11.7 fL Normal 6.2-12.0 [facility] Comment on above: Order Comment: Order Date: 07/13/24Order Info: 0184-1 - CBCD Performed By: #### L 500.4050, L500.4100, L100.0100 ####[facility] [address] [place], [address] Platelets (Bld) [#/Vol] 157 10*3/uL Normal 150-450 [facility] Comment on above: Order Comment: Order Date: 07/13/24Order Info: 0184-1 - CBCD Performed By: #### L 500.4050, L500.4100, L100.0100 ####[facility] [address] [place], [address] RBC (Bld) [#/Vol] 5.05 10*6/uL Normal 4.6-6.2 [facility] [facility] Comment on above: Order Comment: Order Date: 07/13/24Order Info: [id number] - CBCD Performed By: #### L 500.4050, L500.4100, L100.0100 ####[facility] [address] [place], [address] RDW SD 50.6 fl High 35.1-43.9 [facility] Comment on above: Order Comment: Order Date: 07/13/24Order Info: [id number] - CBCD Performed By: #### L 500.4050, L500.4100, L100.0100 ####[facility] [address] [place], [address] WBC (Bld) [#/Vol] 7.1 10*3/uL Normal 4.4-11.0 [facility] Comment on above: Order Comment: Order Date: 07/13/24Order Info: [id number] - CBCD Performed By: #### L 500.4050, L500.4100, L100.0100 ####[facility] [address] [place], [address] Comprehensive Metabolic Prof ilon 10-16-2024 Albumin [Mass/Vol] 3.6 g/dL Normal 3.2-5.0 [facility] Comment on above: Order Comment: Order Date: 07/13/24Order Info: [id number] - CMPOrder Info: [id number] - LIPID Performed By: #### L 500.4050, L500.4100, L100.0100 ####[facility] [address] [place], [address] Albumin/Globulin [Mass ratio] 0.9 {ratio} Normal 0.9-2.4 [facility] Comment on above: Order Comment: Order Date: 07/13/24Order Info: [id number] - CMPOrder Info: [id number] - LIPID Performed By: #### L 500.4050, L500.4100, L100.0100 ####[facility] [address] [place], [address] ALK P 86 U/L Normal 45-117 [facility] Comment on above: Order Comment: Order Date: 07/13/24Order Info: [id number] - CMPOrder Info: [id number] - LIPID Performed By: #### L 500.4050, L500.4100, L100.0100 ####[facility] [address] [place], [address] ALT [Catalytic activity/Vol] 27 U/L Normal 16-61 [facility] Comment on above: Order Comment: Order Date: 07/13/24Order Info: [id number] - CMPOrder Info: [id number] - LIPID Performed By: #### L 500.4050, L500.4100, L100.0100 ####[facility] [address] [place], [address] AST [Catalytic activity/Vol] 34 U/L Normal 15-37 [facility] Comment on above: Order Comment: Order Date: 07/13/24Order Info: [id number] - CMPOrder Info: [id number] - LIPID Performed By: #### L 500.4050, L500.4100, L100.0100 ####[facility] [address] [place], [address] Bilirubin [Mass/Vol] 1.00 mg/dL Normal 0.20-1.00 [facility] Comment on above: Order Comment: Order Date: 07/13/24Order Info: [id number]- - CMPOrder Info: [id number] - LIPID Result Comment: For patients on eltrombopag therapy, use of Dimension [place] TBIL is not recommended. Performed By: #### L 500.4050, L500.4100, L100.0100 ####[facility] [address] [place], [address] BUN/CRE 6.1 RATIO Low 10-20 [facility] Comment on above: Order Comment: Order Date: 07/13/24Order Info: [id number]- - CMPOrder Info: [id number] - LIPID Performed By: #### L 500.4050, L500.4100, L100.0100 ####[facility] [address] [place], [address] CA,Total 9.3 mg/dL Normal 8.5-10.1 [facility] Comment on above: Order Comment: Order Date: 07/13/24Order Info: [id number] - CMPOrder Info: [id number] - LIPID Performed By: #### L 500.4050, L500.4100, L100.0100 ####[facility] [address] [place], [address] Chloride [Moles/Vol] 107 mmol/L Normal 98-107 [facility] Comment on above: Order Comment: Order Date: 07/13/24Order Info: [id number] - CMPOrder Info: [id number] - LIPID Performed By: #### L 500.4050, L500.4100, L100.0100 ####[facility] [address] [place], [address] CO2 [Moles/Vol] 25.0 mmol/L Normal 21.0-32.0 [facility] Comment on above: Order Comment: Order Date: 07/13/24Order Info: [id number] - CMPOrder Info: [id number] - LIPID Performed By: #### L 500.4050, L500.4100, L100.0100 ####[facility] [address] [place], [address] Creatinine [Mass/Vol] 1.15 mg/dL Normal 0.70-1.30 [facility] Comment on above: Order Comment: Order Date: 07/13/24Order Info: [id number] - CMPOrder Info: [id number] - LIPID Result Comment: The validity of the calculated GFR GFRAA in patients over 70 years has not been determined. Clinical correlation is essential. Performed By: #### L 500.4050, L500.4100, L100.0100 ####[facility] [address] [place], [address] EST GFR - AA 82 mL/min Normal >60 [facility] Comment on above: Order Comment: Order Date: 07/13/24Order Info: [id number] - CMPOrder Info: [id number] - LIPID Result Comment: Afri can Fijian GFR Calc Performed By: #### L 500.4050, L500.4100, L100.0100 ####[facility] [address] [place], [address] GAP 6 Normal 5-15 [facility] Comment on above: Order Comment: Order Date: 07/13/24Order Info: 07- - CMPOrder Info: [id number] - LIPID Performed By: #### L 500.4050, L500.4100, L100.0100 ####[facility] [address] [place], [address] GFR/1.73 sq M.predicted among non-blacks MDRD (S/P/Bld) [Vol rate/Area] 68 mL/min/{1.73_m2} Normal >60 [facility] Comment on above: Order Comment: Order Date: 07/13/24Order Info: 07- - CMPOrder Info: [id number] - LIPID Result Comment: Non- GFR Calc Performed By: #### L 500.4050, L500.4100, L100.0100 ####[facility] [address] [place], [address] Globulin (S) [Mass/Vol] 3.9 g/dL Normal 2.2-4.2 [facility] Comment on above: Order Comment: Order Date: 07/13/24Order Info: 07- - CMPOrder Info: [id number] - LIPID Performed By: #### L 500.4050, L500.4100, L100.0100 ####[facility] [address] [place], [address] Glucose [Mass/Vol] 98 mg/dL Normal 74-106 [facility] Comment on above: Order Comment: Order Date: 07/13/24Order Info: [id number]- - CMPOrder Info: [id number] - LIPID Performed By: #### L 500.4050, L500.4100, L100.0100 ####[facility] [address] [place], [address] Potassium [Moles/Vol] 4.1 mmol/L Normal 3.5-5.1 [facility] Comment on above: Order Comment: Order Date: 07/13/24Order Info: [id number] - CMPOrder Info: [id number] - LIPID Performed By: #### L 500.4050, L500.4100, L100.0100 ####[facility] [address] [place], [address] Sodium [Moles/Vol] 138 mmol/L Normal 136-145 [facility] Comment on above: Order Comment: Order Date: 07/13/24Order Info: [id number] - CMPOrder Info: [id number] - LIPID Performed By: #### L 500.4050, L500.4100, L100.0100 ####[facility] [address] [place], [address] T PROT 7.5 g/dL Normal 6.4-8.2 [facility] Comment on above: Order Comment: Order Date: 07/13/24Order Info: [id number] - CMPOrder Info: [id number] - LIPID Performed By: #### L 500.4050, L500.4100, L100.0100 ####[facility] [address] [place], [address] Urea nitrogen [Mass/Vol] 7 mg/dL Normal 7-18 [facility] Comment on above: Order Comment: Order Date: 07/13/24Order Info: [id number] - CMPOrder Info: [id number] - LIPID Performed By: #### L 500.4050, L500.4100, L100.0100 ####[facility] [address] [place], [address] Lipid Profileon 10-16-2024 Cholesterol [Mass/Vol] 193 mg/dL Normal 200 [facility] Comment on above: Order Comment: Order Date: 07/13/24Order Info: [id number] - CMPOrder Info: [id number] - LIPID Result Comment: <200 mg/dL Desirable 200-240 mg/dL Borderline >240 mg/dL High Risk Performed By: #### L 500.4050, L500.4100, L100.0100 ####[facility] [address] [place], [address] Cholesterol in HDL [Mass/Vol] 39 mg/dL Low [facility] Comment on above: Order Comment: Order Date: 07/13/24Order Info: [id number] - CMPOrder Info: [id number] - LIPID Result Comment: The drugs N-Acetylcysteine and Metamizole may falsely depress this assay. Reference Range HDL <40 mg/dL Low HDL Cholesterol HDL >or= 60 mg/dL High HDL Cholesterol Performed By: #### L 500.4050, L500.4100, L100.0100 ####[facility] [address] [place], [address] Cholesterol in LDL [Mass/Vol] 125 mg/dL Normal 0-130 [facility] Comment on above: Order Comment: Order Date: 07/13/24Order Info: [id number] - CMPOrder Info: [id number] - LIPID Performed By: #### L 500.4050, L500.4100, L100.0100 ####[facility] [address] [place], [address] Cholesterol in VLDL [Mass/Vol] 29 mg/dL Normal 5-40 [facility] Comment on above: Order Comment: Order Date: 07/13/24Order Info: [id number]- - CMPOrder Info: [id number] - LIPID Performed By: #### L 500.4050, L500.4100, L100.0100 ####[facility] [address] [place], [address] Triglyceride [Mass/Vol] 145 mg/dL Normal [facility] Comment on above: Order Comment: Order Date: 07/13/24Order Info: [id number]- - CMPOrder Info: [id number] - LIPID Result Comment: The drugs N-Acetylcysteine and Metamizole may falsely depress this assay. Serum Triglycerides Reference Interval Normal <150 mg/dL Borderline high 150 - 199 mg/dL High 200 - 499 mg/dL Very High > or = 500 mg/dL Performed By: #### L 500.4050, L500.4100, L100.0100 ####[facility] [address] [place], [address] Echo Complete W/ Contraston 10-10-2024 Echo Complete W/ Contrast [facility] [address] [place] [address] Echo Complete W/ Contrast 10/10/24 0912 MR#: [id number] Acct: [id number] Name: JOHNY SANTAMARIA Jr. Rep #: [id number] : 1960 64 From: Jamarcus Redd MD Attending Dr: Dr. Darrion Chaparro MD Status: REG CLI Ordering Dr: Darrion Chaparro MD Date: 10/10/24 Location: [facility] Sex: M C Admitted: Reason For Study: PHTN Procedure This was a 2D Doppler, Color Flow transthoracic echocardiogram. Myocardial strain analysis was performed in this exam to aid in the assessment of cardiac function. Contrast injection was performed. Exam performed in department. Left Ventricle Moderately dilated left ventricle. The left ventricular ejection fraction is 45 %. There are regional wall motion abnormalities as specified. Infero-Basal: Akinetic. Posterior-Basal: Akinetic. Mid-Posterior: Akinetic. Septal [place] : Hypokinetic. Right Ventricle Normal RV size. Mild RVH. Normal systolic function. Atria The left atrium is moderately enlarged. The right atrium is moderately enlarged. Mitral Valve Bileaflet diffuse mitral valve thickening. Moderately severe (3+) eccentric mitral valve insufficiency. Tricuspid Valve Normal tricuspid valve. Moderately severe (3+) tricuspid valve insufficiency. Pulmonary artery systolic pressure is 86 mmHg. Severe pulmonary hypertension. Aortic Valve Trisinus/trileaflet aortic valve. Mild focal aortic valve thickening. Mild-Moderate (1-2+) aortic valve insufficiency. Pulmonic Valve Normal pulmonic valve. Great Vessels Normal aortic root. Mild pulmonary artery dilation. The inferior vena cava is dilated. and partially collapses. Pericardium/Pleural No pericardial effusion. Medication Diluted definity 1.5ml given slow IV push to enhance endocardial definition. MMode/2D Measurements Calculations LVIDd: 6.3 cm IVSd: 1.4 cm asc Aorta Diam: 3.1 cm LVIDs: 5.0 cm LVPWd: 0.69 cm RVDd: 4.0 cm FS: 20.3 % _ LAV(MOD-bp): 114.3 ml LVAd ap4: 39.2 cm2 LVAd ap2: 46.7 cm2 LAV(MOD-bp) Indexed: 57.9 ml/m2 LVLd ap4: 8.5 cm LVLd ap2: 9.1 cm LAV(MOD-sp2): 113.5 ml EDV(MOD-sp4): 147.2 ml EDV(MOD-sp2): 195.9 ml LAV(MOD-sp4): 105.4 ml EDV(sp4-el): 154.4 ml EDV(sp2-el): 202.6 ml LVAs ap4: 27.0 cm2 LVAs ap2: 32.4 cm2 LVLs ap4: 7.9 cm LVLs ap2: 8.5 cm ESV(MOD-sp4): 74.4 ml ESV(MOD-sp2): 108.8 ml ESV(sp4-el): 78.8 ml ESV(sp2-el): 105.5 ml EF(MOD-sp4): 49.5 % EF(MOD-sp2): 44.5 % EF(sp4-el): 49.0 % _ SV(MOD-sp4): 72.8 ml SV(MOD-sp2): 87.1 ml SV(sp4-el): 75.6 ml SI(MOD-sp4): 36.8 ml/m2 SI(MOD-sp2): 44.1 ml/m2 _ LA A4 area: 30.7 cm2 LA dimension(2D): 5.1 cm RA A4 area: 24.9 cm2 _ TAPSE: 1.8 cm Time Measurements MV dec time: 0.19 sec Doppler Measurements Calculations MV E max humphrey: 156.7 cm/sec Lat Peak E' Humphrey: 5.5 cm/sec Med Peak E' Humphrey: 3.6 cm/sec MV A max humphrey: 56.5 cm/sec E/E' lat: 28.3 E/E' med: 43.3 MV E/A: 2.8 _ MV dec slope: 833.7 cm/sec2 Ao V2 max: 168.2 cm/sec AI max humphrey: 474.5 cm/sec Ao max P.3 mmHg AI max P.1 mmHg Ao V2 mean: 110.2 cm/sec AI dec slope: 256.5 cm/sec2 Ao mean P.8 mmHg AI P1/2t: 541.8 msec Ao V2 VTI: 34.6 cm AV (velocity ratio): 0.68 _ LV V1 max: 106.9 cm/sec PA V2 max: 91.1 cm/sec PI end-d humphrey: 124.2 cm/sec LV V1 max P.6 mmHg LV V1 mean P.1 mmHg LV V1 mean: 64.9 cm/sec LV V1 VTI: 23.6 cm _ TR max humphrey: 445.7 cm/sec TR max P.4 mmHg ECHO/Echo Complete W/ Contrast Interpretation Summary The left ventricular ejection fraction is 45 %. Moderately dilated left ventricle. Moderately severe (3+) eccentric mitral valve insufficiency. Pulmonary artery systolic pressure is 86 mmHg. Severe pulmonary hypertension. Mild-Moderate (1-2+) aortic valve insufficiency. and partially collapses. Paired with the previous the left ventricular systolic function is less and the pulmonary pressures are about the same. Contrast injection was performed. Ordering Physician: Darrion Chaparro V Referring Physician: Lali Taylor Performed By: Ellyn Marie, WIN, RVT 10/10/24 9769 Date Cy (more content not included)... Normal [facility] C-REACTIVE PROTEINon 024 CRP [Mass/Vol] 0.4 mg/dL NINF - 0.9 mg/dL [facility] CNOVSPon 07-06-2024 CNOVSP Visit (SP) Office ([facility]) JOHNY SANTAMARIA ([id number]) 1960 M Date Time Provider Department 07/06/24 9:00 AM KALPANA PEARCE During your visit today, we recorded the following information about you: Temperature Pulse Respiration Blood pressure 97.8 degrees 64/minute 12/minute 186/80 Weight 80.3 kg Kalpana Pearce 07/08/2024 6:32 AM Signed Johny Santamaria 1960 07/06/2024 HISTORY OF PRESENT ILLNESS: Johny Santamaria is a 64 year old male referred for evaluation of elevated ferritin. Iron studies reviewed, iron sat 41% LFT elevated also AST/ALT 73/74 respectively. Drinks 12 beers a day Interval Hx: Mr. Santamaria presents today for follow up and lab review. We discussed workup negative for blood disorders causing elevated ferritin. He denies any new issues since last being seen. No recent illness. Denies fevers, chills, NS. Appetite is good. No unintentional weight loss. He continues drinking 12 beers per day. Long discussion today on EtOH causing elevated ferritin. Pt acknowledged. Current smoker, has cut back some CLINICAL IMPRESSION: Elevated ferritin, iron sat normal, ?iron overload versus primary liver issue Elevated LFT RECOMMENDATION/PLAN: 1. US liver - hepatic steatosis. 2. Hemochromatosis mutation assay negative Encouraged lifestyle changes. - Reviewed elevated ferritin likely caused by EtOH use. Pt drinks 12 beers daily, no hard liquor - Will recheck LFTs, CRP, GGT, today - Advised patient to cut back alcohol use. Ultimately would recommend complete cessation for 3 months and then repeat ferritin. Discussed risks and concern for eventual liver failure with pt. Liver disease likely causing thrombocytopenia as well. Reviewed this will pt at increased risk of bleeding. Pt acknowledged and states that he will try to cut back. Follow up with Dr. Taylor for monitoring. If no improvement in ferritin with 3 months of no alcohol use could work up further with MRI. Written and verbal health teaching given to patient, patient verbalizes understanding and agrees with treatment plan. PAST MEDICAL HISTORY Diagnosis Date ETOH abuse Glaucoma Tobacco use PAST SURGICAL HISTORY Procedure Laterality Date TONSILLECTOMY AND ADENOIDECTOMY HX URETHRAL DILATION, MALE FAMILY HISTORY Problem Relation Age of Onset Hypertension Mother Diabetes Mother Blindness Mother Heart Father Hypertension Father NM multiple around age 60; stents and CABG Lipids Father Coronary Artery Disease Father Social History Tobacco Use Smoking status: Every Day Current packs/day: 1.00 Types: Cigarettes Smokeless tobacco: Never Vaping Use Vaping status: Never Used Substance Use Topics Alcohol use: Yes Comment: 12 pack beer daily Drug use: No ALLERGIES: ALLERGIES Allergen Reactions Environmental [Othe* CURRENT OUTPATIENT MEDICATIONS: latanoprost (XALATAN) 0.005 % ophthalmic solution Use 1 Drop in both eyes once daily. albuterol HFA (PROVENTIL HFA, VENTOLIN HFA) 90 mcg/actuation inhaler Inhale 2 Puffs as instructed every 4 hours as needed. STIOLTO RESPIMAT 2.5-2.5 mcg/actuation inhaler Inhale 2 Puffs as instructed once daily. dorzolamide-timolol (COSOPT) 22.3-6.8 mg/mL ophthalmic solution Use 1 Drop in both eyes two times a day. REVIEW OF SYSTEMS: GENERAL: No fever, night sweats, weight loss or malaise. All other reviewed and negative other than HPI. All systems reviewed on 07/06/2024 with pertinent positives and negatives as outlined in the interval history. PHYSICAL EXAMINATION: VITAL SIGNS: BP 186/80 Pulse 64 Temp 97.8 Resp 12 Wt 177 lb (80.3kg) SpO2 99% GENERAL APPEARANCE: Well appearing, in no acute distress, alert and oriented x3, well-hydrated, well nourished. LUNGS: clear HEART: RRR EXTREMITIES: no edema SKIN: No ulceration, rashes, No jaundice I have performed the physical exam today (07/08/2024) and have edited the note to correlate with current findings. Kalpana Pearce APRN.STAFF DEVELOPMENT COORDINATOR I spent a total of 30 minutes on the date of the service which included preparing to see the patient, dgge-ju-hfyv patient care, completing clinical documentation, and counseling and educating the patient/family/careg iver. Portions of this note including HPI, ROS, impression/plan may have been copied forward as to provide important historical information essential in contributing to medical decision making. Documentation has been reviewed and edited as necessary to support clinical decision making for today's visit and to reflect my own independent evaluation of this patient. Referring Provider: INOCENCIO MCKEON [[id number]] Allergies As of Date: 07/06/2024 Noted Allergy Reaction environmental [Other] 03/11/2006 Date Reviewed: 07/06/2024 Reviewed by: Fay Rojo LPN - Fully Assessed Reason for Visit: Established Patient [175] Cmt: OV, (more content not included)... Normal [facility] CRP SerPl-mCncon 07-06-2024 CRP [Mass/Vol] 0.4 mg/dL Normal <0.9 [facility] Comment on above: Order Comment: Trinity bright Type: BLOOD SPECIMEN Ordering Facility: [facility] Address: [address] [place] [address] Performed By: #### 1 988-5, 2324-2 #### [facility] CLIA [id number] [address] [place] [address] [place] CRP [Mass/Vol]on 07-06-2024 Interpretation and review of laboratory results Normal [facility] GGTon 07-06-2024 Gamma glutamyl transferase [Catalytic activity/Vol] 133 U/L High 10 - 70 U/L [facility] GGT SerPl-cCncon 07-06-2024 Gamma glutamyl transferase [Catalytic activity/Vol] 133 U/L High 10-70 [facility] Comment on above: Order Comment: Trinity bright Type: BLOOD SPECIMENOrdering Facility: [facility] Address: [address] [place] [address] Performed By: #### 1 988-5, 2324-2 ####[facility] [id number] [place] [address] [place] Gamma glutamyl transferase [ Catalytic activity/Vol]on 07-06-2024 Interpretation and review of laboratory results Abnormal [facility] Hepatic function 2000 panelO rdered By: Albertina Conner on 07-06-2024 Albumin [Mass/Vol] 4.2 g/dL 3.9 - 4.9 g/dL [facility] ALP [Catalytic activity/Vol] 74 U/L 38 - 113 U/L [facility] ALT [Catalytic activity/Vol] 41 U/L 10 - 54 U/L [facility] AST [Catalytic activity/Vol] 50 U/L High 14 - 40 U/L [facility] Bilirubin [Mass/Vol] 0.5 mg/dL 0.2 - 1 .3 mg/dL [facility] Bilirubin.conjugated [Mass/Vol] 0.2 mg/dL High NINF - 0.2 mg/dL [facility] Interpretation and review of laboratory results Abnormal [facility] Protein [Mass/Vol] 7.0 g/dL 6.3 - 8.0 g/dL [facility] Hepatic function 2000 panelo n 07-06-2024 Albumin [Mass/Vol] 4.2 g/dL Normal 3.9-4.9 [facility] Comment on above: Order Comment: Speci men Type: BLOOD SPECIMEN Ordering Facility: [facility] Address: [address] [place] [address] Performed By: #### 2 4325-3 #### [facility] CLIA [id number] [address] [place] [address] [place] ALP [Catalytic activity/Vol] 74 U/L Normal 38-113 [facility] Comment on above: Order Comment: Speci men Type: BLOOD SPECIMEN Ordering Facility: [facility] Address: [address] [place] [address] Performed By: #### 2 4325-3 #### [facility] CLIA [id number] [address] [place] [address] [place] ALT [Catalytic activity/Vol] 41 U/L Normal 10-54 [facility] Comment on above: Order Comment: Speci men Type: BLOOD SPECIMEN Ordering Facility: [facility] Address: [address] [place] [address] Performed By: #### 2 4325-3 #### [facility] CLIA [id number] [address] [place] [address] [place] AST [Catalytic activity/Vol] 50 U/L High 14-40 [facility] Comment on above: Order Comment: Speci men Type: BLOOD SPECIMEN Ordering Facility: [facility] Address: [address] [place] [address] Performed By: #### 2 4325-3 #### [facility] CLIA [id number] [address] [place] [address] [place] Bilirubin [Mass/Vol] 0.5 mg/dL Normal 0.2-1.3 [facility] Comment on above: Order Comment: Speci men Type: BLOOD SPECIMEN Ordering Facility: [facility] Address: [address] [place] [address] Performed By: #### 2 4325-3 #### [facility] [id number] [address] [place] [address] [place] Bilirubin.conjugated [Mass/Vol] 0.2 mg/dL High <0.2 [facility] Comment on above: Order Comment: Speci men Type: BLOOD SPECIMEN Ordering Facility: [facility] Address: [address] [place] [address] Performed By: #### 2 4325-3 #### [facility] [id number] [address] [place] [address] [place] Protein [Mass/Vol] 7.0 g/dL Normal 6.3-8.0 [facility] Comment on above: Order Comment: Speci men Type: BLOOD SPECIMEN Ordering Facility: [facility] Address: [address] [place], [place] [id number] Performed By: #### 2 4325-3 #### [facility] [id number] [address] [place] [address] [place] No Panel Informationon 07-06 [facility] US ABD RIGHT UPPER QUADRANTo n 06-27-2024 US ABD RIGHT UPPER QUADRANT * * *Final Report* * * DATE OF EXAM: Jun 27 2024 9:55AM [facility] 1032 - US ABD RIGHT UPPER QUADRANT / PROCEDURE REASON: multiple diagnoses * * * * Physician Interpretation * * * * EXAMINATION: RIGHT UPPER QUADRANT ULTRASOUND CLINICAL HISTORY: Elevated liver function tests. Elevated ferritin. TECHNIQUE: Sonography of the right upper quadrant was performed. Images were obtained and stored in a permanent archive and interpreted remotely. MQ: URUQ_2 COMPARISON: Correlation made to CT abdomen dated 11/06/2016 RESULT: Pancreas: Normal sonographic appearance. Portions obscured: tail Liver: Echotexture: Normal, homogeneous. Echogenicity: Increased Surface contour: Smooth Lesions: None. Biliary: No intrahepatic biliary duct dilation. CBD: 0.3 cm at the hilum. Gallbladder: Normal caliber -Contents: No cholelithiasis -Wall: Normal -Other: No pericholecystic fluid. Right Kidney: Normal cortical echogenicity. No hydronephrosis. Ascites: None. IMPRESSION: Increased hepatic echogenicity, a nonspecific finding though most often seen in the setting of hepatic steatosis. Bartender: AD Transcribe Date/Time: Jun 27 2024 10:36A Dictated by : GEOVANNA ROCHA MD This examination was interpreted and the report reviewed and electronically signed by: GEOVANNA ROCHA MD on Jun 27 2024 10:37AM EST [id number] CN Normal [facility] US Abdomen RUQon 06-27-2024 IMPRESSION: Increased hepatic echogenicity, a nonspecific finding though most often seen in the setting of hepatic steatosis. Bartender: [facility] Transcribe Date/Time: Jun 27 2024 10:36A Dictated by : GEOVANNA ROCHA MD This examination was interpreted and the report reviewed and electronically signed by: GEOVANNA ROCHA MD on Jun 27 2024 10:37AM EST DIVISION OF RADIOLOGY * * *Final Report* * * DATE OF EXAM: Jun 27 2024 9:55AM WRU 1032 - US ABD RIGHT UPPER QUADRANT / PROCEDURE REASON: multiple diagnoses * * * * Physician Interpretation * * * * EXAMINATION: RIGHT UPPER QUADRANT ULTRASOUND CLINICAL HISTORY: Elevated liver function tests. Elevated ferritin. TECHNIQUE: Sonography of the right upper quadrant was performed. Images were obtained and stored in a permanent archive and interpreted remotely. MQ: URUQ_2 COMPARISON: Correlation made to CT abdomen dated 11/06/2016 RESULT: Pancreas: Normal sonographic appearance. Portions obscured: tail Liver: Echotexture: Normal, homogeneous. Echogenicity: Increased Surface contour: Smooth Lesions: None. Biliary: No intrahepatic biliary duct dilation. CBD: 0.3 cm at the hilum. Gallbladder: Normal caliber -Contents: No cholelithiasis -Wall: Normal -Other: No pericholecystic fluid. Right Kidney: Normal cortical echogenicity. No hydronephrosis. Ascites: None. DIVISION OF RADIOLOGY Provider, [facility] [place] - 06/27/2024 * * *Final Report* * * DATE OF EXAM: Jun 27 2024 9:55AM WRU 1032 - US ABD RIGHT UPPER QUADRANT / PROCEDURE REASON: multiple diagnoses * * * * Physician Interpretation * * * * EXAMINATION: RIGHT UPPER QUADRANT ULTRASOUND CLINICAL HISTORY: Elevated liver function tests. Elevated ferritin. TECHNIQUE: Sonography of the right upper quadrant was performed. Images were obtained and stored in a permanent archive and interpreted remotely. MQ: URUQ_2 COMPARISON: Correlation made to CT abdomen dated 11/06/2016 RESULT: Pancreas: Normal sonographic appearance. Portions obscured: tail Liver: Echotexture: Normal, homogeneous. Echogenicity: Increased Surface contour: Smooth Lesions: None. Biliary: No intrahepatic biliary duct dilation. CBD: 0.3 cm at the hilum. Gallbladder: Normal caliber -Contents: No cholelithiasis -Wall: Normal -Other: No pericholecystic fluid. Right Kidney: Normal cortical echogenicity. No hydronephrosis. Ascites: None. IMPRESSION IMPRESSION: Increased hepatic echogenicity, a nonspecific finding though most often seen in the setting of hepatic steatosis. Bartender: PSCB Transcribe Date/Time: Jun 27 2024 10:36A Dictated by : GEOVANNA ROCHA MD This examination was interpreted and the report reviewed and electronically signed by: GEOVANNA ROCHA MD on Jun 27 2024 10:37AM EST [facility] Radiology Study observation (narrative) [facility] US Abdomen RUQOrdered By: Cc f Provider on 06-27-2024 [facility] Chest without Contraston Chest without Contrast [facility] Imaging Services [address] [place] [address] Chest without Contrast MR#: [id number] Acct: [id number] Name: JOHNY SANTAMARIA Jr. Rep #: [id number] : 1960 M 64 From: Bruno gifford MD PCP: Dr. Lali Taylor MD Status: [facility] Study: Chest without Contrast Date of Exam: 06/23/24 Exam# [id number] Ordering Dr: Lali Taylor MD [id number] STUDY: CT CHEST WITHOUT CONTRAST REASON FOR EXAM: Male, 64 years old. NODULE RADIATION DOSAGE (If Supplied By Facility): CTDIvol = ( 10.08 ) mGy, DLP = ( 425.81 ) mGycm TECHNIQUE: Transaxial imaging was performed without the administration of intravenous contrast material. Multiplanar coronal and sagittal images were reformatted. Individualized dose optimization techniques were used for this CT. COMPARISON: Comparison is made with prior study dated August 07, 2021. FINDINGS: CHEST There is a 6 mm calcified granuloma in the anterior aspect of the left upper lobe as seen on axial image #47. Scarring in the right lung apex with a bullous formation. Minimal scarring in the anterolateral aspect of the lingular segment of the left upper lobe. There is no demonstrated pleural abnormality. There are calcifications of the coronary arteries. There are multiple small lymph nodes within the mediastinum, which are normal in size and morphology most compatible with reactive lymph hyperplasia. Normal hilar regions. Normal unenhanced pulmonary arteries. There is atherosclerotic calcification of the aortic arch with tortuosity and elongation of the aortic arch and descending thoracic aorta. There are degenerative changes of the thoracic spine. Calcified splenic granulomas. CT/Chest without Contrast IMPRESSION: Calcified granuloma in the anterior aspect of the left upper lobe as well as scarring with bullous changes in the right lung apex. Electronically Signed: Bruno Ray MD at 10:18 EDT , CC: Dr. Lali Taylor MD Bartender: Signed [facility] CNOVSPon 06-21-2024 CNOVSP Visit (SP) Office (HEMAWS) JOHNY SANTAMARIA ([id number]) 1960 M Date Time Provider Department 06/21/24 9:00 AM INOCENCIO MCKEON During your visit today, we recorded the following information about you: Temperature Pulse Blood pressure Weight 98.2 degrees 55/minute 175/90 78 kg Height 1.76 m Inocencio Mckeon MD 06/21/2024 11:59 AM Signed HISTORY OF PRESENT ILLNESS: Johny Santamaria is a 64 year old male referred for evaluation of elevated ferritin. Iron studies reviewed, iron sat 41% LFT elevated also AST/ALT 73/74 respectively. Drinks 12 beers a day CLINICAL IMPRESSION: Elevated ferritin, iron sat normal, ?iron overload versus primary liver issue Elevated LFT RECOMMENDATION/PLAN: 1. US liver 2. Hemochromatosis mutation assay Written and verbal health teaching given to patient, patient verbalizes understanding and agrees with treatment plan. PAST MEDICAL HISTORY Diagnosis Date ETOH abuse Glaucoma Tobacco use PAST SURGICAL HISTORY Procedure Laterality Date TONSILLECTOMY AND ADENOIDECTOMY HX URETHRAL DILATION, MALE FAMILY HISTORY Problem Relation Age of Onset Hypertension Mother Diabetes Mother Blindness Mother Heart Father Hypertension Father NM multiple around age 60; stents and CABG Lipids Father Coronary Artery Disease Father Social History Tobacco Use Smoking status: Every Day Current packs/day: 1.00 Types: Cigarettes Smokeless tobacco: Never Vaping Use Vaping status: Never Used Substance Use Topics Alcohol use: Yes Comment: 12 pack beer daily Drug use: No ALLERGIES: ALLERGIES Allergen Reactions Environmental [Othe* CURRENT OUTPATIENT MEDICATIONS: latanoprost (XALATAN) 0.005 % ophthalmic solution Use 1 Drop in both eyes once daily. albuterol HFA (PROVENTIL HFA, VENTOLIN HFA) 90 mcg/actuation inhaler Inhale 2 Puffs as instructed every 4 hours as needed. STIOLTO RESPIMAT 2.5-2.5 mcg/actuation inhaler Inhale 2 Puffs as instructed once daily. dorzolamide-timolol (COSOPT) 22.3-6.8 mg/mL ophthalmic solution Use 1 Drop in both eyes two times a day. REVIEW OF SYSTEMS: GENERAL: No fever, night sweats, weight loss or malaise. All other reviewed and negative other than HPI. PHYSICAL EXAMINATION: VITAL SIGNS: BP 175/90 Pulse 55 Temp (Src) 98.2 (Temporal) Ht 5' 9.291 (1.76m) Wt 172 lb (78.0kg) SpO2 98% BMI 25.19 kg/(m2). GENERAL APPEARANCE: Well appearing, in no acute distress, alert and oriented x3, well-hydrated, well nourished. I spent a total of 45 minutes on the date of the service which included preparing to see the patient, [id number] patient care, completing clinical documentation, obtaining and/or reviewing separately obtained history, counseling and educating the patient/family/careg iver, ordering medications, tests, or procedures, independently interpreting results (not separately reported), and communicating results to the patient/family/careg iver. Electronically Signed: Inocencio Mckeon MD June 21, 2024 9:01 AM Allergies As of Date: 06/21/2024 Noted Allergy Reaction environmental [Other] 03/11/2006 Date Reviewed: 06/21/2024 Reviewed by: Sudarshan Green MA - Fully Assessed Reason for Visit: New Patient [172] Primary Visit Diagnosis:Elevated ferritin [R79.89] Other Visit Diagnosis:Elevated LFTs [R79.89] Order(s):FERRITIN [SQFERR] Order #: [id number] FUTURE IRON AND TIBC [SQIRON] Order #: [id number] FUTURE HFE (HEMOCHROMATOSIS) [SQHEMDNA] Order #: [id number] FUTURE US ABD RIGHT UPPER QUADRANT [[id number]] Order #: [id number] FUTURE Follow-up and Disposition History for Encounter Date Provider Department Center 06/21/2024 [id number], DREW VICKY [place] Prescriptions as of 06/21/2024 - latanoprost (XALATAN) 0.005 % ophthalmic solution Use 1 Drop in both eyes once daily. - albuterol HFA (PROVENTIL HFA, VENTOLIN HFA) 90 mcg/actuation inhaler Inhale 2 Puffs as instructed every 4 hours as needed. - STIOLTO RESPIMAT 2.5-2.5 mcg/actuation inhaler Inhale 2 Puffs as instructed once daily. - dorzolamide-timolol (COSOPT) 22.3-6.8 mg/mL ophthalmic solution Use 1 Drop in both eyes two times a day. Problem List As Of Date 06/21/2024 Noted Resolved WOUND (NOT COMPLICATED) - OPEN FINGER(S) [S61.*03/11/2006 Urinary tract infection with hematuria [N39.0, *11/18/2016 08/12/2019 Pre-operative clearance [Z01.818] 11/18/2016 BPH (benign prostatic hypertrophy) with urinary*11/18/2016 Frequency of micturition [R35.0] 11/18/2016 ETOH abuse [F10.10] 11/20/2016 Tobacco use [Z72.0] 11/20/2016 Urethral stricture [N35.919] 12/02/2016 Encounter Status:Closed by INOCENCIO MCKEON on 06/21/24 Normal [facility] Ferritin SerPl-mCncon 2023 Ferritin [Mass/Vol] 1038.0 ng/mL High 30.3-565.7 [facility] Comment on above: Order Comment: Speci men Type: BLOOD SPECIMEN Ordering Facility: [facility] Address: [address] [place] [address] Performed By: #### 5 0190-8, 2276-4 #### [facility] CLIA [id number] [address] [place] [address] [place] [address] [place] HFE (HEMOCHROMATOSIS)on 06-04 INTERPRETATION (HEMDNA) [facility] Comment on above: Order Comment: Speci men Type: BLOOD SPECIMEN Ordering Facility: [facility] Address: [address] [place] [address] Result Comment: HFE (Hemochromatosis) Laboratory Accession Number: [id number] Result: C282Y: WT H63D: WT S65C: WT Interpretation: No variant detected: The DNA sample is negative for the C282Y, H63D and S65C variants of the HFE gene. Variants at these loci are commonly associated with hereditary hemochromatosis (HH). Approximately 13% of clinically affected individuals may have this negative result, suggesting other etiologies for hereditary hemochromatosis. Methodology: Patient DNA was evaluated for three missense variants in the HFE gene (NM_000410.3) using multiplex polymerase chain reaction (PCR) followed by melting curve analysis. The variants interrogated are c.845G>A, p.Hff946Pcw; g.82206328; [id number] (legacy name C282Y), c.187C>G, p.Juf89Pgw; g.31059398; [id number] (legacy name H63D) and c.193A>T, p.Csa77Gxc; g.61453348; [id number] (legacy name S65C). The reference genome used was GRCh37/hg19. Limitations: DNA studies do not provide a definitive genetic risk in all individuals. This targeted test is designed to detect three specific variants (see methodology for details) in HFE (OMIM 589298). Uncommon variants or single nucleotide polymorphisms may affect binding of probes and thus result in false negative, false positive, or indeterminate results. This test does not detect other HFE variants. Disclaimer: This test was developed and its performance characteristics determined by [facility]'s Pathology and Laboratory Medicine Department. It has not been cleared or approved by the FDA. [facility] Pathology [facility] Department is regulated under CLIA as certified to perform high-complexity testing. This test is used for clinical purposes. It should not be regarded as investigational or for research. Testing and interpretation performed at [facility], [address] [place] [address]. CLIA Number: [id number] As reviewed by Trudy Tinoco MD, PhD Performed By: #### H EMDNA #### [facility] CLIA [id number] [address] [place] [address] [place] Iron and Iron binding capaci ty panelon 06-21-2024 Interpretation and review of laboratory results Normal [facility] Iron [Mass/Vol] 121 ug/dL 41 - 186 ug/dL [facility] Iron binding capacity [Mass/Vol] 360 ug/dL 232 - 386 ug/dL [facility] Iron/TIBC [Molar ratio] 33.6 % 15.0 - 57.0 % [facility] Iron [Mass/Vol] 121 ug/dL Normal 41-186 [facility] Comment on above: Order Comment: Speci men Type: BLOOD SPECIMEN Ordering Facility: [facility] Address: [address] [place] [address] Performed By: #### 5 0190-8, 6-4 #### [facility] CLIA [id number] [address] [place] [address] [place] Iron binding capacity [Mass/Vol] 360 ug/dL Normal 232-386 [facility] Comment on above: Order Comment: Speci men Type: BLOOD SPECIMEN Ordering Facility: [facility] Address: [address] [place] [address] Performed By: #### 5 0190-8, 2275-4 #### [facility] CLIA [id number] [address] [place] [address] [place] Iron/TIBC [Molar ratio] 33.6 % Normal 15.0-57.0 C [facility] Comment on above: Order Comment: Speci men Type: BLOOD SPECIMEN Ordering Facility: [facility] Address: [address] [place] [address] Performed By: #### 5 0190-8, 2275-4 #### [facility] CLIA [id number] [address] [place] [address] [place] Transferrinon 06-11-2024 Transferrin [Mass/Vol] 302 mg/dL Normal 177-329 [facility] Comment on above: Result Comment: Perf ormed at: CB - [facility] [address] [id number] Showroom Consultant: Carl Roldan PhD, Phone: [phone] Performed By: #### L 3890.6300, L3890.6100, L3890.6200, L503.6030, L503.6550, L501.9985, L3400.3800 ####[facility] [address] [place], [place], [id number] Ferritinon 06-09-2024 Ferritin [Mass/Vol] 855 ng/mL High 26-388 [facility] Comment on above: Performed By: #### L 3890.6300, L3890.6100, L3890.6200, L503.6030, L503.6550, L501.9985, L3400.3800 ####[facility] [address] [place], [place], [id number] Hemoglobin A1con 06-09-2024 HbA1c (Bld) [Mass fraction] 5.3 % Normal 3.8-5.6 [facility] Comment on above: Result Comment: Norm al < 5.7 % Prediabetic 5.7 - 6.4 % Diabetic >or= 6.5 % Please note range changes. Performed By: #### L 3890.6300, L3890.6100, L3890.6200, L503.6030, L503.6550, L501.9985, L3400.3800 ####[facility] [address] [place], [place], [id number] Hepatitis B Surface Antibody on 06-09-2024 HEP B Surf Ab Non-Reactive Normal [facility] Comment on above: Result Comment: Non Reactive: Inconsistent with immunity less than <10 mIU/mL Reactive: Consistent with immunity greater than or equal to 10 mIU/mL Performed By: #### L 3890.6300, L3890.6100, L3890.6200, L503.6030, L503.6550, L501.9985, L3400.3800 ####[facility] [address] [place], [address] Hepatitis B Surface Antigeno n 06-09-2024 HEP B Surf Ag Non-Reactive Normal Nonreactive [facility] Comment on above: Performed By: #### L 3890.6300, L3890.6100, L3890.6200, L503.6030, L503.6550, L501.9985, L3400.3800 ####[facility] [address] [place], [address] Hepatitis C Antibodyon 06-09 Hepatitis C AB Non-Reactive Normal Nonreactive [facility] Comment on above: Result Comment: Non Reactive: < 0.8 Equivocal: >/= 0.8 to < 1.0 Reactive: >/= 1.0 The [facility] requires that a reactive/equivocal HCV antibody result be sent out for confirmation. HCV Quant by PCR testing. Performed By: #### L 3890.6300, L3890.6100, L3890.6200, L503.6030, L503.6550, L501.9985, L3400.3800 ####[facility] [address], [address] Iron+Iron Binding Capacityon 06-09-2024 Iron [Mass/Vol] 154 ug/dL Normal 65-175 [facility] Comment on above: Performed By: #### L 3890.6300, L3890.6100, L3890.6200, L503.6030, L503.6550, L501.9985, L3400.3800 ####[facility] [address] [place], [address] IRON SATURATION 42.5 Normal 15.0-55.0 [facility] Comment on above: Performed By: #### L 3890.6300, L3890.6100, L3890.6200, L503.6030, L503.6550, L501.9985, L3400.3800 ####[facility] [address] [place], [address] TIBC 362 ug/dL Normal 250-450 [facility] Comment on above: Performed By: #### L 3890.6300, L3890.6100, L3890.6200, L503.6030, L503.6550, L501.9985, L3400.3800 ####[facility] [address] [place], [address] Ferritinon 06-08-2024 Ferritin [Mass/Vol] 876 ng/mL High 26-388 [facility] Comment on above: Order Comment: LEXI Perez ADD A1C AND RADHA IBC TO BLOOD DRAWN 06/07/24 PEROrder Date: 06/07/24Order Info: [id number] - CMPOrder Info: [id number] - LIPID Performed By: #### L 501.9985, L503.6030, L400.0001, L503.6550 ####[facility] [address] [place], [address] Hemoglobin A1con 06-08-2024 HbA1c (Bld) [Mass fraction] 5.4 % Normal 3.8-5.6 [facility] Comment on above: Order Comment: LXEI Perez ADD A1C AND RADHA TO BLOOD DRAWN 06/07/24 PER Result Comment: Norm al < 5.7 % Prediabetic 5.7 - 6.4 % Diabetic >or= 6.5 % Please note range changes. Performed By: #### L 501.9985, L503.6030, L400.0001, L503.6550 ####[facility] [address] [place], [address] Iron+Iron Binding Capacityon 06-08-2024 Iron [Mass/Vol] 154 ug/dL Normal 65-175 [facility] Comment on above: Order Comment: LEXI Perez ADD A1C AND RADHA IBC TO BLOOD DRAWN 06/07/24 PER Order Date: 06/07/24 Order Info: [id number] - CMP Order Info: [id number] - LIPID Performed By: #### L 501.9985, L503.6030, L400.0001, L503.6550 #### [facility] [address] [place], [address] IRON SATURATION 41.7 Normal 15.0-55.0 [facility] Comment on above: Order Comment: LEXI Perez ADD A1C AND RADHA IBC TO BLOOD DRAWN 06/07/24 PER Order Date: 06/07/24 Order Info: [id number] - CMP Order Info: [id number] - LIPID Performed By: #### L 501.9985, L503.6030, L400.0001, L503.6550 #### [facility] [address] [place], [address] TIBC 369 ug/dL Normal 250-450 [facility] Comment on above: Order Comment: LEXI Perez ADD A1C AND RADHA IBC TO BLOOD DRAWN 06/07/24 PER Order Date: 06/07/24 Order Info: [id number] - CMP Order Info: [id number] - LIPID Performed By: #### L 501.9985, L503.6030, L400.0001, L503.6550 #### [facility] [address] [place], [address] CBC W/Diff, Automatedon 09-0 Absolute Lymph 1.83 X10 3/uL Normal 0.83-4.51 [facility] Comment on above: Order Comment: Order Date: 06/07/24 Order Info: [id number] - CBCD Performed By: #### L 500.4050, L500.4100, L100.0100 #### [facility] [address] [place], [address] Absolute Neut 4.9 X10 3/uL Normal 2.0-7.7 [facility] Comment on above: Order Comment: Order Date: 06/07/24 Order Info: [id number] - CBCD Performed By: #### L 500.4050, L500.4100, L100.0100 #### [facility] [address] [place], [address] Basophils/100 WBC (Bld) 1.0 % Normal 0-1 [facility] Comment on above: Order Comment: Order Date: 06/07/24 Order Info: [id number] - CBCD Performed By: #### L 500.4050, L500.4100, L100.0100 #### [facility] [address] [place], [address] Eosinophils/100 WBC (Bld) 5.8 % High 0-5 [facility] Comment on above: Order Comment: Order Date: 06/07/24 Order Info: [id number] - CBCD Performed By: #### L 500.4050, L500.4100, L100.0100 #### [facility] [address] [place], [address] Erythrocyte distribution width (RBC) [Ratio] 12.4 % Normal 11.6-14.6 [facility] Comment on above: Order Comment: Order Date: 06/07/24 Order Info: [id number] - CBCD Performed By: #### L 500.4050, L500.4100, L100.0100 #### [facility] [address] [place], [address] Hematocrit (Bld) [Volume fraction] 52.3 % Normal 40-54 [facility] Comment on above: Order Comment: Order Date: 06/07/24 Order Info: [id number] - CBCD Performed By: #### L 500.4050, L500.4100, L100.0100 #### [facility] [address] [place], [address] Hemoglobin (Bld) [Mass/Vol] 17.6 g/dL High 13.0-16.5 [facility] Comment on above: Order Comment: Order Date: 06/07/24 Order Info: [id number] - CBCD Performed By: #### L 500.4050, L500.4100, L100.0100 #### [facility] [address] [place], [address] IG% 0.200 Normal 0.0-0.9 [facility] Comment on above: Order Comment: Order Date: 06/07/24 Order Info: 018- - CBCD Result Comment: IG% - Immature Granulocytes (promyelocytes, myelocytes and metamyelocytes) > 1% indicates that a LEFT SHIFT is Present. Performed By: #### L 500.4050, L500.4100, L100.0100 #### [facility] [address] [place], [address] Lymphocytes/100 WBC (Bld) 22.7 % Normal 19-41 [facility] Comment on above: Order Comment: Order Date: 06/07/24 Order Info: 018- - CBCD Performed By: #### L 500.4050, L500.4100, L100.0100 #### [facility] [address] [place], [address] MCH (RBC) [Entitic mass] 33.7 pg High 27.0-32.0 [facility] Comment on above: Order Comment: Order Date: 06/07/24 Order Info: 0184- - CBCD Performed By: #### L 500.4050, L500.4100, L100.0100 #### [facility] [address] [place], [address] MCHC (RBC) [Mass/Vol] 33.7 g/dL Normal 32-36 [facility] Comment on above: Order Comment: Order Date: 06/07/24 Order Info: [id number] CBCD Performed By: #### L 500.4050, L500.4100, L100.0100 #### [facility] [address] [place], [address] MCV (RBC) [Entitic vol] 100.0 fL High 80-94 [facility] Comment on above: Order Comment: Order Date: 06/07/24 Order Info: [id number] - CBCD Performed By: #### L 500.4050, L500.4100, L100.0100 #### [facility] [address] [place], [address] Monocytes/100 WBC (Bld) 10.0 % Normal 0-10 [facility] Comment on above: Order Comment: Order Date: 06/07/24 Order Info: [id number] - CBCD Performed By: #### L 500.4050, L500.4100, L100.0100 #### [facility] [address] [place], [address] Neutrophils/100 WBC (Bld) 60.3 % Normal 47-70 [facility] Comment on above: Order Comment: Order Date: 06/07/24 Order Info: [id number] - CBCD Performed By: #### L 500.4050, L500.4100, L100.0100 #### [facility] [address] [place], [address] Nucleated RBC (Bld) [#/Vol] 0 10*3/uL Normal 0-5 [facility] Comment on above: Order Comment: Order Date: 06/07/24 Order Info: [id number] - CBCD Performed By: #### L 500.4050, L500.4100, L100.0100 #### [facility] [address] [place], [address] Platelet mean volume (Bld) [Entitic vol] 12.0 fL Normal 6.2-12.0 [facility] Comment on above: Order Comment: Order Date: 06/07/24 Order Info: [id number] - CBCD Performed By: #### L 500.4050, L500.4100, L100.0100 #### [facility] [address] [place], [address] Platelets (Bld) [#/Vol] 130 10*3/uL Low 150-450 [facility] Comment on above: Order Comment: Order Date: 06/07/24 Order Info: [id number] - CBCD Performed By: #### L 500.4050, L500.4100, L100.0100 #### [facility] [address] [place], [address] RBC (Bld) [#/Vol] 5.23 10*6/uL Normal 4.6-6.2 [facility] Comment on above: Order Comment: Order Date: 06/07/24 Order Info: [id number] - CBCD Performed By: #### L 500.4050, L500.4100, L100.0100 #### [facility] [address] [place], [address] RDW SD 46.4 fl High 35.1-43.9 [facility] Comment on above: Order Comment: Order Date: 06/07/24 Order Info: [id number] - CBCD Performed By: #### L 500.4050, L500.4100, L100.0100 #### [facility] [address] [place], [address] WBC (Bld) [#/Vol] 8.1 10*3/uL Normal 4.4-11.0 [facility] Comment on above: Order Comment: Order Date: 06/07/24 Order Info: [id number] - CBCD Performed By: #### L 500.4050, L500.4100, L100.0100 #### [facility] [address] [place], [address] Comprehensive Metabolic Prof ilon 06-07-2024 Albumin [Mass/Vol] 3.6 g/dL Normal 3.2-5.0 [facility] Comment on above: Order Comment: Order Date: 06/07/24 Order Info: [id number] - CMP Order Info: [id number] - LIPID Performed By: #### L 500.4050, L500.4100, L100.0100 #### [facility] [address] [place], [address] Albumin/Globulin [Mass ratio] 0.9 {ratio} Normal 0.9-2.4 [facility] Comment on above: Order Comment: Order Date: 06/07/24 Order Info: [id number] - CMP Order Info: [id number] - LIPID Performed By: #### L 500.4050, L500.4100, L100.0100 #### [facility] [address] [place], [address] ALK P 86 U/L Normal 45-117 [facility] Comment on above: Order Comment: Order Date: 06/07/24 Order Info: [id number] - CMP Order Info: [id number] - LIPID Performed By: #### L 500.4050, L500.4100, L100.0100 #### [facility] [address] [place], [address] ALT [Catalytic activity/Vol] 74 U/L High 16-61 [facility] Comment on above: Order Comment: Order Date: 06/07/24 Order Info: [id number] - CMP Order Info: [id number] - LIPID Performed By: #### L 500.4050, L500.4100, L100.0100 #### [facility] [address] [place], [address] AST [Catalytic activity/Vol] 73 U/L High 15-37 [facility] Comment on above: Order Comment: Order Date: 06/07/24 Order Info: [id number] - CMP Order Info: [id number] - LIPID Performed By: #### L 500.4050, L500.4100, L100.0100 #### [facility] [address] [place], [address] Bilirubin [Mass/Vol] 1.30 mg/dL High 0.20-1.00 [facility] Comment on above: Order Comment: Order Date: 06/07/24 Order Info: [id number] - CMP Order Info: [id number] - LIPID Result Comment: For patients on eltrombopag therapy, use of Dimension [place] TBIL is not recommended. Performed By: #### L 500.4050, L500.4100, L100.0100 #### [facility] [address] [place], [address] BUN/CRE 6.5 RATIO Low 10-20 [facility] Comment on above: Order Comment: Order Date: 06/07/24 Order Info: [id number] - CMP Order Info: [id number] - LIPID Performed By: #### L 500.4050, L500.4100, L100.0100 #### [facility] [address] [place], [address] CA,Total 9.7 mg/dL Normal 8.5-10.1 [facility] Comment on above: Order Comment: Order Date: 06/07/24 Order Info: [id number] - CMP Order Info: [id number] - LIPID Performed By: #### L 500.4050, L500.4100, L100.0100 #### [facility] [address] [place], [address] Chloride [Moles/Vol] 104 mmol/L Normal 98-107 [facility] Comment on above: Order Comment: Order Date: 06/07/24 Order Info: [id number] - CMP Order Info: [id number] - LIPID Performed By: #### L 500.4050, L500.4100, L100.0100 #### [facility] [address] [place], [address] CO2 [Moles/Vol] 27.0 mmol/L Normal 21.0-32.0 [facility] Comment on above: Order Comment: Order Date: 06/07/24 Order Info: [id number] - CMP Order Info: [id number] - LIPID Performed By: #### L 500.4050, L500.4100, L100.0100 #### [facility] [address] [place], [address] Creatinine [Mass/Vol] 1.07 mg/dL Normal 0.70-1.30 [facility] Comment on above: Order Comment: Order Date: 06/07/24 Order Info: [id number] - CMP Order Info: [id number] - LIPID Result Comment: The validity of the calculated GFR GFRAA in patients over 70 years has not been determined. Clinical correlation is essential. Performed By: #### L 500.4050, L500.4100, L100.0100 #### [facility] [address] [place], [address] EST GFR - AA 89 mL/min Normal >60 [facility] Comment on above: Order Comment: Order Date: 06/07/24 Order Info: [id number] - CMP Order Info: [id number] - LIPID Result Comment: Afri can Fijian GFR Calc Performed By: #### L 500.4050, L500.4100, L100.0100 #### [facility] [address] [place], [address] GAP 7 Normal 5-15 [facility] Comment on above: Order Comment: Order Date: 06/07/24 Order Info: [id number] - CMP Order Info: [id number] - LIPID Performed By: #### L 500.4050, L500.4100, L100.0100 #### [facility] [address] [place], [address] GFR/1.73 sq M.predicted among non-blacks MDRD (S/P/Bld) [Vol rate/Area] 74 mL/min/{1.73_m2} Normal >60 [facility] Comment on above: Order Comment: Order Date: 06/07/24 Order Info: [id number] - CMP Order Info: [id number] - LIPID Result Comment: Non- GFR Calc Performed By: #### L 500.4050, L500.4100, L100.0100 #### [facility] [address] [place], [address] Globulin (S) [Mass/Vol] 4.1 g/dL Normal 2.2-4.2 [facility] Comment on above: Order Comment: Order Date: 06/07/24 Order Info: [id number] - CMP Order Info: [id number] - LIPID Performed By: #### L 500.4050, L500.4100, L100.0100 #### [facility] [address] [place], [address] Glucose [Mass/Vol] 124 mg/dL High 74-106 [facility] Comment on above: Order Comment: Order Date: 06/07/24 Order Info: [id number]- - CMP Order Info: [id number] - LIPID Result Comment: Fast ing Glucose result from 100 to 125 mg/dL suggests IMPAIRED HOMEOSTASIS per A.D.A. criteria. Performed By: #### L 500.4050, L500.4100, L100.0100 #### [facility] [address] [place], [address] Potassium [Moles/Vol] 4.7 mmol/L Normal 3.5-5.1 [facility] Comment on above: Order Comment: Order Date: 06/07/24 Order Info: [id number] - CMP Order Info: [id number] - LIPID Performed By: #### L 500.4050, L500.4100, L100.0100 #### [facility] [address] [place], [address] Sodium [Moles/Vol] 138 mmol/L Normal 136-145 [facility] Comment on above: Order Comment: Order Date: 06/07/24 Order Info: [id number]- - CMP Order Info: [id number] - LIPID Performed By: #### L 500.4050, L500.4100, L100.0100 #### [facility] [address] [place], [address] T PROT 7.7 g/dL Normal 6.4-8.2 [facility] Comment on above: Order Comment: Order Date: 06/07/24 Order Info: [id number] - CMP Order Info: [id number] - LIPID Performed By: #### L 500.4050, L500.4100, L100.0100 #### [facility] [address] [place], [address] Urea nitrogen [Mass/Vol] 7 mg/dL Normal 7-18 [facility] Comment on above: Order Comment: Order Date: 06/07/24 Order Info: [id number] - CMP Order Info: [id number] - LIPID Performed By: #### L 500.4050, L500.4100, L100.0100 #### [facility] [address] [place], [address] Lipid Profileon 06-07-2024 Cholesterol [Mass/Vol] 282 mg/dL High 200 [facility] Comment on above: Order Comment: Order Date: 06/07/24 Order Info: [id number] - CMP Order Info: [id number] - LIPID Result Comment: <200 mg/dL Desirable 200-240 mg/dL Borderline >240 mg/dL High Risk Performed By: #### L 500.4050, L500.4100, L100.0100 #### [facility] [address] [place], [address] Cholesterol in HDL [Mass/Vol] 60 mg/dL Normal [facility] Comment on above: Order Comment: Order Date: 06/07/24 Order Info: [id number] - CMP Order Info: [id number] - LIPID Result Comment: The drugs N-Acetylcysteine and Metamizole may falsely depress this assay. Reference Range HDL <40 mg/dL Low HDL Cholesterol HDL >or= 60 mg/dL High HDL Cholesterol Performed By: #### L 500.4050, L500.4100, L100.0100 #### [facility] [address] [place], [address] Cholesterol in LDL [Mass/Vol] 202 mg/dL High 0-130 [facility] Comment on above: Order Comment: Order Date: 06/07/24 Order Info: [id number] - CMP Order Info: [id number] - LIPID Performed By: #### L 500.4050, L500.4100, L100.0100 #### [facility] [address] [place], [address] Cholesterol in VLDL [Mass/Vol] 20 mg/dL Normal 5-40 [facility] Comment on above: Order Comment: Order Date: 06/07/24 Order Info: [id number] - CMP Order Info: [id number] - LIPID Performed By: #### L 500.4050, L500.4100, L100.0100 #### [facility] [address] [place], [address] Triglyceride [Mass/Vol] 99 mg/dL Normal [facility] Comment on above: Order Comment: Order Date: 06/07/24 Order Info: [id number] - CMP Order Info: [id number] - LIPID Result Comment: The drugs N-Acetylcysteine and Metamizole may falsely depress this assay. Serum Triglycerides Reference Interval Normal <150 mg/dL Borderline high 150 - 199 mg/dL High 200 - 499 mg/dL Very High > or = 500 mg/dL Performed By: #### L 500.4050, L500.4100, L100.0100 #### [facility] [address] [place], [address] Urinalysis, Completeon 06-07 EPI,SQUAMOUS 0-5 SEEN Normal 0-5 [facility] Comment on above: Order Comment: CLEAN CATCH Performed By: #### L 501.9985, L503.6030, L400.0001, L503.6550 #### [facility] [address] [place], [address] BACTERIA 0 SEEN Normal None Seen [facility] Comment on above: Order Comment: CLEAN CATCH Performed By: #### L 501.9985, L503.6030, L400.0001, L503.6550 #### [facility] [address] [place], [address] Mucus Ql (Urine sed) 0 SEEN Normal [facility] Comment on above: Order Comment: CLEAN CATCH Performed By: #### L 501.9985, L503.6030, L400.0001, L503.6550 #### [facility] [address] [place], [address] RBC 0 SEEN Normal 0-5 [facility] Comment on above: Order Comment: CLEAN CATCH Performed By: #### L 501.9985, L503.6030, L400.0001, L503.6550 #### [facility] [address] [place], [address] WBC 0 SEEN Normal 0-5 [facility] Comment on above: Order Comment: CLEAN CATCH Performed By: #### L 501.9985, L503.6030, L400.0001, L503.6550 #### [facility] [address] [place], [address] Absolute lymphocyte counton 02-17-2022 Lymphocytes Auto (Unsp spec) [#/Vol] 1.75 10*3/uL 0.83-4.51 [facility] Work Phone: Basophil percentageon 2021 Basophil percentage 0 SEEN /hpf [facility] Work Phone: Basophils/100 WBC (Bld) 0.7 % 0-1 [facility] Work Phone: Bilirubin [Mass/Vol] 0.90 mg/dL 0.20-1.00 [facility] Work Phone: Comment on above: For patients on eltr ombopag therapy, use of Dimension [place] TBIL is not recommended. Chloride [Moles/Vol] 107 mmol/L 98-107 [facility] Work Phone: Cholesterol [Mass/Vol] 230 mg/dL <[address] [facility] Work Phone: Comment on above: <200 mg/dL Desirable 200-240 mg/dL Borderline >240 mg/dL High Risk Eosinophils/100 WBC (Bld) 1.2 % 0-5 [facility] Work Phone: Glucose [Mass/Vol] 113 mg/dL 74-106 [facility] Work Phone: Comment on above: Fasting Glucose resu lt from 100 to 125 mg/dL suggests IMPAIRED HOMEOSTASIS per A.D.A. criteria. Neutrophils (Bld) [#/Vol] 4.8 10*3/uL 2.0-7.7 [facility] Work Phone: Neutrophils/100 WBC (Bld) 66.3 % 47-70 [facility] Work Phone: Potassium [Moles/Vol] 4.6 mmol/L 3.5-5.1 [facility] Work Phone: Protein [Mass/Vol] 7.8 g/dL 6.4-8.2 [facility] Work Phone: Sodium [Moles/Vol] 140 mmol/L 136-145 [facility] Work Phone: Triglyceride [Mass/Vol] 350 mg/dL [facility] Work Phone: Comment on above: The drugs N-Acetylcy steine and Metamizole may falsely depress this assay.Serum Triglycerides Reference Interval Normal <150 mg/dL Borderline high 150 - 199 mg/dL High 200 - 499 mg/dL Very High > or = 500 mg/dL WBC (Bld) [#/Vol] 7.3 10*3/uL 4.4-11.0 [facility] Work Phone: Bilirubin Test strip Ql (U)o n 02-17-2022 Bilirubin Ql (U) Negative Negative [facility] Work Phone: Blood erythrocytes count (nu mber/volume)on 02-17-2022 RBC (Bld) [#/Vol] 4.64 10*6/uL 4.6-6.2 [facility] Work Phone: Blood hemoglobin measurement (mass/volume)on 02-17-2022 Hemoglobin (Bld) [Mass/Vol] 15.7 g/dL 13.0-16.5 [facility] Work Phone: [phone] Blood lymphocytes/100 leukoc yteson 02-17-2022 Lymphocytes/100 WBC (Bld) 24.0 % 19-41 [facility] Work Phone: [phone] Blood monocytes/100 leukocyt eson 02-17-2022 Monocytes/100 WBC (Bld) 7.3 % 0-10 [facility] Work Phone: Blood platelet mean volumeon 02-17-2022 Platelet mean volume (Bld) [Entitic vol] 12.2 fL 6.2-12.0 [facility] Work Phone: Determination of erythrocyte mean corpuscular volume (MCV)on 02-17-2022 MCV (RBC) [Entitic vol] 102.8 fL 80-94 [facility] Work Phone: Hematocrit Auto (Bld) [Volum e fraction]on 02-17-2022 Hematocrit (Bld) [Volume fraction] 47.7 % 40-54 [facility] Work Phone: Ketones Test strip Ql (U)on 02-17-2022 Ketones Ql (U) Negative Negative [facility] Work Phone: [phone] Laboratory - Chemistry and C hemistry - challengeon 02-17-2022 ALP [Catalytic activity/Vol] 93 U/L 45-117 [facility] Work Phone: ALT [Catalytic activity/Vol] 59 U/L 16-61 [facility] Work Phone: CO2 [Moles/Vol] 27.0 mmol/L 21.0-32.0 [facility] Work Phone: [phone] Globulin (S) [Mass/Vol] 3.9 g/dL 2.2-4.2 [facility] Work Phone: [phone] Urea nitrogen/Creatinine [Mass ratio] 6.2 mg/mg 10-20 [facility] Work Phone: [phone] Laboratory - Hematology and Cell countson 02-17-2022 Erythrocyte distribution width (RBC) [Entitic vol] 48.7 fL 35.1-43.9 [facility] Work Phone: [phone] Erythrocyte distribution width (RBC) [Ratio] 12.9 % 11.6-14.6 [facility] Work Phone: [phone] Immature granulocytes/100 WBC (Bld) 0.500 % 0.0-0.9 [facility] Work Phone: [phone] Comment on above: IG% - Immature Granu locytes (promyelocytes, myelocytes and metamyelocytes) > 1% indicates that a LEFT SHIFT is Present. MCH (RBC) [Entitic mass] 33.8 pg 27.0-32.0 [facility] Work Phone: [phone] Nucleated RBC/100 WBC (Bld) [Ratio] 0 % 0-5 [facility] Work Phone: [phone] MCHC Auto (RBC) [Mass/Vol]on 02-17-2022 MCHC (RBC) [Mass/Vol] 32.9 g/dL 32-36 [facility] Work Phone: [phone] Mucus LM Ql (Urine sed)on Mucus Ql (Urine sed) 0 SEEN /hpf [facility] Work Phone: [phone] Nitrite Test strip Ql (U)on 02-17-2022 Nitrite Ql (U) Negative Negative [facility] Work Phone: [phone] No Panel Informationon 02-17 Estimated GFR (MDRD) Amer 72 mL/min >60 [facility] Work Phone: [phone] Comment on above: GFR Calc Estimated GFR (MDRD) Non-Af Amer 60 mL/min >60 [facility] Work Phone: Comment on above: Non- GFR Calc Platelets bldon 02-17-2022 Platelets (Bld) [#/Vol] 166 10*3/uL 150-450 [facility] Work Phone: Protein Test strip Ql (U)on 02-17-2022 Protein Ql (U) Negative Negative [facility] Work Phone: Serum or plasma albumin kelli urement (mass/volume)on 02-17-2022 Albumin [Mass/Vol] 3.9 g/dL 3.2-5.0 [facility] Work Phone: Serum or plasma albumin/glob ulin mass ratioon 02-17-2022 Albumin/Globulin [Mass ratio] 1.0 {ratio} 0.9-2.4 [facility] Work Phone: Serum or plasma calcium kelli urement (mass/volume)on 02-17-2022 Calcium [Mass/Vol] 9.3 mg/dL 8.5-10.1 [facility] Work Phone: Serum or plasma cholesterol in HDL measurement (mass/volume)on 02-17-2022 Cholesterol in HDL [Mass/Vol] 43 mg/dL [facility] Work Phone: Comment on above: The drugs N-Acetylcy steine and Metamizole may falsely depress this assay. Reference Range HDL <40 mg/dL Low HDL Cholesterol HDL >or= 60 mg/dL High HDL Cholesterol Serum or plasma cholesterol in VLDL measurement (mass/volume)on 02-17-2022 Cholesterol in VLDL [Mass/Vol] 70 mg/dL 5-40 [facility] Work Phone: Serum or plasma creatinine m easurement (mass/volume)on 02-17-2022 Creatinine [Mass/Vol] 1.29 mg/dL 0.70-1.30 [facility] Work Phone: Comment on above: The validity of the calculated GFR & GFRAA in patients over 70 years has not been determined. Clinical correlation is essential. Serum or plasma low density lipoprotein (LDL) cholesterol measurement (mass/volume)on 02-17-2022 Cholesterol in LDL [Mass/Vol] 117 mg/dL 0-130 [facility] Work Phone: Serum or plasma urea nitroge n measurement (mass/volume)on 02-17-2022 Urea nitrogen [Mass/Vol] 8 mg/dL 7-18 [facility] Work Phone: Squamous epithelial cells de tection in urine sediment by light microscopyon 02-17-2022 Epithelial cells.squamous LM Ql (Urine sed) 0 SEEN /hpf [facility] Work Phone: Thin prep Papanicolaou smear with manual screeningon 02-17-2022 Thin prep Papanicolaou smear with manual screening 62 U/L 15-37 [facility] Work Phone: Thin prep Papanicolaou smear with manual screening 6 5-15 [facility] Work Phone: Urine blood detectionon 02-01 RBC Ql (U) 10 /ul Negative [facility] Work Phone: RBC Ql (U) 0 SEEN /hpf [facility] Work Phone: Urine clarityon 02-17-2022 Clarity (U) Clear Clear [facility] Work Phone: Urine color determinationon 02-17-2022 Color (U) Yellow Yellow [facility] Work Phone: Urine glucose detectionon Glucose Ql (U) Normal mg/dl Normal [facility] Work Phone: Urine leukocyte esterase det ection by dipstickon 02-17-2022 Leukocyte esterase Test strip Ql (U) Negative Negative [facility] Work Phone: Urine pHon 02-17-2022 pH (U) 7.0 [pH] [facility] Work Phone: Urine sediment bacteria coun t by microscopy (number/high power field)on 02-17-2022 Bacteria LM.HPF (Urine sed) [#/Area] 0 /[HPF] None Seen [facility] Work Phone: Urine specific gravity measu rementon 02-17-2022 Specific gravity (U) [Rel density] 1.010 [facility] Work Phone: Urobilinogen Auto test strip Ql (U)on 02-17-2022 Urobilinogen Ql (U) Normal mg/dl Normal [facility] Work Phone: Whole blood hemoglobin A1c/t otal hemoglobin ratio (mass fraction)on 02-17-2022 HbA1c (Bld) [Mass fraction] 5.0 % 3.8-5.6 [facility] Work Phone: Comment on above: Normal < 5.7 % Predi abetic 5.7 - 6.4 % Diabetic >or= 6.5 % Please note range changes. Absolute lymphocyte counton 10-30-2021 Lymphocytes Auto (Unsp spec) [#/Vol] 1.95 10*3/uL 0.83-4.51 [facility] Work Phone: Basophil percentageon 2021 Basophil percentage 0-5 SEEN /hpf [facility] Work Phone: Basophils/100 WBC (Bld) 0.7 % 0-1 [facility] Work Phone: Bilirubin [Mass/Vol] 0.60 mg/dL 0.20-1.00 [facility] Work Phone: Comment on above: For patients on eltr ombopag therapy, use of Dimension [place] TBIL is not recommended. Chloride [Moles/Vol] 107 mmol/L 98-107 [facility] Work Phone: Cholesterol [Mass/Vol] 268 mg/dL <200 [facility] Work Phone: Comment on above: <200 mg/dL Desirable 200-240 mg/dL Borderline >240 mg/dL High Risk Eosinophils/100 WBC (Bld) 1.5 % 0-5 [facility] Work Phone: Glucose [Mass/Vol] 103 mg/dL 74-106 [facility] Work Phone: Comment on above: Fasting Glucose resu lt from 100 to 125 mg/dL suggests IMPAIRED HOMEOSTASIS per A.D.A. criteria. Neutrophils (Bld) [#/Vol] 7.6 10*3/uL 2.0-7.7 [facility] Work Phone: [phone] Neutrophils/100 WBC (Bld) 72.1 % 47-70 [facility] Work Phone: [phone] Potassium [Moles/Vol] 4.4 mmol/L 3.5-5.1 [facility] Work Phone: [phone] Protein [Mass/Vol] 7.4 g/dL 6.4-8.2 [facility] Work Phone: [phone] Sodium [Moles/Vol] 138 mmol/L 136-145 [facility] Work Phone: [phone] Triglyceride [Mass/Vol] 190 mg/dL [facility] Work Phone: [phone] Comment on above: The drugs N-Acetylcy steine and Metamizole may falsely depress this assay.Serum Triglycerides Reference Interval Normal <150 mg/dL Borderline high 150 - 199 mg/dL High 200 - 499 mg/dL Very High > or = 500 mg/dL WBC (Bld) [#/Vol] 10.5 10*3/uL 4.4-11.0 [facility] Work Phone: [phone] Bilirubin Test strip Ql (U)o n 10-30-2021 Bilirubin Ql (U) Negative Negative [facility] Work Phone: [phone] Blood erythrocytes count (nu mber/volume)on 10-30-2021 RBC (Bld) [#/Vol] 5.02 10*6/uL 4.6-6.2 [facility] Work Phone: [phone] Blood hemoglobin measurement (mass/volume)on 10-30-2021 Hemoglobin (Bld) [Mass/Vol] 17.1 g/dL 13.0-16.5 [facility] Work Phone: Blood lymphocytes/100 leukoc yteson 10-30-2021 Lymphocytes/100 WBC (Bld) 18.6 % 19-41 [facility] Work Phone: Blood monocytes/100 leukocyt eson 10-30-2021 Monocytes/100 WBC (Bld) 6.7 % 0-10 [facility] Work Phone: [phone] Blood platelet mean volumeon 10-30-2021 Platelet mean volume (Bld) [Entitic vol] 12.0 fL 6.2-12.0 [facility] Work Phone: [phone] Determination of erythrocyte mean corpuscular volume (MCV)on 10-30-2021 MCV (RBC) [Entitic vol] 100.0 fL 80-94 [facility] Work Phone: [phone] Hematocrit Auto (Bld) [Volum e fraction]on 10-30-2021 Hematocrit (Bld) [Volume fraction] 50.2 % 40-54 [facility] Work Phone: [phone] Ketones Test strip Ql (U)on 10-30-2021 Ketones Ql (U) Negative Negative [facility] Work Phone: Laboratory - Chemistry and C hemistry - challengeon 10-30-2021 ALP [Catalytic activity/Vol] 75 U/L 45-117 [facility] Work Phone: ALT [Catalytic activity/Vol] 22 U/L 16-61 [facility] Work Phone: [phone] CO2 [Moles/Vol] 24.0 mmol/L 21.0-32.0 [facility] Work Phone: [phone] Free T4 [Mass/Vol] 0.80 ng/dL 0.76-1.46 [facility] Work Phone: [phone] Globulin (S) [Mass/Vol] 3.9 g/dL 2.2-4.2 [facility] Work Phone: [phone] Transferrin [Mass/Vol] 296 mg/dL [facility] Work Phone: [phone] Urea nitrogen/Creatinine [Mass ratio] 8.5 mg/mg 10-20 [facility] Work Phone: Laboratory - Hematology and Cell countson 01-27-2022 Erythrocyte distribution width (RBC) [Entitic vol] 51.9 fL 35.1-43.9 [facility] Work Phone: [phone] Erythrocyte distribution width (RBC) [Ratio] 14.1 % 11.6-14.6 [facility] Work Phone: [phone] Immature granulocytes/100 WBC (Bld) 0.400 % 0.0-0.9 [facility] Work Phone: [phone] Comment on above: IG% - Immature Granu locytes (promyelocytes, myelocytes and metamyelocytes) > 1% indicates that a LEFT SHIFT is Present. MCH (RBC) [Entitic mass] 34.1 pg 27.0-32.0 [facility] Work Phone: [phone] Nucleated RBC/100 WBC (Bld) [Ratio] 0 % 0-5 [facility] Work Phone: [phone] MCHC Auto (RBC) [Mass/Vol]on 10-30-2021 MCHC (RBC) [Mass/Vol] 34.1 g/dL 32-36 [facility] Work Phone: Mucus LM Ql (Urine sed)on Mucus Ql (Urine sed) 0 SEEN /hpf [facility] Work Phone: [phone] Nitrite Test strip Ql (U)on 10-30-2021 Nitrite Ql (U) Negative Negative [facility] Work Phone: [phone] Panel Informationon 10-30 Estimated GFR (MDRD) Amer 104 mL/min >60 [facility] Work Phone: [phone] Comment on above: GFR Calc Estimated GFR (MDRD) Non-Af Amer 86 mL/min >60 [facility] Work Phone: [phone] Comment on above: Non- GFR Calc Thyroid Stimulating Hormone (TSH) 1.96 uIU/mL 0.358-3.74 [facility] Work Phone: [phone] Total Iron Binding Capacity 392 ug/dL 250-450 [facility] Work Phone: Platelets bldon 10-30-2021 Platelets (Bld) [#/Vol] 155 10*3/uL 150-450 [facility] Work Phone: Protein Test strip Ql (U)on 10-30-2021 Protein Ql (U) Negative Negative [facility] Work Phone: [phone] Serum or plasma albumin kelli urement (mass/volume)on 10-30-2021 Albumin [Mass/Vol] 3.5 g/dL 3.2-5.0 [facility] Work Phone: [phone] Serum or plasma albumin/glob ulin mass ratioon 10-30-2021 Albumin/Globulin [Mass ratio] 0.9 {ratio} 0.9-2.4 [facility] Work Phone: [phone] Serum or plasma calcium kelli urement (mass/volume)on 10-30-2021 Calcium [Mass/Vol] 9.3 mg/dL 8.5-10.1 [facility] Work Phone: Serum or plasma cholesterol in HDL measurement (mass/volume)on 10-30-2021 Cholesterol in HDL [Mass/Vol] 42 mg/dL [facility] Work Phone: [phone] Comment on above: The drugs N-Acetylcy steine and Metamizole may falsely depress this assay. Reference Range HDL <40 mg/dL Low HDL Cholesterol HDL >or= 60 mg/dL High HDL Cholesterol Serum or plasma cholesterol in VLDL measurement (mass/volume)on 10-30-2021 Cholesterol in VLDL [Mass/Vol] 38 mg/dL 5-40 [facility] Work Phone: [phone] Serum or plasma creatinine m easurement (mass/volume)on 10-30-2021 Creatinine [Mass/Vol] 0.94 mg/dL 0.70-1.30 [facility] Work Phone: [phone] Comment on above: The validity of the calculated GFR & GFRAA in patients over 70 years has not been determined. Clinical correlation is essential. Serum or plasma ferritin prince surement (mass/volume)on 10-30-2021 Ferritin [Mass/Vol] 358 ng/mL 26-388 [facility] Work Phone: [phone] Serum or plasma low density lipoprotein (LDL) cholesterol measurement (mass/volume)on 10-30-2021 Cholesterol in LDL [Mass/Vol] 188 mg/dL 0-130 [facility] Work Phone: Serum or plasma thyroperoxid ase antibody assay (units/volume)on 10-30-2021 TPO Ab Qn [IU]/mL [facility] Work Phone: Comment on above: Performed at: [address] [id number] Director: Carl Roldan PhD, Phone: [phone] Serum or plasma urea nitroge n measurement (mass/volume)on 10-30-2021 Urea nitrogen [Mass/Vol] 8 mg/dL 7-18 [facility] Work Phone: Squamous epithelial cells de tection in urine sediment by light microscopyon 10-30-2021 Epithelial cells.squamous LM Ql (Urine sed) 0-5 SEEN /hpf [facility] Work Phone: Thin prep Papanicolaou smear with manual screeningon 10-30-2021 Thin prep Papanicolaou smear with manual screening 26 U/L 15-37 [facility] Work Phone: Thin prep Papanicolaou smear with manual screening 7 5-15 [facility] Work Phone: Urine blood detectionon 10-05 RBC Ql (U) Negative Negative [facility] Work Phone: RBC Ql (U) 0 SEEN /hpf [facility] Work Phone: Urine clarityon 10-30-2021 Clarity (U) Clear Clear [facility] Work Phone: Urine color determinationon 10-30-2021 Color (U) Yellow Yellow [facility] Work Phone: [phone] Urine glucose detectionon Glucose Ql (U) Normal mg/dl Normal [facility] Work Phone: Urine leukocyte esterase det ection by dipstickon 10-30-2021 Leukocyte esterase Test strip Ql (U) 25 /ul Negative [facility] Work Phone: Urine pHon 10-30-2021 pH (U) 5.0 [pH] [facility] Work Phone: Urine sediment bacteria coun t by microscopy (number/high power field)on 10-30-2021 Bacteria LM.HPF (Urine sed) [#/Area] 0 /[HPF] None Seen [facility] Work Phone: Urine specific gravity measu rementon 10-30-2021 Specific gravity (U) [Rel density] 1.010 [facility] Work Phone: Urobilinogen Auto test strip Ql (U)on 10-30-2021 Urobilinogen Ql (U) Normal mg/dl Normal [facility] Work Phone: Whole blood hemoglobin A1c/t otal hemoglobin ratio (mass fraction)on 10-30-2021 HbA1c (Bld) [Mass fraction] 5.3 % 3.8-5.6 [facility] Work Phone: Comment on above: Normal < 5.7 % Predi abetic 5.7 - 6.4 % Diabetic >or= 6.5 % Please note range changes. XR Chest PA and LateralOrder ed By: [facility] Provider on 06-23-2021 Interpretation and review of laboratory results Abnormal [facility] Radiology Result ACTIONABLE Abnormal [facility] Comment on above: This report contains an incidental or actionable finding. This is a new finding that is separate from the reason your provider ordered the imaging test. Because of this incidental or actionable finding, you may need another imaging test to evaluate it. Please contact your provider for the next steps. [facility] XR Chest PA and Lateralon Addendum by Provider, [facility] [place] on 06/23/2021 2:41 PM EDT * * *Final Report* * * * * * SEE BOTTOM OF REPORT FOR ADDENDED TEXT * * * DATE OF EXAM: Jun 23 2021 1:55PM WOX [id number] - XR CHEST 2V FRONTAL/LAT / PROCEDURE REASON: Suspected COVID-19 virus infection * * * * Physician Interpretation * * * * * * * * * * * * ORIGINAL REPORT * * * * * * * * EXAMINATION: CHEST RADIOGRAPH (2 VIEW FRONTAL & LATERAL) CLINICAL HISTORY: Suspected COVID-19 virus infection MQ: [id number] EXAM DATE/TIME: 06/23/2021 1:55 PM COMPARISON: No relevant prior studies available. RESULT: Lines, tubes, and devices: None. Lungs and pleura: There is increased density overlying the RIGHT hilum on the frontal radiograph with corresponding increased density on lateral radiograph anterior to the hilum. Lungs otherwise appear clear. No evidence of pulmonary vascular redistribution or pleural effusion. Cardiomediastinal silhouette: Normal cardiomediastinal silhouette. Bones and soft tissues: Unremarkable. IMPRESSION: Indeterminate opacity in region of RIGHT hilum. Recommend further characterization with contrast-enhanced CT of the chest. ACTIONABLE RESULT: FOLLOW-UP Acuity: Actionable Findings: Thoracic-Other Routing Code: CT_1 Recommendation: CT Chest W IVCON Time Frame: as soon as possible, when the patient's clinical state allows. COMMUNICATION: Results will be communicated with the ordering provider via [employer] staff message or phone message by [facility] within 2 business days of report finalization. Algorithms for management of incidental imaging findings can be found on the [facility] Intranet Sharepoint site at: [email or web address] [email or web address] * * * * * * * * ADDENDUM #1 * * * * * * * * COMMUNICATION: Communicated with Dr. Musa Adler on 06/23/2021 2:17 PM via verbal communication. Bartender: PSCB Transcribe Date/Time: Jun 23 2021 2:16P Dictated by : CHARLEY BLAKE MD This examination was interpreted and the report reviewed and electronically signed by: CHARLEY BLAKE MD on Jun 23 2021 2:02PM EST This document has been addended by: CHARLEY BLAKE MD on Jun 23 2021 2:17PM EST [facility] Study observation (narrative) [facility] annmarie [facility] Vital Signs Date Time Vital Sign Value Performing Clinician Facility 05-23-2025 08:21-0400 Body temperature 98.4 [degF] Dr. Lali Taylor MD Work Phone: 8(803)944-296636 [place] [address] 05-23-2025 08:21-0400 Body weight 79.[address] Lali Taylor MD Work Phone: 2(795)317-444307 [address] 05-23-2025 08:21-0400 Diastolic blood pressure 70 mm[Hg] Dr. Lali Taylor MD Work Phone: 3(560)195-686104 [place] [address] 05-23-2025 08:21-0400 Heart rate 56 /min Dr. Lali Taylor MD Work Phone: 4(107)784-204504 [place] [address] 05-23-2025 08:21-0400 Respiratory rate 18 /min Dr. Lali Taylor MD Work Phone: 3(952)439-256804 [place] [address] 05-23-2025 08:21-0400 SaO2% (BldA) [Mass fraction] 100 % Dr. Lali Taylor MD Work Phone: 4(685)307-272204 [place] [address] 05-23-2025 08:21-0400 Systolic blood pressure 153 mm[Hg] Dr. Lali Taylor MD Work Phone: 9(499)382-411904 [place] [address] 05-17-2025 08:21-0400 Body height 175.[address] Lali Taylor MD Work Phone: 7(976)456-762704 [place] [address] 05-17-2025 08:21-0400 Body mass index (BMI) [Ratio] 25.7 kg/m2 Dr. Lali Taylor MD Work Phone: 8(649)458-150836 [place] [address] 05-17-2025 08:21-0400 Body weight 78.[address] Lali Taylor MD Work Phone: 3(406)391-893104 [place] [address] 05-17-2025 08:21-0400 Diastolic blood pressure 75 mm[Hg] Dr. Lali Taylor MD Work Phone: 8(368)250-765007 [address] 05-17-2025 08:21-0400 Heart rate 61 /min Dr. Lali Taylor MD Work Phone: 5(040)703-523107 [address] 05-17-2025 08:21-0400 Respiratory rate 18 /min Dr. Lali Taylor MD Work Phone: [facility] 05-17-2025 08:21-0400 Systolic blood pressure 140 mm[Hg] Dr. Lali Taylor MD Work Phone: [facility] 05-07-2025 07:14-0400 Body weight 80.[address] Lali Taylor MD Work Phone: [facility] 04-17-2025 08:53-0400 Body height 175.[address] Lali Taylor MD Work Phone: 5(672)977-952336 [place] [address] 04-17-2025 08:53-0400 Body mass index (BMI) [Ratio] 25.9 kg/m2 Dr. Lali Taylor MD Work Phone: [facility] 04-17-2025 08:53-0400 Body weight 79.[address] Lali Taylor MD Work Phone: [facility] 04-17-2025 08:53-0400 Diastolic blood pressure 82 mm[Hg] Dr. Lali Taylor MD Work Phone: [facility] 04-17-2025 08:53-0400 Heart rate 64 /min Dr. Lali Taylor MD Work Phone: [facility] 04-17-2025 08:53-0400 Respiratory rate 18 /min Dr. Lali Taylor MD Work Phone: [facility] 04-17-2025 08:53-0400 Systolic blood pressure 171 mm[Hg] Dr. Lali Taylor MD Work Phone: [facility] 04-10-2025 10:40-0400 Body mass index (BMI) [Ratio] 25.9 kg/m2 Dr. Lali Taylor MD Work Phone: [facility] 04-10-2025 10:40-0400 Body weight 79.[address] Lali Taylor MD Work Phone: [facility] 04-10-2025 10:01-0400 Diastolic blood pressure 62 mm[Hg] Dr. Lali Taylor MD Work Phone: [facility] 04-10-2025 10:01-0400 Heart rate 63 /min Dr. Lali Taylor MD Work Phone: [facility] 04-10-2025 10:01-0400 SaO2% (BldA) [Mass fraction] 98 % Dr. Lali Taylor MD Work Phone: [facility] 04-10-2025 10:01-0400 Systolic blood pressure 142 mm[Hg] Dr. Lali Taylor MD Work Phone: [facility] 04-10-2025 09:45-0400 Body height 175.[address] Lali Taylor MD Work Phone: [facility] 03-30-2025 10:26-0400 Diastolic blood pressure 70 mm[Hg] Consuelo Almodovar MD, PhD Work Phone: [facility] 03-30-2025 10:26-0400 Systolic blood pressure 150 mm[Hg] Consuelo Almodovar MD, PhD Work Phone: 5(446)192-895425 [address] 03-30-2025 10:07-0400 Heart rate 63 /min Consuelo Almodovar MD, PhD Work Phone: [facility] 03-30-2025 10:04-0400 SaO2% (BldA) [Mass fraction] 99 % Consuelo Almodovar MD, PhD Work Phone: [facility] 03-30-2025 07:24-0400 Body temperature 98.71 [degF] Consuelo Almodovar MD, PhD Work Phone: 4(185)390-608225 [address] 03-30-2025 07:24-0400 Respiratory rate 16 /min Consuelo Almodovar MD, PhD Work Phone: 3(524)032-049525 [address] 03-30-2025 03:10-0400 Body mass index (BMI) [Ratio] 26.06 kg/m2 Consuelo Almodovar MD, PhD Work Phone: 2(878)751-291692 [place] [address] 03-30-2025 03:10-0400 Body weight 80.03 kg Consuelo Almodovar MD, PhD Work Phone: 1(606)[phone] [place] [address] Comment on above: Standing 03-29-2025 09:16-0400 Body height 175.3 cm Consuelo Almodovar MD, PhD Work Phone: 4(559)037-975992 [place] [address] 02-13-2025 11:28-0400 Body height 175.3 cm Consuelo Almodovar MD, PhD Work Phone: 3(056)755-992592 [place] [address] 02-13-2025 11:28-0400 Body mass index (BMI) [Ratio] 26.29 kg/m2 Consuelo Almodovar MD, PhD Work Phone: 0(014)018-140692 [place] [address] 02-13-2025 11:28-0400 Body weight 80.74 kg Consuelo Almodovar MD, PhD Work Phone: 1(565)074-352292 [place] [address] 02-13-2025 11:28-0400 Diastolic blood pressure 60 mm[Hg] Consuelo Almodovar MD, PhD Work Phone: 7(038)407-954392 [place] [address] 02-13-2025 11:28-0400 Heart rate 57 /min Consuelo Almodovar MD, PhD Work Phone: 7(207)045-383392 [place] [address] 02-13-2025 11:28-0400 SaO2% (BldA) [Mass fraction] 99 % Consuelo Almodovar MD, PhD Work Phone: 4(797)700-879092 [place] [address] 02-13-2025 11:28-0400 Systolic blood pressure 140 mm[Hg] Consuelo Almodovar MD, PhD Work Phone: 8(846)421-020292 [place] [address] 02-05-2025 16:08-0400 Body temperature 98.2 [degF] Dr. Lali Taylor MD Work Phone: [facility] 02-05-2025 16:08-0400 Body weight 81.[address] Lali Taylor MD Work Phone: [facility] 02-05-2025 16:08-0400 Diastolic blood pressure 74 mm[Hg] Dr. Lali Taylor MD Work Phone: [facility] 02-05-2025 16:08-0400 Heart rate 62 /min Dr. Lali Taylor MD Work Phone: [facility] 02-05-2025 16:08-0400 Respiratory rate 16 /min Dr. Lali Taylor MD Work Phone: [facility] 02-05-2025 16:08-0400 SaO2% (BldA) [Mass fraction] 98 % Dr. Lali Taylor MD Work Phone: [facility] 02-05-2025 16:08-0400 Systolic blood pressure 158 mm[Hg] Dr. Lali Taylor MD Work Phone: [facility] 07-06-2024 08:41-0400 Body mass index (BMI) [Ratio] 25.92 kg/m2 Kalpana Pearce Work Phone: [facility] 07-06-2024 08:41-0400 Body temperature 97.81 [degF] Kalpana Pearce Work Phone: [facility] 07-06-2024 08:41-0400 Body weight 80.29 kg Kalpana Pearce Work Phone: [facility] 07-06-2024 08:41-0400 Diastolic blood pressure 80 mm[Hg] Kalpana Pearce Work Phone: [facility] 07-06-2024 08:41-0400 Heart rate 64 /min Kalpana Pearce Work Phone: [facility] 07-06-2024 08:41-0400 Respiratory rate 12 /min Kalpana Pearce Work Phone: [facility] 07-06-2024 08:41-0400 SaO2% (BldA) [Mass fraction] 99 % Kalpanaerin Pearce Work Phone: [facility] 07-06-2024 08:41-0400 Systolic blood pressure 186 mm[Hg] Kalpana Ivanight Work Phone: [facility] 06-21-2024 08:44-0400 Body height 176 cm Inocencio Mckeon MD Work Phone: [facility] 06-21-2024 08:44-0400 Body mass index (BMI) [Ratio] 25.19 kg/m2 Inocencio Mckeon MD Work Phone: [facility] 06-21-2024 08:44-0400 Body temperature 98.2 [degF] Inocencio Mckeon MD Work Phone: [facility] 06-21-2024 08:44-0400 Body weight 78.02 kg Inocencio Mckeon MD Work Phone: [facility] 06-21-2024 08:44-0400 Diastolic blood pressure 90 mm[Hg] Inocencio Mckeon MD Work Phone: [facility] 06-21-2024 08:44-0400 Heart rate 55 /min Inocencio Mckeon MD Work Phone: [facility] 06-21-2024 08:44-0400 SaO2% (BldA) [Mass fraction] 98 % Inocencio Mckeon MD Work Phone: [facility] 06-21-2024 08:44-0400 Systolic blood pressure 175 mm[Hg] Inocencio Mckeon MD Work Phone: [facility] Encounters Encounter Date Encounter Type Care Provider Facility Start: 06-06-2025 ambulatory Lali Taylor Facilit y:[facility] Start: 05-30-2025 End: 06-03-[address] Lali Taylor MD Work Phone: -Cardiac Rehab Start: 05-30-2025 End: 06-03-[address] Jamarcus Redd MD -Cardiac Rehab Work Phone: Start: 05-23-2025 End: 05-23-2025 Patient encounter procedure Bailey Sapp PA -[facility] Work Phone: Start: 05-23-2025 End: 05-23-[address] Lali Taylor MD Work Phone: -[facility] Start: 05-21-[address] Jamarcus Redd MD -Cardiac Rehab Work Phone: Start: 05-17-2025 End: 05-17-2025 Patient encounter procedure Lali LYN -[facility] Work Phone: Start: 05-17-2025 End: 05-17-[address] Lali Taylor MD Work Phone: -[facility] Start: 05-16-[address] Jamarcus Redd MD -Cardiac Rehab Work Phone: Start: 05-02-2025 ambulatory [facility] Facility: [facility] Start: 04-30-2025 End: 05-03-[address] Lali Taylor MD Work Phone: -Cardiac Rehab Start: 04-30-2025 End: 05-03-[address] Jamarcus Redd MD -Cardiac Rehab Work Phone: Start: 04-30-[address] Jamarcus Redd MD -Cardiac Rehab Work Phone: Start: 04-26-2025 Non-patient / Non-visit Dr. Tramaine luong MD -[facility] Start: 04-26-2025 End: 04-26-[address] Lali Taylor MD Work Phone: -Cardiovascular Services Start: 04-26-2025 End: 04-26-2025 Patient encounter procedure Lali LYN -Cardiovascular Services Work Phone: Start: 04-26-2025 End: 04-26-2025 ambulatory Lali Taylor Facility:[facility] Start: 04-17-2025 End: 04-17-2025 Patient encounter procedure Lali LYN -[facility] Work Phone: Start: 04-17-2025 End: 04-17-[address] Lali Taylor MD Work Phone: -[facility] Start: 04-16-[address] Jamarcus Redd MD -Cardiac Rehab Work Phone: Start: 04-10-2025 End: 04-10-[address] Lali Taylor MD Work Phone: -Cardiac Rehab Start: 04-10-2025 End: 04-10-[address] Jamarcus Redd MD -Cardiac Rehab Work Phone: Start: 04-10-2025 End: 04-10-2025 ambulatory Jamarcus Redd Facility:[facility] Start: 04-03-2025 Non-patient / Non-visit Dr. Sharda SMALL -[facility] Start: 04-03-[address] 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 Lali Taylor MD Work Phone: [facility] Work Phone: Start: 03-19-2025 End: 03-19-2025 Patient encounter procedure Consuelo Almodovar MD -Laboratory Work Phone: Start: 03-19-2025 End: 03-19-2025 ambulatory Consuelo Almodovar Facility:[facility] Start: 02-13-2025 End: 02-13-2025 Office consultation new/estab patient 60 min Consuelo Almodovar MD, PhD Work Phone: [facility] Comment on above: ASCVD (arteriosclero tic cardiovascular disease) (Primary Dx); Chronic combined systolic and diastolic congestive heart failure Start: 02-13-2025 ambulatory CONSUELO ALMODOVAR Facili ty:[facility] Start: 02-05-2025 End: 02-05-[address] Tramaine Garrison MD -[facility] Work Phone: Start: 02-05-2025 End: 02-05-2025 ambulatory Tramaine Garrison Facility:[facility] Start: 01-02-2025 End: 01-02-2025 Subsequent hospital visit by physician Kaylene Anna COIN COUNTER AND WRAPPER-STAFF DEVELOPMENT COORDINATOR Work Phone: [facility] Comment on above: Arrived Start: 01-02-2025 ambulatory KAYLENE ANNA Facility :[facility] Start: 12-13-2024 End: 12-13-2024 Subsequent hospital visit by physician Kaylene Anna COIN COUNTER AND WRAPPER-STAFF DEVELOPMENT COORDINATOR Work Phone: [facility] Comment on above: Arrived Start: 12-13-2024 ambulatory KAYLENE ANNA Facility :[facility] Start: 11-21-2024 ambulatory JAMARCUS REDD Facility: [facility] Start: 11-15-2024 End: 11-15-2024 ambulatory Lali Taylor Facility:[facility] Start: 11-10-2024 End: 11-10-2024 ambulatory Lali Taylor Facility:[facility] Start: 11-10-2024 End: 11-10-2024 ambulatory Lali Taylor Facility:[facility] Start: 11-07-2024 ambulatory Lali Taylor Facilit y:[facility] Start: 11-07-2024 End: 11-07-2024 ambulatory Lali Taylor Facility:[facility] Start: 10-16-2024 End: 10-16-2024 ambulatory Lali Taylor Facility:[facility] Start: 10-10-2024 ambulatory Lali Taylor Facilit y:[facility] Start: 10-10-2024 End: 10-10-2024 ambulatory Darroin V Pariilia Facility:[facility] Start: 09-20-2024 ambulatory Darrion V Sibilia Facili ty:[facility] Start: 07-06-2024 End: 07-06-2024 ambulatory KALPANA PEARCE Facility:[facility] Comment on above: Elevated ferritin (P rimary Dx); ETOH abuse Start: 07-06-2024 End: 07-06-2024 Patient encounter procedure Kalpanadomonique Pearce Work Phone: Hematology/Oncology Start: 06-27-2024 End: 06-27-2024 ambulatory LALI TAYLOR Facility:[facility] Start: 06-27-2024 End: 06-27-2024 Subsequent hospital visit by physician [facility] Work Phone: Radiology Comment on above: Elevated ferritin [R 79.89] Start: 06-23-2024 End: 06-23-2024 ambulatory Lali Taylor Facility:[facility] Start: 06-21-2024 End: 06-21-2024 ambulatory Inocencio Mckeon MD Work Phone: Hematology/Oncology Comment on above: Elevated ferritin (P rimary Dx); Elevated LFTs Start: 06-21-2024 End: 06-21-2024 Patient encounter procedure Inocencio Mckeon MD Work Phone: Hematology/Oncology Start: 06-09-2024 End: 06-09-2024 ambulatory Lali Taylor Facility:[facility] Start: 06-07-2024 End: 06-07-2024 ambulatory Lali Taylor Facility:[facility] Start: 02-17-2022 End: 02-17-2022 [facility] Start: 12-04-2021 End: 12-04-2021 Patient encounter procedure [facility]-Ultrasound, [facility] Start: 10-30-2021 End: 10-30-2021 Patient encounter procedure [facility] Start: 06-23-2021 End: 06-23-2021 Subsequent hospital visit by physician [facility] Work Phone: Radiology Comment on above: Suspected COVID-19 v irus infection [Z20.822] Start: 11-18-2016 Preoperative state Inocencio ceballos MD Work Phone: [facility] Work Phone: Procedures Date Procedure Procedure Detail Performing Clinician Start: 03-30-2025 CARDIAC RHYTHM Other Ot her OT Start: 03-29-2025 End: 03-29-2025 ACT* LOW RANGE, POC Consuelo Almodovar MD, PhD Work Phone: Start: 03-29-2025 Ecg routine ecg w/le ast 12 lds w/i&r Chris Pelayo MD Work Phone: Start: 03-29-2025 Cardiac catheterization Consuelo Almodovar MD, PhD Work Phone: Start: 03-29-2025 Iv dop humphrey&/or press c/dalila rsrv kelli 1st vsl Consuelo Almodovar MD, PhD Work Phone: Start: 03-29-2025 Prq trluml coronary stent w/angio one art/brnch Consuelo Almodovar MD, PhD Work Phone: Start: 03-29-2025 End: 03-29-2025 ACT* LOW RANGE, POC Consuelo Almodovar MD, PhD Work Phone: Start: 03-29-2025 Ecg routine ecg w/le ast 12 lds w/i&r Chris Pelayo MD Work Phone: Start: 02-13-2025 Lipid 1996 panel - S kaelyn or Plasma Consuelo Almodovar MD, PhD Work Phone: Start: 01-02-2025 Ct angiography chest w/contrast/noncontrast Kaylene Anna COIN COUNTER AND WRAPPER-STAFF DEVELOPMENT COORDINATOR Work Phone: Start: 12-13-2024 Ultrasound elastogra phy parenchyma Kaylene Anna COIN COUNTER AND WRAPPER-STAFF DEVELOPMENT COORDINATOR Work Phone: Start: 12-13-2024 Duplex scan extracra nial art compl bi study Kaylene Anna COIN COUNTER AND WRAPPER-STAFF DEVELOPMENT COORDINATOR Work Phone: Start: 06-27-2024 Us abdominal real ti me w/image limited Inocencio Mckeon MD Work Phone: Start: 12-04-2021 US scan of thyroid Start: 06-23-2021 Radiologic exam ches t 2 views Anirudh Scales COIN COUNTER AND WRAPPER.STAFF DEVELOPMENT COORDINATOR Work Phone: Plan of Treatment Date Care Activity Detail Author Start: 2034 RSV Vaccine (1 - 1-dose 75+ series) RSV Vaccine (1 - 1-dose 75+ series) [facility] Start: 02-13-2030 Lipid panel LIPID SCREENING [facility] Start: 02-13-2026 Potassium [Moles/volume] in Serum or Plasma POTASSIUM [facility] Start: 06-04-2025 Influenza vaccination INFLUENZA VACCINE (Season Ended) [facility] Start: 05-02-2025 End: 05-02-2025 Patient encounter procedure 05/02/2025 2:00 PM EDT Office Visit [facility] [address] [place], [place] [id number] Malou Roe COIN COUNTER AND WRAPPER-STAFF DEVELOPMENT COORDINATOR [address] [place] [id number] [facility] Start: 03-29-2025 End: 03-29-2025 Admission to same day surgery center 03/29/2025 11:00 AM EDT - 03/29/2025 12:00 PM EDT Surgery [facility] [address] [place] [address] Consuelo Almodovar MD, PhD [address] [place], [place] [id number] STENT-CORONARY [facility] Comment on above: STENT-CORONARY Start: 03-29-2025 Subsequent hospital visit by physician 03/29/2025 11:00 AM EDT Hospital Encounter [facility] [address] [place] [id number] Consuelo Almodovar MD, PhD [address] [place], [place] [id number] 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 [facility] Comment on above: Atherosclerosis of c[place] coronary arter y of c[place] heart with angina pectoris Start: 07-06-2024 End: 07-06-2024 ambulatory 07/06/2024 9:00 AM EDT Visit (SP) Office Hematology/Oncology [address] [place], [place] [phone] Kalpana Pearce [address] [place] [address] OV* Hematology/Oncology Comment on above: OV* Start: 06-27-2024 End: 06-27-2024 Patient encounter procedure 06/27/2024 9:15 AM EDT Appointment Radiology [address] [address] Elevated ferritin [R79.89] Radiology Comment on above: Elevated ferritin [R79.89] Start: 06-26-2024 Diabetes Screening Diabetes Screening [facility] Start: 06-21-2024 End: 09-20-2024 Ferritin [Mass/volume] in Serum or Plasma [facility] Work Phone: Comment on above: Expected: 06/21/2024, Expires: Start: 06-21-2024 End: 09-20-2024 HFE gene targeted mutation analysis in Blood or Tissue by Molecular genetics method [facility] Comment on above: Expected: 06/21/2024, Expires: 4 Start: 06-04-2024 Covid-19 Vaccine ( season) Covid-19 Vaccine ( season) [facility] Start: 06-04-2024 Covid-19 Vaccine ( season) Covid-19 Vaccine () [facility] Start: 06-04-2024 Influenza vaccination [facility] Start: 02-20-2024 Abdominal aortic aneurysm screening ABDOMINAL AORTIC ANEURYSM HIGH RISK SCREEN [facility] Start: 02-20-2024 Advance Directive Discussion Advance Directive Discussion [facility] Start: 10-28-2021 Prostate specific antigen measurement Prostate Cancer Screening Discussion [facility] Start: 2019 RSV Vaccine (1 - 1-dose 60+ series) RSV Vaccine (1 - 1-dose 60+ series) [facility] Start: 2014 Prostate specific antigen measurement PROSTATE CANCER SCREENING DISCUSSION [facility] Start: 2009 Pneumococcal vaccination PNEUMOCOCCAL VACCINE SERIES (1 of 1 - PCV) [facility] Start: 2009 Shingrix Vaccine (1 of 2) Shingrix Vaccine (1 of 2) [facility] Start: 2009 Zoster vaccine hzv live for subcutaneous use ZOSTER (SHINGLES) VACCINE (1 of 2) [facility] Start: 02-20-2004 Screening for malignant neoplasm of colon [facility] Start: 1999 Lipid panel LIPID SCREENING [facility] Start: 1994 Lipid panel Lipid Screening [facility] Start: 1978 Pneumococcal vaccination PNEUMOCOCCAL VACCINE SERIES (1 of 2 - PCV) [facility] Start: 1978 Third diphtheria, tetanus and acellular pertussis (DTaP) vaccination TDAP (ADULT) [facility] Start: 1978 Urine microalbumin profile DTaP,Tdap,Td Vaccine (1 - Tdap) [facility] Start: 1977 Anxiety Screening Anxiety Screening [facility] Start: 1977 Depression Screening Depression Screening [facility] Start: 1977 Hepatitis C screening Hepatitis C Screening [facility] Start: 1977 HIV screening HIV Screening [facility] Start: 1965 Pneumococcal Vaccine: 65+ (1 of 2 - PCV) Pneumococcal Vaccine: 65+ (1 of 2 - PCV) [facility] Start: 1959 Abdominal aortic aneurysm screening Abdominal Aortic Aneurysm Screening [facility] Start: 1959 Hepatitis C screening HEPATITIS C VIRUS SCREENING [facility] Start: 1959 Tetanus vaccination TETANUS [facility] Ambulatory ECG IN ECG (OFFICE P ERFORM AND READ ONLY) IN - OFFICE PERFORMED Routine ASCVD (arteriosclerotic cardiovascular disease) Chronic combined systolic and diastolic congestive heart failure Ordered: 02/13/2025 [facility] Comment on above: Ordered: 02/13/2025 Ankle brachial press ure index [facility] Basic metabolic 2008 panel with ionized calcium - Serum or Plasma [facility] Cardiac catheterizat ion study INVASIVE CARDIOVASCULAR PROCEDURE Cardiac Cath Routine 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 Abnormal findings on cardiac catheterization 03/29/2025 11:18 AM EDT [facility] CT of abdominal aort a with contrast [facility] End: 07-21-2025 US Abdomen RUQ US ABD RIGHT UPPER QUADRANT Radiology Routine Elevated ferritin Elevated LFTs 1 Occurrences starting 06/21/2024 until 07/21/2025 [facility] Comment on above: 1 Occurrences starting 06/21/2024 until 07/21/2025 US Heart [facility] Immunizations Immunization Date Immunization Notes Care Provider Fa rossana 08-05-2021 influenza virus vaccine, unspecified formulation Inocencio Mckeon MD Work Phone: [facility] 07-24-2020 influenza, injectabl e, quadrivalent, preservative free Dr. Lali [place] MD Work Phone: [facility] 07-24-2020 influenza, seasonal, injectable [facility] Work Phone: 03-11-2006 tetanus immune globulin Inocencio Mckeon MD Work Phone: [facility] Work Phone: Payers Date Payer Category Payer Managed Care (unspecified) [id number] 2024 Self-pay [id number] 2024 Medicare [id number] [id number] 2024 Medicare [id number] 2022 Unknown [id number] 2019 Unknown [id number] 1.13.159.2.7.3 .[id number] 1959 Unknown [id number] 2.16.840.1.964954.3.579.2.594 1959 Unknown [id number] 2.840.1.845369.3.579.2.594 1959 Unknown [id number] 2..840.1.364627.3.579.2.594 1959 Unknown [id number] 2.840.1.680794.3.579.2.594 1959 Unknown [id number] 2.840.1.051859.3.579.2.594 1959 Unknown [id number] 2.840.1.325248.3.579.2.594 1959 Unknown [id number] 2.840.1.953267.3.579.2.594 1959 Unknown [id number] 2.840.1.610122.3.579.2.594 1959 Unknown [id number] 2.840.1.417590.3.579.2.594 Private Health Insurance Pending sale to [facility] [id number] Unknown SELF PAY INSURANCE [id number] Unknown [id number] 2.16.840.1.220498.3.579.2.462 Unknown [id number] 2.16.840.1.348109.3.579.2.462 Unknown [id number] 2.16.840.1.465627.3.579.2.462 Unknown [id number] 2.16.840.1.048780.3.579.2.462 Unknown [id number] 2.16.840.1.012365.3.579.2.462 Unknown [id number] 2.16.840.1.671808.3.579.2.462 Unknown [id number] 2.16840.1.022112.3.579.2.462 Unknown [id number] 2.16840.1.723242.3.579.2.462 Unknown [id number] 2.840.1.774010.3.579.2.462 Unknown [id number] 2.840.1.417269.3.579.2.462 Unknown [id number] 2.840.1.750841.3.579.2.462 Unknown [id number] 2.840.1.225943.3.579.2.462 Unknown [id number] 2.840.1.297549.3.579.2.462 Unknown [id number] 2.840.1.520125.3.579.2.462 Unknown [id number] 2.840.1.207543.3.579.2.462 Unknown [id number] 2.840.1.308352.3.579.2.462 Unknown [id number] 2.840.1.962179.3.579.2.462 Unknown [id number] 2.840.1.185157.3.579.2.462 Unknown [id number] 2.840.1.096542.3.579.2.462 Unknown [id number] 2.840.1.619178.3.579.2.462 Unknown [id number] 2.16840.1.623620.3.579.2.462 Unknown [id number] 2.840.1.839634.3.579.2.462 Unknown [id number] 2.16.840.1.874749.3.579.2.462 Unknown [id number] 2.16.840.1.716229.3.579.2.462 Unknown [id number] 2.16.840.1.059986.3.579.2.462 Social History Date Type Detail Facility Start: 08-07-2021 Tobacco smoking stat [facility] Unknown if ever smoked [facility] Work Phone: Start: 1960 Sex Assigned At Male [facility] Start: 06-23-2019 End: 04-10-2025 Tobacco smoking status NHIS Smokes tobacco daily [facility] Start: 10-04-2024 End: 10-04-1976 History of tobacco use Cigarette Smoker [facility] Start: 06-23-2019 End: 02-13-2025 Tobacco use and exposure Smokeless tobacco non-user [facility] Start: 06-21-2024 End: 02-13-2025 Alcoholic beverage intake Current drinker of alcohol (finding) [facility] Start: 06-21-2024 End: 02-13-2025 History of Social function [facility] Start: 06-21-2024 End: 02-13-2025 Tobacco use panel [facility] National Score (1-10 0), lower number is lower risk 51 [facility] Start: 11-20-2016 Alcohol Comment 12 pack beer daily [facility] Start: 1960 Sex assigned at Not on file [facility] Start: 05-24-2021 End: 06-23-2021 Exposure to SARS-CoV-2 (event) Yes [facility] Start: 11-16-2024 Sex Male (finding) [facility] Start: 02-13-2025 [facility] Start: 10-04-2024 End: 10-04-1976 History of tobacco use Current smoker [facility] Start: 02-13-2025 Alcohol Comment 9 drink a day [facility] Start: 02-08-2025 Gender identity Identifies as male gender (finding) [facility] Start: 02-08-2025 Sexual orientation Heterosexual (bret miladys) [facility] Start: 11-15-2024 Tobacco smoking stat [facility] Current Heavy tobacco smoker [facility] Start: 04-17-2025 Tobacco smoking stat [facility] Current Light tobacco smoker [facility] Medical Equipment Procedure Code Equipment Code Equipment Origin al Text Equipment Identifier Dates Device Closure Perclose Proglide 6fr - [id number] Start: 03-29-2025 Coronary Stent 2 8mm 2.5mm Synergy Xd Monorail 144cm - [id number] Start: 03-29-2025 Coronary Stent 3 2mm 3mm Synergy Xd Monorail 144cm Everolimus - [id number] Start: 03-29-2025 Functional Status Date Assessment Result Facility 03-29-2025 Are you deaf, or do you have serious difficulty hearing No 03/29/2025 2:59 PM EDT Mylene Oliveira, JV No [facility] 03-29-2025 Are you blind, or do you have serious difficulty seeing, even when wearing glasses No 03/29/2025 2:59 PM EDT Mylene Oliveira, JV No [facility] 03-29-2025 Do you have serious difficulty walking or climbing stairs No 03/29/2025 2:59 PM EDT Mylene Oliveira, RN No [facility] 03-29-2025 Do you have difficul ty dressing or bathing No 03/29/2025 2:59 PM EDT Mylene Oliveira, RN No [facility] 03-29-2025 Because of a physica l, mental, or emotional condition, do you have difficulty doing errands alone such as visiting a physician's office or shopping No 03/29/2025 2:59 PM EDT Mylene Oliveira, RN No [facility] Mental Status Date Assessment Result Facility 03-29-2025 Because of a physica l, mental, or emotional condition, do you have serious difficulty concentrating, remembering, or making decisions No 03/29/2025 2:59 PM EDT Mylene Oliveira, RN No [facility] Clinical Notes 06-23-2021 to 03-30-2025 Nursing Notes - Nevaeh Pratt RN - 03/30/2025 11:17 AM EDTNursing Notes - Nevaeh Pratt RN - 03/30/2025 11:17 AM EDTPlan of Care - Nevaeh Pratt RN - 03/30/2025 9:57 AM EDTAttachments Note Date & Type Note Facility 03-30-2025 Nurse Note After Visit Summary instructions provided and reviewed with the patient (and family if available) at the bedside. Patient verbalized understanding and denied any questions or concerns. Peripheral IV & telemetry discontinued per physician order. Patient denies having any medications secured in the medication room upon admission. Patient will be discharged home with belongings and a copy of discharge instructions accompanied by hospital staff. Patient is aware that a discharge suite option is available if their ride is not available at the time of discharge. RN will continue to assist as needed. [facility] 03-30-2025 Miscellaneous Notes Formattin g of this note might be different from the original. After Visit Summary instructions provided and reviewed with the patient (and family if available) at the bedside. Patient verbalized understanding and denied any questions or concerns. Peripheral IV & telemetry discontinued per physician order. Patient denies having any medications secured in the medication room upon admission. Patient will be discharged home with belongings and a copy of discharge instructions accompanied by hospital staff. Patient is aware that a discharge suite option is available if their ride is not available at the time of discharge. RN will continue to assist as needed. Problem: Adult Inpatient Plan of Care Goal: Plan of Care Review Outcome: Adequate for Discharge Goal: Patient-Specific Goal (Individualized) Outcome: Adequate for Discharge Goal: Absence of Hospital-Acquired Illness or Injury Outcome: Adequate for Discharge Goal: Optimal Comfort and Wellbeing Outcome: Adequate for Discharge Goal: Readiness for Transition of Care Outcome: Adequate for Discharge Problem: Cardiac Catheterization (Diagnostic/Interventional) Goal: Absence of Bleeding Outcome: Adequate for Discharge Goal: Absence of Contrast-Induced Injury Outcome: Adequate for Discharge Goal: Stable Heart Rate and Rhythm Outcome: Adequate for Discharge Goal: Absence of Embolism Signs and Symptoms Outcome: Adequate for Discharge Goal: Anesthesia/Sedation Recovery Outcome: Adequate for Discharge Goal: Optimal Pain Control and Function Outcome: Adequate for Discharge Goal: Absence of Vascular Access Complication Outcome: Adequate for Discharge Problem: Adult Inpatient Plan of Care Goal: Plan of Care Review Outcome: Progressing Goal: Absence of Hospital-Acquired Illness or Injury Outcome: Progressing Goal: Optimal Comfort and Wellbeing Outcome: Progressing Goal: Readiness for Transition of Care Outcome: Progressing Problem: Cardiac Catheterization (Diagnostic/Interventional) Goal: Absence of Bleeding Outcome: Progressing Goal: Absence of Contrast-Induced Injury Outcome: Progressing Goal: Stable Heart Rate and Rhythm Outcome: Progressing Goal: Absence of Embolism Signs and Symptoms Outcome: Progressing Goal: Anesthesia/Sedation Recovery Outcome: Progressing Goal: Optimal Pain Control and Function Outcome: Progressing Goal: Absence of Vascular Access Complication Outcome: Progressing Malou Owusu RN ADMISSION/TRANSFER NOTE Patient admitted to [facility] for: Monitoring overnight post cath Patient orientation: A&Ox4 Patient on telemetry: Y Orders reviewed/Labs and ECG obtained if applicable Admitting provider has been notified in regards to the patient's admission to the unit. [facility] welcome packet has been provided and reviewed with patient. Fall prevention policy reviewed- patient safety is our top priority. We're here to help you hang tag has been placed on the patient's cabinet door as a reminder to call for assistance. It takes us all to stop a fall flyer has been provided to patient to review. Call light provided, within reach & oriented to use. Patient has been updated re: plan of care and reviewed goals for our unit that include- Daily Joint rounding with patient, physician & nurse at the bedside during the patient's hospital stay. For the safety and comfort of our patients-Nursing staff reviewed that it is in the best interest of patients to remain in their area of care while in the hospital. By patients staying on the nursing unit/area of care, the hospital staff s ability to promote the safety of the patient, and to proceed with treatment plans without unexpected delays or interruptions is enhanced. A welcome folder has been provided for more information regarding what to expect on [facility]. Patient verbalized understanding. No further questions currently. RN will continue to assist patient as needed. On admission to [facility] unit at 1451, from [facility] a dual RN initial assessment of skin condition was performed by Mylene Yu RN and Nevaeh Jc RN Skin WDL/NOT WDL: WDL, presents with R femoral sheath site Frank Score: 21 Preliminary Report - Brief Cardiac Catheterization Procedure Note Johny Santamaria Jr. ([id number]) Pre Procedural Diagnosis 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 [I25.119] Post Procedural Diagnosis CAD Procedure Performed Left heart catheterization, Coronary angiogram, and Percutaneous coronary intervention Access Site/Hemostasis Right femoral artery, Sheath left in Findings Left Ventricular End Diastolic Pressure: Normal Left Ventricular Ejection Fraction: Not assessed Preliminary Results of Angiography Obstructive CAD Percutaneous Coronary Intervention Drug eluting stent, left anterior descending and RI, Number of Stents 2 Intraprocedure Anticoagulation Heparin Post-procedure Anticoagulation If anticoagulation is indicated per primary team, may restart 4 hours after hemostasis has been achieved Estimated Blood Loss Minimal Complications None Admission Does patient need to be admitted: No Surgeon Surgeons and Role: * Consuelo Almodovar MD, PhD - Primary * Chris Pelayo MD - Fellow Procedural Staff Generation Engineer: Danielle Machado RN Sedation Nurse: Bri Hernandez RN; Noman Camarena, JV Documenter: Glenroy Griffith RN Full report to follow Chris Pelayo MD March 29, 2025 11:21 AM Cosigned by Consuelo Almodovar MD, PhD at 03/30/2025 9:44 AM EDT Associated attestation - Consuelo Almodovar MD, PhD - 03/30/2025 9:44 AM EDT I was present, scrubbed and participated in all the critical components of this case. I have reviewed and concur with the Brief Operative Note. Consuelo Almodovar MD, PhD, [facility] boomswing operator Director, Division of Cardiovascular Medicine The Zachary Gamino Chair in Cardiology Department of Internal Medicine [facility] Summary: adm Here today for pci/stent, prep complete, EKG complete PREPARING FOR YOUR JAVA J2EE ARCHITECT PROCEDURE Your catheterization is scheduled on MARCH 29, 2025 at: [facility] at the [facility] , located at [address] [place] [address]. You are to arrive at [facility] on the 1st floor at 9:00 A.M. You may use [employer] parking ($10) or park in the [employer] [facility] just past the Anderson ($3). There is a walkway from the 2nd floor of the garage [facility] You are to have nothing to eat after midnight. You may drink CLEAR liquids up to the time you arrive for the procedure. (water, juice, clear soda, tea, coffee NO CREAMERS). +++++++++++++++++++++++++++++++ +++++++++++++++++++++++++++++++ +++ MEDICATIONS: YOU ARE TO TAKE YOUR MORNING MEDICATIONS USUAL. +++++++++++++++++++++++++++++++ +++++++++++++++++++++++++++++++ +++ PLEASE BRING A COMPLETE AND ACCURATE LIST OF ALL THE MEDICATIONS THAT YOU TAKE ON A REGULAR BASIS. BRING AN OVERNIGHT BAG JUST IN CASE YOU HAVE TO SPEND THE NIGHT. JUST ESSENTIALS YOU WOULD NEED FOR BED. YOU ARE HAVING A STENT PLACED IN YOUR HEART - SINCE YOU WILL BE GETTING THE STENT YOU MAY HAVE TO STAY OVERNIGHT. +++++++++++++++++++++++++++++++ +++++++++++++++++++++++++++++++ ++++ IF YOU HAVE SLEEP APNEA AND YOU REQUIRE CPAP, bring it with you. +++++++++++++++++++++++++++++++ +++++++++++++++++++++++++++++++ ++++ If you have a contrast dye or iodine allergy or if you are on Coumadin also called (Warfarin) or any other major blood thinners like Eliquis, Xarelto, Pradaxa and it was NOT addressed during scheduling, please call NOW to notify the lab ([phone]). You may receive sedation during your procedure and will not be permitted to drive yourself home. You will not be allowed to drive for 24-48 hrs. You will need a friend or family member to accompany you home (a taxi or bus is not acceptable). Failure to have a responsible person on discharge will result in cancellation of your procedure. Labs: PLEASE GO TO [facility] TO HAVE LAB WORK DRAWN ABOUT 1 WEEK BEFORE YOUR PROCEDURE. GO THE WEEK OF 03/19. THESE ARE NOT FASTING LABS. YOU MAY BE TOLD BY ANOTHER DEPARTMENT THAT YOU WILL RECEIVE A REMINDER CALL THE DAY BEFORE YOUR PROCEDURE, BUT YOU WILL NOT RECEIVE A REMINDER CALL. IF YOU HAVE ANY QUESTIONS REGARDING THE PROCEDURE CALL US AT : [phone] THANK YOU, KANCHAN CARIAS Low Raw Sugar Cutter Scheduling The above instructions were given to patient verbally over the phone AND VIA MY CHART CLICK THE LINK BELOW FOR A VIDEO EXPLANATION OF THE CARDIAC CATH PROCEDURE AND OUT PATIENT PROCESS. [email or web address] The cardiac dental laboratory technician apprentice is attempting to reach you to schedule your cardiac cath ordered by Dr. ALMODOVAR. This is our 1ST attempt at reaching you. Please contact [phone] to schedule. documented in this encounter [facility] 03-30-2025 History of Presen t illness Narrative Inpatient Cardiopulmonary Rehab Consultation AND Activity Session Completed. RN approved, as tolerated, and patient agreeable to visit. Patient reports feeling fine without complaints. Activity Session Vitals: 03/30/25 1004 03/30/25 1007 Vital Signs Pulse (Heart Rate) 64 (rest) 63 Heart Rate Source Monitor Monitor BP 181/84 120/68 MAP (mmHg) (!) 119 mmHg 87 mmHg BP Method Automatic Automatic BP Location Right arm Left arm BP Position Sitting Sitting O2 Sat (%) 99 % -- O2 Device room air room air Activity session: Patient ambulated from restroom to EOB upon arrival to room. Initial BP taken on R arm was 181/84. JV Herring notified. BP recheck on L arm was 120/68. Patient reported no symptoms, however patient quoted the 181/84 BP was a once in a lifetime blood pressure. Held activity at this time due to significant difference in arm BPs. RN notified/aware. Encouraged continued ambulation and discussed appropriate activity progression. Patient participation in outpatient cardiac rehab was discussed. Patient is interested in participating in rehab at their local facility: [facility]. Discharge education provided to the patient. Printed materials provided/reviewed: Living with Coronary Artery Disease booklet, Care After Cardiac Cath (R leg) handout. Patient s questions/concerns were addressed and topics below were discussed. 1. Pathophysiology of CAD/NM 2. Left Heart Cath 3. Target Lipid Profile 4. Heart Healthy Dietary Guidelines 5. Cardiac Medications 6. Signs/Symptoms to Monitor/Report 7. Risk Factor Modification/Reduction 8. Activity Guidelines/Recommendations 9. Tobacco Cessation We will continue to follow up with patient as needed until discharge for education review and activity progression. Domenica Pearce Inpatient Cardiopulmonary and Vascular Scheduling Coordinator Selena Cruz MS ([phone]) Inpatient Cardiopulmonary & Vascular Rehab Cosigned by Selena Cruz at 03/30/2025 10:28 AM EDT Associated attestation - Selena Cruz - 03/30/2025 10:28 AM EDT I, Selena Cruz , provided direct guidance in the room during this patient care session. I attest that all documentation reflects accurate skilled clinical decisions and judgements. Selena NancyMS ([phone]) Inpatient Cardiopulmonary & Vascular Rehab March HISTORY: Mr. Johny Santamaria Jr. is a pleasant 65 y.o. male with a history of NM, CAD, 3+ mitral regurgitation, COPD, essential hypertension, subclavian occlusion & alcohol use is here for a possible PCI. PROCEDURE SUMMARY: Cardiac catheterization was completed via right femoral artery approach. A coronary angiography showed a lesion in the mid left anterior descending artery and a lesion in the ramus artery. He received Ticagrelor 180 mg in the lab. A PCI was performed and 1 BASIL was successfully placed into the mid left anterior descending artery and 1 BASIL was successfully deployed into the ramus artery. Post procedure, he was started on IV fluids per hydration protocol. The arterial sheath was discontinued after the ACT was less than 180 seconds. He will be loaded with Clopidogrel 600 mg on 03/30/25 and then start Clopidogrel 75 mg daily uninterrupted on 03/31/2025. He will continue on aspirin 81 mg daily and Clopidogrel 75 mg daily for 6 to 12 months then SAPT lifelong. He will remain on Rosuvastatin 40 mg daily. He has a follow up appointment with His marketing outreach coordinator on April 17, 2025 at 0900 and will follow up with his primary care physician in 7 to 10 days. Cardiac rehabilitation was consulted for education and outpatient referral. He is being kept overnight for monitoring given the complexity of his case ROS: General: denies fatigue Respiratory: denies wheezing, + dyspnea ( r/t COPD) Cardiovascular: denies chest pain, palpitations, peripheral edema, numbness or tingling of arms or legs Gastrointestinal: denies abdominal pain, change in appetite Neurologic: denies dizziness, headache PHYSICAL EXAM: Temp: [98.1 F (36.7 C)] 98.1 F (36.7 C) Pulse (Heart Rate): [54-65] 56 Resp Rate: [10-28] 28 BP: (115-182)/(56-88) 149/66 O2 Sat (%): [95 %-100 %] 98 % Weight: [81.6 kg (180 lb)] 81.6 kg (180 lb) Constitutional: He is oriented and in no distress. Chest: Respiratory effort is normal. The breath sounds are normal. The lungs are clear without rales or rhonchi. Cardiovascular: No JVD is present. Bradycardic rate & regular rhythm; S1 normal, S2 normal., no gallop and no friction rub, or murmur is heard. Abdomen: Soft, non-tender, non-distended. +BS. Extremities: There is no peripheral edema, Peripheral pulses preserved. Neurological: He is alert and oriented to person, place and time. Procedure site: Right femoral arterial sheath intact, Pulses preserved. The following tests were reviewed: No results for input(s): INR, PT in the last 72 hours. No results for input(s): ALT, AST in the last 72 hours. Lab Results Component Value Date CHOLESTEROL 187 02/13/2025 TRIG 139 02/13/2025 HDL 55 02/13/2025 LDLCALC 104 (H) 02/13/2025 Post procedure ECG was stable without significant changes. It was my pleasure to see this patient. Please feel free to call me with any questions. CLARENCE Howe PCI Service [phone] documented in this encounter [facility] 03-30-2025 Plan of care note Problem: Adult Inpatient Plan of Care Goal: Plan of Care Review Outcome: Adequate for Discharge Goal: Patient-Specific Goal (Individualized) Outcome: Adequate for Discharge Goal: Absence of Hospital-Acquired Illness or Injury Outcome: Adequate for Discharge Goal: Optimal Comfort and Wellbeing Outcome: Adequate for Discharge Goal: Readiness for Transition of Care Outcome: Adequate for Discharge Problem: Cardiac Catheterization (Diagnostic/Interventional) Goal: Absence of Bleeding Outcome: Adequate for Discharge Goal: Absence of Contrast-Induced Injury Outcome: Adequate for Discharge Goal: Stable Heart Rate and Rhythm Outcome: Adequate for Discharge Goal: Absence of Embolism Signs and Symptoms Outcome: Adequate for Discharge Goal: Anesthesia/Sedation Recovery Outcome: Adequate for Discharge Goal: Optimal Pain Control and Function Outcome: Adequate for Discharge Goal: Absence of Vascular Access Complication Outcome: Adequate for Discharge [facility] 03-30-2025 Hospital course Narrative Images from the original note were not included. Discharge Summary Name: Johny Santamaria Jr. Age: 65 y.o. Birthday: 1960 Admit Date: 03/29/2025 8:49 AM Discharge Date:03/30/2025 Discharge Unit: [facility] Admission Information Admitting Physician: Consuelo Almodovar MD, PhD Discharge Information Discharge Physician: Consuelo Almodovar MD, PhD Brief Summary of Hospital Course for Discharge Summary: HISTORY: Mr. Johny Santamaria Jr. is a pleasant 65 y.o. male with a history of NM, CAD, 3+ mitral regurgitation, COPD, essential hypertension, subclavian occlusion & alcohol use is here for a possible PCI. PROCEDURE SUMMARY: Cardiac catheterization was completed via right femoral artery approach by Dr. Consuelo Almodovar. A coronary angiography showed a lesion in the mid left anterior descending artery and a lesion in the ramus artery. He received Ticagrelor 180 mg in the lab. A PCI was performed and 1 BASIL was successfully placed into the mid left anterior descending artery and 1 BASIL was successfully deployed into the ramus artery. Post procedure, he was started on IV fluids per hydration protocol. The arterial sheath was discontinued after the ACT was less than 180 seconds. He will be loaded with Clopidogrel 600 mg on 03/30/25 and then start Clopidogrel 75 mg daily uninterrupted on 03/31/2025. He will continue on aspirin 81 mg daily and Clopidogrel 75 mg daily for 6 to 12 months then SAPT lifelong. He will remain on Rosuvastatin 40 mg daily. He has a follow up appointment with his marketing outreach coordinator on April 17, 2025 at 0900 and will follow up with his primary care physician in 7 to 10 days. Cardiac rehabilitation was consulted for education and outpatient referral. He is being kept overnight for monitoring given the complexity of his case. He will follow up with marketing outreach coordinator Dr. Consuelo Almodovar. Plavix prescription was sent to his local pharmacy. Conclusion Impression: Successful PCI to mid LAD and proximal ramus intermedius Recommendations: Continue DAPT for ideally 6-12 months then SAPT indefinitely Medical therapy for CAD Cardiac rehab Follow up with outpatient marketing outreach coordinator Access: Right femoral artery Left Heart Catheterization / Coronary angiogram: It is a right dominant system. 1. The left main is normal. 2. The LAD has a 99% subtotal occlusion in the mid vessel. There is mild-moderate disease in the proximal LAD. 3. The LCx has moderate disease up to 40% in the mid vessel. 4. There is a large ramus intermedius vessel with serial 80% lesions in the proximal and mid vessel (DFR 0.72) 4. The RCA was not selectively engaged, it is occluded proximally and fills via L to R collaterals. 5. LVEDP is 4 mm Hg; there is no aortic valve gradient. Intervention: The left coronary artery was engaged using a XB 3.5 guide and baseline angiography was performed. A WHisper guidewire was used to cross the mid LAD lesion. The lesion was pre dilated with a 2.0 balloon and then a 2.5 X 28 BASIL was deployed. Stent deployment balloon was then removed. Repeat angiography showed good results with GEORGE 3 flow through the vessel. Next, the RI lesion was wired with a Comet guidewire, the proximal-mid vessel was dilated with a 3.0 balloon and then a 3.0 X 32 BASIL was deployed. Repeat angiography showed good results with GEORGE 3 flow through the vessel. Procedure The risks and alternatives of the procedure and sedation were explained. Informed consent was obtained. The patient was brought to the dental laboratory technician apprentice and placed on the table. The planned puncture sites were prepped and draped in the usual sterile fashion. Vascular Access Vascular access obtained through the right femoral artery. A sheath was inserted over the wire and into the vessel. Procedure Detail Left heart catheterization. A diagnostic catheter was advanced to the ascending aorta, advanced across the aortic valve and into the left ventricle and pressures recorded. Catheter used: CATHETER INFINITI 5FR X 100CM PIG Coronary Findings Diagnostic Dominance: Right Left Anterior Descending Mid LAD lesion is 99% stenosed. Ramus Intermedius Ramus lesion is 80% stenosed. Instantaneous wave-free ratio calculation was performed on the lesion. GUIDEWIRE COMET II .014IN 185CM VASCULAR PRESSURE STERILE used for measurements. DFR measurements obtained were 0.74, 0.72, and 0.69 respectively. Left Circumflex Prox Cx to Mid Cx lesion is 40% stenosed. Right Coronary Artery Prox RCA lesion is 100% stenosed. Second Right Posterolateral Branch Collaterals 2nd RPL filled by collaterals from 2nd Sept. Intervention Mid LAD lesion PCI The pre-interventional distal flow is normal (GEORGE 3). - A CATHETER GUIDING 6FR XB3.5 100CM interventional guide catheter was used to successfully engage the vessel. - A GUIDEWIRE HI-TORQUE WHISPER MS .014IN 190CM STRAIGHT was used to cross the lesion Angioplasty - BALLOON DILATATION EMERGE MONORAIL WORKHORSE 2MM 12MM 144CM. Multiple inflations were performed. Maximum pressure: 14 marcela. Inflation time: 5 sec. Stent placement - CORONARY STENT 28MM 2.5MM SYNERGY XD MONORAIL 144CM drug-eluting. Maximum pressure 16 marcela. Inflation time 10 sec. - The post-interventional distal flow is normal (GEORGE 3). - The intervention was successful. No complications occurred at this lesion. There is a 0% residual stenosis post intervention. Ramus lesion PCI The pre-interventional distal flow is normal (GEORGE 3). - A CATHETER GUIDING 6FR XB3.5 100CM interventional guide catheter was used to successfully engage the vessel. - A GUIDEWIRE COMET II .014IN 185CM VASCULAR PRESSURE STERILE was used to cross the lesion Angioplasty - BALLOON DILATATION EMERGE MONORAIL 3MM 20MM 144CM 2 LUMEN. Multiple inflations were performed. Maximum pressure: 15 marcela. Inflation time: 5 sec. Stent placement - CORONARY STENT 32MM 3MM SYNERGY XD MONORAIL 144CM EVEROLIMUS drug-eluting. Maximum pressure 11 marcela. Inflation time 3 sec. - The post-interventional distal flow is normal (GEORGE 3). - The intervention was successful. No complications occurred at this lesion. There is a 0% residual stenosis post intervention. Implants Type Name Action Serial No. Stent CORONARY STENT 28MM 2.5MM SYNERGY XD MONORAIL 144CM - [id number] Implanted Stent CORONARY STENT 32MM 3MM SYNERGY XD MONORAIL 144CM EVEROLIMUS - [id number] Implanted Other DEVICE CLOSURE PERCLOSE PROGLIDE 6FR - [id number] Implanted Overnight, he did well and remained hemodynamically stable. Vitals: T 987, P 56, R 16, BP 166/70, 97%, 176 lbs Cardio: RRR, S1, S2 Lungs: clear bilaterally Extremities: no edema, pedal pulses palpable Cath site: Right femoral dressing dry/intact Skin: olivarez, warm/dry Abdomen: soft, NT, BS+ Psych: pleasant and cooperative Neuro: CN II-XII intact Tele: SB Greater than 30 minutes was spent on this discharge summary. Summary of last selected lab results and date obtained: Lab Results Component Value Date WBC 10.41 (H) 02/13/2025 HGB 15.8 02/13/2025 HCT 47.6 02/13/2025 PLATELET 180 02/13/2025 MCV 100.0 (H) 02/13/2025 Lab Results Component Value Date SODIUM 140 02/13/2025 POTASSIUM 4.1 02/13/2025 CHLORIDE 100 02/13/2025 CO2 28 02/13/2025 BUN 8 02/13/2025 CREATSERUM 1.00 02/13/2025 No results found for: ALT, TRANSFERASEA, AST, GGT, GAMMAGT, ALKPHOS, BILITOTAL, BILIDIRECT Brief Summary of Labs for Discharge Summary: Discharge Orders AMB REFERRAL TO CARDIAC REHAB Current Outpatient Meds: Medication List for when you go home START taking these medications Morning Afternoon Evening Bedtime As Needed Clopidogrel 75 MG TABS Take 1 tablet by mouth daily. Commonly known as: PLAVIX Last time this was given: 600 mg on March 30, 2025 8:12 AM Start taking on: March 31, 2025 Wait until Mar 31 1 tablet CONTINUE taking these medications Morning Afternoon Evening Bedtime As Needed Albuterol 108 (90 Base) MCG/ACT AERS inhaler Inhale 2 puffs every 4 hours as needed. 2 puffs aspirin 81 MG CHEW chewable tablet Chew 1 tablet daily. Last time this was given: 81 mg on March 30, 2025 8:12 AM 1 tablet dorzolamide-timolol 2-0.5 % SOLN ophthalmic solution Place 1 drop in both eyes 2 times daily. Commonly known as: COSOPT 1 drop 1 drop furOSEmide 20 MG TABS Take 1 tablet by mouth daily. Commonly known as: LASIX Last time this was given: 20 mg on March 30, 2025 8:12 AM 1 tablet Latanoprost 0.005 % SOLN ophthalmic solution Place 1 drop in both eyes daily. Commonly known as: XALATAN Last time this was given: 1 drop on March 29, 2025 5:38 PM 1 drop Lisinopril 2.5 MG TABS Take 1 tablet by mouth daily. Commonly known as: PRINIVIL Last time this was given: 2.5 mg on March 30, 2025 8:12 AM 1 tablet Rosuvastatin 40 MG TABS Take 1 tablet by mouth daily. Commonly known as: CRESTOR Last time this was given: 40 mg on March 30, 2025 8:12 AM 1 tablet Stiolto Respimat 2.5-2.5 MCG/ACT AERS inhaler Inhale 2 puffs daily. Last time this was given: 2 puffs on March 29, 2025 10:04 PM Generic drug: tiotropium bromide-olodaterol 2 puffs Follow-up: Lali Marie CNP [address] [facility] [id number] Follow up Lali Taylor MD [address] [facility] [id number] Follow up in 2 week(s) Cosigned by Consuelo Almodovra MD, PhD at 03/30/2025 9:44 AM EDT Electronically signed by Kulwant Damian Jr., COIN COUNTER AND WRAPPER-STAFF DEVELOPMENT COORDINATOR at 03/30/2025 9:04 AM EDT documented in this encounter [facility] 03-30-2025 Plan of care note Problem: Adult Inpatient Plan of Care Goal: Plan of Care Review Outcome: Progressing Goal: Absence of Hospital-Acquired Illness or Injury Outcome: Progressing Goal: Optimal Comfort and Wellbeing Outcome: Progressing Goal: Readiness for Transition of Care Outcome: Progressing Problem: Cardiac Catheterization (Diagnostic/Interventional) Goal: Absence of Bleeding Outcome: Progressing Goal: Absence of Contrast-Induced Injury Outcome: Progressing Goal: Stable Heart Rate and Rhythm Outcome: Progressing Goal: Absence of Embolism Signs and Symptoms Outcome: Progressing Goal: Anesthesia/Sedation Recovery Outcome: Progressing Goal: Optimal Pain Control and Function Outcome: Progressing Goal: Absence of Vascular Access Complication Outcome: Progressing [facility] Nurse Note ADMISSION/TRANSFER NOTE Patient admitted to [facility] for: Monitoring overnight post cath Patient orientation: A&Ox4 Patient on telemetry: Y Orders reviewed/Labs and ECG obtained if applicable Admitting provider has been notified in regards to the patient's admission to the unit. [facility] welcome packet has been provided and reviewed with patient. Fall prevention policy reviewed- patient safety is our top priority. We're here to help you hang tag has been placed on the patient's cabinet door as a reminder to call for assistance. It takes us all to stop a fall flyer has been provided to patient to review. Call light provided, within reach & oriented to use. Patient has been updated re: plan of care and reviewed goals for our unit that include- Daily Joint rounding with patient, physician & nurse at the bedside during the patient's hospital stay. For the safety and comfort of our patients-Nursing staff reviewed that it is in the best interest of patients to remain in their area of care while in the hospital. By patients staying on the nursing unit/area of care, the hospital staff s ability to promote the safety of the patient, and to proceed with treatment plans without unexpected delays or interruptions is enhanced. A welcome folder has been provided for more information regarding what to expect on [facility]. Patient verbalized understanding. No further questions currently. RN will continue to assist patient as needed. On admission to [facility] unit at 1451, from IPR a dual RN initial assessment of skin condition was performed by Mylene Yu RN and Nevaeh Jc RN Skin WDL/NOT WDL: WDL, presents with R femoral sheath site Frank Score: 21 [facility] 03-29-2025 Hospital Discharg e instructions Tammi Alamo APRN-STAFF DEVELOPMENT COORDINATOR - 03/29/2025 11:50 AM EDT Care after Cardiac Catheterization What to expect: For up to a week after your procedure, your wrist/leg site may be sore, tender and have some bruising. You may have a small lump at the site, that should not get larger. If located at the wrist it should go away after 7 to 10 days, if located at the leg you may have this for 2 or 3 weeks. You may have a small amount of oozing from the site when the scab comes off. Care of your wrist/leg site: You may shower 24 hours after your procedure and remove the bandage over your wrist/leg site. Gently clean the site each day with soap and water and then pat dry. Do not scrub the site. Do NOT soak your wrist site in water for 3 days after procedure or until the wrist site is fully healed. Do NOT soak your leg site in water for 7 days after the procedure or until leg site is fully healed. This means no soaking in the sink, bath tub, hot tub, swimming pool or other places where your wrist/leg site would be under water. After you remove the bandage, you can cover the site with a bandaid for the next day or two if your clothes rub the site. Otherwise, leave the site uncovered. Do NOT put any lotions, powders or ointments on the site for 7 days or until the site is fully healed. Check the site each day for any change in redness, swelling, bruising and drainage. Activity limits for wrist: If the procedure was performed through your wrist, do NOT lift, push, or pull more than 5 pounds for 7 days or until the site is healed. A gallon of milk weighs just over 8 pounds. Limit twisting and bending the wrist site for [address] for 24 hours after the procedure unless directed by your doctor. Activity limits for leg: If the procedure was performed through your leg, do NOT lift, push, or pull more than 8 to 10 pounds for 7 days or until the site is healed. A gallon of milk weighs just over 8 pounds. Avoid movements and activities that may cause strain on the leg site. This could include straining when having a bowel movement, bending, squatting, doing yard work, playing sports or lifting, pushing or pulling more than 10 pounds. No [address] or sexual activity for 48 hours after the procedure. Food and drink: You can return to your usual diet, but caffeine and alcohol should be avoided for 24 hours. We recommend a heart healthy diet that is low in saturated fat, sodium, and added sugar to help control cholesterol in your blood, blood pressure, and fluid retention. Drink 6 to 8 cups of water each of the next 2 days to help flush the contrast medicine or dye from your body after the procedure, unless your doctor directed you to limit your fluids. Cardiac Rehab Guidelines: If a referral has been made to your local program, we encourage your participation in outpatient Cardiac Rehab. Follow Cardiac Rehab guidelines for progression of your activity. If you are smoker, we strongly encourage you to stop smoking. For more information: The [place] [employer] Quit Line is . If you have heart failure, we recommend that you weigh yourself every day at about the same time wearing similar clothes. Call your doctor if you gain more than 2 pounds in 48 hours or gain more than 5 pounds in one week. Call your doctor if you have: More redness, swelling, bruising, pain or drainage at the wrist/leg site. White or yellow drainage with an odor from the wrist/leg site. Call 141 or get emergency care if you have: Wrist/leg site bleeding that does not stop after applying direct pressure for 15 minutes. Chest pain, shortness of breath or any unusual symptoms including chills, fever, nausea, vomiting, memory problems, confusion, numbness, muscle weakness, trouble swallowing, problems speaking, dizziness, or unsteadiness. Follow-up resources: To schedule or reschedule an appointment or procedure: -Cardiology Central Scheduling at [phone] or [phone] For general questions or concerns about your discharge instructions: Weekdays between 8 AM and 5 PM call: - [facility] flower shop laborer/designer at - [facility] flower shop laborer/designer at After 5 PM, on weekends, or if you are not able to reach your doctor, call the [facility] slabbing machine operator at and ask for the Cardiology attending doctor jewelry consultant. For prescription refills please call your primary care provider or outpatient marketing outreach coordinator. Protect Your Stent A stent is a wire cage that holds the blood vessel open. You had __1___ stent(s) placed in the blood vessel(s) of your: Heart Leg Other Your stent type(s): ___ bare metal _x__drug releasing Medicines to prevent clotting of the stent Antiplatelet medicines prevent platelets in the blood from clumping or clotting to block the stent. These medicines include: Clopidogrel, brand name Plavix The amount of time you are on this medicine will depend on your stent and your condition. Aspirin helps to keep your blood from clotting. You may need to take aspirin for the rest of your life to protect your stent from clotting. Risk of bleeding or clotting of stent Taking these medicines to protect your stent from clotting puts you at risk for more bleeding if you have a cut or surgery. Not taking these medicines puts you at risk for your stent to clot and block blood flow, which could cause serious injury or . ALWAYS check with the doctor who placed the stent before you stop taking your antiplatelet medicine or aspirin. Protect yourself If you have bleeding that you cannot control or is severe, call the doctor who started the antiplatelet medicine or go to the nearest emergency room. Know where your stent or stents are in your body and what medicines you are taking. Carry a card in your wallet or purse that has the information written down about your care and treatment, so you have it with you. If you have a history of heart failure, heart attack or stroke, or have a stent in your heart, you should avoid use of non-steroidal anti-inflammatory drugs (NSAIDs), such as ibuprofen (Advil, Motrin) or naproxen sodium (Aleve). These drugs may increase your risk of another heart attack or stroke. Use acetaminophen (Tylenol) for pain, fever, colds or headaches as needed. Be sure to tell all of your doctors, including your eye doctor and dentist, that you have a stent. Tell them you are taking antiplatelet medicine or aspirin. Aspirin therapy should not be stopped if you have a stent unless the surgeon and the doctor who placed the stent agree to stop it. The following attachments cannot be sent through Care Everywhere.clopidogrel (Filipino)Cardiac Cath Care after - Leg Site ([facility]) (Filipino)Stent: How to Protect ([facility]) (Filipino)documented in this encounter [facility] 03-29-2025 Surgery Postoperative evaluation and management note Preliminary Report - Brief Cardiac Catheterization Procedure Note Johny Santamaria Jr. ([id number]) Pre Procedural Diagnosis 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 [I25.119] Post Procedural Diagnosis CAD Procedure Performed Left heart catheterization, Coronary angiogram, and Percutaneous coronary intervention Access Site/Hemostasis Right femoral artery, Sheath left in Findings Left Ventricular End Diastolic Pressure: Normal Left Ventricular Ejection Fraction: Not assessed Preliminary Results of Angiography Obstructive CAD Percutaneous Coronary Intervention Drug eluting stent, left anterior descending and RI, Number of Stents 2 Intraprocedure Anticoagulation Heparin Post-procedure Anticoagulation If anticoagulation is indicated per primary team, may restart 4 hours after hemostasis has been achieved Estimated Blood Loss Minimal Complications None Admission Does patient need to be admitted: No Surgeon Surgeons and Role: * Consuelo Almodovar MD, PhD - Primary * Chris Pelayo MD - Fellow Procedural Staff Generation Engineer: Danielle Machado RN Sedation Nurse: Bri Hernandez RN; Noman Camarena RN Documenter: Glenroy Griffith RN Full report to follow Chris Pelayo MD March 29, 2025 11:21 AM Cosigned by Consuelo Almodovar MD, PhD at 03/30/2025 9:44 AM EDT Associated attestation - Consuelo Almodovar MD, PhD - 03/30/2025 9:44 AM EDT I was present, scrubbed and participated in all the critical components of this case. I have reviewed and concur with the Brief Operative Note. Consuelo Almodovar MD, PhD, [facility], [place] boomswing operator Director, Division of Cardiovascular Medicine The [facility] Chair in Cardiology Department of Internal Medicine [facility] History and physical note PRE-CATH H&P UPDATE Patient seen and examined on day of procedure. Agree with H&P as documented by Dr. Almodovar on 02/13/25, there are no significant updates or changes. This cardiac catheterization is being done as planned PCI Verbal consent obtained and sedation assessment completed. Will proceed with PCI Gen: Well appearing male in NAD, lying in bed Eyes: EOMI, no scleral icterus, pupils equal round and reactive ENT: MMM, good dentition, neck supple Resp: CTA B/L, no WRR Cardio: RRR, no MRG GI:Soft, NT/ND, + BS Ms: Strength grossly intact B/L upper and lower extremities Skin: No lesions or ulcerations noted Neuro: AAOx3 Psych: Normal affect Allergies, Laboratory Studies: is allergic to *seasonal. Lab Results Component Value Date CREATSERUM 1.00 02/13/2025 No results found for: INR, PTT Lab Results Component Value Date WBC 10.41 (H) 02/13/2025 HGB 15.8 02/13/2025 HCT 47.6 02/13/2025 PLATELET 180 02/13/2025 MCV 100.0 (H) 02/13/2025 Estimated GFR: Estimated Creatinine Clearance: 73 mL/min (by C-G formula based on SCr of 1 mg/dL). Chris Pelayo MD Manager Ethics Pager [phone] Cosigned by Consuelo Almodovar MD, PhD at 03/30/2025 9:44 AM EDT [facility] Work Phone: 03-29-2025 History and physical note PRE-CATH H&P UPDATE Patient seen and examined on day of procedure. Agree with H&P as documented by Dr. Almodovar on 02/13/25, there are no significant updates or changes. This cardiac catheterization is being done as planned PCI Verbal consent obtained and sedation assessment completed. Will proceed with PCI Gen: Well appearing male in NAD, lying in bed Eyes: EOMI, no scleral icterus, pupils equal round and reactive ENT: MMM, good dentition, neck supple Resp: CTA B/L, no WRR Cardio: RRR, no MRG GI:Soft, NT/ND, + BS Ms: Strength grossly intact B/L upper and lower extremities Skin: No lesions or ulcerations noted Neuro: AAOx3 Psych: Normal affect Allergies, Laboratory Studies: is allergic to *seasonal. Lab Results Component Value Date CREATSERUM 1.00 02/13/2025 No results found for: INR, PTT Lab Results Component Value Date WBC 10.41 (H) 02/13/2025 HGB 15.8 02/13/2025 HCT 47.6 02/13/2025 PLATELET 180 02/13/2025 MCV 100.0 (H) 02/13/2025 Estimated GFR: Estimated Creatinine Clearance: 73 mL/min (by C-G formula based on SCr of 1 mg/dL). Chris Pelayo MD Manager Ethics Pager [phone] Cosigned by Consuelo Almodovar MD, PhD at 03/30/2025 9:44 AM EDT documented in this encounter [facility] 03-29-2025 Nurse Note Summary: adm Here today for pci/stent, prep complete, EKG complete [facility] 02-28-2025 Nurse Note PREPARING FOR YOUR JAVA J2EE ARCHITECT PROCEDURE Your catheterization is scheduled on MARCH 29, 2025 at: [facility] at the [facility] , located at [address] [place] [address]. You are to arrive at [facility] on the 1st floor at 9:00 A.M. You may use mcat instructor parking ($10) or park in the [employer] [facility] just past the [employer] ($3). There is a walkway from the 2nd floor of the garage into the [employer] Lobby. You are to have nothing to eat after midnight. You may drink CLEAR liquids up to the time you arrive for the procedure. (water, juice, clear soda, tea, coffee NO CREAMERS). +++++++++++++++++++++++++++++++ +++++++++++++++++++++++++++++++ +++ MEDICATIONS: YOU ARE TO TAKE YOUR MORNING MEDICATIONS USUAL. +++++++++++++++++++++++++++++++ +++++++++++++++++++++++++++++++ +++ PLEASE BRING A COMPLETE AND ACCURATE LIST OF ALL THE MEDICATIONS THAT YOU TAKE ON A REGULAR BASIS. BRING AN OVERNIGHT BAG JUST IN CASE YOU HAVE TO SPEND THE NIGHT. JUST ESSENTIALS YOU WOULD NEED FOR BED. YOU ARE HAVING A STENT PLACED IN YOUR HEART - SINCE YOU WILL BE GETTING THE STENT YOU MAY HAVE TO STAY OVERNIGHT. +++++++++++++++++++++++++++++++ +++++++++++++++++++++++++++++++ ++++ IF YOU HAVE SLEEP APNEA AND YOU REQUIRE CPAP, bring it with you. +++++++++++++++++++++++++++++++ +++++++++++++++++++++++++++++++ ++++ If you have a contrast dye or iodine allergy or if you are on Coumadin also called (Warfarin) or any other major blood thinners like Eliquis, Xarelto, Pradaxa and it was NOT addressed during scheduling, please call NOW to notify the lab ([phone]). You may receive sedation during your procedure and will not be permitted to drive yourself home. You will not be allowed to drive for 24-48 hrs. You will need a friend or family member to accompany you home (a taxi or bus is not acceptable). Failure to have a responsible person on discharge will result in cancellation of your procedure. Labs: PLEASE GO TO [facility] TO HAVE LAB WORK DRAWN ABOUT 1 WEEK BEFORE YOUR PROCEDURE. GO THE WEEK OF 03/19. THESE ARE NOT FASTING LABS. YOU MAY BE TOLD BY ANOTHER DEPARTMENT THAT YOU WILL RECEIVE A REMINDER CALL THE DAY BEFORE YOUR PROCEDURE, BUT YOU WILL NOT RECEIVE A REMINDER CALL. IF YOU HAVE ANY QUESTIONS REGARDING THE PROCEDURE CALL US AT : [phone] THANK YOU, KANCHAN CARIAS Low Raw Sugar Cutter Scheduling The above instructions were given to patient verbally over the phone AND VIA MY CHART CLICK THE LINK BELOW FOR A VIDEO EXPLANATION OF THE CARDIAC CATH PROCEDURE AND OUT PATIENT PROCESS. [email or web address] [facility] 02-27-2025 Nurse Note The cardiac dental laboratory technician apprentice is attempting to reach you to schedule your cardiac cath ordered by Dr. ALMODOVAR. This is our 1ST attempt at reaching you. Please contact [phone] to schedule. [facility] 02-13-2025 History of Presen t illness Narrative [facility] CARDIOVASCULAR MEDICINE CLINIC NEW PATIENT ENCOUNTER PRIMARY CARE PHYSICIAN: No primary care provider on file. No primary provider on file. Phone: None REFERRING PHYSICIAN: Kaylene Anna, DELTA-STAFF DEVELOPMENT COORDINATOR [address] [place] [address] PATIENT ID: Johny Santamaria Jr. is a 65 y.o. male ENCOUNTER DATE: 02/13/2025 CHIEF COMPLAINT(S): Heart Problem (Follow up after heart cath, echo stress test heart cath. Still slight of sob) HISTORY OF THE PRESENT ILLNESS: Mr. Santamaria is a pleasant 65 y.o. male who is being seen in the [facility] today for the above chief complaint(s). His history is remarkable for ASCVD. He was referred to Dr. Oliva for CAGB surgery evaluation and deferred due to continued EtOH use and subclavian occlusion and inability to use the SALES as a graft. He was referred for evaluation for possible PCI approach to his ASCVD. Of note he has 3+ MR on echocardiogram. His stress test notes SOB. On my exam he is resting comfortably. His main complaint is GOYAL/SOB. Denies nicole CP. PAST MEDICAL HISTORY: Past Medical History: Diagnosis Date Asthma COPD (chronic obstructive pulmonary disease) Essential hypertension, benign NM (myocardial infarction) PAST SURGICAL HISTORY: No past surgical history on file. SOCIAL HISTORY: Social History Tobacco Use Smoking status: Former Types: Cigarettes Start date: 2024 Quit date: 1976 Years since quittin.4 Smokeless tobacco: Never Vaping Use Vaping status: Never Used Substance Use Topics Alcohol use: Yes Alcohol/week: 9.0 standard drinks of alcohol Types: 9 Cans of beer per week Comment: 9 drink a day Drug use: Not Currently Types: Marijuana FAMILY HISTORY: family history is not on file.. REVIEW OF SYSTEMS: A review of systems was negative unless otherwise noted. GOYAL noted ALLERGIES: Allergies Allergen Reactions *Seasonal CURRENT MEDICATIONS: Current Outpatient Medications Medication Sig Dispense Refill Albuterol 108 (90 Base) MCG/ACT Aero Soln inhaler Inhale 2 puffs every 4 hours as needed. dorzolamide-timolol 2-0.5 % Solution ophthalmic solution Place 1 drop in both eyes 2 times daily. furOSEmide 20 MG tablet Take 1 tablet by mouth daily. Latanoprost 0.005 % Solution ophthalmic solution Place 1 drop in both eyes daily. Lisinopril 2.5 MG tablet Take 1 tablet by mouth daily. Rosuvastatin 40 MG tablet Take 1 tablet by mouth daily. Stiolto Respimat 2.5-2.5 MCG/ACT Aero Soln inhaler Inhale 2 puffs daily. No current facility-administered medications for this visit. OBJECTIVE: Vitals BP 140/60 (BP Location: Right arm, BP Position: Sitting) Pulse 57 Ht 1.753 m (5' 9) Wt 80.7 kg (178 lb) SpO2 99% BMI 26.29 kg/m Smoking Status Former General: alert, cooperative, no distress, appears stated age HEENT: PERRLA and EOMI Neck: Normal Lungs: clear to auscultation bilaterally Cardiovascular: Bradycardic, 2/6 SM LLSB Abdomen: Bowel sounds are normal Neurologic grossly non-focal Extremities: No edema LABS & IMAGING: ECG (02/13/2025): Sinus bradycardia, rate 53 bpm, otherwise normal ECG Chemistry: Lab Results Component Value Date SODIUM 140 02/13/2025 POTASSIUM 4.1 02/13/2025 CHLORIDE 100 02/13/2025 CO2 28 02/13/2025 BUN 8 02/13/2025 CREATSERUM 1.00 02/13/2025 Hematology: Lab Results Component Value Date WBC 10.41 (H) 02/13/2025 HGB 15.8 02/13/2025 HCT 47.6 02/13/2025 PLATELET 180 02/13/2025 Lipid Panel: Lab Results Component Value Date CHOLESTEROL 187 02/13/2025 TRIG 139 02/13/2025 HDL 55 02/13/2025 LDLCALC 104 (H) 02/13/2025 NHCHOL 132 (H) 02/13/2025 I have personally reviewed the prior imaging Echocardiogram: images reviewed - reduced EF. At least Moderate MR Cardiac Catheterization: images reviewed - 3 vessel ASCVD - small caliber vessel. ORE ROASTER RCA CT: images reviewed - Proximally occluded 4.7 cm segment of the proximal left subclavian artery, with distal reconstitution. ASSESSMENT AND PLAN: Johny Santamaria Jr. is a 65 y.o. male referred to our cardiovascular medicine clinic for: ICD-10-CM 1. ASCVD (arteriosclerotic cardiovascular disease) I25.10 CHEM 6 (LYTES, BUN CREA) LIPID PANEL W CALCULATED LDL CBC,PLATELETS IN ECG (OFFICE PERFORM AND READ ONLY) 2. Chronic combined systolic and diastolic congestive heart failure I50.42 CHEM 6 (LYTES, BUN CREA) LIPID PANEL W CALCULATED LDL CBC,PLATELETS IN ECG (OFFICE PERFORM AND READ ONLY) He has 3 vessel ASCVD with an occluded RCA (ORE ROASTER) that fills via collaterals form the LCX/LAD. The stress test shows anteroseptal ischemia that is likely due to the middle LAD lesion. The coronary arteries are smaller caliber. We will review his case and I will contact him to determine if we proceed with a high risk PCI of the LAD. I have ordered the following: Orders Placed This Encounter CHEM 6 (LYTES, BUN CREA) LIPID PANEL W CALCULATED LDL CBC,PLATELETS IN ECG (OFFICE PERFORM AND READ ONLY) We will plan on Return in about 3 months (around 05/16/2025).. If I can be of any further assistance, please do not hesitate to contact me. Consuelo Almodovar MD, PhD, [facility], [facility] boomswing operator Director, Division of Cardiovascular Medicine The [facility] Chair in Cardiology Division of Cardiovascular Medicine Department of Medicine [facility] 8:45 AM, 02/13/2025 We have reviewed Mr. Stanford case. Given his anatomy and valvular disease, it seems reasonable to reassess the LAD stenosis and treat this with PCI to see if his cardiac function improves and severity of the MR improves. We will make arrangements to proceed with a repeat coronary angiogram with PCI of the LAD and potentially any other vessel that has progressed documented in this encounter [facility] 02-13-2025 Instructions Consuelo Almodovar MD, PhD - 02/13/2025 11:30 AM EDT I will call you after we review on our dental laboratory technician apprentice conference documented in this encounter [facility] 02-05-2025 Evaluation note Diagnosis Onset Date Resolution Left subclavian artery occlusion chronic February 05, 2025 3: 47pm [facility] Work Phone: 1(310) 556-977205-05-2025 Evaluation note* Diagnosis Onset Date Resolution Status Admit Date Left subclavian artery occlusion chronic February 05, 2025 3: 47pm Alcohol abuse acute April 17, 2025 8:39am CAD (coronary artery disease) acute April 17, 2025 8:39am Decreased cardiac ejection fraction acute April 17, 2025 8:39am Mitral valve disease acute April 17, 2025 8:39am Pulmonary hypertension acute Ju ly 2024 8:39am Tobacco abuse acute April 17, 2025 8:39am Stented coronary artery February 27, 2025 chronic April 17, 2025 8:39[address] [facility] Work Phone: 1(855) 136-758205-05-2025 Evaluation note* Diagnosis Onset Date Resolution Status Admit Date Left subclavian artery occlusion chronic February 05, 2025 3: 47pm Alcohol abuse acute April 17, 2025 8:39am Claudication acute April 17, 2 025 8:39am Decreased cardiac ejection fraction acute April 17, 2025 8:39am Mitral valve disease acute April 17, 2025 8:39am Tobacco abuse acute April 17, 2025 8:39am Pulmonary hypertension chronic Ju ly 2024 8:39am Stented coronary artery February 27, 2025 chronic April 17, 2025 8:39am [facility] Work Phone: 1(372) 179-496305-05-2025 Evaluation note* Diagnosis Onset Date Resolution Status Admit Date Left subclavian artery occlusion chronic February 05, 2025 3: 47pm Alcohol abuse acute April 17, 2025 8:39am Claudication acute April 17, 2 025 8:39am Decreased cardiac ejection fraction acute April 17, 2025 8:39am Mitral valve disease acute April 17, 2025 8:39am Tobacco abuse acute April 17, 2025 8:39am Pulmonary hypertension chronic Ju ly 2024 8:39am Stented coronary artery February 27, 2025 chronic April 17, 2025 8:39am Alcohol abuse acute May 8:11am Claudication acute May 17, 2025 8:11am Decreased cardiac ejection fraction acute May 17 8:11am Essential hypertension acute Au mayra 2024 8:11am Mitral valve disease acute Augu st 2024 8:11am Tobacco abuse acute May 8:11am Pulmonary hypertension chronic Au mayra 2024 8:11am Stented coronary artery February 27, 2025 chronic May 17, 2025 8:11am [facility] Work Phone: 1(337) 248-230205-05-2025 Evaluation note* Diagnosis Onset Date Resolution Status Admit Date Left subclavian artery occlusion chronic February 05, 2025 3: 47pm Alcohol abuse acute April 17, 2025 8:39am Claudication acute April 17, 2 025 8:39am Decreased cardiac ejection fraction acute April 17, 2025 8:39am Mitral valve disease acute April 17, 2025 8:39am Tobacco abuse acute April 17, 2025 8:39am Pulmonary hypertension chronic Ju 2024 8:39am Stented coronary artery February 27, 2025 chronic April 17, 2025 8:39am Alcohol abuse acute May 8:11am Claudication acute May 17, 2025 8:11am Decreased cardiac ejection fraction acute May 17 8:11am Essential hypertension acute Au 2024 8:11am Mitral valve disease acute Augu st 2024 8:11am Tobacco abuse acute May 8:11am Pulmonary hypertension chronic Au 2024 8:11am Stented coronary artery February 27, 2025 chronic May 17, 2025 8:11am Claudication acute May 23, 2025 8:05am PAD (peripheral artery disease) acute May 23 8:05am [facility] Work Phone: 1(201) 395-719104-01-2025 Hospital Discharge instructions* Patient Instructions* Abimbola Burgos - 01/02/2025 10:45 AM EDT The Department of Radiology Imaging Services Contrast Medication Post Instructions During your Radiology Procedure today you were given IV contrast medication (Omnipaque). This contrast medication is clear and will be excreted through your kidneys. Please follow the instructions below. If you are not on any fluid restrictions, please drink 8-10 glasses of water within the next 24 hours, to flush your kidneys. Thank you for choosing the Department of Radiology at [facility]. If you need further follow up please do not hesitate to contact us. Contact [facility] NoteHNO ID: [id number] Author: KALPANA PEARCE, ? Service: ? Author Type: Nurse Practitioner Type: Progress Notes Filed: 07/08/2024 06:32 Note Text: Johny Santamaria 1960 07/06/2024 HISTORY OF PRESENT ILLNESS: Johny Santamaria is a 64 year old male referred for evaluation of elevated ferritin. Iron studies reviewed, iron sat 41% LFT elevated also AST/ALT 73/74 respectively. Drinks 12 beers a day Interval Hx: Mr. Santamaria presents today for follow up and lab review. We discussed workup negative for blood disorders causing elevated ferritin. He denies any new issues since last being seen. No recent illness. Denies fevers, chills, NS. Appetite is good. No unintentional weight loss. He continues drinking 12 beers per day. Long discussion today on EtOH causing elevated ferritin. Pt acknowledged. Current smoker, has cut back some CLINICAL IMPRESSION: Elevated ferritin, iron sat normal, ?iron overload versus primary liver issue Elevated LFT RECOMMENDATION/PLAN: 1. US liver - hepatic steatosis. 2. Hemochromatosis mutation assay negative Encouraged lifestyle changes. - Reviewed elevated ferritin likely caused by EtOH use. Pt drinks 12 beers daily, no hard liquor - Will recheck LFTs, CRP, GGT, today - Advised patient to cut back alcohol use. Ultimately would recommend complete cessation for 3 months and then repeat ferritin. Discussed risks and concern for eventual liver failure with pt. Liver disease likely causing thrombocytopenia as well. Reviewed this will pt at increased risk of bleeding. Pt acknowledged and states that he will try to cut back. Follow up with Dr. Taylor for monitoring. If no improvement in ferritin with 3 months of no alcohol use could work up further with MRI. Written and verbal health teaching given to patient, patient verbalizes understanding and agrees with treatment plan. PAST MEDICAL HISTORY Diagnosis Date ETOH abuse Glaucoma Tobacco use PAST SURGICAL HISTORY Procedure Laterality Date TONSILLECTOMY AND ADENOIDECTOMY HX URETHRAL DILATION, MALE FAMILY HISTORY Problem Relation Age of Onset Hypertension Mother Diabetes Mother Blindness Mother Heart Father Hypertension Father NM multiple around age 60; stents and CABG Lipids Father Coronary Artery Disease Father Social History Tobacco Use Smoking status: Every Day Current packs/day: 1.00 Types: Cigarettes Smokeless tobacco: Never Vaping Use Vaping status: Never Used Substance Use Topics Alcohol use: Yes Comment: 12 pack beer daily Drug use: No ALLERGIES: ALLERGIES Allergen Reactions Environmental [Othe* CURRENT OUTPATIENT MEDICATIONS: latanoprost (XALATAN) 0.005 % ophthalmic solution Use 1 Drop in both eyes once daily. albuterol HFA (PROVENTIL HFA, VENTOLIN HFA) 90 mcg/actuation inhaler Inhale 2 Puffs as instructed every 4 hours as needed. STIOLTO RESPIMAT 2.5-2.5 mcg/actuation inhaler Inhale 2 Puffs as instructed once daily. dorzolamide-timolol (COSOPT) 22.3-6.8 mg/mL ophthalmic solution Use 1 Drop in both eyes two times a day. REVIEW OF SYSTEMS: GENERAL: No fever, night sweats, weight loss or malaise. All other reviewed and negative other than HPI. All systems reviewed on 07/06/2024 with pertinent positives and negatives as outlined in the interval history. PHYSICAL EXAMINATION: VITAL SIGNS: BP 186/80 Pulse 64 Temp 97.8 Resp 12 Wt 177 lb (80.3kg) SpO2 99% GENERAL APPEARANCE: Well appearing, in no acute distress, alert and oriented x3, well-hydrated, well nourished. LUNGS: clear HEART: RRR EXTREMITIES: no edema SKIN: No ulceration, rashes, No jaundice I have performed the physical exam today (07/08/2024) and have edited the note to correlate with current findings. Kalpana Pearce APRN.STAFF DEVELOPMENT COORDINATOR I spent a total of 30 minutes on the date of the service which included preparing to see the patient, [id number] patient care, completing clinical documentation, and counseling and educating the patient/family/caregiver. Portions of this note including HPI, ROS, impression/plan may have been copied forward as to provide important historical information essential in contributing to medical decision making. Documentation has been reviewed and edited as necessary to support clinical decision making for today's visit and to reflect my own independent evaluation of this patient.[facility] 07-06-2024 History of Present illness Narrative* Kalpana Pearce - 07/06/2024 8:46 AM EDT Johny Santamaria 1960 07/06/2024 HISTORY OF PRESENT ILLNESS: Johny Santamaria is a 64 year old male referred for evaluation of elevated ferritin. Iron studies reviewed, iron sat 41% LFT elevated also AST/ALT 73/74 respectively. Drinks 12 beers a day Interval Hx: Mr. Santamaria presents today for follow up and lab review. We discussed workup negative for blood disorders causing elevated ferritin. He denies any new issues since last being seen. No recent illness. Denies fevers, chills, NS. Appetite is good. No unintentional weight loss. He continues drinking 12 beers per day. Long discussion today on EtOH causing elevated ferritin. Pt acknowledged. Current smoker, has cut back some CLINICAL IMPRESSION: Elevated ferritin, iron sat normal, ?iron overload versus primary liver issue Elevated LFT RECOMMENDATION/PLAN: 1. US liver - hepatic steatosis. 2. Hemochromatosis mutation assay negative Encouraged lifestyle changes. - Reviewed elevated ferritin likely caused by EtOH use. Pt drinks 12 beers daily, no hard liquor - Will recheck LFTs, CRP, GGT, today - Advised patient to cut back alcohol use. Ultimately would recommend complete cessation for 3 months and then repeat ferritin. Discussed risks and concern for eventual liver failure with pt. Liver disease likely causing thrombocytopenia as well. Reviewed this will pt at increased risk of bleeding.Pt acknowledged and states that he will try to cut back. Follow up with Dr. Taylor for monitoring. If no improvement in ferritin with 3 months of no alcohol use could work up further with MRI. Written and verbal health teaching given to patient, patient verbalizes understanding and agrees with treatment plan. PAST MEDICAL HISTORY Diagnosis Date ETOH abuse Glaucoma Tobacco use PAST SURGICAL HISTORY Procedure Laterality Date TONSILLECTOMY AND ADENOIDECTOMY HX URETHRAL DILATION, MALE FAMILY HISTORY Problem Relation Age of Onset Hypertension Mother Diabetes Mother Blindness Mother Heart Father Hypertension Father NM multiple around age 60; stents and CABG Lipids Father Coronary Artery Disease Father Social History Tobacco Use Smoking status: Every Day Current packs/day: 1.00 Types: Cigarettes Smokeless tobacco: Never Vaping Use Vaping status: Never Used Substance Use Topics Alcohol use: Yes Comment: 12 pack beer daily Drug use: No ALLERGIES: ALLERGIES Allergen Reactions Environmental [Othe* CURRENT OUTPATIENT MEDICATIONS: latanoprost (XALATAN) 0.005 % ophthalmic solution Use 1 Drop in both eyes once daily. albuterol HFA (PROVENTIL HFA, VENTOLIN HFA) 90 mcg/actuation inhaler Inhale 2 Puffs as instructed every 4 hours as needed. STIOLTO RESPIMAT 2.5-2.5 mcg/actuation inhaler Inhale 2 Puffs as instructed once daily. dorzolamide-timolol (COSOPT) 22.3-6.8 mg/mL ophthalmic solution Use 1 Drop in both eyes two times aday. REVIEW OF SYSTEMS: GENERAL: No fever, night sweats, weight loss or malaise. All other reviewed and negative other than HPI. All systems reviewed on 07/06/2024 with pertinent positives and negatives as outlined in the interval history. PHYSICAL EXAMINATION: VITAL SIGNS: BP 186/80 Pulse 64 Temp 97.8 Resp 12 Wt 177 lb (80.3kg) SpO2 99% GENERAL APPEARANCE: Well appearing, in no acute distress, alert and oriented x3, well-hydrated, well nourished. LUNGS: clear HEART: RRR EXTREMITIES: no edema SKIN: No ulceration, rashes, No jaundice I have performed the physical exam today (07/08/2024) and have edited the note to correlate with current findings. Kalpana Pearce APRN.STAFF DEVELOPMENT COORDINATOR I spent a total of 30 minutes on the date of the service which included preparing to see the patient, [id number] patient care, completing clinical documentation, and counseling and educating the patient/family/caregiver. Portions of this note including HPI, ROS, impression/plan may have been copied forward as to provide important historical information essential in contributing to medical decision making. Documentation has been reviewed and edited as necessary to support clinical decision making for today's visit and to reflect my own independent evaluation of this patient. [facility] History of Present illness Narrative* Serene Godwin [facility] - 06/27/2024 9:15 AM EDT Radiology Service Progress Note PATIENT NAME: Johny Santamaria DATE OF SERVICE: June 27, 2024 TIME: 9:53 AM PATIENT IDENTITY VERIFICATION COMPLETED USING TWO (2) IDENTIFIERS: Name and Date of confirmedby patient verbally. FALL SCREENING: Has the patient had 2 falls in the last year or 1 fall with injury or currently using an Ambulatory Assistive Device (Walker, Cane, Wheelchair, Crutches, etc.)? No PATIENT GENDER DATA: Male PATIENT RELEVANT IMPLANT DATA REVIEWED: Not Applicable PATIENT PRESENTS WITH AN IMPLANTABLE OR ATTACHED CHIEF INVESTMENT OFFICER: No RADIOLOGY DEPARTMENT: Ultrasound PERIPHERAL IV DATA: Not applicable SIGNED BY: Serene Godwin RDMS June 27, 2024 9:53 AM documented in this encounterCorey [facility]09-24-[facility]24 NoteHNO ID: [id number] Author: SERENE GODWIN RDMS Service: ? Author Type: Public Speaking Coach Type: Progress Notes Filed: 06/27/2024 09:54 Note Text: Radiology Service Progress Note PATIENT NAME: Johny Santamaria DATE OF SERVICE: June 27, 2024 TIME: 9:53 AM PATIENT IDENTITY VERIFICATION COMPLETED USING TWO (2) IDENTIFIERS: Name and Date of confirmed by patient verbally. FALL SCREENING: Has the patient had 2 falls in the last year or 1 fall with injury or currently using an Ambulatory Assistive Device (Walker, Cane, Wheelchair, Crutches, etc.)? No PATIENT GENDER DATA: Male PATIENT RELEVANT IMPLANT DATA REVIEWED: Not Applicable PATIENT PRESENTS WITH AN IMPLANTABLE OR ATTACHED CHIEF INVESTMENT OFFICER: No RADIOLOGY DEPARTMENT: Ultrasound PERIPHERAL IV DATA: Not applicable SIGNED BY: Serene Godwin RDMS June 27, 2024 9:53 [facility]09-18-2024 NoteHNO ID: [id number] Author: INOCENCIO MCKEON MD Service: ? Author Type: Physician Type: Progress Notes Filed: 06/21/2024 11:59 Note Text: HISTORY OF PRESENT ILLNESS: Johny Santamaria is a 64 year old male referred for evaluation of elevated ferritin. Iron studies reviewed, iron sat 41% LFT elevated also AST/ALT 73/74 respectively. Drinks 12 beers a day CLINICAL IMPRESSION: Elevated ferritin, iron sat normal, ?iron overload versus primary liver issue Elevated LFT RECOMMENDATION/PLAN: 1. US liver 2. Hemochromatosis mutation assay Written and verbal health teaching given to patient, patient verbalizes understanding and agrees with treatment plan. PAST MEDICAL HISTORY Diagnosis Date ETOH abuse Glaucoma Tobacco use PAST SURGICAL HISTORY Procedure Laterality Date TONSILLECTOMY AND ADENOIDECTOMY HX URETHRAL DILATION, MALE FAMILY HISTORY Problem Relation Age of Onset Hypertension Mother Diabetes Mother Blindness Mother Heart Father Hypertension Father NM multiple around age 60; stents and CABG Lipids Father Coronary Artery Disease Father Social History Tobacco Use Smoking status: Every Day Current packs/day: 1.00 Types: Cigarettes Smokeless tobacco: Never Vaping Use Vaping status: Never Used Substance Use Topics Alcohol use: Yes Comment: 12 pack beer daily Drug use: No ALLERGIES: ALLERGIES Allergen Reactions Environmental [Othe* CURRENT OUTPATIENT MEDICATIONS: latanoprost (XALATAN) 0.005 % ophthalmic solution Use 1 Drop in both eyes once daily. albuterol HFA (PROVENTIL HFA, VENTOLIN HFA) 90 mcg/actuation inhaler Inhale 2 Puffs as instructed every 4 hours as needed. STIOLTO RESPIMAT 2.5-2.5 mcg/actuation inhaler Inhale 2 Puffs as instructed once daily. dorzolamide-timolol (COSOPT) 22.3-6.8 mg/mL ophthalmic solution Use 1 Drop in both eyes two times a day. REVIEW OF SYSTEMS: GENERAL: No fever, night sweats, weight loss or malaise. All other reviewed and negative other than HPI. PHYSICAL EXAMINATION: VITAL SIGNS: BP 175/90 Pulse 55 Temp (Src) 98.2 (Temporal) Ht 5' 9.291 (1.76m) Wt 172 lb (78.0kg) SpO2 98% BMI 25.19 kg/(m2). GENERAL APPEARANCE: Well appearing, in no acute distress, alert and oriented x3, well-hydrated, well nourished. I spent a total of 45 minutes on the date of the service which included preparing to see the patient, [id number] patient care, completing clinical documentation, obtaining and/or reviewing separately obtained history, counseling and educating the patient/family/caregiver, ordering medications, tests, or procedures, independently interpreting results (not separately reported), and communicating results to the patient/family/caregiver. Electronically Signed: Inocencio Mckeon MD June 21, 2024 9:01 [facility]09-18-2024 History of Present illness Narrative* Inocencio Mckeon MD - 06/21/2024 9:01 AM EDT HISTORY OF PRESENT ILLNESS: Johny Santamaria is a 64 year old male referred for evaluation of elevated ferritin. Iron studies reviewed, iron sat 41% LFT elevated also AST/ALT 73/74 respectively. Drinks 12 beers a day CLINICAL IMPRESSION: Elevated ferritin, iron sat normal, ?iron overload versus primary liver issue Elevated LFT RECOMMENDATION/PLAN: 1. US liver 2. Hemochromatosis mutation assay Written and verbal health teaching given to patient, patient verbalizes understanding and agrees with treatment plan. PAST MEDICAL HISTORY Diagnosis Date ETOH abuse Glaucoma Tobacco use PAST SURGICAL HISTORY Procedure Laterality Date TONSILLECTOMY AND ADENOIDECTOMY HX URETHRAL DILATION, MALE FAMILY HISTORY Problem Relation Age of Onset Hypertension Mother Diabetes Mother Blindness Mother Heart Father Hypertension Father NM multiple around age 60; stents and CABG Lipids Father Coronary Artery Disease Father Social History Tobacco Use Smoking status: Every Day Current packs/day: 1.00 Types: Cigarettes Smokeless tobacco: Never Vaping Use Vaping status: Never Used Substance Use Topics Alcohol use: Yes Comment: 12 pack beer daily Drug use: No ALLERGIES: ALLERGIES Allergen Reactions Environmental [Othe* CURRENT OUTPATIENT MEDICATIONS: latanoprost (XALATAN) 0.005 % ophthalmic solution Use 1 Drop in both eyes once daily. albuterol HFA (PROVENTIL HFA, VENTOLIN HFA) 90 mcg/actuation inhaler Inhale 2 Puffs as instructed every 4 hours as needed. STIOLTO RESPIMAT 2.5-2.5 mcg/actuation inhaler Inhale 2 Puffs as instructed once daily. dorzolamide-timolol (COSOPT) 22.3-6.8 mg/mL ophthalmic solution Use 1 Drop in both eyes two times aday. REVIEW OF SYSTEMS: GENERAL: No fever, night sweats, weight loss or malaise. All other reviewed and negative other than HPI. PHYSICAL EXAMINATION: VITAL SIGNS: BP 175/90 Pulse 55 Temp (Src) 98.2 (Temporal) Ht 5' 9.291 (1.76m) Wt 172 lb (78.0kg) SpO2 98% BMI 25.19 kg/(m^2). GENERAL APPEARANCE: Well appearing, in no acute distress, alert and oriented x3, well-hydrated, well nourished. I spent a total of 45 minutes on the date of the service which included preparing to see the patient, [id number] patient care, completing clinical documentation, obtaining and/or reviewing separately obtained history, counseling and educating the patient/family/caregiver, ordering medications, crystal ts, or procedures, independently interpreting results (not separately reported), and communicating results to the patient/family/caregiver. Electronically Signed: Inocencio Mckeon MD June 21, 2024 9:01 AM documented in this encounterCorey [facility]09-20-[facility]21 History of Present illness Narrative* Iwona Rice RT(R) - 06/23/2021 1:40 PM EDT Radiology Service Progress Note PATIENT NAME: Johny Santamaria DATE OF SERVICE: June 23, 2021 TIME: 1:47 PM PATIENT IDENTITY VERIFICATION COMPLETED USING TWO (2) IDENTIFIERS: Name and Date of confirmedby patient verbally. FALL SCREENING: Has the patient had 2 falls in the last year or 1 fall with injury or currently using an Ambulatory Assistive Device (Walker, Cane, Wheelchair, Crutches, etc.)? No PATIENT GENDER DATA: Male PATIENT RELEVANT IMPLANT DATA REVIEWED: Not Applicable RADIOLOGY DEPARTMENT: General X-ray: Exam(s) Completed: Chest X-Ray PERIPHERAL IV DATA: Not applicable SIGNED BY: RT Marge(R) June 23, 2021 1:47 PM documented in [facility] encounterThe [facility] noteNo assessment information availableWRegional Medical Center Work Phone: Evaluation note* Diagnosis Elevated ferritin- Primary Other abnormal blood chemistry Elevated LFTs Other abnormal blood chemistry [facility]* Diagnosis Elevated ferritin Other abnormal blood chemistry Elevated LFTs Other abnormal blood chemistry documented in this encounter [facility] note* Diagnosis Suspected COVID-19 virus infection documented in this encounter [facility] note* Diagnosis Elevated ferritin- Primary Other abnormal blood chemistry ETOH abuse Alcohol abuse, unspecified documented in [facility] encounter [facility]* Diagnosis ETOH abuse Alcohol abuse, unspecified Other specified symptoms and signs involving the circulatory and respiratory systems [facility] Diagnosis ETOH abuse Alcohol abuse, unspecified [facility] Diagnosis Subclavian artery stenosis, left Atherosclerosis of other specified arteries [facility] Diagnosis ASCVD (arteriosclerotic cardiovascular disease)- Primary Unspecified cardiovascular disease Chronic combined systolic and diastolic congestive heart failure Chronic combined systolic and diastolic heart failure 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 Abnormal findings on cardiac catheterization 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 Abnormal findings on cardiac catheterization [facility] Diagnosis 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 Abnormal findings on cardiac catheterization 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 Abnormal findings on cardiac catheterization [facility] Discharge instructionsAmbulatory Orders* Phase II, Outpatient Cardiac Rehab Location: None [facility] [employer] Work Phone: [facility] for referral (narrative)* Diagnostic Procedure Only (Routine) - Authorized Specialty Diagnoses / Procedures Referred By Contac t Referred To Contact US IMAGING Diagnoses Elevated ferritin Elevated LFTs Procedures US ABD RIGHT UPPER QUADRANT US ABDOMINAL REAL TIME W/[place] [address] [place] [address] [place] [address] Referral ID Status Reason Start Date Expiration Date Visits Requested Visits Authorized [id number] Authorized Auto-Generat ed Referral 06/21/2024 07/21/2025 1 1 [facility] for referral (narrative)* Diagnostic Procedure Only (Routine) - Closed Specialty Diagnoses / Procedures Referred By Contac t Referred To Contact US IMAGING Diagnoses Elevated ferritin Elevated LFTs Procedures US ABD RIGHT UPPER QUADRANT US ABDOMINAL REAL TIME W/[place] [id number] [place] [address] Referral ID Status Reason Start Date Expiration Date V isits Requested Visits Authorized [id number] Closed Auto-Generate d Referral 06/21/2024 07/21/2025 1 1 [facility] for referral (narrative)No reason for referral information availableWRegional Medical Center Work Phone: Reason for visit Narrative* Radiology (Routine) - New Request Specialty Diagnoses / Procedures Referred By Contac t Referred To Contact Diagnoses ETOH abuse Other specified symptoms and signs involving the circulatory and respiratory systems Procedures VASC DUPLEX CAROTID BILATERAL IN DUPLEX SCAN EXTRACRANIAL ART COMPL BI STUDY Kaylene Anna, COIN COUNTER AND WRAPPER-STAFF DEVELOPMENT COORDINATOR [address] [place] [address] Phone: tel: fax: Referral ID Status Reason Start Date Expiration Date V isits Requested Visits Authorized [id number] New Request 11/28/2024 12/23/2025 1 1 [facility] [place] for visit Narrative* Radiology (Routine) - New Request Specialty Diagnoses / Procedures Referred By Contac t Referred To Contact Diagnoses ETOH abuse Procedures US ABDOMEN LIVER W/ ELASTOGRAPHY Kaylene Anna, COIN COUNTER AND WRAPPER-STAFF DEVELOPMENT COORDINATOR [address] [place] [address] Phone: tel: fax: Referral ID Status Reason Start Date Expiration Date V isits Requested Visits Authorized [id number] New Request 11/28/2024 12/23/2025 1 1 [facility] for visit Narrative* MRI/CAT Scan (Routine) - Closed Specialty Diagnoses / Procedures Referred By Contac t Referred To Contact Diagnoses Subclavian artery stenosis, left Procedures CT ANGIO CHEST (NONCORONARY) CHG CT ANGIOGRAPHY CHEST W/CONTRAST/NONCONTRAST Kaylene Anna COIN COUNTER AND WRAPPER-STAFF DEVELOPMENT COORDINATOR [address] [place] [phone] Phone: tel: fax: Referral ID Status Reason Start Date Expiration Date Visits Re quested Visits Authorized [id number] Closed 12/18/2024 01/12/2026 [facility] Auth/Cert Specialty Diagnoses / Procedures Referred By Alyssa t Referred To Contact Diagnoses 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 Abnormal findings on cardiac catheterization 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 [I25.119] Procedures IN PRQ TRLUML CORONARY STENT W/ANGIO ONE ART/BRNCH STENT-CORONARY Scooby, Consuelo Gómez MD, PhD [address] [facility] [address] [place] [address] Phone: tel: fax: [facility] [address] [place] [address] Referral ID Status Reason Start Date Expiration Date Visits Re quested Visits Authorized [id number] 1 1 [facility] Chief Complaint and Reason for Visit Chief Complaint NODULE Chief Complaint Admit Date Subclavian/carotid stenosis February 05 3:47pm LABS March 19, 2025 9:30 am Reason for Visit Admit Date Left subclavian artery occlusion February 3:47pm Chief Complaint Admit Date Subclavian/carotid stenosis February 05 3:47pm LABS March 19, 2025 9:30 am Referral Order April 03, 2025 9:07a m Chief Complaint Admit Date Subclavian/carotid stenosis February 05 3:47pm LABS March 19, 2025 9:30 am Referral Order April 03, 2025 9:07a m PCI w/stenting April 10, 2025 9:22a m PCI w/stenting April 16, 2025 9:15 am Chief Complaint Admit Date Subclavian/carotid stenosis February 05 3:47pm LABS March 19, 2025 9:30 am Referral Order April 03, 2025 9:07a m PCI w/stenting April 10, 2025 9:22a m PCI w/stenting April 16, 2025 9:15 am 4 M FU April 17, 2025 8:39 am Reason for Visit Admit Date Left subclavian artery occlusion February 3:47pm Alcohol abuse April 17, 2025 8:39 am CAD (coronary artery disease) April 17, 2025 8:39am Decreased cardiac ejection fraction April 17, 2025 8:39am Mitral valve disease April 17, 2025 8:3 9am Pulmonary hypertension April 17, 2025 8 :39am Tobacco abuse April 17, 2025 8:39 am Stented coronary artery April 17, 2025 8:39am Chief Complaint Admit Date Subclavian/carotid stenosis February 05 3:47pm LABS March 19, 2025 9:30 am Referral Order April 03, 2025 9:07a m PCI w/stenting April 10, 2025 9:22a m 4 M FU April 17, 2025 8:39 am tobacco use, alcohol use, stented barrera ry artery April 26, 2025 9:34am PCI w/stenting April 30, 2025 9:15 am Reason for Visit Admit Date Left subclavian artery occlusion February 3:47pm Alcohol abuse April 17, 2025 8:39 am Claudication April 17, 2025 8:39 am Decreased cardiac ejection fraction April 17, 2025 8:39am Mitral valve disease April 17, 2025 8:3 9am Tobacco abuse April 17, 2025 8:39 am Pulmonary hypertension April 17, 2025 8 :39am Stented coronary artery April 17, 2025 8:39am Chief Complaint Admit Date Subclavian/carotid stenosis February 05 3:47pm LABS March 19, 2025 9:30 am Referral Order April 03, 2025 9:07a m PCI w/stenting April 10, 2025 9:22a m 4 M FU April 17, 2025 8:39 am tobacco use, alcohol use, stented barrera ry artery April 26, 2025 9:34am PCI w/stenting April 30, 2025 9:15 am PCI w/stenting May 16, 2025 9: 15am 1 M FU May 17, 2025 8: 11am Reason for Visit Admit Date Left subclavian artery occlusion February 3:47pm Alcohol abuse April 17, 2025 8:39 am Claudication April 17, 2025 8:39 am Decreased cardiac ejection fraction April 17, 2025 8:39am Mitral valve disease April 17, 2025 8:3 9am Tobacco abuse April 17, 2025 8:39 am Pulmonary hypertension April 17, 2025 8 :39am Stented coronary artery April 17, 2025 8:39am Alcohol abuse May 17, 2025 8: 11am Claudication May 17, 2025 8: 11am Decreased cardiac ejection fraction [facility] 2024 8:11am Essential hypertension May 17, 2025 8:11am Mitral valve disease May 17, 2025 8 :11am Tobacco abuse May 17, 2025 8: 11am Pulmonary hypertension May 17, 2025 8:11am Stented coronary artery May 17 8:11am Chief Complaint Admit Date Subclavian/carotid stenosis February 05 3:47pm LABS March 19, 2025 9:30 am Referral Order April 03, 2025 9:07a m PCI w/stenting April 10, 2025 9:22a m 4 M FU April 17, 2025 8:39 am tobacco use, alcohol use, stented barrera ry artery April 26, 2025 9:34am PCI w/stenting April 30, 2025 9:15 am 1 M FU May 17, 2025 8: 11am PCI w/stenting May 21, 2025 9: 15am Discuss Results May 23, 2025 8: 05am Chief Complaint Admit Date Subclavian/carotid stenosis February 05 3:47pm LABS March 19, 2025 9:30 am Referral Order April 03, 2025 9:07a m PCI w/stenting April 10, 2025 9:22a m 4 M FU April 17, 2025 8:39 am tobacco use, alcohol use, stented barrera ry artery April 26, 2025 9:34am PCI w/stenting April 30, 2025 9:15 am 1 M FU May 17, 2025 8: 11am Discuss Results May 23, 2025 8: 05am PCI w/stenting May 30, 2025 9: 15am Reason for Visit Admit Date Left subclavian artery occlusion February 3:47pm Alcohol abuse April 17, 2025 8:39 am Claudication April 17, 2025 8:39 am Decreased cardiac ejection fraction April 17, 2025 8:39am Mitral valve disease April 17, 2025 8:3 9am Tobacco abuse April 17, 2025 8:39 am Pulmonary hypertension Latoya 15th, 2025 8 :39am Stented coronary artery April 17, 2025 8:39am Alcohol abuse May 17, 2025 8: 11am Claudication May 17, 2025 8: 11am Decreased cardiac ejection fraction Augu st 2024 8:11am Essential hypertension May 17, 2025 8:11am Mitral valve disease May 17, 2025 8 :11am Tobacco abuse May 17, 2025 8: 11am Pulmonary hypertension May 17, 2025 8:11am Stented coronary artery May 17 8:11am Claudication May 23, 2025 8: 05am PAD (peripheral artery disease) May 052024 8:05am Family History No Family History Records Found Relationship Condition Age at Onset Recorded Date/T adi Not Specified Diabetes mellitus Unknown Cardiac disease Unknown Advance Directives No Advanced Directives Records Found Advance Directive Response Recorded Date/ Time Living Will No August 07 3:56pm Power of Genomics Scientist No August 07, 2021 3:56pm Advance Directive Response Recorded Date/ Time Advance Directives Yes November 11:37am Advance Directive Response Recorded Date/ Time Advance Directives on File No April 10, 2025 9:39am Living Will Yes April 10, 2025 9 :53am Do you have a Healthcare Power of Genomics Scientist? Yes April 10, 2025 9:53am Advance Directives Yes November 11:37am Summary Purpose Additional Source Comments Goals (unrecognized section and content) Goals may be documented in a n alternate sectionGoals may be documented in an alternate sectionGoals may be documented in an alternate sectionGoals may be documented in an alternate sectionGoals may be documented in an alternate sectionGoals may be documented in an alternate sectionGoals may be documented in an alternate sectionGoals may be documented in an alternate sectionGoals may be documented in an alternate sectionGoals may be documented in an alternate section Source Comments (unrecognize d section and content) In the event this informatio n is protected by the Federal Confidentiality of Alcohol and Drug Abuse Patient Records regulations: The Federal rules restrict any use of the information to criminally investigate or prosecute any alcohol or drug abuse patient.[facility] Hospital[facility] the event this information is protected by the Federal Confidentiality of Alcohol and Drug Abuse Patient Records regulations: The Federal rules restrict any use of the information to criminally investigate or prosecute any alcohol or drug abuse patient.[facility] HospitalIn the event this information is protected by the Federal Confidentiality of Alcohol and Drug Abuse Patient Records regulations: The Federal rules restrict any use of the information to criminally investigate or prosecute any alcohol or drug abuse patient.[facility] Hospital[facility] the event this information is protected by the Federal Confidentiality of Alcohol and Drug Abuse Patient Records regulations: The Federal rules restrict any use of the information to criminally investigate or prosecute any alcohol or drug abuse patient.[facility] Reason for Visit (unrecogniz ed section and content) Reason Comments New Patient Reason Comments Radiology US Specialty Diagnoses / Procedures Referred By Contac t Referred To Contact US IMAGING Diagnoses Elevated ferritin Elevated LFTs Procedures US ABD RIGHT UPPER QUADRANT US ABDOMINAL REAL TIME W/[place] [address] [place] [address] [place] [address] Referral ID Status Reason Start Date Expiration Date V isits Requested Visits Authorized [id number] Closed Auto-Generate d Referral 06/21/2024 07/21/2025 1 1 Reason Comments Established Patient OV, US 06/27/24 Reason Comments Heart Problem Follow up after hear t cath, echo stress test heart cath. Still slight of sob Specialty Diagnoses / Procedures Referred By Contluciana nielsen Referred To Contact Cardiovascular Medicine Diagnoses 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 Kaylene Anna, COIN COUNTER AND WRAPPER-STAFF DEVELOPMENT COORDINATOR [address] [place] [address] Phone: tel: fax: Referral ID Status Reason Start Date Expiration Date V isits Requested Visits Authorized [id number] New Request 02/06/2025 03/03/2026 1 1 Care Teams (unrecognized sec tion and content) Stone Operator Relationship Specialty Start Date End Date Lali Taylor MD [address] [facility] [address] [place], [place] [address] PCP - General Family Medicine 06/21/24 Noman Burroughs [address] [place], [place] [id number] Ophthalmology 06/21/24 Stone Operator Relationship Specialty Start Date End Date Lali Taylor MD [address] [facility] [address] [place], [place] [address] PCP - General Family Medicine 06/21/24 Noman Burroughs [address] [place], [place] [id number] Ophthalmology 06/21/24 Inocencio Mckeon MD [address] [place], [place] [id number] Hematology/Oncology 06/26/24 Stone Operator Relationship Specialty Start Date End Date Lali Taylor MD [address] [facility] [address] [place], [place] [address] PCP - General Family Medicine 06/21/24 Noman Burroughs [address] [place], [place] [id number] Ophthalmology 06/21/24 Inocencio Mckeon MD [address] [place], [place] [id number] Hematology/Oncology 06/26/24 Team Status: Active Member Role Status Dates Dr. Lali Taylor MD Primary Care Provider Active Team Status: Inactive Member Role Status Dates Dr. Lali Taylor MD Primary Care Provider Active Start: February 05, 2025 End: February 05, 2025 Dr. Lali Taylor MD Referring Provider Active Start: February 05, 2025 End: February 05, 2025 Dr. Tramaine Garrison MD Attending Provider Active S tart: February 05, 2025 End: February 05, 2025 Team Status: Inactive Member Role Status Dates Dr. Lali Taylor MD Primary Care Provider Active Start: March 19, 2025 End: March 19, 2025 Consuelo Almodovar MD Attending Provider Active St art: March 19, 2025 End: March 19, 2025 Consuelo Almodovar MD Referring Provider Active St art: March 19, 2025 End: March 19, 2025 Stone Operator Relationship Specialty Start Date End Date Lali Taylor MD [address] [facility] [address] [place] [address] PCP - General Family Medicine 03/29/25 Lali Marie CNP [address] [id number] Cardiovascular Disease 03/29/25 Team Status: Active Member Role/Relationship Status Dates Dr. Lali Taylor MD Primary Care Provider Active Team Status: Inactive Member Role/Relationship Status Dates Dr. Lali Taylor MD Primary Care Provider Active Start: February 05, 2025 End: February 05, 2025 Dr. Lali Taylor MD Referring Provider Active Start: February 05, 2025 End: February 05, 2025 Dr. Tramaine Garrison MD Attending Provider Active S tart: February 05, 2025 End: February 05, 2025 Team Status: Inactive Member Role/Relationship Status Dates Dr. Lali Taylor MD Primary Care Provider Active Start: March 19, 2025 End: March 19, 2025 Consuelo Almodovar MD Attending Provider Active St art: March 19, 2025 End: March 19, 2025 Consuelo Almodovar MD Referring Provider Active St art: March 19, 2025 End: March 19, 2025 Team Status: Active Member Role/Relationship Status Dates Dr. Lali Taylor MD Primary Care Provider Active Start: April 03, 2025 Dr. Jamarcus Redd MD Attending Provider Active S tart: April 03, 2025 Team Status: Inactive Member Role/Relationship Status Dates Dr. Lali Taylor MD Primary Care Provider Active Start: April 10, 2025 End: April 10, 2025 Dr. Jamarcus Redd MD Attending Provider Active S tart: April 10, 2025 End: April 10, 2025 Dr. Jamarcus Redd MD Referring Provider Active S tart: April 10, 2025 End: April 10, 2025 Team Status: Active Member Role/Relationship Status Dates Dr. Lali Taylor MD Primary Care Provider Active Start: April 16, 2025 Dr. Jamarcus Redd MD Attending Provider Active S tart: April 16, 2025 Dr. Jamarcus Redd MD Referring Provider Active S tart: April 16, 2025 Team Status: Inactive Member Role/Relationship Status Dates Dr. Lali Taylor MD Primary Care Provider Active Start: April 17, 2025 End: April 17, 2025 Dr. Lali Taylor MD Referring Provider Active Start: April 17, 2025 End: April 17, 2025 Lali H Roof AUTOCUTTER, AUTOCUTTER-C Attending Provider Active S tart: April 17, 2025 End: April 17, 2025 Team Status: Inactive Member Role/Relationship Status Dates Dr. Lali Taylor MD Primary Care Provider Active Start: April 17, 2025 End: April 17, 2025 Dr. Lali Taylor MD Referring Provider Active Start: April 17, 2025 End: April 17, 2025 Lali Marie AUTOCUTTER, AUTOCUTTER-C Attending Provider Active S tart: April 17, 2025 End: April 17, 2025 Team Status: Inactive Member Role/Relationship Status Dates Dr. Lali Taylor MD Primary Care Provider Active Start: April 26, 2025 End: April 26, 2025 Lali Marie AUTOCUTTER, AUTOCUTTER-C Attending Provider Active S tart: April 26, 2025 End: April 26, 2025 Lali Marie AUTOCUTTER, AUTOCUTTER-C Referring Provider Active S tart: April 26, 2025 End: April 26, 2025 Team Status: Active Member Role/Relationship Status Dates Dr. Lali Taylor MD Primary Care Provider Active Start: April 26, 2025 Dr. Tramaine Garrison MD Attending Provider Active S tart: April 26, 2025 Team Status: Active Member Role/Relationship Status Dates Dr. Lali Taylor MD Primary Care Provider Active Start: April 30, 2025 Dr. Jamarcus Redd MD Attending Provider Active S tart: April 30, 2025 Dr. Jamarcus Redd MD Referring Provider Active S tart: April 30, 2025 Team Status: Inactive Member Role/Relationship Status Dates Dr. Lali Taylor MD Primary Care Provider Active Start: April 30, 2025 End: May 03, 2025 Dr. Jamarcus Redd MD Attending Provider Active S tart: April 30, 2025 End: May 03, 2025 Dr. Jamarcus Redd MD Referring Provider Active S tart: April 30, 2025 End: May 03, 2025 Team Status: Active Member Role/Relationship Status Dates Dr. Lali Taylor MD Primary Care Provider Active Start: May 16, 2025 Dr. Jamarcus Redd MD Attending Provider Active S tart: May 16, 2025 Dr. Jamarcus Redd MD Referring Provider Active S tart: May 16, 2025 Team Status: Inactive Member Role/Relationship Status Dates Dr. Lali Taylor MD Primary Care Provider Active Start: May 17, 2025 End: May 17, 2025 Dr. Lali Taylor MD Referring Provider Active Start: May 17, 2025 End: May 17, 2025 Lali Marie AUTOCUTTER, AUTOCUTTER-C Attending Provider Active S tart: May 17, 2025 End: May 17, 2025 Team Status: Active Member Role/Relationship Status Dates Dr. Lali Taylor MD Primary Care Provider Active Start: April 26, 2025 Dr. Tramaine Garrison MD Attending Provider Active S tart: April 26, 2025 Lali Marie AUTOCUTTER, AUTOCUTTER-C Referring Provider Active S tart: April 26, 2025 Team Status: Inactive Member Role/Relationship Status Dates Dr. Lali Taylor MD Primary Care Provider Active Start: May 17, 2025 End: May 17, 2025 Dr. Lali Taylor MD Referring Provider Active Start: May 17, 2025 End: May 17, 2025 Lali Marie AUTOCUTTER, AUTOCUTTER-C Attending Provider Active S tart: May 17, 2025 End: May 17, 2025 Team Status: Active Member Role/Relationship Status Dates Dr. Lali Taylor MD Primary Care Provider Active Start: May 21, 2025 Dr. Jamarcus Redd MD Attending Provider Active S tart: May 21, 2025 Dr. Jamarcus Redd MD Referring Provider Active S tart: May 21, 2025 Team Status: Inactive Member Role/Relationship Status Dates Dr. Lali Taylor MD Primary Care Provider Active Start: May 23, 2025 End: May 23, 2025 Dr. Lali Taylor MD Referring Provider Active Start: May 23, 2025 End: May 23, 2025 ARGENTINA Hobson Attending Provider Active Star t: May 23, 2025 End: May 23, 2025 Team Status: Inactive Member Role/Relationship Status Dates Dr. Lali Taylor MD Primary Care Provider Active Start: May 23, 2025 End: May 23, 2025 Dr. Lali Taylor MD Referring Provider Active Start: May 23, 2025 End: May 23, 2025 ARGENTINA Hobson Attending Provider Active Star t: May 23, 2025 End: May 23, 2025 Team Status: Inactive Member Role/Relationship Status Dates Dr. Lali Taylor MD Primary Care Provider Active Start: May 30, 2025 End: June 03, 2025 Dr. Jamarcus Redd MD Attending Provider Active S tart: May 30, 2025 End: June 03, 2025 Dr. Jamarcus Redd MD Referring Provider Active S tart: May 30, 2025 End: June 03, 2025 (unrecognized sect ion and content) No Status Records FoundNo Status Records FoundNo Status Records Found INFORMATION SOURCE (unrecogn ized section and content) DATE CREATED AUTHOR 07/10/2024 [facility] DATE CREATED AUTHOR AUTHOR'S ORGANIZ ATION 05/04/2025 [facility] DATE CREATED AUTHOR AUTHOR'S ORGANIZ ATION 06/05/2025 [facility] Scheduled Active and Recently Administ ered Medications (unrecognized section and content) Medication Order 03/28/2025 03/29/2025 03/30/2025 aspirin chewable tablet 324 mg (COMPLETED) 324 mg, Oral, ONCE, 1 dose, On Aida 03/29/25 at 0900, Patient to receive at least 30 minutes prior to procedure. Instruct patient to chew and not swallow., Pre-op/Pre-Proc 920 (Given - Provider: Thalia Hardy RN) aspirin chewable tablet 81 mg 81 mg, Oral, DAILY, First dose on Wed03/30/25 at 0900, Until Discontinued 811 (Given - Provid er: Nevaeh Pratt, JV) clopidogrel (PLAVIX) tablet 600 mg (COMPLETED) 600 mg, Oral, ONCE, 1 dose, On Wed03/30/25 at 1000, Post-op/Post-Proc 08 (Given - Provid er: Nevaeh Pratt, JV) Clopidogrel (PLAVIX) tablet 75 mg 75 mg, Oral, DAILY, First dose on Wed03/31/25 at 0900, Until Discontinued dorzolamide (TRUSOPT) 2 % ophthalmic solution 1 drop 1 drop, Both Eyes, 2 TIMES DAILY, First dose on Aida 03/29/25 at 1400, Until Discontinued, If given with other meds, separate by 5 minutes 1738 (Given - Provider: Mylene Oliveira RN) 812 (Given - Provider: Nevaeh Pratt RN) furOSEmide (LASIX) tablet 20 mg 20 mg, Oral, DAILY, First dose on Wed03/30/25 at 0900, Until Discontinued 811 (Given - Provid er: Nevaeh Pratt RN) Latanoprost (XALATAN) 0.005 % ophthalmic solution 1 drop 1 drop, Both Eyes, DAILY, First dose on Wed03/29/25 at 1400, Until Discontinued, Remove contact lenses 1737 (Given - Provider: Mylene Oliveira RN) 812 (Not Given - Provider: Nevaeh Pratt RN - Reason: Patient/family refused) Lisinopril (PRINIVIL) tablet 10 mg (COMPLETED) 10 mg, Oral, ONCE, 1 dose, On Wed03/30/25 at 1115 1045 (Given - Provid er: Nevaeh Pratt RN) Lisinopril (PRINIVIL) tablet 2.5 mg 2.5 mg, Oral, DAILY, First dose on Wed03/30/25 at 0900, Until Discontinued 811 (Given - Provid er: Nevaeh Pratt RN) Rosuvastatin (CRESTOR) tablet 40 mg 40 mg, Oral, DAILY, First dose on Wed03/30/25 at 0900, Until Discontinued 811 (Given - Provid er: Nevaeh Pratt RN) ticagrelor (BRILINTA) tablet 180 mg (COMPLETED) 180 mg, Oral, ONCE, 1 dose, On Wed03/29/25 at 0945, Maintenance doses of aspirin above 100mg reduce the effectiveness of ticagrelor and should be avoided. After any initial dose, use with aspirin 81mg per day. 956 (Given - Provider: Thalia Hardy RN) Timolol maleate (TIMOPTIC) 0.5 % ophthalmic solution 1 drop 1 drop, Both Eyes, 2 TIMES DAILY, First dose on Wed03/29/25 at 1400, Until Discontinued 1737 (Not Given - Provider: Mylene Oliveira RN - Reason: Patient/family refused - Comment: Pt states he does not take this medication at home) 812 (Not Given - Provider: Nevaeh Pratt RN - Reason: Patient/family refused - Comment: per pt not taking) tiotropium bromide-olodaterol (STIOLTO RESPIMAT) 2.5-2.5 MCG/ACT inhaler 2 puff 2 puff, Inhalation, DAILY, First dose on Aida 03/29/25 at 1215, Until Discontinued, For self-administered inhalers, contact Respiratory Therapy for canister activation. 1215 (Not Given - Provider: García Abreu RCP - Reason: Not in room - Comment: pt not in room at the time of order, will start in am)2204 (Given - Provider: Wilma Simons RCP) Continuous Medication Order 03/28/2025 03/29/2025 03/30/2025 Sodium chloride 0.9% IV solution (CANCELED) Intravenous, at 75 mL/hr, CONTINUOUS, Starting on Aida 03/29/25 at 0900, Until Aida 03/29/25 at 1442, Pre-op/Pre-Proc 0921 ($$New Bag$$ - Provider : Thalia Hardy RN)1146 (Stopped - Provider: Thalia Hardy RN) Sodium chloride 0.9% IV solution () 3 mL/kg/hr 81.6 kg Dosing weight (244.8 mL/hr), Intravenous, CONTINUOUS, Starting on Aida 03/29/25 at 1130, Until Aida 03/29/25 at 1429, Administer for Post Low Raw Sugar Cutter Hydration to Prevent Acute Kidney Injury. , Post-op/Post-Proc 1146 (Restarted - Provider: Thalia Hardy RN)1433 (Stopped - Provider: Thalia Hardy RN) PRN Medication Order 03/28/2025 03/29/2025 03/30/2025 Albuterol inhaler 2 puff 2 puff, Inhalation, EVERY 4 HOURS NEEDED, Starting on Aida 03/29/25 at 1139, Until Wed03/30/25 at 1318, Shortness of Breath, Wait at least one(1) full minute between inhalations fentaNYL (SUBLIMAZE) injection (CANCELED) Administer over 2 Minutes, NEEDED, Starting on Aida 03/29/25 at 1031, Until Aida 03/29/25 at 1124, Intra-op/Intra-Proc 1014 (Given - Provider: Lex Camarena RN)1044 (Given - Provider: Bri Hernandez RN)1102 (Given - Provider: Noman Camarena, RN)1115 (Given - Provider: Bri Hernandez RN)1120 (Given - Provider: Danielle Machado RN) Heparin injection (CANCELED) NEEDED, Starting on Aida 03/29/25 at 1029, Until Aida 03/29/25 at 1124, Intra-op/Intra-Proc 1029 (Given - Provider: Lex Camarena RN)1114 (Given - Provider: Bri Hernandez RN) iodixanol (VISIPAQUE) injection 320 mg/mL for [facility] IR (CANCELED) NEEDED, Starting on Aida 03/29/25 at 1111, Until Aida 03/29/25 at 1124, Intra-op/Intra-Proc 1111 (Given - Provider: Ken Almodovar MD, PhD) Lidocaine 2 % injection (CANCELED) NEEDED, Starting on Aida 03/29/25 at 1025, Until Aida 03/29/25 at 1124, Intra-op/Intra-Proc 1025 (Given - Provider: Chris Pelayo MD) midazolam (VERSED) injection (CANCELED) NEEDED, Starting on Aida 03/29/25 at 1014, Until Aida 03/29/25 at 1124, Intra-op/Intra-Proc 1014 (Given - Provider: Lex Camarena RN)1036 (Given - Provider: Bri Hernandez RN)1050 (Given - Provider: Bri Hernandez RN)1102 (Given - Provider: Noman Camarena RN) nitroGLYCERIN in NS 0.9% 1mg/ml syringe SOLN (CANCELED) NEEDED, Starting on Aida 03/29/25 at 1031, Until Aida 03/29/25 at 1124, Intra-op/Intra-Proc 1031 (Given - Provider: Chris Pelayo MD - Comment: Intra-coronary)1046 (Given - Provider: Chris Pelayo MD - Comment: Intra-coronary)1105 (Given - Provider: Chris Pelayo MD) Sodium chloride 0.9% IV solution (COMPLETED) CONTINUOUS NEEDED, Starting on Aida 03/29/25 at 1041, Until Aida 03/29/25 at 1124, Intra-op/Intra-Proc 1041 ($$New Bag$$ - Provider : Bri Hernandez RN) FOR RECORDS PERTAINING TO PATIENTS WHO ARE OR HAVE BEEN ENROLLED IN A CHEMICAL DEPENDENCY/SUBSTANCEABUSE PROGRAM, SOME INFORMATION MAY BE OMITTED. This clinical summary was aggregated from multiple sources. Caution should be exercised in using it in the provision of clinical care. This summary normalizes information from multiple sources, and as a consequence, information in this document may materially change the coding, format and clinical context of patient data. In addition, data may be omitted in some cases. CLINICAL DECISIONS SHOULD BE BASED ON THE PRIMARY CLINICAL RECORDS. [facility] [employer] [facility]. provides no warranty or guarantee of the accuracy or completeness of information in this document.
== END | disposition home or self-care (01) ==
LOC: CT 06:15
PROVIDERS: PCP Family Medicine; Referring Provider Physician Assistant; Visit Provider Physician Assistant
DX: I73.9 Peripheral vascular disease, unspecified (principal)
CPT/HCPCS: 75635; Q9967; A4216

== ENCOUNTER → 2025-06-21 | Outpatient (CLI) | payer BC, MEDICARE, SELFPAY ==
[2025-05-07 07:14] VITALS: BMI 26.0
[2025-06-05 09:53] VITALS: BMI 25.8
--- NOTE | 2025-06-21 08:34 | ECHOD_ITS ---
Reason For Study Reason For Study: EF Eval Procedure This was a 2D Doppler, Color Flow transthoracic echocardiogram. Exam performed in department. Left Ventricle Normal LV size. The left ventricular ejection fraction is 55 %. Mild segmental systolic dysfunction (see wall motion). Stage 1 diastolic dysfunction. Infero-Basal: Akinetic. Posterior-Basal: Mildly hypokinetic. The rest of the wall segments are normal. Right Ventricle Normal RV size. Normal systolic function. Atria Normal left atrium. Normal right atrium. Mitral Valve Bileaflet diffuse mitral valve thickening. Mild-Moderate (1-2+) eccentric mitral valve insufficiency. Tricuspid Valve Normal tricuspid valve. Mild tricuspid valve insufficiency. Aortic Valve Trisinus/trileaflet aortic valve. Mild focal aortic valve calcification. Mild (1+) aortic valve insufficiency. Pulmonic Valve Normal pulmonic valve. Great Vessels Normal aortic root. The pulmonary artery is normal size. Inferior vena cava collapse with respiration. Pericardium/Pleural No pericardial effusion. MMode/2D Measurements & Calculations LVIDd: 5.5 cm IVSd: 1.4 cm LVOT diam: 2.0 cm LVIDs: 4.6 cm LVPWd: 0.97 cm LVOT area: 3.1 cm2 RVDd: 3.6 cm FS: 15.7 % Ao root diam: 3.1 cm LAV(MOD-bp): 62.1 ml LVAd ap4: 38.0 cm2 LAV(MOD-bp) Indexed: 32.0 ml/m2 LVLd ap4: 9.3 cm LAV(MOD-sp2): 67.4 ml EDV(MOD-sp4): 128.9 ml LAV(MOD-sp4): 57.5 ml EDV(sp4-el): 131.4 ml LVAs ap4: 22.5 cm2 LVLs ap4: 8.1 cm ESV(MOD-sp4): 52.9 ml ESV(sp4-el): 52.7 ml EF(MOD-sp4): 58.9 % EF(sp4-el): 59.9 % SV(MOD-sp4): 76.0 ml SV(sp4-el): 78.7 ml LA A4 area: 21.5 cm2 SI(MOD-sp4): 39.2 ml/m2 LA dimension(2D): 4.1 cm RA A4 area: 16.5 cm2 Time Measurements MV dec time: 0.22 sec Doppler Measurements & Calculations MV E max ganga: 72.9 cm/sec Lat Peak E' Ganga: 6.3 cm/sec Med Peak E' Ganga: 4.3 cm/sec MV A max ganga: 121.5 cm/sec E/E' lat: 11.5 E/E' med: 17.1 MV E/A: 0.60 MV V2 max: 135.8 cm/sec Ao V2 max: 198.7 cm/sec MV max P.4 mmHg MV dec slope: 337.9 cm/sec2 Ao max P.8 mmHg MV V2 mean: 51.6 cm/sec Ao V2 mean: 123.4 cm/sec MV mean P.5 mmHg Ao mean P.4 mmHg MV V2 VTI: 44.6 cm Ao V2 VTI: 47.2 cm AV (velocity ratio): 0.59 MVA(VTI): 2.0 cm2 ERLIN(I,D): 1.8 cm2 ERLIN(V,D): 2.0 cm2 AI max ganga: 414.5 cm/sec LV V1 max: 130.0 cm/sec SV(LVOT): 87.3 ml AI max P.7 mmHg LV V1 max P.8 mmHg LV V1 mean P.4 mmHg AI dec slope: 156.3 cm/sec2 LV V1 mean: 84.5 cm/sec AI P1/2t: 777.0 msec LV V1 VTI: 28.1 cm PA V2 max: 115.5 cm/sec PA V2 mean: 73.9 cm/sec ECHO/Echo Complete Interpretation Summary Normal LV size. The left ventricular ejection fraction is 55 %. Mild segmental systolic dysfunction (see wall motion). Mild-Moderate (1-2+) eccentric mitral valve insufficiency. Stage 1 diastolic dysfunction. Mild focal aortic valve calcification. Mild (1+) aortic valve insufficiency. Ordering Physician: Marcelino Marie Referring Physician: Marcelino Marie Performed By: Jill Dow RCS
== END | disposition home or self-care (01) ==
LOC: CVS 08:34
PROVIDERS: PCP Family Medicine; Referring Provider Nurse Practitioner Family; Visit Provider Nurse Practitioner Family
DX: R93.1 Abnormal findings on diagnostic imaging of heart and coronary circulation (principal); I08.0 Rheumatic disorders of both mitral and aortic valves
CPT/HCPCS: 93306

== ENCOUNTER → 2025-06-27 | Outpatient (CLI) | payer BC, MEDICARE, SELFPAY ==
[2025-05-07 07:14] VITALS: BMI 26.0
[2025-06-05 09:53] VITALS: BMI 25.8
--- NOTE | 2025-06-27 07:31 | CT_ITS ---
PROCEDURE: LOW DOSE CT LUNG SCREENING 06/27/2025 REASON FOR EXAM: PERSONAL HISTORY OF NICOTINE DEPENDENCE TECHNIQUE: Procedure Code: [id number] Modality: CT Procedure: LOW DOSE CT LUNG SCREENING Coronal and Sagittal reconstruction series were provided. One or more dose reduction techniques were used (e.g., Automated exposure control, adjustment of the mA and/or kV according to patient size, use of iterative reconstruction technique). REFERENCE LINK: [facility] Lung-RADS RADIATION DOSE SUMMARY: CTDlvol: 3 mGy DLP: 117 mGycm COMPARISON: No comparable prior exam. FINDINGS: PULMONARY NODULES: (Only nodules >3mm are reported) Nodules described below are on series 2 unless otherwise specified. Thyroid gland: Negative. Lungs: Bullous emphysema and blebs in the lung apices right more so than left. Mild centrilobular emphysema. Calcified granuloma in the lingula. . No pulmonary nodules or masses. Pleura: Negative for pleural effusion or pneumothorax. Airways: Imaged bronchi and trachea negative. Mediastinum: Negative for mediastinal mass. Lymph nodes: Negative for axillary, mediastinal or hilar adenopathy. Heart and Vasculature: Heart normal size. Moderate vascular calcifications of the thoracic aorta. Coronary Artery Calcifications: Severe vascular calcifications of the coronary arteries Upper Abdomen: Negative. Hardware: None. Bones: Age-appropriate degenerative changes of the thoracic spine. CT/Low Dose CT Lung Screening IMPRESSION: Emphysema. Lung-RADS Category: 2 BENIGN (BASED ON IMAGING FEATURES OR INDOLENT BEHAVIOR). RECOMMEND 12-MONTH SCREENING LDCT. Reading Location: [id number]
--- OUTSIDE RECORDS SUMMARY | 2025-06-27 07:35 | XMS RPT_ITS | CCD ---
Author Organization [facility] Care Team Providers Care Cruise Coordinator Name Role Phone Lali Taylor MD Primary [...] Provider Unavailmago perez Unavailable Primary Care Provider Unavailmago Taylor MD, Dr. Lali Perez Primary Care Provider Dr. Lali Taylor MD Referring Provider Dr. Tramaine Garrison MD Attending Provider [phone] Consuelo Almodovar MD Attending Provider [phone] Consuelo Almodovar MD Referring Provider Lali Taylor MD Primary Care Provider Lali Marie CNP Unavailable Dr. Jmaarcus Redd MD Attending Provider [phone] Dr. Jamarcus Redd MD Referring Provider Lali Mora Attending Provider Lali Mora Referring Provider CONSUELO ALMODOVAR Attending Unavailable KAYLENE ANNA Referring Unavailable LALI TAYLOR Primary Care Unavailable MALOU ROE Attending Unavailable SELF, SELF Referring Unavailable TRAMAINE, JAMARCUS S Referring Unavailable ZAINA OLIVA Attending Unavailable KISTE, KAYLENE Chavez Referring Unavailable KISTE, KAYLENE C Attending Unavailable KISTE, KAYLENE C Referring Unavailable KISTE, KAYLENE C Attending Unavailable KISTE, KAYLENE C Referring Unavailable KISTE, KAYLENE Chavez Attending Unavailable GUMCONSUELO AGUILAR Admitting Unavailable GUMINA, CONSUELO Gómez Attending Unavailable KISTE, KAYLENE Chavez Attending Unavailable KISTE, KAYLENE C Referring Unavailable GUMINA, CONSUELO Gómez Attending Unavailable ABHISHEKSTEKAYLENE Referring Unavailable Bailey Gerber Attending Provider Claudia MSALL, Dr. Lali Perez Primary Care Provider Claudia SMALL, Dr. Lali Perez Referring Provider Meli SMALL, Dr. Redd Attending Provider [phone] Bailey Gerber Referring Provider [phone] Lali Taylor Primary Care Unavailable Tramaine, Jamarcus Attending Unavailable Lali Taylor Primary Care Unavailable Lali Taylor Referring Unavailable Bailey Sapp Attending Unavailable Lali Taylor Referring Unavailable Tramaine, [place] Consulting Unavailable Tramaine, [place] Attending Unavailable Lali Taylor Primary Care Unavailable Sibilia, Darrion V Consulting Unavailable Lali Taylor Consulting Unavailable Tramaine, Jamarcus Referring Unavailable Tramaine, Jamarcus Attending Unavailable Lali Taylor Primary Care Unavailable Consuelo Almodovar Referring Unavailable Consuelo Almodovar Attending Unavailable Lali Taylor Primary Care Unavailable Lali Taylor Primary Care Unavailable Tramaine, Ajmarcus Attending Unavailable Tramaine, [place] Referring Unavailable Lali Taylor Primary Care Unavailable Sibilia, Darrion V Attending Unavailable Lali Taylor Primary Care Unavailable Sibilia, Darrion V Referring Unavailable Sibilia, Darrion V Attending Unavailable Lali Taylor Referring Unavailable Lali Marie NP Attending Unavailable Lali Taylor Primary Care Unavailable Lali Taylor Primary Care Unavailable Tramaine, [place] Attending Unavailable Lali Marie NP Referring Unavailable Tramaine Garrison Attending Unavailable Lali Taylor Primary Care Unavailable Tramaine, [place] Attending Unavailable Lali Taylor Primary Care Unavailable Schinner, Lali E Primary Care Unavailable Roof TECHNICIAN HELPER INSTRUMENT, Lali H Referring Unavailable Roof TECHNICIAN HELPER INSTRUMENT, Lali H Attending Unavailable Schinner, Lali E Primary Care Unavailable Bailey Sapp Attending Unavailable Sapp, Bailey Referring Unavailable Schinner, Lali E Referring Unavailable Schinner, Lali E Primary Care Unavailable Tramaine, [place] Consulting Unavailable Schinner, Lali E Attending Unavailable Sibilia, Darrion V Consulting Unavailable Tramaine, [place] Referring Unavailable Tramaine, Jamarcus Attending Unavailable Schinner, Lali E Primary Care Unavailable Tramaine, Jamarcus Referring Unavailable Schinner, Lali E Primary Care Unavailable Tramaine, [place] Attending Unavailable Tramaine, Jamarcus Referring Unavailable Tramaine, [place] Attending Unavailable Schinner, Lali E Primary Care Unavailable Roof TECHNICIAN HELPER INSTRUMENT, Lali H Attending Unavailable Schinner, Lali E Primary Care Unavailable Schinner, Lali E Referring Unavailable Roof TECHNICIAN HELPER INSTRUMENT, Lali H Referring Unavailable Roof TECHNICIAN HELPER INSTRUMENT, Lali H Attending Unavailable Schinner, Lali E Primary Care Unavailable Tramaine, [place] Referring Unavailable Tramaine, [place] Attending Unavailable Schinner, Lali E Primary Care Unavailable Schinner, Lali E Referring Unavailable Tramaine Garrison Attending Unavailable Schinner, Lali E Primary Care Unavailable Schinner, Lali E Referring Unavailable Tramaine, Jamarcus Attending Unavailable Schinner, Lali E Primary Care Unavailable Schinner, Lali E Primary Care Unavailable Sibilia, Darrion V Referring Unavailable Sibilia, Darrion V Attending Unavailable Schinner, Lali E Primary Care Unavailable Schinner, Lali E Referring Unavailable Schinner, Lali E Attending Unavailable Allergies Allergy Classification Reported Allergen(s) Allergy Type Date of Onset Reaction(s) Facility (4 sources) environmental [Other] Propensity to adverse reactions 6 [facility] Work Phone: (1 source) OTHER; Translations: [OTHER] Propensity to adverse reactions (disorder) 6 [facility] Repository (6 sources) *Seasonal Propensity to adverse reactions to substance 5 [facility] Medications Current Medications Medication Drug Class(es) Dates Sig (Normalized) Sig (Original) albuterol 0.833 mg/ml / ipratropium bromide 0.167 mg/ml inhalation solution (11 sources) Anticholinergic, beta2-Adrenergic Agonist Start: 08-07-2021 take [...] 2024 2:42pm dapagliflozin 10 mg oral tablet (11 sources) Sodium-Glucose Cotransporter 2 Inhibitor Start: 04-17-2025 End: 05-17-2025 take 1 tablet by mouth once daily Dapagliflozin Propanediol (Farxiga) 10 mg tablet Active 10 mg PO DAILY 90 May 17, 2025 9:02am preservative-free dorzolamide 20 mg/ml / timolol 5 mg/ml ophthalmic solution (17 sources) Carbonic Anhydrase Inhibitor, beta-Adrenergic Harper Start: 04-03-2025 Dorzolamide-Timolo l (Pf) 2-0.5 % dropperette Active 1 NMA OPHTHALMIC TWICE A DAY April 03, 2025 12:00am Start: 05-25-2024 take 1 drop(s) into the eye(s) twice daily dorzolamide-timolol (COSOPT) 22.3-6.8 mg/mL ophthalmic solution Use 1 Drop in both eyes two times a day. 05/25/2024 Active furosemide 20 mg oral tablet (15 sources) Loop Diuretic Start: 08-01-2021 End: 03-30-2025 take 1 tablet by mouth once daily Furosemide 20 mg Tablet Active 20 mg PO DAILY 30 0 August 01, 2021 12:00am latanoprost 0.05 mg/ml ophthalmic solution (20 sources) Prostaglandin Analog Start: 11-10-[address] [...] Tablet Discontinued 5 mg PO DAILY 30 0 August 01, 2021 12:00am November 08, 2024 12:28pm Tiotropium-Olodaterol (20 sources) Anticholinergic, beta2-Adrenergic Agonist Start: 11-10-2024 Tiotropium-Olodaterol (Stiolto Respimat) 2.5-2.5 mcg/actuation mist Active 2 NMA INHALATION daily November 10, 2024 1:00am Start: 06-08-2024 End: 03-30-2025 take 2 puff(s) by inhalation once daily 2 puff, Inhalation, DAILY, First dose on [facility] 03/29/25 at 1215, Until Discontinued, For self-administered inhalers, contact Respiratory Therapy for canister activation. predniSONE 20 mg oral tablet (11 sources) Start: 08-01-2021 take 40 mg by mouth at breakfast Prednisone Active 40 MG PO WITH BREAKFAST August 01, 2021 12:45pm Start: 08-01-2021 End: [...] needed. 20 tablet 11/25/2016 06/24/2021 Discontinued (Other) [id number] 200 actuat albuterol 0.09 mg/actuat metered dose [...] shortness of breath or wheezing 8.5 0 August 01, 2021 12:00am take 2 puff(s) by in halation every four hours as needed Albuterol 108 (90 Base) MCG/ACT Aero Soln inhaler Inhale 2 puffs every 4 hours as needed. Active aspirin 81 mg chewable tablet (20 sources) Platelet Aggregation Inhibitor, Nonsteroidal Anti-inflammatory Drug Start: 03-30-2025 End: 03-30-2025 take 81 mg by mouth once daily 81 mg, Oral, DAILY, First dose on 03/30/25 at 0900, Until Discontinued Start: 03-29-2025 End: 03-29-2025 324 mg, Oral, ONCE, 1 dose, On Aida 03/29/25 at 0900, Patient to receive at least 30 minutes prior to procedure. Instruct patient to chew and not swallow., Pre-op/Pre-Proc Start: 11-10-2024 take 1 tablet by niya th once daily Aspirin (Adult Aspirin Regimen) 81 mg tablet,delayed release (DR/EC) Active 81 mg PO DAILY 02 09November 10, 2024 1:00am Start: 08-01-2021 End: 11-10-2024 Aspirin 81 mg Tablet,Chewabl e Discontinued 81 mg PO 0800 30 0 August 01, 2021 12:00am November 10, 2024 2:42pm atorvastatin 40 mg oral tablet (11 sources) HMG-CoA Reductase Inhibitor Start: 08-01-2021 End: 11-08-2024 take 1 tablet by mouth at bedtime Atorvastatin 40 mg Tablet Discontinued 40 mg PO AT BEDTIME 30 0 August 01, 2021 12:00am November 08, 2024 12:28pm bimatoprost (1 source) Prostaglandin Analog End: 06-24-2021 BIMATOPROST (LUMIGAN OPHTHALMIC) Use in eyes. 06/24/2021 Discontinued (Other) carvedilol 3.125 mg oral tablet (11 sources) alpha-Adrenergic Harper, beta-Adrenergic Harper Start: 08-01-2021 End: 11-10-2024 take 1 tablet by mouth twice daily Carvedilol 3.125 mg Tablet Discontinued 3.125 mg PO TWICE A DAY 60 0 August 01, 2021 12:00am November 10, [...] tablet 11/25/2016 06/24/2021 Discontinued (Other) polymyxin b [id number] unt/ml / trimethoprim 1 mg/ml ophthalmic solution [...] (Other) rosuvastatin calcium 20 mg oral tablet (17 sources) HMG-CoA Reductase Inhibitor Start: 03-30-2025 End: 03-30-2025 take 40 mg by mouth once daily 40 mg, Oral, DAILY, First dose on Wed03/30/25 at 0900, Until Discontinued Start: 11-08-2024 take 1 tablet by niya once daily Rosuvastatin 40 mg tablet Active 40 mg PO daily November 08, 2024 1:00am 250 ml sodium chloride 9 mg/ml injection (3 sources) Start: 03-29-2025 End: 03-29-2025 take 3 mL intravenously every hour 3 mL/kg/hr 81.6 kg Dosing weight (244.8 mL/hr), Intravenous, CONTINUOUS, Starting on Aida 03/29/25 at 1130, Until Aida 03/29/25 at 1429, Administer for Post Veneer Press Operator Hydration to Prevent Acute Kidney Injury. , Post-op/Post-Proc Start: 03-29-2025 End: 03-29-2025 Intravenous, at 75 mL/hr, CO NTINUOUS, Starting on Aida 03/29/25 at 0900, Until Aida 03/29/25 at 1442, Pre-op/Pre-Proc Start: 01-02-2025 End: 01-02-2025 1-100 mL, Intravenous, ONCE NEEDED, 1 dose, Starting on 01/02/25 at 1117, Until 01/02/25 at 1117, Flush, CT Procedure tamsulosin hydrochloride [...] 180 mg, Oral, ONCE, 1 dose, On Aida 03/29/25 at 0945, Maintenance doses of aspirin above 100mg reduce the effectiveness of ticagrelor and should be avoided. After any initial dose, use with aspirin 81mg per day. 12 hr timolol 5 mg/ml ophthalmic solution (13 sources) beta-Adrenergic Harper Start: 03-29-2025 End: 03-30-2025 Start: 07-30-2021 timolol Active 1 DRP EACH EYE TWICE A DAY July 30, 2021 6:06am Start: 07-30-2021 End: 04-03-2025 timolol Discontinued 1 NMA E ACH EYE TWICE A DAY July 30, 2021 12:00am April 03, 2025 9:15am glaucoma Start: 10-27-2021 timolol Active 1 NMA EACH EYE TWICE A DAY July 30, 2021 12:00am glaucoma Start: 07-30-2021 timolol Active 1 NMA EACH EYE TWICE A DAY July 30, 2021 12:00am End: 06-24-2021 TIMOLOL OPHTHALMIC Use in ey es. 06/24/2021 Discontinued (Other) Problems Active Problems Problem Classification Problem Date Documented Date Episodic/Chronic Acute myocardial infarction (10 sources) Myocardial infarction; Translations: [Non-ST elevation (NSTEMI) myocardial infarction] Onset: 07-30-2021 11-08-2024 Chronic Alcohol-related disorders (20 sources) Alcohol abuse; Translations: [Alcohol abuse, uncomplicated] Onset: 11-20-2016 11-20-2016 Chronic Asthma (19 sources) Asthma; Translations: [Unspecified asthma, uncomplicated] 11-08-2024 Chronic Chronic obstructive pulmonary disease and bronchiectasis (10 sources) Acute exacerbation of chronic obstructive airways disease; Translations: [Chronic obstructive pulmonary disease with (acute) exacerbation] 11-08-2024 Chronic Congestive heart failure; nonhypertensive (4 sources) Chronic combined systolic and diastolic heart failure; Translations: [Chronic combined systolic (congestive) and diastolic (congestive) heart failure] Onset: 02-13-2025 02-13-2025 Chronic Coronary atherosclerosis and other heart disease (20 sources) Arteriosclerotic vascular disease; Translations: [Atherosclerotic heart disease of [place] coronary artery without angina pectoris] Onset: 11-21-2024 02-13-2025 Chronic Coronary atherosclerosis and other heart disease (20 sources) Stented coronary artery; Translations: [Presence of coronary angioplasty implant and graft] Onset: 02-27-2025 04-03-2025 Episodic Comment on above: 2.5 X 28 mm Synergy XD BASIL to LAD, and a 3.0 X 32 mm Synergy XD BASIL to Proximal Mid Ramus Intermedius 02/27/[address] Almodovar at [facility]. Disorders of lipid metabolism (20 sources) Hyperlipidemia; Translations: [Hyperlipidemia, unspecified] Onset: 11-06-2024 11-08-2024 Chronic Essential hypertension (9 sources) Essential hypertension; Translations: [Essential (primary) hypertension] Onset: 05-17-2025 05-17-2025 Chronic Glaucoma (10 sources) Glaucoma; Translations: [Unspecified glaucoma] 11-08-2024 Chronic Heart valve disorders (20 sources) Mitral valve disorder; Translations: [Rheumatic mitral [...] unspecified] 11-08-2024 Episodic Other lower respiratory disease (11 sources) Nodule of lung; Translations: [Solitary pulmonary nodule] 07-31-2021 Episodic Other screening for suspected conditions (not mental disorders or infectious disease) (20 sources) Protein level - finding; Translations: [Other specified abnormal findings of blood chemistry] Onset: 06-27-2024 06-21-2024 Episodic Peripheral and visceral atherosclerosis (20 sources) Stenosis of left subclavian artery; Translations: [Stricture of artery] Onset: 06-15-2025 01-02-2025 Chronic Comment on above: Duplex- <50% stenosi s bilateralCTA- images reviewed, 50% right ICA stenosis, 25% left ICA stenosis, right CCA 25% stenosis, left CCA 42% stenosis, left subclavian occlusion that extends to origin of vertebral, right vertebral occlusion Pleurisy; pneumothorax; pulmonary collapse (11 sources) Pleural effusion; Translations: [Pleural effusion, not elsewhere classified] 08-15-2021 Episodic Pneumonia (except that caused by tuberculosis or sexually transmitted disease) (20 sources) Community acquired pneumonia; Translations: [Pneumonia, unspecified organism] 11-08-2024 Episodic Pulmonary heart disease (20 sources) Pulmonary hypertension; Translations: [Pulmonary hypertension, unspecified] Onset: 09-20-2024 11-08-2024 Chronic Residual codes; unclassified (20 sources) Tobacco user; Translations: [Tobacco use] 11-10-2024 Episodic Residual codes; unclassified (1 source) Tobacco use; Translations: [Tobacco use] Onset: 04-17-2025 Episodic Screening and history of mental health and substance abuse codes (1 source) Personal history of nicotine dependence; Translations: [Personal history of nicotine dependence] Onset: 06-20-2025 Episodic Substance-related disorders (1 source) Nicotine dependence, cigarettes, uncomplicated; Translations: [Nicotine dependence, cigarettes, uncomplicated] Onset: 11-21-2024 Chronic Unclassified (9 sources) Presence of stent in coronary artery Unclassified (9 sources) Occlusion of left subclavian artery Unclassified (9 sources) Tobacco abuse Unclassified (9 sources) Decreased cardiac ejection fraction Unclassified (9 sources) Mitral valve disease Unclassified (9 sources) Non-ST elevation myocardial infarction (NSTEMI) Unclassified (9 sources) Chronic obstructive pulmonary disease with acute exacerbation Unclassified (9 sources) Z95.5 - Presence of coronary angioplasty implant and graft,I70.8 - Atherosclerosis of other arteries,Z72.0 - Tobacco use,F10.10 - Alcohol abuse, uncomplicated,R93.1 - Abnormal findings on diagnostic imaging of heart and coronary circulation,I05.9 - Rheumatic mitral valve disease, unspecified,I25.10 - Atherosclerotic heart disease of [place] coronary artery without angina pectoris,R06.00 - Dyspnea, unspecified,E78.5 - Hyperlipidemia, unspecified,I27.20 - Pulmonary hypertension, unspecified,J45.909 - Unspecified asthma, uncomplicated,I21.4 - Non-ST elevation (NSTEMI) myocardial infarction,J44.1 - Chronic obstructive pulmonary disease with (acute) exacerbation Past or Other Problems Problem Classification Problem Date Documented Date Episodic/Chronic Genitourinary symptoms and ill-defined conditions (4 sources) Increased frequency of urination; Translations: [Frequency of micturition] Onset: 11-18-2016 11-18-2016 Episodic Nonspecific chest pain (11 sources) Chest pain; Translations: [Chest pain, unspecified] [...] Translations: [Shortness of breath] Onset: 11-21-2024 Episodic Residual codes; unclassified (4 sources) Tobacco use and exposure - finding; Translations: [Tobacco use] Onset: 11-20-2016 11-20-2016 Episodic Urinary tract infections (4 sources) Urinary tract infectious disease; Translations: [Urinary tract infection, site not specified] Onset: 11-18-2016 Resolved: 08-12-2019 08-12-2019 Episodic Results Test Name Value Interpretation Reference Range Facility Echo [facility] 06-21-2025 Echo [facility] [address] [place] [address] Echo Complete 06/21/25 0900 MR#: [id number] Acct: [id number] Name: JOHNY SANTAMARIA Everardo Braden Rep #: [id number] : 1960 65 From: Jamarcus Redd MD Attending Dr: Lali Marie NP-C Status: REG CLI Ordering Dr: Lali Marie NP TECHNICIAN HELPER INSTRUMENT-C Date: 06/21/25 Location: [facility] Sex: M C Admitted: Reason For Study Reason For Study: EF Eval Procedure This was a 2D Doppler, Color Flow transthoracic echocardiogram. Exam performed in department. Left Ventricle Normal LV size. The left ventricular ejection fraction is 55 %. Mild segmental systolic dysfunction (see wall motion). Stage 1 diastolic dysfunction. Infero-Basal: Akinetic. Posterior-Basal: Mildly hypokinetic. The rest of the wall segments are normal. Right Ventricle Normal RV size. Normal systolic function. Atria Normal left atrium. Normal right atrium. Mitral Valve [place]let diffuse mitral valve thickening. Mild-Moderate (1-2+) eccentric mitral valve insufficiency. Tricuspid Valve Normal tricuspid valve. Mild tricuspid valve insufficiency. Aortic Valve Trisinus/trileaflet aortic valve. Mild focal aortic valve calcification. Mild (1+) aortic valve insufficiency. Pulmonic Valve Normal pulmonic valve. Great Vessels Normal aortic root. The pulmonary artery is normal size. Inferior vena cava collapse with respiration. Pericardium/Pleural No pericardial effusion. MMode/2D Measurements Calculations LVIDd: 5.5 cm IVSd: 1.4 cm LVOT diam: 2.0 cm LVIDs: 4.6 cm LVPWd: 0.97 cm LVOT area: 3.1 cm2 RVDd: 3.6 cm FS: 15.7 % Ao root diam: 3.1 cm LAV(MOD-bp): 62.1 ml LVAd ap4: 38.0 cm2 LAV(MOD-bp) Indexed: 32.0 ml/m2 LVLd ap4: 9.3 cm LAV(MOD-sp2): 67.4 ml EDV(MOD-sp4): 128.9 ml LAV(MOD-sp4): 57.5 ml EDV(sp4-el): 131.4 ml LVAs ap4: 22.5 cm2 LVLs ap4: 8.1 cm ESV(MOD-sp4): 52.9 ml ESV(sp4-el): 52.7 ml EF(MOD-sp4): 58.9 % EF(sp4-el): 59.9 % SV(MOD-sp4): 76.0 ml SV(sp4-el): 78.7 ml LA A4 area: 21.5 cm2 SI(MOD-sp4): 39.2 ml/m2 LA dimension(2D): 4.1 cm RA A4 area: 16.5 cm2 Time Measurements MV dec time: 0.22 sec Doppler Measurements Calculations MV E max humphrey: 72.9 cm/sec Lat Peak E' Humphrey: 6.3 cm/sec Med Peak E' Humphrey: 4.3 cm/sec MV A max humphrey: 121.5 cm/sec E/E' lat: 11.5 E/E' med: 17.1 MV E/A: 0.60 MV V2 max: 135.8 cm/sec Ao V2 max: 198.7 cm/sec MV max P.4 mmHg MV dec slope: 337.9 cm/sec2 Ao max P.8 mmHg MV V2 mean: 51.6 cm/sec Ao V2 mean: 123.4 cm/sec MV mean P.5 mmHg Ao mean P.4 mmHg MV V2 VTI: 44.6 cm Ao V2 VTI: 47.2 cm AV (velocity ratio): 0.59 MVA(VTI): 2.0 cm2 ERLIN(I,D): 1.8 cm2 ERLIN(V,D): 2.0 cm2 AI max humphrey: 414.5 cm/sec LV V1 max: 130.0 cm/sec SV(LVOT): 87.3 ml AI max P.7 mmHg LV V1 max P.8 mmHg LV V1 mean P.4 mmHg AI dec slope: 156.3 cm/sec2 LV V1 mean: 84.5 cm/sec AI P1/2t: 777.0 msec LV V1 VTI: 28.1 cm PA V2 max: 115.5 cm/sec PA V2 mean: 73.9 cm/sec ECHO/Echo Complete Interpretation Summary Normal LV size. The left ventricular ejection fraction is 55 %. Mild segmental systolic dysfunction (see wall motion). Mild-Moderate (1-2+) eccentric mitral valve insufficiency. Stage 1 diastolic dysfunction. Mild focal aortic valve calcification. Mild (1+) aortic valve insufficiency. Ordering Physician: Lali Marie Referring Physician: Lali Marie Performed By: Jill Dow RCS 06/21/25 1009 Date Jamarcus Redd MD CC: RIKI Marie; Dr. Lali Taylor MD Date Dictated: [id number]/21/25899 Date Transcribed: 06/21/25 1009 Will Call Clerk: Signed Normal [facility] CTA Abd w/Runoff W/WO Contra ston 06-07-2025 CTA Abd w/Runoff W/WO Contrast [facility] Imaging Services [address] [place], [place] [address] CTA Abd w/Runoff W/WO Contrast MR#: [id number] Acct: [id number] Name: JOHNY SANTAMARIA JrMendy Rep #: [id number] : 1960 M 65 From: Js Cid MD PCP: Dr. Lali Taylor MD Status: REG CLI Study: CTA Abd w/Runoff W/WO Contrast Date of Exam: 0 06/07/25 Exam# [id number] Ordering Dr: Bailey Sapp PROCEDURE: CTA ABD W/RUNOFF W/WO CONTRAST 06/07/2025 REASON FOR EXAM: LLE PAD WITH CLAUDICATION Two-dimensional reconstructions were obtained. TECHNIQUE: Procedure Code: [id number] Modality: CT Procedure: CTA ABD W/RUNOFF W/WO CONTRAST Multiplanar Sagittal and Coronal images were obtained. CONTRAST: Isovue 370 VOLUME: 100 mL One or more dose reduction techniques were used (e.g., Automated exposure control, adjustment of the mA and/or kV according to patient size, use of iterative reconstruction technique). RADIATION DOSE SUMMARY: CTDlvol: 25 mGy DLP: 1249 mGycm COMPARISON: None. FINDINGS: Lung bases: Mild emphysematous changes. ABDOMEN Liver: Moderate fatty infiltration of the liver particularly near the gallbladder fossa. No focal mass. Biliary system: Negative. Negative for intrahepatic or extrahepatic ductal dilatation. Gallbladder: Slightly contracted. Negative for cholecystitis. Spleen: Negative. Pancreas: Negative. Adrenals: Negative. Kidneys: Vascular calcifications of the renal vessels. Negative. Negative for kidney stones, cysts or masses. Bowel: Increased stool in the colon with occasional diverticula. Negative for small or large-bowel obstruction. Appendix: Negative Vasculature: Moderate atherosclerotic vascular calcifications of the abdominal aorta and its branches. Abdominal aorta and iliac vessels. Moderate vascular calcifications. However the mesenteric vessels and renal arteries are patent. Mild disease in both iliac systems without significant stenosis. Right lower extremity: Right common femoral artery patent. No significant stenosis in the proximal or mid right femoral artery. Moderate disease in the distal right femoral artery extends to the adductor canal. Mild disease in the right popliteal artery. Three-vessel origin in the right calf. Moderate disease throughout the calf with poor flow in the calf and single-vessel flow into the right ankle and foot through the posterior tibial artery. Left lower extremity: Mild disease of the left common femoral artery. Severe disease in the left superficial femoral artery which is occluded within 3 cm of the hip. There is reconstitution of flow in the distal aspect of the left thigh in the distal left femoral artery as it enters the adductor canal likely through collateralization. The length of occluded segment of left superficial femoral artery is a proximally 20 cm. Vascular disease in the left popliteal artery with moderate stenosis. Three-vessel origin in the left calf with overall poor flow in the left calf and single-vessel flow into the left foot through the posterior tibial artery. No ulcerations. Peritoneum / Retroperitoneum: Negative. PELVIS Lymph nodes: Negative for inguinal or iliac adenopathy. Bladder: Negative. Reproductive Organs: Prostate negative. Bones and Soft Tissues: Age appropriate degenerative changes of the lumbar spine hips and pelvis. CT/CTA Abd w/Runoff W/WO Contrast IMPRESSION: Negative for acute intra-abdominal or pelvic pathology. Diffuse vascular disease throughout the bilateral femoral iliac system with long segment of occluded left superficial femoral artery as above. Overall poor flow into both calves and feet. Reading Location: [id number] CC: ARGENTINA Hobson; Dr. Lali Taylor MD Will Call Clerk: Signed Normal [facility] MR/BMSCullen 05-23-2025 MR/BMS.CUCO [facility] Vascular Surgery [address] [place] [address] OFFICE VISIT Date of Service: 05/23/25 MR#: [id number] Acct: [id number] Name: JOHNY SANTAMARIA Jr. Rep #: [id number] : 1960 Provider: ARGENTINA Hobson Age/Sex: 65/M Location: [facility] Status: Signed Intake Vital Signs 04/17/25 08:53 [...] 1 drp ophthalmic (eye) QHS 11/10/ 5 05/23/25 History tiotropium 2.5 mcg-olodaterol 2.5 [...] HLD (hyperlipidemia) Pulmonary hypertension Asthma Non-ST elevation PR (NSTEMI) (07/30/21) COPD with exacerbation Glaucoma Surgical [...] Endocrine: Yes (more content not included)... Normal [facility] Cardiology Visit Reporton Cardiology Visit Report [facility] [address] [place] [address] OFFICE VISIT Date of Service: 05/17/25 MR#: [id number] Acct: [id number] Name: JOHNY SANTAMARIA Jr. Rep #: [id number] : 1960 Provider: RIKI mirza Age/Sex: 65/M Location: [facility] Status: Signed HPI HPI History of Present [...] with 80% stenosis, and occluded RCA with xqbi-ob-srbmt collateral flow. 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 Normal [facility] No Panel InformationOrdered By: David Vences on 05-07-2025 [facility] Cardiac Rehab [address] [place] [address] CR - Individual Treatment Plan MR#: [id number] Acct: [id number] Name: JOHNY SANTAMARIA Jr. Rep #:[id number] [...] risk factors & (more content not included)... [facility] Arterial study reportOrdered By: Tramaine Garrison on 04-26-2025 Noninvasive arteriosclerosis study report [facility] Cardiovascular Services [address] [place] [address] Lower Ext Art Exam w/o Exercis 04/26/25 0940 MR#: [id number] Acct: [id number] Name: JOHNY SANTAMARIA Jr. Rep #:[id number] : 1960 65 From: Tramaine Cbourn Attending Dr: JOSIE MuhammadC Sta tus: REG CLI Ordering Dr: Lali Marie NP TECHNICIAN HELPER INSTRUMENT-C Date: 04/26/25 Location: [facility] Sex: M C Admitted: Reason For Study [...] Referring Physician: Lali Taylor Performed By: Mamie Hsu, RVT 04/26/251852 Date _ Tramaine Garrison MD CC: TECHNICIAN HELPER INSTRUMENT-C Lali Marie; Dr. Lali Taylor MD ~ Date Dictated: 04/26/25939 Date Transcribed: 04/26/251852 Will Call Clerk: Signed [facility] Work Phone: Lower Ext Art Exam w/o Exerc aris 04-26-2025 Lower Ext Art Exam w/o Exercis [facility] Cardiovascular Services [address] [place] [address] Lower Ext Art Exam w/o Exercis 04/26/25939 MR#: [id number] Acct: [id number] Name: SANTAMARIAJOHNYCESAR Mcgee Jr. Rep #: [id number] : 1960 65 From: Tramaine Garrison MD Attending Dr: JOSIE MuhammadC Status: REG CLI Ordering Dr: Lali Marie NP TECHNICIAN HELPER INSTRUMENT-C Date: 04/26/25 Location: [facility] Sex: M C Admitted: Reason For Study [...] Referring Physician: Lali Taylor Performed By: Mamie Hsu, Monica 04/26/251852 Date Tramaine Garrison MD CC: TECHNICIAN HELPER INSTRUMENT-Kathy Marie; Dr. Lali Taylor MD Date Dictated: 04/26/25 0940 Date Transcribed: 04/26/251852 Will Call Clerk: Signed Normal [facility] Cardiology Visit Reporton Cardiology Visit Report [facility] [address] [place], [place] [address] [place] [address] OFFICE VISIT Date of Service: 04/17/25 MR#: [id number] Acct: [id number] Name: JOHNY SANTAMARIA Jr. Rep #: [id number] : 1960 Provider: RIKI mirza Age/Sex: 65/M Location: [facility] Status: Signed HPI HPI History of Present [...] with 80% stenosis, and occluded RCA with lqii-he-jzspg collateral flow. [facility] [...] Source NIBP Intake Visit Reasons: 4 M Music Adapter Required: No Is patient in pain?: No [...] 1 drp ophthalmic (eye) QHS 11/10/ 5 04/17/25 History tiotropium 2.5 mcg-olodaterol 2.5 [...] HLD (hyperlipidemia) Pulmonary hypertension Asthma Non-ST elevation PR (NSTEMI) (07/30/21) COPD with exacerbation Glaucoma Surgical History Stented coronary artery (02/27/25) History of dilation of urethra Hx of tons (more content not included)... Normal [facility] Cardiac rehabilitation evalu ation reportOrdered By: David Vences on 04-11-2025 Study report [facility] Cardiac Rehab [address] [place] [address] CR - History & Physical MR#: [id number] Acct: [id number] Name: JOHNY SANTAMARIA Rep #:[id number] : 1960 65 From: [...] Do you have a Healthcare Power of Improvement Specialist?: Yes Living Will: Yes Advance Directives Information [...] Pulmonary hypertension I27.20 Asthma J45.909 Non-ST elevation PR (NSTEMI) (07/30/21) I21.4 COPD with exacerbation J44.1 Glaucoma H40.9 Past Surgical History Past Surgical History (Updated 04/03/25 @ 09:06 by Elizabeth De Leon) Stented coronary artery (02/27/25) Z95.5 2.5 X 28 mm Synergy XD BASIL to LAD, and a 3.0 X 32 mm Synergy XD BASIL to Proximal Mid Ramus Intermedius 02/27/[address] Almodovar at [facility]. History of dilation of urethra Z98.890 [...] For Obesity/Overweight Obesity/Over (more content not included)... [facility] No Panel InformationOrdered By: David Vences on 04-11-2025 [facility] Cardiac Rehab [address] [place] [address] CR - Individual Treatment Plan MR#: [id number] Acct: [id number] Name: SIXTOJOHYN Everardo Braden Rep #:[id number] : 1960 65 From: [...] Referral to Physical Therapy: No Referral to [facility] Case Management: No Fall Risk Assessed:: Yes [...] Treadmill, Rower, Schwinn Airdyne AD-7, SciFit Stepper, SciFit Pro-II Ergometer and SciFit Lateral Artois Frequency: 3x/week for 12 weeks [36 sessions] Intensity: 60-80% of age predicted maximum heart rate reserve Duration: 30 - 45 minutes Current METSs:: 3 Target Heart Rate:: 92-116 EKG Type: SR-short SC syndrome-occas ectopic vent beat Outcomes & Goals [...] ID & incorporate (more content not included)... [facility] CR - History AND Physicalon 04-10-2025 CR - History & Physical [facility] Cardiac Rehab [address] [place] [address] CR - History Physical MR#: [id number] Acct: [id number] Name: JOHNY SANTAMARIA Jr. Rep #: [id number] : 1960 65 From: David Stephens BS, [...] drops 1 drp ophthalmic (eye) QHS 5 tiotropium 2.5 mcg-olodaterol 2.5 2 puff [...] Do you have a Healthcare Power of Improvement Specialist?: Yes Living Will: Yes Advance Directives Information [...] Pulmonary hypertension I27.20 Asthma J45.909 Non-ST elevation PR (NSTEMI) (07/30/21) I21.4 COPD with exacerbation J44.1 Glaucoma H40.9 Past Surgical History Past Surgical History (Updated 04/03/25 @ 09:06 by Elizabeth De Leon) Stented coronary artery (02/27/25) Z95.5 2.5 X 28 mm Synergy XD BASIL to LAD, and a 3.0 X 32 mm Synergy XD BASIL to Proximal Mid Ramus Intermedius 02/27/[address] Almodovar at [facility]. History of dilation of urethra Z98.890 [...] Lifestyle and (more content not included)... Normal [facility] INVASIVE CARDIOVASCULAR PROC [facility] 04-02-2025 INVASIVE CARDIOVASCULAR PROCEDURE Impression: Successful PCI to mid LAD and proximal ramus intermedius Recommendations: Continue DAPT for ideally 6-12 months then SAPT indefinitely Medical therapy for CAD Cardiac rehab Follow up with outpatient fish net stringer Access: Right femoral artery Left Heart Catheterization [...] from the original result were not included. Johnycesar Santamaria Jr. Invasive Cardiology Cath Procedure Ordering Physician: CONSUELO ALMODOVAR Order #: [id number] Study Date: 03/29/2025 Patient Information Name MRN Description Johny Santamaria Jr. [id number] y.o. male Location Name Address [place] [address] [place] [id number] Physicians Panel Physicians Referring Physician Case Authorizing Physician Consuelo Almodovar MD, PhD (Primary) Consuelo Almodovar MD, PhD Consuelo Almodovar MD, PhD Chris Pelayo MD (Fellow) Procedures STENT-CORONARY IFR CORONARY BALLOON ANGIOPLASTY-CORONARY LEFT HEART CATHETERIZATION Indications Atherosclerosis of [place] coronary artery of [place] heart with angina pectoris [I25.119 (ICD-10-CM)] Abnormal findings on cardiac catheterization [R93.1 (ICD-10-CM)] Conclusion Impression: Successful PCI to mid LAD and proximal ramus intermedius Recommendations: Continue DAPT for ideally 6-12 months then SAPT indefinitely Medical therapy for CAD Cardiac rehab Follow up with outpatient fish net stringer Access: Right femoral artery Left Heart Catheterization [...] (chronic obstructive pulmonary disease) Essential hypertension, benign PR (myocardial infarction) Procedure The risks and alternatives of the procedure and sedation were explained. Informed consent was obtained. The patient was brought to the blood bank laboratory technologist and placed on the table. The planned [...] A CATHETE (more content not included)... Normal [facility] CARDIAC RHYTHMon 03-30-2025 [facility] ACT* LOW RANGE, POCon 2024 ACT LOW RANGE, POC 174 High [facility] Interpretation and review of laboratory results Abnormal [facility] Test performed at address of the patient encounter. [facility] ACT LOW RANGE, POC 182 [facility] Interpretation and review of laboratory results Abnormal [facility] Test performed at address of the patient encounter. [facility] ACT LOW RANGE, POC 182 [facility] Interpretation and review of laboratory results Abnormal [facility] Test performed at address of the patient encounter. [facility] ACT LOW RANGE, POC 277 [facility] Interpretation and review of laboratory results Abnormal [facility] Test performed at address of the patient encounter. [facility] ACT LOW RANGE, POC [facility] Comment on above: Out of Range High. The test result is outside clinical range and should not be used for patient-management decisions. Test performed at address of the patient encounter. [facility] ACT LOW RANGE, POC [facility] Comment on above: Out of Range High. The test result is outside clinical range and should not be used for patient-management decisions. Test performed at address of the patient encounter. [facility] Absolute lymphocyte countOrd ered By: Consuelo Almodovar on 03-19-2025 Lymphocytes Auto (Unsp spec) [#/Vol] 2.41 10*3/uL 0.83-4.51 [facility] Absolute neutrophil countOrd ered By: Consuelo Almodovar on 03-19-2025 Neutrophils (Bld) [#/Vol] 5.1 10*3/uL 2.0-7.7 [facility] Anion gap in Serum or Plasma Ordered By: Consuelo Almodovar on 03-19-2025 Anion gap [Moles/Vol] 12 mmol/L - [facility] Automated lymphocyte count a s percentage of total leukocytesOrdered By: Consuelo Almodovar on 03-19-2025 Lymphocytes/100 WBC Auto (Unsp spec) 28.5 % [facility] BUN/creatinine ratioOrdered By: Consuelo Almodovar on 03-19-2025 Urea nitrogen/Creatinine [Mass ratio] 10.7 mg/mg - [facility] Basic Metabolic Profile (BMP )on 03-19-2025 BUN/CRE 10.7 RATIO Normal 07-23 [facility] Comment on above: Performed By: #### L 9000.0810 #### [facility] [place], [address] Calcium [Mass/Vol] 9.3 mg/dL Normal 7.6-11.0 [facility] Comment on above: Performed By: #### L 9000.0810 #### [facility] [address] [place], [address] Chloride [Moles/Vol] 102 mmol/L Normal 98-108 [facility] Comment on above: Performed By: #### L 900.0810 #### [facility] [address] [place], [address] CO2 [Moles/Vol] 22.6 mmol/L Normal 21.0-32.0 [facility] Comment on above: Performed By: #### L 900.0810 #### [facility] [address] [place], [address] Creatinine [Mass/Vol] 1.08 mg/dL Normal 0.70-1.20 [facility] Comment on above: Performed By: #### L 9000.0810 #### [facility] [address] [place], [address] GAP 12 Normal 5-15 [facility] Comment on above: Performed By: #### L 9000.0810 #### [facility] [address] [place], [address] GFR/1.73 sq M.predicted among non-blacks MDRD (S/P/Bld) [Vol rate/Area] 76 mL/min/{1.73_m2} Normal >60 [facility] Comment on above: Result Comment: mL/m in/1.73m2 CKD-EPI Creatinine Equation (2020) Performed By: #### L 9000.0810 #### [facility] [address] [place], [address] Glucose [Mass/Vol] 111 mg/dL High 70-99 [facility] Comment on above: Performed By: #### L 900.0810 #### [facility] [address] [place], [address] Potassium [Moles/Vol] 4.5 mmol/L Normal 3.3-5.1 [facility] Comment on above: Performed By: #### L 9000.0810 #### [facility] [address] [place], [address] Sodium [Moles/Vol] 137 mmol/L Normal 133-145 [facility] Comment on above: Performed By: #### L 9000.0810 #### [facility] [address] [place], [address] Urea nitrogen [Mass/Vol] 12 mg/dL Normal 4-19 [facility] Comment on above: Performed By: #### L 9000.0810 #### [facility] [address] [place], [address] Basophil percentageOrdered B y: Consuelo Almodovar on 03-19-2025 Basophils/100 WBC (Bld) 1.1 % High 0-1 [facility] CBC W/Diff, Automatedon 03-04 Absolute Lymph 2.41 X10 3/uL Normal 0.83-4.51 [facility] Comment on above: Performed By: #### L 9000.0810 #### [facility] [address] [place], [address] Absolute Neut 5.1 X10 3/uL Normal 2.0-7.7 [facility] Comment on above: Performed By: #### L 9000.0810 #### [facility] [address] [place], [address] Basophils/100 WBC (Bld) 1.1 % High 0-1 [facility] Comment on above: Performed By: #### L 9000.0810 #### [facility] [address] [place], [address] Eosinophils/100 WBC (Bld) 2.4 % Normal 0-5 [facility] Comment on above: Performed By: #### L 9000.0810 #### [facility] [address] [place], [address] Erythrocyte distribution width (RBC) [Ratio] 13.0 % Normal 11.6-14.6 [facility] Comment on above: Performed By: #### L 9000.0810 #### [facility] [address] [place], [address] Hematocrit (Bld) [Volume fraction] 45.8 % Normal 40-54 [facility] Comment on above: Performed By: #### L 9000.0810 #### [facility] [address] [place], [address] Hemoglobin (Bld) [Mass/Vol] 15.4 g/dL Normal 13.0-16.5 [facility] Comment on above: Performed By: #### L 9000.0810 #### [facility] [address] [place], [address] IG% 0.400 Normal 0.0-0.9 [facility] Comment on above: Result Comment: IG% - Immature Granulocytes (promyelocytes, myelocytes and metamyelocytes) > 1% indicates that a LEFT SHIFT is Present. Performed By: #### L 9000.0810 #### [facility] [address] [place], [address] Lymphocytes/100 WBC (Bld) 28.5 % Normal 19-41 [facility] Comment on above: Performed By: #### L 9000.0810 #### [facility] [address] [place], [address] MCH (RBC) [Entitic mass] 33.6 pg High 27.0-32.0 [facility] Comment on above: Performed By: #### L 9000.0810 #### [facility] [address] [place], [address] MCHC (RBC) [Mass/Vol] 33.6 g/dL Normal 32-36 [facility] Comment on above: Performed By: #### L 9000.0810 #### [facility] [address] [place], [address] MCV (RBC) [Entitic vol] 99.8 fL High 80-94 [facility] Comment on above: Performed By: #### L 9000.0810 #### [facility] [address] [place], [address] Monocytes/100 WBC (Bld) 8.0 % Normal 0-10 [facility] Comment on above: Performed By: #### L 9000.0810 #### [facility] [address] [place], [address] Neutrophils/100 WBC (Bld) 59.6 % Normal 47-70 [facility] Comment on above: Performed By: #### L 9000.0810 #### [facility] [address] [place], [address] Nucleated RBC (Bld) [#/Vol] 0 10*3/uL Normal 0-5 [facility] Comment on above: Performed By: #### L 9000.0810 #### [facility] [address] [place], [address] Platelet mean volume (Bld) [Entitic vol] 11.2 fL Normal 6.2-12.0 [facility] Comment on above: Performed By: #### L 9000.0810 #### [facility] [address] [place], [address] Platelets (Bld) [#/Vol] 167 10*3/uL Normal 150-450 [facility] Comment on above: Performed By: #### L 9000.0810 #### [facility] [address] [place], [address] RBC (Bld) [#/Vol] 4.59 10*6/uL Low 4.6-6.2 [facility] Comment on above: Performed By: #### L 9000.0810 #### [facility] [address] [place], [address] RDW SD 47.8 fl High 35.1-43.9 [facility] Comment on above: Performed By: #### L 9000.0810 #### [facility] [address] [place], [address] WBC (Bld) [#/Vol] 8.5 10*3/uL Normal 4.4-11.0 [facility] Comment on above: Performed By: #### L 9000.0810 #### [facility] [address] [place], [address] Carbon dioxide, total [Moles /volume] in Central venous bloodOrdered By: Consuelo Almodovar on 03-19-2025 CO2 [Moles/Vol] 22.6 mmol/L 21.0-32.0 [facility] Chloride assayOrdered By: Reina Almodovar on 03-19-2025 Chloride [Moles/Vol] 102 mmol/L 98-108 [facility] Eosinophil percentageOrdered By: Consuelo Almodovar on 03-19-2025 Eosinophils/100 WBC (Bld) 2.4 % 0-5 [facility] Erythrocyte distribution wid th ratioOrdered By: Consuelo Almodovar on 03-19-2025 Erythrocyte distribution width (RBC) [Ratio] 13.0 % 11.6-14.6 [facility] Erythrocyte distribution wid th standard deviationOrdered By: Consuelo Almodovar on 03-19-2025 Erythrocyte distribution width (RBC) [Ratio] 47.8 fl High 35.1-43.9 [facility] Glomerular filtration rate ( GFR) estimation/1.73 sq m using serum, plasma, or whole bOrdered By: Consuelo Almodovar on 03-19-2025 GFR/1.73 sq M.predicted among non-blacks MDRD (S/P/Bld) [Vol rate/Area] 76 mL/min/{1.73_m2} >60 [facility] Comment on above: mL/min/1.73m2 CKD-EP I Creatinine Equation (2020) Hematocrit Auto (Bld) [Volum e fraction]Ordered By: Consuelo Almodovar on 03-19-2025 Hematocrit (Bld) [Volume fraction] 45.8 % 40-54 [facility] Hemoglobin measurementOrdere d By: Consuelo Almodovar on 03-19-2025 Hemoglobin (Bld) [Mass/Vol] 15.4 g/dL 13.0-16.5 [facility] Immature granulocytes/100 WB C Auto (Bld)Ordered By: Consuelo Almodovar on 03-19-2025 Immature granulocytes/100 WBC (Bld) 0.400 % 0.0-0.9 [facility] Comment on above: IG% - Immature Granu locytes (promyelocytes, myelocytes and metamyelocytes) > 1% indicates that a LEFT SHIFT is Present. MCV (mean corpuscular volume ) determinationOrdered By: Consuelo Almodovar on 03-19-2025 MCV (RBC) [Entitic vol] 99.8 fL High 80-94 W [facility] Mean corpuscular hemoglobin (MCH) determinationOrdered By: Consuelo Almodovar on 03-19-2025 MCH (RBC) [Entitic mass] 33.6 pg High 27.0-32.0 [facility] Mean corpuscular hemoglobin concentration (MCHC) determinationOrdered By: Consuelo Almodovar on 03-19-2025 MCHC (RBC) [Mass/Vol] 33.6 g/dL 32-36 [facility] Mean platelet volume determi nationOrdered By: Consuelo Almodovar on 03-19-2025 Platelet mean volume (Bld) [Entitic vol] 11.2 fL 6.2-12.0 [facility] Monocyte percentageOrdered B y: Consuelo Almodovar on 03-19-2025 Monocytes/100 WBC (Bld) 8.0 % 0-10 [facility] Neutrophil percentageOrdered By: Consuelo Almodovar on 03-19-2025 Neutrophils/100 WBC (Bld) 59.6 % 47-70 [facility] Nucleated red blood cell per centageOrdered By: Consuelo Almodovar on 03-19-2025 Nucleated RBC/100 WBC (Bld) [Ratio] 0 % 0-5 [facility] Platelet countOrdered By: Reina Almodovar on 03-19-2025 Platelets (Bld) [#/Vol] 167 10*3/uL 150-450 [facility] Potassium measurement (mass/ volume)Ordered By: Consuelo Almodovar on 03-19-2025 Potassium (Unsp spec) [Mass/Vol] 4.5 mmol/L 3.3-5.1 [facility] RBC Auto (Bld) [#/Vol]Ordere d By: Consuelo Almodovar on 03-19-2025 RBC (Bld) [#/Vol] 4.59 10*6/uL Low 4.6-6.2 [facility] Serum creatinine measurement (mass/volume)Ordered By: Consuelo Almodovar on 03-19-2025 Creatinine [Mass/Vol] 1.08 mg/dL 0.70-1.20 [facility] Serum glucose measurement (m ass/volume)Ordered By: Consuelo Almodovar on 03-19-2025 Glucose [Mass/Vol] 111 mg/dL High 70-99 [facility] Serum or plasma calcium kelli urement (mass/volume)Ordered By: Consuelo Almodovar on 03-19-2025 Calcium [Mass/Vol] 9.3 mg/dL 7.6-11.0 [facility] Serum or plasma urea nitroge n measurement (mass/volume)Ordered By: Consuelo Almodovar on 03-19-2025 Urea nitrogen [Mass/Vol] 12 mg/dL 4-19 [facility] Sodium levelOrdered By: Ken Almodovar on 03-19-2025 Sodium [Moles/Vol] 137 mmol/L 133-145 [facility] White blood cell (WBC) count Ordered By: Consuelo Almodovar on 03-19-2025 WBC (Bld) [#/Vol] 8.5 10*3/uL 4.4-11.0 [facility] CBC,PLATELETSon 02-13-2025 Hematocrit (Bld) [Volume fraction] 47.6 % Normal 39.6-48.8 [facility] Comment on above: Performed By: #### H [facility] #### [facility] (DEFAULT) [address] [place] [address] Hemoglobin (Bld) [Mass/Vol] 15.8 g/dL Normal 13.4-16.8 [facility] Comment on above: Performed By: #### H EMOGC #### U [facility] (DEFAULT) [address] [place] [address] MCV (RBC) [Entitic vol] 100.0 fL High 79.0-94.5 O [facility] Comment on above: Performed By: #### H EMOGC #### [facility] (DEFAULT) [address] [place] [address] Mean Cell Hgb 33.2 pg Normal 26.1-33.3 [facility] Comment on above: Performed By: #### H EMOGC #### [facility] (DEFAULT) [address] [place] [address] Mean Cell Hgb Conc 33.2 g/dL Normal 31.9-36.5 [facility] Comment on above: Performed By: #### H EMOGC #### [facility] (DEFAULT) [address] [place] [address] Platelet mean volume (Bld) [Entitic vol] 11.6 fL Normal 8.7-12.3 [facility] Comment on above: Performed By: #### H EMOGC #### [facility] (DEFAULT) [address] [place] [address] [id number] Platelets (Bld) [#/Vol] 180 10*3/uL Normal 146-337 [facility] Comment on above: Performed By: #### H EMOGC #### [facility] (DEFAULT) [address] [place] [address] [phone] RBC (Bld) [#/Vol] 4.76 10*6/uL Normal 4.38-5.83 [facility] Comment on above: Performed By: #### H EMOGC #### [facility] (DEFAULT) [address] [place] [address] 60476 RBC Distribution 13.9 % Normal 10.9-14.3 [facility] Comment on above: Performed By: #### H EMO #### [facility] (DEFAULT) [address] [place] [address] 89677 WBC (Bld) [#/Vol] 10.41 10*3/uL High 3.73-10.10 [facility] Comment on above: Performed By: #### H EMO #### [facility] (DEFAULT) [address] [place] [address] [phone] CHEM 6 (LYTES, BUN CREA)on 0 - Anion gap [Moles/Vol] 16 mmol/L Normal 7-17 [facility] Comment on above: Performed By: #### C HM6, HDLT #### [facility] (DEFAULT) [address] [place] [address] 73300 Chloride [Moles/Vol] 100 mmol/L Normal 98-108 [facility] Comment on above: Performed By: #### C HM6, HDLT #### [facility] (DEFAULT) [address] [place] [address] 79106 CO2 [Moles/Vol] 28 mmol/L Normal 21-31 [facility] Comment on above: Performed By: #### C HM6, HDLT #### [facility] (DEFAULT) [address] [place] [address] 26162 Creatinine [Mass/Vol] 1.00 mg/dL Normal 0.70-1.30 [facility] Comment on above: Performed By: #### C HM6, HDLT #### [facility] (DEFAULT) [address] [place] [address] 44619 GFR/1.73 sq M.predicted among non-blacks MDRD (S/P/Bld) [Vol rate/Area] 84 mL/min/{1.73_m2} Normal >=60 [facility] Comment on above: Result Comment: Repo rted eGFR is based on the CKD-EPI 2020 equation using creatinine, age, and sex. Performed By: #### C HM6, HDLT #### [facility] (DEFAULT) [address] [place] [address] 30824 Potassium [Moles/Vol] 4.1 mmol/L Normal 3.5-5.0 [facility] Comment on above: Performed By: #### C HM6, HDLT #### [facility] (DEFAULT) [address] [place] [address] 13059 Sodium [Moles/Vol] 140 mmol/L Normal 135-145 [facility] Comment on above: Performed By: #### C HM6, HDLT #### [facility] (DEFAULT) [address] [place] [address] 94428 Urea nitrogen [Mass/Vol] 8 mg/dL Normal 7-25 [facility] Comment on above: Performed By: #### C HM6, HDLT #### [facility] (DEFAULT) [address] [place] [address] 53792 Urea nitrogen/Creatinine [Mass ratio] 8 mg/mg Normal [facility] Comment on above: Performed By: #### C HM6, HDLT #### [facility] (DEFAULT) [address] [place] [address] 32811 LIPID PANEL W CALCULATED LDL on 02-13-2025 Calculated LDL Cholesterol 104 mg/dL High 0-99 [facility] Comment on above: Result Comment: [<10 0 mg/dL: Optimal] [100-129 mg/dL: Near Optimal] [130-159 mg/dL: Borderline High] [160-189 mg/dL: High] [>189 mg/dL: Very High] Performed By: #### C HM6, HDLT #### [facility] (DEFAULT) [address] [place] [address] 57175 Cholesterol [Mass/Vol] 187 mg/dL Normal <200 [facility] Comment on above: Result Comment: [<20 0 mg/dL: Desirable] [200-239 mg/dL: Borderline High] [>239 mg/dL: High] Performed By: #### C HM6, HDLT #### [facility] (DEFAULT) [address] [place] [address] 25938 Cholesterol in HDL [Mass/Vol] 55 mg/dL Normal >=40 [facility] Comment on above: Result Comment: [<40 mg/dL: Low (High Risk)] [>59 mg/dL: High (Low Risk)] Performed By: #### C HM6, HDLT #### [facility] (DEFAULT) [address] [place] [address] 87407 Non HDL Cholesterol 132 mg/dL High <130 [facility] Comment on above: Performed By: #### C HM6, HDLT #### [facility] (DEFAULT) [address] [place] [address] 00116 Total Cholesterol/HDL Ratio 3.4 Normal <4.5 [facility] Comment on above: Performed By: #### C HM6, HDLT #### [facility] (DEFAULT) [address] [place] [address] 04396 Triglyceride [Mass/Vol] 139 mg/dL Normal <150 [facility] Comment on above: Result Comment: [<15 0 mg/dL: Desirable] [150-199 mg/dL: Borderline] [200-499 mg/dL: High] [>500 mg/dL: Very High] Performed By: #### C HM6, HDLT #### [facility] (DEFAULT) [address] [place] [address] 70773 Laboratory - Chemistry and C hemistry - challengeon 02-13-2025 Anion gap [Moles/Vol] 16 mmol/L 7 - 17 mmol/L [facility] Chloride [Moles/Vol] 100 mmol/L 98 - 10 8 mmol/L [facility] Cholesterol [Mass/Vol] 187 mg/dL NINF - 200 mg/dL [facility] Comment on above: [<200 mg/dL: Desirab le] [200-239 mg/dL: Borderline High] [>239 mg/dL: High] Cholesterol in HDL [Mass/Vol] 55 mg/dL 40 - PINF mg/dL [facility] Comment on above: [<40 mg/dL: Low (Hig h Risk)] [>59 mg/dL: High (Low Risk)] Cholesterol in LDL [Mass/Vol] 104 mg/dL High 0 - 99 mg/dL [facility] Comment on above: [<100 mg/dL: Optimal ] [100-129 mg/dL: Near Optimal] [130-159 mg/dL: Borderline High] [160-189 mg/dL: High] [>189 mg/dL: Very High] Cholesterol non HDL [Mass/Vol] 132 mg/dL High NINF - 130 mg/dL [facility] Cholesterol.total/Marcela sterol in HDL [Mass ratio] 3.4 {ratio} NINF - 4.5 [facility] CO2 [Moles/Vol] 28 mmol/L 21 - 31 mmol/L [facility] Creatinine [Mass/Vol] 1 mg/dL 0.70 - 1.30 mg/dL [facility] Potassium [Moles/Vol] 4.1 mmol/L 3.5 - 5.0 mmol/L [facility] Sodium [Moles/Vol] 140 mmol/L 135 - 145 mmol/L [facility] Triglyceride [Mass/Vol] 139 mg/dL NINF - 150 mg/dL [facility] Comment on above: [<150 mg/dL: Desirab le] [150-199 mg/dL: Borderline] [200-499 mg/dL: High] [>500 mg/dL: Very High] Urea nitrogen [Mass/Vol] 8 mg/dL 7 - 25 mg/dL [facility] Urea nitrogen/Creatinine [Mass ratio] 8 mg/mg [facility] Laboratory - Hematology and Cell countson 02-13-2025 Erythrocyte distribution width (RBC) [Ratio] 13.9 % 10.9 - 14.3 % [facility] Hematocrit (Bld) [Volume fraction] 47.6 % 39.6 - 48.8 % [facility] Hemoglobin (Bld) [Mass/Vol] 15.8 g/dL 13.4 - 16.8 g/dL [facility] MCH (RBC) [Entitic mass] 33.2 pg 26.1 - 33.3 pg [facility] MCHC (RBC) [Mass/Vol] 33.2 g/dL 31.9 - 36.5 g/dL [facility] MCV (RBC) [Entitic vol] 100 fL High 79.0 - 94.5 fL [facility] Platelet mean volume (Bld) [Entitic vol] 11.6 fL 8.7 - 12.3 fL [facility] Platelets (Bld) [#/Vol] 180 10*3/uL 146 - 337 K/uL [facility] RBC (Bld) [#/Vol] 4.76 10*6/uL [facility] WBC (Bld) [#/Vol] 10.41 10*3/uL High 3.73 - 10 .10 K/uL [facility] No Panel Informationon 02-13 eGFR, CKD-EPI, Male 84 - PINF [facility] Comment on above: Reported eGFR is bas ed on the CKD-EPI 2020 equation using creatinine, age, and sex. Interpretation and review of laboratory results Abnormal [facility] Interpretation and review of laboratory results Abnormal [facility] MR/Alecia 02-05-2025 /SALOMON [facility] Vascular Surgery [address] [place] [address] OFFICE VISIT Date of Service: 02/05/25 MR#: [id number] Acct: [id number] Name: SIXTOJOHNY Everardo Braden Rep #: [id number] : 1960 Provider: Dr. Tramaine Garrison MD Age/Sex: 64/M Location: [facility] Status: Signed Intake Vital Signs 11/15/24 10:37 [...] eye drops 1 drp ophthalmic (eye) QHS 11/10/2 5 02/05/25 History tiotropium 2.5 mcg-olodaterol 2.5 2 puff inhalation QDAY 11/10/24 0 02/05/25 History mcg/actuation mist for inhalation (Stiolto Respimat) Have you fallen in the past year?: Yes PFSH Medical History Alcohol abuse Elevated ferritin Decreased cardiac ejection fraction Mitral valve disease CAD (coronary artery disease) Dyspnea Chest pain Lung nodule HLD (hyperlipidemia) Pulmonary hypertension Asthma Non-ST elevation PR (NSTEMI) (07/30/21) COPD with exacerbation Glaucoma Surgical [...] has had a duplex and CTA at [facility]. ROS General General: Yes fatigue; No weight [...] other E (more content not included)... Normal [facility] CT ANGIO NECKon 01-09-2025 CT ANGIO NECK [...] origin of the left vertebral artery.. Normal [facility] CT ANGIO CHEST (NONCORONARY) on 01-02-2025 [...] ancillary findings are noted as above. Normal [facility] IMPRESSION: 1. Proximally occluded left subclavian [...] Abdominal Wall: Normal RADIOLOGY David Kaba MB [facility] - 01/02/2025 EXAM: CT ANGIO CHEST (NONCORONARY), [...] Other ancillary findings are noted as above. [facility] Radiology Study observation (narrative) [facility] CT ANGIO CHEST (NONCORONARY) Ordered By: David Kaba on 01-02-2025 [facility] Liver ultrasound attenuation by transient elastographyon [...] with minimal risk of clinically significant fibrosis. [facility] Radiology Study observation (narrative) [facility] Liver ultrasound attenuation by transient elastographyOrdered By: Radha Ferrara on 12-13-2024 [facility] Work Phone: US ABDOMEN LIVER W/ [...] minimal risk of clinically significant fibrosis. Normal [facility] US.doppler Carotid arteries - bilateralOrdered By: Nuvia Waterman on 12-13-2024 [facility] Work Phone: US.doppler Carotid arteries - bilateralon 12-13-2024 Radiology Study observation (narrative) [facility] Cardiac Cath Diagnosticon Cardiac Cath Diagnostic [facility] Imaging Services [address] [place] [address]45 Cardiac Cath Diagnostic MR#: [id number] Acct: [id number] Name: JOHNY SANTAMARIA Rep #: [id number] : 1960 64 From: Jamarcus Redd MD PCP: Dr. Lali Taylor MD Status:[facility] Patient Name: JOHNY SANTAMARIA Study Date: 11/15/2024 Performing: Jamarcus Redd MD Ht: 69 inches 175.26 cm : 1960 Wt: 176 lbs 79.83 kg Age: 64 Gender: male BSA: 1.96 PROCEDURE(S) PERFORMED DC05-(44787)RHC/LHC/ COR/LV CLINICAL PROFILE AND INDICATIONS Indications: Suspected [...] multiple views using a 5 Fr. 4.0 [place] catheter. Right Coronary Artery selective angiography was then performed in multiple views using a 5 Fr. 4.0 [place] catheter. Left Ventriculography was performed in [place] [...] A small AV groove branch is noted. Etas-ap-duphy collaterals are noted. RAMUS: Medium size vessel with sequential 80% stenotic lesions noted in the proximal and mid segments. RIGHT CORONARY ARTERY: occluded in the proximal section with [id number] collaterals filling almost the entire vessel. COLLATERAL [...] MD 11/15/24 1324 Date Jamarcus Redd MD Cosign Signature: Date (if indicated) CC: Dr. Jamarcus Redd MD; Dr. Lali Taylor MD (more content not included)... Normal [facility] Venous Blood Gason 5 Blood Gas Type IMANI Normal [facility] Comment on above: Performed By: #### L 9000.0810 #### [facility] [address] [place], [address] CO2 [Moles/Vol] 27 mmol/L Normal 23-33 [facility] Comment on above: Performed By: #### L 9000.0810 #### [facility] [address] [place], [address] HCO3 (Bld) [Moles/Vol] 25 mmol/L Normal 22-26 [facility] Comment on above: Performed By: #### L 9000.0810 #### [facility] [address] [place], [address] O2 Delivery Dev Not entered [facility] Comment on above: Performed By: #### L 9000.0810 #### [facility] [address] [place], [address] SITE Not entered [facility] Comment on above: Performed By: #### L 9000.0810 #### [facility] [address] [place], [address] VBG BE 0 mmol/L Normal -1.0-3.5 [facility] Comment on above: Performed By: #### L 9000.0810 #### [facility] [address] [place], [address] VBG pCO2 43.5 mmHg Normal 41-51 [facility] Comment on above: Performed By: #### L 9000.0810 #### [facility] [address] [place], [address] VBG pH 7.37 Normal 7.32-7.42 [facility] Comment on above: Performed By: #### L 9000.0810 #### [facility] [address] [place], [address] VBG PO2 34 mmHg Normal 25-40 [facility] Comment on above: Performed By: #### L 9000.0810 #### [facility] [address] [place], [address] VBG SO2 64 Normal 50-70 [facility] Comment on above: Performed By: #### L 9000.0810 #### [facility] [address] [place], [address] Blood Gas Type IMANI Normal [facility] Comment on above: Performed By: #### L 900.0810 #### [facility] [address] [place], [address] CO2 [Moles/Vol] 25 mmol/L Normal 23-33 [facility] Comment on above: Performed By: #### L 9000.0810 #### [facility] [address] [place], [address] HCO3 (Bld) [Moles/Vol] 24 mmol/L Normal 22-26 [facility] Comment on above: Performed By: #### L 9000.0810 #### [facility] [address] [place], [address] O2 Delivery Dev Not entered Normal [facility] Comment on above: Performed By: #### L 9000.0810 #### [facility] [address] [place], [address] SITE Not entered Normal [facility] Comment on above: Performed By: #### L 900.0810 #### [facility] [address] [place], [address] VBG BE -1 mmol/L Normal -1.0-3.5 [facility] Comment on above: Performed By: #### L 9000.0810 #### [facility] [address] [place], [address] VBG pCO2 41.3 mmHg Normal 41-51 [facility] Comment on above: Performed By: #### L 9000.0810 #### [facility] [address] [place], [address] VBG pH 7.37 Normal 7.32-7.42 [facility] Comment on above: Performed By: #### L 900.0810 #### [facility] [address] [place], [address] VBG PO2 37 mmHg Normal 25-40 [facility] Comment on above: Performed By: #### L 9000.0810 #### [facility] [address] [place], [address] VBG SO2 68 Normal 50-70 [facility] Comment on above: Performed By: #### L 9000.0810 #### [facility] [address] [place], [address] Blood Gas Type IMANI Normal [facility] Comment on above: Performed By: #### L 9000.0810 #### [facility] [address] [place], [address] CO2 [Moles/Vol] 23 mmol/L Normal 23-33 [facility] Comment on above: Performed By: #### L 9000.0810 #### [facility] [address] [place], [address] HCO3 (Bld) [Moles/Vol] 22 mmol/L Normal 22-26 [facility] Comment on above: Performed By: #### L 9000.0810 #### [facility] [address] [place], [address] O2 Delivery Dev Not entered Normal [facility] Comment on above: Performed By: #### L 9000.0810 #### [facility] [address] [place], [address] SITE Not entered Normal [facility] Comment on above: Performed By: #### L 9000.0810 #### [facility] [address] [place], [address] VBG BE -4 mmol/L Low -1.0-3.5 [facility] Comment on above: Performed By: #### L 9000.0810 #### [facility] [address] [place], [address] VBG pCO2 37.2 mmHg Low 41-51 [facility] Comment on above: Performed By: #### L 9000.0810 #### [facility] [address] [place], [address] VBG pH 7.37 Normal 7.32-7.42 [facility] Comment on above: Performed By: #### L 9000.0810 #### [facility] [address] [place], [address] VBG PO2 89 mmHg High 25-40 [facility] Comment on above: Performed By: #### L 9000.0810 #### [facility] [address] [place], [address] VBG SO2 97 High 50-70 [facility] Comment on above: Performed By: #### L 9000.0810 #### [facility] [address] [place], [address] 12 Lead EKG performed by [facility] on 11-10-2024 12 Lead EKG performed by [facility] [address] [place] [address] 12 Lead EKG performed by [facility] 11/10/241336 MR#: [id number] Acct: [id number] Name: JOHNY SANTAMARIA Jr. Rep #: [id number] : 1960 64 From: Jamarcus Redd MD Attending Dr: Dr. Jamarcus Redd MD Status: DEP A MB Ordering Dr: Jamarcus Redd MD Date: 11/10/24 Location: [facility] Sex: M C Admitted: BMS/12 Lead EKG performed by [facility] ECG Report Interpretation ------Sinus Rhythm -Short SC syndrome - occasional ectopic ventricular beat ABNORMAL Electronically signed on 11/15/2024 at 09:39 by Jamarcus Reddwood Software Version 8610 11/15/24 0944 Date Jamarcus Redd MD CC: Dr. Lali Taylor MD Date Dictated: 11/10/241336 Date Transcribed: 11/10/241336 Will Call Clerk: CO Signed Normal [facility] Basic Metabolic Profile (BMP )on 11-10-2024 BUN/CRE 12.5 RATIO Normal 10-20 [facility] Comment on above: Performed By: #### L 500.2500, L100.0100 #### [facility] [address] [place], [address] CA,Total 10.1 mg/dL Normal 8.5-10.1 [facility] Comment on above: Performed By: #### L 500.2500, L100.0100 #### [facility] [address] [place], [address] Chloride [Moles/Vol] 103 mmol/L Normal 98-107 [facility] Comment on above: Performed By: #### L 500.2500, L100.0100 #### [facility] [address] [place], [address] CO2 [Moles/Vol] 30.0 mmol/L Normal 21.0-32.0 [facility] Comment on above: Performed By: #### L 500.2500, L100.0100 #### [facility] [address] [place], [address] Creatinine [Mass/Vol] 1.12 mg/dL Normal 0.70-1.30 [facility] Comment on above: Result Comment: The validity of the calculated GFR GFRAA in patients over 70 years has not been determined. Clinical correlation is essential. Performed By: #### L 500.2500, L100.0100 #### [facility] [address] [place], [address] EST GFR - AA 84 mL/min Normal >60 [facility] Comment on above: Result Comment: Afri can Israeli GFR Calc Performed By: #### L 500.2500, L100.0100 #### [facility] [address] [place], [address] GAP 5 Normal 5-15 [facility] Comment on above: Performed By: #### L 500.2500, L100.0100 #### [facility] [address] [place], [address] GFR/1.73 sq M.predicted among non-blacks MDRD (S/P/Bld) [Vol rate/Area] 70 mL/min/{1.73_m2} Normal >60 [facility] Comment on above: Result Comment: Non- GFR Calc Performed By: #### L 500.2500, L100.0100 #### [facility] [address] [place], [address] Glucose [Mass/Vol] 96 mg/dL Normal 74-106 [facility] Comment on above: Performed By: #### L 500.2500, L100.0100 #### [facility] [address] [place], [address] Potassium [Moles/Vol] 4.5 mmol/L Normal 3.5-5.1 [facility] Comment on above: Performed By: #### L 500.2500, L100.0100 #### [facility] [address] [place], [address] Sodium [Moles/Vol] 139 mmol/L Normal 136-145 [facility] Comment on above: Performed By: #### L 500.2500, L100.0100 #### [facility] [address] [place], [address] Urea nitrogen [Mass/Vol] 14 mg/dL Normal 7-18 [facility] Comment on above: Performed By: #### L 500.2500, L100.0100 #### [facility] [address] [place], [address] CBC W/Diff, Automatedon Hemoglobin (Bld) [Mass/Vol] 18.3 g/dL Invalid Interpretation Code 13.0-16.5 [facility] Comment on above: Result Comment: CRIT ICAL VALUE CALLED TO Greg DE LEON RN 11/10/24 Angus Monteiro. RESULTS READ BACK BY . Performed By: #### L 500.2500, L100.0100 #### [facility] [address] [place], [address] Absolute Lymph 2.61 X10 3/uL Normal 0.83-4.51 [facility] Comment on above: Performed By: #### L 500.2500, L100.0100 #### [facility] [address] [place], [address] Absolute Neut 7.3 X10 3/uL Normal 2.0-7.7 [facility] Comment on above: Performed By: #### L 500.2500, L100.0100 #### [facility] [address] [place], [address] Basophils/100 WBC (Bld) 0.9 % Normal 0-1 [facility] Comment on above: Performed By: #### L 500.2500, L100.0100 #### [facility] [address] [place], [address] Eosinophils/100 WBC (Bld) 2.0 % Normal 0-5 [facility] Comment on above: Performed By: #### L 500.2500, L100.0100 #### [facility] [address] [place], [address] Erythrocyte distribution width (RBC) [Ratio] 12.6 % Normal 11.6-14.6 [facility] Comment on above: Performed By: #### L 500.2500, L100.0100 #### [facility] [address] [place], [address] Hematocrit (Bld) [Volume fraction] 54.7 % High 40-54 [facility] Comment on above: Performed By: #### L 500.2500, L100.0100 #### [facility] [address] [place], [address] IG% 0.400 Normal 0.0-0.9 [facility] Comment on above: Result Comment: IG% - Immature Granulocytes (promyelocytes, myelocytes and metamyelocytes) > 1% indicates that a LEFT SHIFT is Present. Performed By: #### L 500.2500, L100.0100 #### [facility] [address] [place], [address] Lymphocytes/100 WBC (Bld) 23.6 % Normal 19-41 [facility] Comment on above: Performed By: #### L 500.2500, L100.0100 #### [facility] [address] [place], [address] MCH (RBC) [Entitic mass] 32.6 pg High 27.0-32.0 [facility] Comment on above: Performed By: #### L 500.2500, L100.0100 #### [facility] [address] [place], [address] MCHC (RBC) [Mass/Vol] 33.5 g/dL Normal 32-36 [facility] Comment on above: Performed By: #### L 500.2500, L100.0100 #### [facility] [address] [place], [address] MCV (RBC) [Entitic vol] 97.5 fL High 80-94 [facility] Comment on above: Performed By: #### L 500.2500, L100.0100 #### [facility] [address] [place], [address] Monocytes/100 WBC (Bld) 7.3 % Normal 0-10 [facility] Comment on above: Performed By: #### L 500.2500, L100.0100 #### [facility] [address] [place], [address] Neutrophils/100 WBC (Bld) 65.8 % Normal 47-70 [facility] Comment on above: Performed By: #### L 500.2500, L100.0100 #### [facility] [address] [place], [address] Nucleated RBC (Bld) [#/Vol] 0 10*3/uL Normal 0-5 [facility] Comment on above: Performed By: #### L 500.2500, L100.0100 #### [facility] [address] [place], [address] Platelet mean volume (Bld) [Entitic vol] 11.1 fL Normal 6.2-12.0 [facility] Comment on above: Performed By: #### L 500.2500, L100.0100 #### [facility] [address] [place], [address] Platelets (Bld) [#/Vol] 172 10*3/uL Normal 150-450 [facility] Comment on above: Performed By: #### L 500.2500, L100.0100 #### [facility] [address] [place], [address] RBC (Bld) [#/Vol] 5.61 10*6/uL Normal 4.6-6.2 [facility] Comment on above: Performed By: #### L 500.2500, L100.0100 #### [facility] [address] [place], [address] RDW SD 45.3 fl High 35.1-43.9 [facility] Comment on above: Performed By: #### L 500.2500, L100.0100 #### [facility] [address] [place], [address] WBC (Bld) [#/Vol] 11.1 10*3/uL High 4.4-11.0 [facility] Comment on above: Performed By: #### L 500.2500, L100.0100 #### [facility] [address] [place], [address] Cardiology Visit Reporton Cardiology Visit Report [facility] [address] [place] [address] OFFICE VISIT Date of Service: 11/10/24 MR#: [id number] Acct: [id number] Name: SIXTOJOHNY Everardo Braden Rep #: [id number] : 1960 Provider: Dr. 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 Normal [facility] Stress Reporton 11-07-2024 Stress Report [facility] [place] [address] MR#: [id number] Acct: [id number] Name: JOHNY SANTAMARIA Jr. Rep #: [id number] : 1960 64 From: Jamarcus Redd MD [...] low to moderate workload Reduced ejection fraction. 11/07/24 1709 Date Jamarcus Redd MD CC: Dr. Lali Taylor MD; Dr. Darrion Chaparro MD Date Dictated: 11/07/241703 Date Transcribed: 11/07/241703 Will Call Clerk: CO Signed Normal [facility] CBC W/Diff, Automatedon 10-04 Absolute Lymph 2.06 X10 3/uL Normal 0.83-4.51 [facility] Comment on above: Order Comment: Order Date: 07/13/24Order Info: 0184-1 - CBCD Performed By: #### L 500.2500, L100.0100 #### [facility] [address] [place], [address] Absolute Neut 4.2 X10 3/uL Normal 2.0-7.7 [facility] Comment on above: Order Comment: Order Date: 07/13/24Order Info: 0184-1 - CBCD Performed By: #### L 500.2500, L100.0100 #### [facility] [address] [place], [address] Basophils/100 WBC (Bld) 1.1 % High 0-1 [facility] Comment on above: Order Comment: Order Date: 07/13/24Order Info: 0184-1 - CBCD Performed By: #### L 500.2500, L100.0100 #### [facility] [address] [place], [address] Eosinophils/100 WBC (Bld) 1.8 % Normal 0-5 [facility] Comment on above: Order Comment: Order Date: 07/13/24Order Info: 0184-1 - CBCD Performed By: #### L 500.2500, L100.0100 #### [facility] [address] [place], [address] Erythrocyte distribution width (RBC) [Ratio] 13.5 % Normal 11.6-14.6 [facility] Comment on above: Order Comment: Order Date: 07/13/24Order Info: 018- - CBCD Performed By: #### L 500.2500, L100.0100 #### [facility] [address] [place], [address] Hematocrit (Bld) [Volume fraction] 50.9 % Normal 40-54 [facility] Comment on above: Order Comment: Order Date: 07/13/24Order Info: 018- - CBCD Performed By: #### L 500.2500, L100.0100 #### [facility] [address] [place], [address] Hemoglobin (Bld) [Mass/Vol] 16.4 g/dL Normal 13.0-16.5 [facility] Comment on above: Order Comment: Order Date: 07/13/24Order Info: 018- - CBCD Performed By: #### L 500.2500, L100.0100 #### [facility] [address] [place], [address] IG% 0.400 Normal 0.0-0.9 [facility] Comment on above: Order Comment: Order Date: 07/13/24Order Info: 018- - CBCD Result Comment: IG% - Immature Granulocytes (promyelocytes, myelocytes and metamyelocytes) > 1% indicates that a LEFT SHIFT is Present. Performed By: #### L 500.2500, L100.0100 #### [facility] [address] [place], [address] Lymphocytes/100 WBC (Bld) 28.9 % Normal 19-41 [facility] Comment on above: Order Comment: Order Date: 07/13/24Order Info: 018- - CBCD Performed By: #### L 500.2500, L100.0100 #### [facility] [address] [place], [address] MCH (RBC) [Entitic mass] 32.5 pg High 27.0-32.0 [facility] Comment on above: Order Comment: Order Date: 07/13/24Order Info: 0184-1 - CBCD Performed By: #### L 500.2500, L100.0100 #### [facility] [address] [place], [address] MCHC (RBC) [Mass/Vol] 32.2 g/dL Normal 32-36 [facility] Comment on above: Order Comment: Order Date: 07/13/24Order Info: 0184-1 - CBCD Performed By: #### L 500.2500, L100.0100 #### [facility] [address] [place], [address] MCV (RBC) [Entitic vol] 100.8 fL High 80-94 [facility] Comment on above: Order Comment: Order Date: 07/13/24Order Info: 0184-1 - CBCD Performed By: #### L 500.2500, L100.0100 #### [facility] [address] [place], [address] Monocytes/100 WBC (Bld) 9.3 % Normal 0-10 [facility] Comment on above: Order Comment: Order Date: 07/13/24Order Info: 0184-1 - CBCD Performed By: #### L 500.2500, L100.0100 #### [facility] [address] [place], [address] Neutrophils/100 WBC (Bld) 58.5 % Normal 47-70 [facility] Comment on above: Order Comment: Order Date: 07/13/24Order Info: 0184-1 - CBCD Performed By: #### L 500.2500, L100.0100 #### [facility] [address] [place], [address] Nucleated RBC (Bld) [#/Vol] 0 10*3/uL Normal 0-5 [facility] Comment on above: Order Comment: Order Date: 07/13/24Order Info: 0184-1 - CBCD Performed By: #### L 500.2500, L100.0100 #### [facility] [address] [place], [address] Platelet mean volume (Bld) [Entitic vol] 11.7 fL Normal 6.2-12.0 [facility] Comment on above: Order Comment: Order Date: 07/13/24Order Info: 0184-1 - CBCD Performed By: #### L 500.2500, L100.0100 #### [facility] [address] [place], [address] Platelets (Bld) [#/Vol] 157 10*3/uL Normal 150-450 [facility] Comment on above: Order Comment: Order Date: 07/13/24Order Info: 0184- - CBCD Performed By: #### L 500.2500, L100.0100 #### [facility] [address] [place], [address] RBC (Bld) [#/Vol] 5.05 10*6/uL Normal 4.6-6.2 [facility] Comment on above: Order Comment: Order Date: 07/13/24Order Info: 0184-1 - CBCD Performed By: #### L 500.2500, L100.0100 #### [facility] [address] [place], [address] RDW SD 50.6 fl High 35.1-43.9 [facility] Comment on above: Order Comment: Order Date: 07/13/24Order Info: 0184-1 - CBCD Performed By: #### L 500.2500, L100.0100 #### [facility] [address] [place], [address] WBC (Bld) [#/Vol] 7.1 10*3/uL Normal 4.4-11.0 [facility] Comment on above: Order Comment: Order Date: 07/13/24Order Info: 0184-1 - CBCD Performed By: #### L 500.2500, L100.0100 #### [facility] [address] [place], [address] Comprehensive Metabolic Prof ilon 10-16-2024 Albumin [Mass/Vol] 3.6 g/dL Normal 3.2-5.0 [facility] Comment on above: Order Comment: Order Date: 07/13/24Order Info: 0786-1 - CMPOrder Info: [id number] - LIPID Performed By: #### L 500.2500, L100.0100 #### [facility] [address] [place], [address] Albumin/Globulin [Mass ratio] 0.9 {ratio} Normal 0.9-2.4 [facility] Comment on above: Order Comment: Order Date: 07/13/24Order Info: 0786-1 - CMPOrder Info: [id number] - LIPID Performed By: #### L 500.2500, L100.0100 #### [facility] [address] [place], [address] ALK P 86 U/L Normal 45-117 [facility] Comment on above: Order Comment: Order Date: 07/13/24Order Info: 0786-1 - CMPOrder Info: [id number] - LIPID Performed By: #### L 500.2500, L100.0100 #### [facility] [address] [place], [address] ALT [Catalytic activity/Vol] 27 U/L Normal 16-61 [facility] Comment on above: Order Comment: Order Date: 07/13/24Order Info: 0786-1 - CMPOrder Info: [id number] - LIPID Performed By: #### L 500.2500, L100.0100 #### [facility] [address] [place], [address] AST [Catalytic activity/Vol] 34 U/L Normal 15-37 [facility] Comment on above: Order Comment: Order Date: 07/13/24Order Info: 785-10 - CMPOrder Info: [id number] - LIPID Performed By: #### L 500.2500, L100.0100 #### [facility] [address] [place], [address] Bilirubin [Mass/Vol] 1.00 mg/dL Normal 0.20-1.00 [facility] Comment on above: Order Comment: Order Date: 07/13/24Order Info: 785- - CMPOrder Info: [id number] - LIPID Result Comment: For patients on eltrombopag therapy, use of Dimension Formoso TBIL is not recommended. Performed By: #### L 500.2500, L100.0100 #### [facility] [address] [place], [address] BUN/CRE 6.1 RATIO Low 10-20 [facility] Comment on above: Order Comment: Order Date: 07/13/24Order Info: 785-10 - CMPOrder Info: [id number] - LIPID Performed By: #### L 500.2500, L100.0100 #### [facility] [address] [place], [address] CA,Total 9.3 mg/dL Normal 8.5-10.1 [facility] Comment on above: Order Comment: Order Date: 07/13/24Order Info: 785-10 - CMPOrder Info: [id number] - LIPID Performed By: #### L 500.2500, L100.0100 #### [facility] [address] [place], [address] Chloride [Moles/Vol] 107 mmol/L Normal 98-107 [facility] Comment on above: Order Comment: Order Date: 07/13/24Order Info: 785-10 - CMPOrder Info: [id number] - LIPID Performed By: #### L 500.2500, L100.0100 #### [facility] [address] [place], [address] CO2 [Moles/Vol] 25.0 mmol/L Normal 21.0-32.0 [facility] Comment on above: Order Comment: Order Date: 07/13/24Order Info: 0786-1 - CMPOrder Info: [id number] - LIPID Performed By: #### L 500.2500, L100.0100 #### [facility] [address] [place], [address] Creatinine [Mass/Vol] 1.15 mg/dL Normal 0.70-1.30 [facility] Comment on above: Order Comment: Order Date: 07/13/24Order Info: 07- - CMPOrder Info: [id number] - LIPID Result Comment: The validity of the calculated GFR GFRAA in patients over 70 years has not been determined. Clinical correlation is essential. Performed By: #### L 500.2500, L100.0100 #### [facility] [address] [place], [address] EST GFR - AA 82 mL/min Normal >60 [facility] Comment on above: Order Comment: Order Date: 07/13/24Order Info: 07- - CMPOrder Info: [id number] - LIPID Result Comment: Afri can Israeli GFR Calc Performed By: #### L 500.2500, L100.0100 #### [facility] [address] [place], [address] GAP 6 Normal 5-15 [facility] Comment on above: Order Comment: Order Date: 07/13/24Order Info: 0786-1 - CMPOrder Info: [id number] - LIPID Performed By: #### L 500.2500, L100.0100 #### [facility] [address] [place], [address] GFR/1.73 sq M.predicted among non-blacks MDRD (S/P/Bld) [Vol rate/Area] 68 mL/min/{1.73_m2} Normal >60 [facility] Comment on above: Order Comment: Order Date: 07/13/24Order Info: 07- - CMPOrder Info: [id number] - LIPID Result Comment: Non- GFR Calc Performed By: #### L 500.2500, L100.0100 #### [facility] [address] [place], [address] Globulin (S) [Mass/Vol] 3.9 g/dL Normal 2.2-4.2 [facility] Comment on above: Order Comment: Order Date: 07/13/24Order Info: 785- - CMPOrder Info: [id number] - LIPID Performed By: #### L 500.2500, L100.0100 #### [facility] [address] [place], [address] Glucose [Mass/Vol] 98 mg/dL Normal 74-106 [facility] Comment on above: Order Comment: Order Date: 07/13/24Order Info: 785-10 - CMPOrder Info: [id number] - LIPID Performed By: #### L 500.2500, L100.0100 #### [facility] [address] [place], [address] Potassium [Moles/Vol] 4.1 mmol/L Normal 3.5-5.1 [facility] Comment on above: Order Comment: Order Date: 07/13/24Order Info: 07 - CMPOrder Info: [id number] - LIPID Performed By: #### L 500.2500, L100.0100 #### [facility] [address] [place], [address] Sodium [Moles/Vol] 138 mmol/L Normal 136-145 [facility] Comment on above: Order Comment: Order Date: 07/13/24Order Info: 07- - CMPOrder Info: [id number] - LIPID Performed By: #### L 500.2500, L100.0100 #### [facility] [address] [place], [address] T PROT 7.5 g/dL Normal 6.4-8.2 [facility] Comment on above: Order Comment: Order Date: 07/13/24Order Info: 0786-1 - CMPOrder Info: [id number] - LIPID Performed By: #### L 500.2500, L100.0100 #### [facility] [address] [place], [address] Urea nitrogen [Mass/Vol] 7 mg/dL Normal 7-18 [facility] Comment on above: Order Comment: Order Date: 07/13/24Order Info: 0786- - CMPOrder Info: [id number] - LIPID Performed By: #### L 500.2500, L100.0100 #### [facility] [address] [place], [address] Lipid Profileon 10-16-2024 Cholesterol [Mass/Vol] 193 mg/dL Normal 200 [facility] Comment on above: Order Comment: Order Date: 07/13/24Order Info: 0786- - CMPOrder Info: [id number] - LIPID Result Comment: <200 mg/dL Desirable 200-240 mg/dL Borderline >240 mg/dL High Risk Performed By: #### L 500.2500, L100.0100 #### [facility] [address] [place], [address] Cholesterol in HDL [Mass/Vol] 39 mg/dL Low [facility] Comment on above: Order Comment: Order Date: 07/13/24Order Info: 0786- - CMPOrder Info: [id number] - LIPID Result Comment: The drugs N-Acetylcysteine and Metamizole may falsely depress this assay. Reference Range HDL <40 mg/dL Low HDL Cholesterol HDL >or= 60 mg/dL High HDL Cholesterol Performed By: #### L 500.2500, L100.0100 #### [facility] [address] [place], [address] Cholesterol in LDL [Mass/Vol] 125 mg/dL Normal 0-130 [facility] Comment on above: Order Comment: Order Date: 07/13/24Order Info: 0786-1 - CMPOrder Info: [id number] - LIPID Performed By: #### L 500.2500, L100.0100 #### [facility] [address] [place], [address] Cholesterol in VLDL [Mass/Vol] 29 mg/dL Normal 5-40 [facility] Comment on above: Order Comment: Order Date: 07/13/24Order Info: 0786-1 - CMPOrder Info: [id number] - LIPID Performed By: #### L 500.2500, L100.0100 #### [facility] [address] [place], [address] Triglyceride [Mass/Vol] 145 mg/dL Normal W [facility] Comment on above: Order Comment: Order Date: 07/13/24Order Info: 0786- - CMPOrder Info: [id number] - LIPID Result Comment: The drugs N-Acetylcysteine and Metamizole may falsely depress this assay. Serum Triglycerides Reference Interval Normal <150 mg/dL Borderline high 150 - 199 mg/dL High 200 - 499 mg/dL Very High > or = 500 mg/dL Performed By: #### L 500.2500, L100.0100 #### [facility] [address] [place], [address] Echo Complete W/ Contraston 10-10-2024 Echo Complete W/ Contrast [facility] [address] [place] [address] Echo Complete W/ Contrast 10/10/24 0912 MR#: [id number] Acct: [id number] Name: JOHNY SANTAMARIA Rep #: [id number] : 1960 64 From: Jamarcus Redd MD Attending Dr: Dr. Darrion Chaparro MD Status: REG CLI Ordering Dr: Darrion Chaparro MD Date: 10/10/24 Location: [facility] Sex: M C Admitted: Reason For Study: [...] Infero-Basal: Akinetic. Posterior-Basal: Akinetic. Mid-Posterior: Akinetic. Septal [place] : Hypokinetic. Right Ventricle Normal RV size. [...] Performed By: Ellyn Marie, WIN, RVT 10/10/24 1549 Date Cy (more content not included)... Normal [facility] C-REACTIVE PROTEINon CRP [Mass/Vol] 0.4 mg/dL NINF - 0.9 mg/dL [facility] CNOVSPon 07-06-2024 CNOVSP Visit (SP) Office (VICKY) JOHNY SANTAMARIA ([id number]) 1960 M Date Time Provider Department 07/06/24 [...] Mother Blindness Mother Heart Father Hypertension Father PR multiple around age 60; stents and CABG [...] to correlate with current findings. Kalpana Pearce APRN.COATER HELPER I spent a total of 30 minutes on the date of the service which included preparing to see the patient, upvq-pi-ofot patient care, completing clinical documentation, and counseling [...] of this patient. Referring Provider: INOCENCIO MCKEON [[id number]] Allergies As of Date: 07/06/2024 Noted Allergy Reaction environmental [Other] 03/11/2006 Date Reviewed: 07/06/2024 Reviewed by: Fay Rojo LPN - Fully Assessed Reason for Visit: Established Patient [175] Cmt: OV, (more content not included)... Normal [facility] CRP SerPl-mCncon 07-06-2024 CRP [Mass/Vol] 0.4 mg/dL Normal <0.9 [facility] Comment on above: Order Comment: [facility] Type: BLOOD SPECIMEN Ordering Facility: [facility] Address: [address] [place] [address] Performed By: #### 1 988-5, 2324-2 #### [facility] CLIA [id number] [address] [place] [address] [place] CRP [Mass/Vol]on 07-06-2024 Interpretation and review of laboratory results Normal [facility] GGTon 07-06-2024 Gamma glutamyl transferase [Catalytic activity/Vol] 133 U/L High 10 - 70 U/L [facility] GGT SerPl-cCncon 07-06-2024 Gamma glutamyl transferase [Catalytic activity/Vol] 133 U/L High 10-70 [facility] Comment on above: Order Comment: [facility] Type: BLOOD SPECIMENOrdering Facility: [facility] Address: [address] [place] [address] Performed By: #### 1 988-5, 2324-2 ####[facility] [id number] [place] [address] [place] Gamma glutamyl transferase [ Catalytic activity/Vol]on 07-06-2024 Interpretation and review of laboratory results Abnormal [facility] Hepatic function 2000 panelO rdered By: Albertina Conner on 07-06-2024 Albumin [Mass/Vol] 4.2 g/dL 3.9 - 4.9 g/dL [facility] ALP [Catalytic activity/Vol] 74 U/L 38 - 113 U/L [facility] ALT [Catalytic activity/Vol] 41 U/L 10 - 54 U/L [facility] AST [Catalytic activity/Vol] 50 U/L High 14 - 40 U/L [facility] Bilirubin [Mass/Vol] 0.5 mg/dL 0.2 - 1 .3 mg/dL [facility] Bilirubin.conjugated [Mass/Vol] 0.2 mg/dL High NINF - 0.2 mg/dL [facility] Interpretation and review of laboratory results Abnormal [facility] Protein [Mass/Vol] 7.0 g/dL 6.3 - 8.0 g/dL [facility] Hepatic function 2000 panelo n 07-06-2024 Albumin [Mass/Vol] 4.2 g/dL Normal 3.9-4.9 [facility] Comment on above: Order Comment: Speci men Type: BLOOD SPECIMEN Ordering Facility: [facility] Address: [address] [place] [address] Performed By: #### 2 4325-3 #### [facility] CLIA [id number] [address] [place] [address] [place] ALP [Catalytic activity/Vol] 74 U/L Normal 38-113 [facility] Comment on above: Order Comment: Speci men Type: BLOOD SPECIMEN Ordering Facility: [facility] Address: [address] [place] [address] Performed By: #### 2 4325-3 #### [facility] CLIA [id number] [address] [place] [address] [place] ALT [Catalytic activity/Vol] 41 U/L Normal 10-54 [facility] Comment on above: Order Comment: Speci men Type: BLOOD SPECIMEN Ordering Facility: [facility] Address: [address] [place] [address] Performed By: #### 2 4325-3 #### [facility] CLIA [id number] [address] [place] [address] [place] AST [Catalytic activity/Vol] 50 U/L High 14-40 [facility] Comment on above: Order Comment: Speci men Type: BLOOD SPECIMEN Ordering Facility: [facility] Address: [address] [place] [address] Performed By: #### 2 4325-3 #### [facility] CLIA [id number] [address] [place] [address] [place] Bilirubin [Mass/Vol] 0.5 mg/dL Normal 0.2-1.3 [facility] Comment on above: Order Comment: Speci men Type: BLOOD SPECIMEN Ordering Facility: [facility] Address: [address] [place] [address] [place] [address] Performed By: #### 2 4325-3 #### [facility] CLIA [id number] [address] [place] [address] [place] Bilirubin.conjugated [Mass/Vol] 0.2 mg/dL High <0.2 [facility] Comment on above: Order Comment: Speci men Type: BLOOD SPECIMEN Ordering Facility: [facility] Address: [address] [id number] Performed By: #### 2 4325-3 #### [facility] CLIA [id number] [address] [place] [address] [place] Protein [Mass/Vol] 7.0 g/dL Normal 6.3-8.0 [facility] Comment on above: Order Comment: Speci men Type: BLOOD SPECIMEN Ordering Facility: [facility] Address: [address] [id number] Performed By: #### 2 4325-3 #### [facility] CLIA [id number] [address] [place] [address] [place] No Panel Informationon 07-06 [facility] US ABD RIGHT UPPER QUADRANTo n 06-27-2024 [...] seen in the setting of hepatic steatosis. Will Call Clerk: AD Transcribe Date/Time: Jun 27 2024 10:36A Dictated by : GEOVANNA ROCHA MD This examination was interpreted and the report reviewed and electronically signed by: GEOVANNA ROCHA MD on Jun 27 2024 10:37AM EST [id number] CN Normal [facility] US Abdomen RUQon 06-27-2024 IMPRESSION: Increased hepatic echogenicity, a nonspecific finding though most often seen in the setting of hepatic steatosis. Will Call Clerk: AD Transcribe Date/Time: Jun 27 2024 10:36A [...] hydronephrosis. Ascites: None. DIVISION OF RADIOLOGY Provider, [facility] - 06/27/2024 * * *Final Report* * [...] seen in the setting of hepatic steatosis. Will Call Clerk: AD Transcribe Date/Time: Jun 27 2024 10:36A Dictated by : GEOVANNA ROCHA MD This examination was interpreted and the report reviewed and electronically signed by: GEOVANNA ROCHA MD on Jun 27 2024 10:37AM EST [facility] Radiology [facility]narrative[facility] US Abdomen RUQOrdered By: Deborah mirza Provider on 06-27-2024 [facility] CNOVSPon 06-21-2024 CNOVSP Visit (SP) Office (VICKY) JOHNY SANTAMARIA ([id number]) 1960 M Date Time Provider Department 06/21/24 [...] Mother Blindness Mother Heart Father Hypertension Father PR multiple around age 60; stents and CABG [...] which included preparing to see the patient, mjzt-ma-eape patient care, completing clinical documentation, obtaining and/or [...] Diagnosis:Elevated LFTs [R79.89] Order(s):FERRITIN [SQFERR] Order #: [id number] FUTURE IRON AND TIBC [SQIRON] Order #: [id number] FUTURE HFE (HEMOCHROMATOSIS) [SQHEMDNA] Order #: [id number] FUTURE US ABD RIGHT UPPER QUADRANT [[id number]] Order #: [id number] FUTURE Follow-up and Disposition History for Encounter Date Provider Department Center 06/21/2024 [id number], DREW VICKY [place] Prescriptions as of 06/21/2024 - latanoprost [...] Status:Closed by INOCENCIO MCKEON on 06/21/[address] [facility] Ferritin SerPl-mCncon 2023 Ferritin [Mass/Vol] 1038.0 ng/mL High 30.3-565.7 [facility] Comment on above: Order Comment: Speci men Type: BLOOD SPECIMEN Ordering Facility: [facility] Address: [address] [place] [address] Performed By: #### 5 0190-8, 2276-4 #### [facility] CLIA [id number] [address] [place] [address] HFE (HEMOCHROMATOSIS)on 06-04 INTERPRETATION (HEMDNA) Normal [facility] Comment on above: Order Comment: Speci men Type: BLOOD SPECIMEN Ordering Facility: [facility] Address: [address] [place] [address] Result Comment: HFE (Hemochromatosis) Laboratory Accession Number: [id number] Result: C282Y: WT H63D: WT S65C: WT [...] curve analysis. The variants interrogated are c.845G>A, p.[id number]; [id number]; [id number] (legacy name C282Y), c.187C>G, p.[id number]; g.[id number]; [id number] (legacy name H63D) and c.193A>T, p.[id number]; g.[id number]; [id number] (legacy name S65C). The reference genome used was GRCh37/hg19. Limitations: DNA studies do not provide a definitive genetic risk in all individuals. This targeted test is designed to detect three specific variants (see methodology for details) in HFE (OMIM 919118). Uncommon variants or single nucleotide polymorphisms may affect binding of probes and thus result in false negative, false positive, or indeterminate results. This test does not detect other HFE variants. Disclaimer: This test was developed and its performance characteristics determined by [facility]'s Pathology and Laboratory Medicine Department. It has not been cleared or approved by the FDA. [facility]'s Pathology and Laboratory Medicine Department is regulated under CLIA as certified to perform high-complexity testing. This test is used for clinical purposes. It should not be regarded as investigational or for research. Testing and interpretation performed at [facility], [address] [place] [address]. CLIA Number: [id number] As reviewed by Trudy Tinoco MD, PhD Performed By: #### H EMDDRE #### [facility] CLIA [id number] [address] [place] [address] [place] Iron and Iron binding capaci ty panelon 06-21-2024 Interpretation and review of laboratory results Normal [facility] Iron [Mass/Vol] 121 ug/dL 41 - 186 ug/dL [facility] Iron binding capacity [Mass/Vol] 360 ug/dL 232 - 386 ug/dL [facility] Iron/TIBC [Molar ratio] 33.6 % 15.0 - 57.0 % [facility] Iron [Mass/Vol] 121 ug/dL Normal 41-186 [facility] Comment on above: Order Comment: Speci men Type: BLOOD SPECIMEN Ordering Facility: [facility] Address: [address] [place] [address] Performed By: #### 5 0190-8, 2276-4 #### [facility] CLIA [id number] [address] [place] [address] [place] Iron binding capacity [Mass/Vol] 360 ug/dL Normal 232-386 [facility] Comment on above: Order Comment: Speci men Type: BLOOD SPECIMEN Ordering Facility: [facility] Address: [address] [place] [address] Performed By: #### 5 0190-8, 2276-4 #### [facility] CLIA [id number] [address] [place] [address] [place] Iron/TIBC [Molar ratio] 33.6 % Normal 15.0-57.0 C [facility] Comment on above: Order Comment: Speci men Type: BLOOD SPECIMEN Ordering Facility: [facility] Address: [address] [place] [address] Performed By: #### 5 0190-8, 2276-4 #### [facility] CLIA [id number] [address] [place] [address] [place] Absolute lymphocyte counton 02-17-2022 Lymphocytes Auto (Unsp spec) [#/Vol] 1.75 10*3/uL 0.83-4.51 [facility] Work Phone: Basophil percentageon 2021 Basophil percentage 0 SEEN /hpf [facility] Work Phone: Basophils/100 WBC (Bld) 0.7 % 0-1 [facility] Work Phone: Bilirubin [Mass/Vol] 0.90 mg/dL 0.20-1.00 [facility] Work Phone: Comment on above: For patients on eltr ombopag therapy, use of Dimension Formoso TBIL is not recommended. Chloride [Moles/Vol] 107 mmol/L 98-107 [facility] Work Phone: Cholesterol [Mass/Vol] 230 mg/dL <200 [facility] Work Phone: Comment on above: <200 mg/dL Desirable 200-240 mg/dL Borderline >240 mg/dL High Risk Eosinophils/100 WBC (Bld) 1.2 % 0-5 [facility] Work Phone: Glucose [Mass/Vol] 113 mg/dL 74-106 [facility] Work Phone: Comment on above: Fasting Glucose resu lt from 100 to 125 mg/dL suggests IMPAIRED HOMEOSTASIS per A.D.A. criteria. Neutrophils (Bld) [#/Vol] 4.8 10*3/uL 2.0-7.7 [facility] Work Phone: Neutrophils/100 WBC (Bld) 66.3 % 47-70 [facility] Work Phone: Potassium [Moles/Vol] 4.6 mmol/L 3.5-5.1 [facility] Work Phone: Protein [Mass/Vol] 7.8 g/dL 6.4-8.2 [facility] Work Phone: Sodium [Moles/Vol] 140 mmol/L 136-145 [facility] Work Phone: Triglyceride [Mass/Vol] 350 mg/dL [facility] Work Phone: Comment on above: The drugs N-Acetylcy steine and Metamizole may falsely depress this assay.Serum Triglycerides Reference Interval Normal <150 mg/dL Borderline high 150 - 199 mg/dL High 200 - 499 mg/dL Very High > or = 500 mg/dL WBC (Bld) [#/Vol] 7.3 10*3/uL 4.4-11.0 [facility] Work Phone: Bilirubin Test strip Ql (U)o n 02-17-2022 Bilirubin Ql (U) Negative Negative [facility] Work Phone: Blood erythrocytes count (nu mber/volume)on 02-17-2022 RBC (Bld) [#/Vol] 4.64 10*6/uL 4.6-6.2 [facility] Work Phone: Blood hemoglobin measurement (mass/volume)on 02-17-2022 Hemoglobin (Bld) [Mass/Vol] 15.7 g/dL 13.0-16.5 [facility] Work Phone: Blood lymphocytes/100 leukoc yteson 02-17-2022 Lymphocytes/100 WBC (Bld) 24.0 % 19-41 [facility] Work Phone: Blood monocytes/100 leukocyt eson 02-17-2022 Monocytes/100 WBC (Bld) 7.3 % 0-10 [facility] Work Phone: Blood platelet mean volumeon 02-17-2022 Platelet mean volume (Bld) [Entitic vol] 12.2 fL 6.2-12.0 [facility] Work Phone: Determination of erythrocyte mean corpuscular volume (MCV)on 02-17-2022 MCV (RBC) [Entitic vol] 102.8 fL 80-94 [facility] Work Phone: Hematocrit Auto (Bld) [Volum e fraction]on 02-17-2022 Hematocrit (Bld) [Volume fraction] 47.7 % 40-54 [facility] Work Phone: Ketones Test strip Ql (U)on 02-17-2022 Ketones Ql (U) Negative Negative [facility] Work Phone: Laboratory - Chemistry and C hemistry - challengeon 02-17-2022 ALP [Catalytic activity/Vol] 93 U/L 45-117 [facility] Work Phone: ALT [Catalytic activity/Vol] 59 U/L 16-61 [facility] Work Phone: CO2 [Moles/Vol] 27.0 mmol/L 21.0-32.0 [facility] Work Phone: Globulin (S) [Mass/Vol] 3.9 g/dL 2.2-4.2 [facility] Work Phone: Urea nitrogen/Creatinine [Mass ratio] 6.2 mg/mg 10-20 [facility] Work Phone: Laboratory - Hematology and Cell countson 02-17-2022 Erythrocyte distribution width (RBC) [Entitic vol] 48.7 fL 35.1-43.9 [facility] Work Phone: Erythrocyte distribution width (RBC) [Ratio] 12.9 % 11.6-14.6 [facility] Work Phone: Immature granulocytes/100 WBC (Bld) 0.500 % 0.0-0.9 [facility] Work Phone: Comment on above: IG% - Immature Granu locytes (promyelocytes, myelocytes and metamyelocytes) > 1% indicates that a LEFT SHIFT is Present. MCH (RBC) [Entitic mass] 33.8 pg 27.0-32.0 [facility] Work Phone: Nucleated RBC/100 WBC (Bld) [Ratio] 0 % 0-5 [facility] Work Phone: MCHC Auto (RBC) [Mass/Vol]on 02-17-2022 MCHC (RBC) [Mass/Vol] 32.9 g/dL 32-36 [facility] Work Phone: Mucus LM Ql (Urine sed)on Mucus Ql (Urine sed) 0 SEEN /hpf [facility] Work Phone: Nitrite Test strip Ql (U)on 02-17-2022 Nitrite Ql (U) Negative Negative [facility] Work Phone: No Panel Informationon 02-17 Estimated GFR (MDRD) Amer 72 mL/min >60 [facility] Work Phone: Comment on above: GFR Calc Estimated GFR (MDRD) Non-Af Amer 60 mL/min >60 [facility] Work Phone: Comment on above: Non- GFR Calc Platelets bldon 02-17-2022 Platelets (Bld) [#/Vol] 166 10*3/uL 150-450 [facility] Work Phone: Protein Test strip Ql (U)on 02-17-2022 Protein Ql (U) Negative Negative [facility] Work Phone: Serum or plasma albumin kelli urement (mass/volume)on 02-17-2022 Albumin [Mass/Vol] 3.9 g/dL 3.2-5.0 [facility] Work Phone: Serum or plasma albumin/glob ulin mass ratioon 02-17-2022 Albumin/Globulin [Mass ratio] 1.0 {ratio} 0.9-2.4 [facility] Work Phone: Serum or plasma calcium kelli urement (mass/volume)on 02-17-2022 Calcium [Mass/Vol] 9.3 mg/dL 8.5-10.1 [facility] Work Phone: Serum or plasma cholesterol in HDL measurement (mass/volume)on 02-17-2022 Cholesterol in HDL [Mass/Vol] 43 mg/dL [facility] Work Phone: Comment on above: The drugs N-Acetylcy steine and Metamizole may falsely depress this assay. Reference Range HDL <40 mg/dL Low HDL Cholesterol HDL >or= 60 mg/dL High HDL Cholesterol Serum or plasma cholesterol in VLDL measurement (mass/volume)on 02-17-2022 Cholesterol in VLDL [Mass/Vol] 70 mg/dL 5-40 [facility] Work Phone: Serum or plasma creatinine m easurement (mass/volume)on 02-17-2022 Creatinine [Mass/Vol] 1.29 mg/dL 0.70-1.30 [facility] Work Phone: Comment on above: The validity of the calculated GFR & GFRAA in patients over 70 years has not been determined. Clinical correlation is essential. Serum or plasma low density lipoprotein (LDL) cholesterol measurement (mass/volume)on 02-17-2022 Cholesterol in LDL [Mass/Vol] 117 mg/dL 0-130 [facility] Work Phone: Serum or plasma urea nitroge n measurement (mass/volume)on 02-17-2022 Urea nitrogen [Mass/Vol] 8 mg/dL 7-18 [facility] Work Phone: Squamous epithelial cells de tection in urine sediment by light microscopyon 02-17-2022 Epithelial cells.squamous LM Ql (Urine sed) 0 SEEN /hpf [facility] Work Phone: Thin prep Papanicolaou smear with manual screeningon 02-17-2022 Thin prep Papanicolaou smear with manual screening 62 U/L 15-37 [facility] Work Phone: Thin prep Papanicolaou smear with manual screening 6 5-15 [facility] Work Phone: Urine blood detectionon 02-01 RBC Ql (U) 10 /ul Negative [facility] Work Phone: RBC Ql (U) 0 SEEN /hpf [facility] Work Phone: Urine clarityon 02-17-2022 Clarity (U) Clear Clear [facility] Work Phone: Urine color determinationon 02-17-2022 Color (U) Yellow Yellow [facility] Work Phone: Urine glucose detectionon Glucose Ql (U) Normal mg/dl Normal [facility] Work Phone: Urine leukocyte esterase det ection by dipstickon 02-17-2022 Leukocyte esterase Test strip Ql (U) Negative Negative [facility] Work Phone: Urine pHon 02-17-2022 pH (U) 7.0 [pH] [facility] Work Phone: Urine sediment bacteria coun t by microscopy (number/high power field)on 02-17-2022 Bacteria LM.HPF (Urine sed) [#/Area] 0 /[HPF] None Seen [facility] Work Phone: Urine specific gravity measu rementon 02-17-2022 Specific gravity (U) [Rel density] 1.010 [facility] Work Phone: Urobilinogen Auto test strip Ql (U)on 02-17-2022 Urobilinogen Ql (U) Normal mg/dl Normal [facility] Work Phone: Whole blood hemoglobin A1c/t otal hemoglobin ratio (mass fraction)on 02-17-2022 HbA1c (Bld) [Mass fraction] 5.0 % 3.8-5.6 [facility] Work Phone: Comment on above: Normal < 5.7 % Predi abetic 5.7 - 6.4 % Diabetic >or= 6.5 % Please note range changes. Absolute lymphocyte counton 10-30-2021 Lymphocytes Auto (Unsp spec) [#/Vol] 1.95 10*3/uL 0.83-4.51 [facility] Work Phone: Basophil percentageon 2021 Basophil percentage 0-5 SEEN /hpf [facility] Work Phone: Basophils/100 WBC (Bld) 0.7 % 0-1 [facility] Work Phone: Bilirubin [Mass/Vol] 0.60 mg/dL 0.20-1.00 [facility] Work Phone: Comment on above: For patients on eltr ombopag therapy, use of Dimension Formoso TBIL is not recommended. Chloride [Moles/Vol] 107 mmol/L 98-107 [facility] Work Phone: Cholesterol [Mass/Vol] 268 mg/dL <200 [facility] Work Phone: Comment on above: <200 mg/dL Desirable 200-240 mg/dL Borderline >240 mg/dL High Risk Eosinophils/100 WBC (Bld) 1.5 % 0-5 [facility] Work Phone: Glucose [Mass/Vol] 103 mg/dL 74-106 [facility] Work Phone: Comment on above: Fasting Glucose resu lt from 100 to 125 mg/dL suggests IMPAIRED HOMEOSTASIS per A.D.A. criteria. Neutrophils (Bld) [#/Vol] 7.6 10*3/uL 2.0-7.7 [facility] Work Phone: Neutrophils/100 WBC (Bld) 72.1 % 47-70 [facility] Work Phone: Potassium [Moles/Vol] 4.4 mmol/L 3.5-5.1 [facility] Work Phone: Protein [Mass/Vol] 7.4 g/dL 6.4-8.2 [facility] Work Phone: Sodium [Moles/Vol] 138 mmol/L 136-145 [facility] Work Phone: Triglyceride [Mass/Vol] 190 mg/dL [facility] Work Phone: Comment on above: The drugs N-Acetylcy steine and Metamizole may falsely depress this assay.Serum Triglycerides Reference Interval Normal <150 mg/dL Borderline high 150 - 199 mg/dL High 200 - 499 mg/dL Very High > or = 500 mg/dL WBC (Bld) [#/Vol] 10.5 10*3/uL 4.4-11.0 [facility] Work Phone: Bilirubin Test strip Ql (U)o n 10-30-2021 Bilirubin Ql (U) Negative Negative [facility] Work Phone: Blood erythrocytes count (nu mber/volume)on 10-30-2021 RBC (Bld) [#/Vol] 5.02 10*6/uL 4.6-6.2 [facility] Work Phone: Blood hemoglobin measurement (mass/volume)on 10-30-2021 Hemoglobin (Bld) [Mass/Vol] 17.1 g/dL 13.0-16.5 [facility] Work Phone: Blood lymphocytes/100 leukoc yteson 10-30-2021 Lymphocytes/100 WBC (Bld) 18.6 % 19-41 [facility] Work Phone: Blood monocytes/100 leukocyt eson 10-30-2021 Monocytes/100 WBC (Bld) 6.7 % 0-10 [facility] Work Phone: Blood platelet mean volumeon 10-30-2021 Platelet mean volume (Bld) [Entitic vol] 12.0 fL 6.2-12.0 [facility] Work Phone: Determination of erythrocyte mean corpuscular volume (MCV)on 10-30-2021 MCV (RBC) [Entitic vol] 100.0 fL 80-94 [facility] Work Phone: Hematocrit Auto (Bld) [Volum e fraction]on 10-30-2021 Hematocrit (Bld) [Volume fraction] 50.2 % 40-54 [facility] Work Phone: Ketones Test strip Ql (U)on 10-30-2021 Ketones Ql (U) Negative Negative [facility] Work Phone: Laboratory - Chemistry and C hemistry - challengeon 10-30-2021 ALP [Catalytic activity/Vol] 75 U/L 45-117 [facility] Work Phone: ALT [Catalytic activity/Vol] 22 U/L 16-61 [facility] Work Phone: CO2 [Moles/Vol] 24.0 mmol/L 21.0-32.0 [facility] Work Phone: Free T4 [Mass/Vol] 0.80 ng/dL 0.76-1.46 [facility] Work Phone: Globulin (S) [Mass/Vol] 3.9 g/dL 2.2-4.2 [facility] Work Phone: Transferrin [Mass/Vol] 296 mg/dL [facility] Work Phone: Urea nitrogen/Creatinine [Mass ratio] 8.5 mg/mg 10-20 [facility] Work Phone: Laboratory - Hematology and Cell countson 10-30-2021 Erythrocyte distribution width (RBC) [Entitic vol] 51.9 fL 35.1-43.9 [facility] Work Phone: Erythrocyte distribution width (RBC) [Ratio] 14.1 % 11.6-14.6 [facility] Work Phone: Immature granulocytes/100 WBC (Bld) 0.400 % 0.0-0.9 [facility] Work Phone: Comment on above: IG% - Immature Granu locytes (promyelocytes, myelocytes and metamyelocytes) > 1% indicates that a LEFT SHIFT is Present. MCH (RBC) [Entitic mass] 34.1 pg 27.0-32.0 [facility] Work Phone: Nucleated RBC/100 WBC (Bld) [Ratio] 0 % 0-5 [facility] Work Phone: MCHC Auto (RBC) [Mass/Vol]on 10-30-2021 MCHC (RBC) [Mass/Vol] 34.1 g/dL 32-36 [facility] Work Phone: Mucus LM Ql (Urine sed)on Mucus Ql (Urine sed) 0 SEEN /hpf [facility] Work Phone: Nitrite Test strip Ql (U)on 10-30-2021 Nitrite Ql (U) Negative Negative [facility] Work Phone: No Panel Informationon 10-30 Estimated GFR (MDRD) Amer 104 mL/min >60 [facility] Work Phone: Comment on above: GFR Calc Estimated GFR (MDRD) Non-Af Amer 86 mL/min >60 [facility] Work Phone: Comment on above: Non- GFR Calc Thyroid Stimulating Hormone (TSH) 1.96 uIU/mL 0.358-3.74 [facility] Work Phone: Total Iron Binding Capacity 392 ug/dL 250-450 [facility] Work Phone: Platelets bldon 10-30-2021 Platelets (Bld) [#/Vol] 155 10*3/uL 150-450 [facility] Work Phone: Protein Test strip Ql (U)on 10-30-2021 Protein Ql (U) Negative Negative [facility] Work Phone: Serum or plasma albumin kelli urement (mass/volume)on 10-30-2021 Albumin [Mass/Vol] 3.5 g/dL 3.2-5.0 [facility] Work Phone: Serum or plasma albumin/glob ulin mass ratioon 10-30-2021 Albumin/Globulin [Mass ratio] 0.9 {ratio} 0.9-2.4 [facility] Work Phone: Serum or plasma calcium kelli urement (mass/volume)on 10-30-2021 Calcium [Mass/Vol] 9.3 mg/dL 8.5-10.1 [facility] Work Phone: Serum or plasma cholesterol in HDL measurement (mass/volume)on 10-30-2021 Cholesterol in HDL [Mass/Vol] 42 mg/dL [facility] Work Phone: Comment on above: The drugs N-Acetylcy steine and Metamizole may falsely depress this assay. Reference Range HDL <40 mg/dL Low HDL Cholesterol HDL >or= 60 mg/dL High HDL Cholesterol Serum or plasma cholesterol in VLDL measurement (mass/volume)on 10-30-2021 Cholesterol in VLDL [Mass/Vol] 38 mg/dL 5-40 [facility] Work Phone: Serum or plasma creatinine m easurement (mass/volume)on 10-30-2021 Creatinine [Mass/Vol] 0.94 mg/dL 0.70-1.30 [facility] Work Phone: Comment on above: The validity of the calculated GFR & GFRAA in patients over 70 years has not been determined. Clinical correlation is essential. Serum or plasma ferritin prince surement (mass/volume)on 10-30-2021 Ferritin [Mass/Vol] 358 ng/mL 26-388 [facility] Work Phone: Serum or plasma low density lipoprotein (LDL) cholesterol measurement (mass/volume)on 10-30-2021 Cholesterol in LDL [Mass/Vol] 188 mg/dL 0-130 [facility] Work Phone: Serum or plasma thyroperoxid ase antibody assay (units/volume)on 10-30-2021 TPO Ab Qn [IU]/mL [facility] Work Phone: Comment on above: Performed at: [place] [id number] Director: Carl Roldan PhD, Phone: [phone] Serum or plasma urea nitroge n measurement (mass/volume)on 10-30-2021 Urea nitrogen [Mass/Vol] 8 mg/dL 7-18 [facility] Work Phone: Squamous epithelial cells de tection in urine sediment by light microscopyon 10-30-2021 Epithelial cells.squamous LM Ql (Urine sed) 0-5 SEEN /hpf [facility] Work Phone: Thin prep Papanicolaou smear with manual screeningon 10-30-2021 Thin prep Papanicolaou smear with manual screening 26 U/L 15-37 [facility] Work Phone: Thin prep Papanicolaou smear with manual screening 7 5-15 [facility] Work Phone: Urine blood detectionon - RBC Ql (U) Negative Negative [facility] Work Phone: RBC Ql (U) 0 SEEN /hpf [facility] Work Phone: Urine clarityon 10-30-2021 Clarity (U) Clear Clear [facility] Work Phone: Urine color determinationon 10-30-2021 Color (U) Yellow Yellow [facility] Work Phone: Urine glucose detectionon Glucose Ql (U) Normal mg/dl Normal [facility] Work Phone: Urine leukocyte esterase det ection by dipstickon 10-30-2021 Leukocyte esterase Test strip Ql (U) 25 /ul Negative [facility] Work Phone: Urine pHon 10-30-2021 pH (U) 5.0 [pH] [facility] Work Phone: Urine sediment bacteria coun t by microscopy (number/high power field)on 10-30-2021 Bacteria LM.HPF (Urine sed) [#/Area] 0 /[HPF] None Seen [facility] Work Phone: Urine specific gravity measu rementon 10-30-2021 Specific gravity (U) [Rel density] 1.010 [facility] Work Phone: Urobilinogen Auto test strip Ql (U)on 10-30-2021 Urobilinogen Ql (U) Normal mg/dl Normal [facility] Work Phone: Whole blood hemoglobin A1c/t otal hemoglobin ratio (mass fraction)on 10-30-2021 HbA1c (Bld) [Mass fraction] 5.3 % 3.8-5.6 [facility] Work Phone: Comment on above: Normal < 5.7 % Predi abetic 5.7 - 6.4 % Diabetic >or= 6.5 % Please note range changes. XR Chest PA and LateralOrder ed By: [facility] Provider on 06-23-2021 Interpretation and review of laboratory results Abnormal [facility] Radiology Result ACTIONABLE Abnormal [facility] Comment on above: This report contains an incidental or actionable finding. This is a new finding that is separate from the reason your provider ordered the imaging test. Because of this incidental or actionable finding, you may need another imaging test to evaluate it. Please contact your provider for the next steps. [facility] XR Chest PA and Lateralon Addendum by Provider, [facility] [place] on 06/23/2021 2:41 PM EDT * * [...] be communicated with the ordering provider via [email or web address] staff message or phone message by [employer] within 2 business days of report finalization. Algorithms for management of incidental imaging findings can be found on the [facility] Intranet Sharepoint site at: [email or web address] [email or web address] [email or web address] [email or web address] * * * * * * * * ADDENDUM #1 * * * * * * * * COMMUNICATION: Communicated with Dr. Musa Adler on 06/23/2021 2:17 PM via verbal communication. Will Call Clerk: PSCB Transcribe Date/Time: Jun 23 2021 2:16P Dictated by : CHARLEY BLAKE MD This examination was interpreted and the report reviewed and electronically signed by: CHARLEY BLAKE MD on Jun 23 2021 2:02PM EST This document has been addended by: CHARLEY BLAKE MD on Jun 23 2021 2:17PM EST [facility] Radiology Study observation (narrative) [facility] Vital Signs Date Time Vital Sign Value Performing Clinician Facility 06-05-2025 09:53-0400 Body height 175.[address] Lali Taylor MD Work Phone: [facility] 06-05-2025 09:53-0400 Body weight 79.[address] Lali Taylor MD Work Phone: [facility] 05-23-2025 08:21-0400 Body temperature 98.4 [degF] Dr. Lali Taylor MD Work Phone: [phone] [place] [address] 05-23-2025 08:21-0400 Body weight 79.[address] Lali Taylor MD Work Phone: [phone] [address] 05-23-2025 08:21-0400 Diastolic blood pressure 70 mm[Hg] Dr. Lali Taylor MD Work Phone: 4(348)[phone] [place] [address] 05-23-2025 08:21-0400 Heart rate 56 /min Dr. Lali Taylor MD Work Phone: 4(760)[phone] [address] 05-23-2025 08:21-0400 Respiratory rate 18 /min Dr. Lali Taylor MD Work Phone: [phone] [address] 05-23-2025 08:21-0400 SaO2% (BldA) [Mass fraction] 100 % Dr. Lali Taylor MD Work Phone: [facility] [facility] 05-23-2025 08:21-0400 Systolic blood pressure 153 mm[Hg] Dr. Lali Taylor MD Work Phone: [facility] 05-17-2025 08:21-0400 Body height 175.[address] Lali Taylor MD Work Phone: [facility] 05-17-2025 08:21-0400 Body mass index (BMI) [Ratio] 25.7 kg/m2 Dr. Lali Taylor MD Work Phone: [facility] 05-17-2025 08:21-0400 Body weight 78.[address] Lali Taylor MD Work Phone: 3(709)485-974581 [place] [address] 05-17-2025 08:21-0400 Diastolic blood pressure 75 mm[Hg] Dr. Lali Taylor MD Work Phone: [facility] 05-17-2025 08:21-0400 Heart rate 61 /min Dr. Lali Taylor MD Work Phone: [facility] 05-17-2025 08:21-0400 Respiratory rate 18 /min Dr. Lali Taylor MD Work Phone: [facility] 05-17-2025 08:21-0400 Systolic blood pressure 140 mm[Hg] Dr. Lali Taylor MD Work Phone: [facility] 05-07-2025 07:14-0400 Body weight 80.[address] Lali Taylor MD Work Phone: [facility] 04-17-2025 08:53-0400 Body height 175.[address] Lali Taylor MD Work Phone: 2(471)[phone] [place] [address] 04-17-2025 08:53-0400 Body mass index (BMI) [Ratio] 25.9 kg/m2 Dr. Lali Taylor MD Work Phone: [facility] 04-17-2025 08:53-0400 Body weight 79.[address] Lali Taylor MD Work Phone: [facility] 04-17-2025 08:53-0400 Diastolic blood pressure 82 mm[Hg] Dr. Lali Taylor MD Work Phone: [facility] 04-17-2025 08:53-0400 Heart rate 64 /min Dr. Lali Taylor MD Work Phone: [facility] 04-17-2025 08:53-0400 Respiratory rate 18 /min Dr. Lali Taylor MD Work Phone: [facility] 04-17-2025 08:53-0400 Systolic blood pressure 171 mm[Hg] Dr. Lali Taylor MD Work Phone: [facility] 04-10-2025 10:40-0400 Body mass index (BMI) [Ratio] 25.9 kg/m2 Dr. Lali Taylor MD Work Phone: [facility] 04-10-2025 10:40-0400 Body weight 79.[address] Lali Taylor MD Work Phone: [facility] 04-10-2025 10:01-0400 Diastolic blood pressure 62 mm[Hg] Dr. Lali Taylor MD Work Phone: [facility] 04-10-2025 10:01-0400 Heart rate 63 /min Dr. Lali Taylor MD Work Phone: [facility] 04-10-2025 10:01-0400 SaO2% (BldA) [Mass fraction] 98 % Dr. Lali Taylor MD Work Phone: [facility] 04-10-2025 10:01-0400 Systolic blood pressure 142 mm[Hg] Dr. Lali Taylor MD Work Phone: [facility] 04-10-2025 09:45-0400 Body height 175.[address] Lali Taylor MD Work Phone: [facility] 03-30-2025 10:26-0400 Diastolic blood pressure 70 mm[Hg] Consuelo Almodovar MD, PhD Work Phone: [facility] 03-30-2025 10:26-0400 Systolic blood pressure 150 mm[Hg] Consuelo Almodovar MD, PhD Work Phone: [facility] 03-30-2025 10:07-0400 Heart rate 63 /min Consuelo Almodovar MD, PhD Work Phone: [facility] 03-30-2025 10:04-0400 SaO2% (BldA) [Mass fraction] 99 % Consuelo Almodovar MD, PhD Work Phone: [facility] 03-30-2025 07:24-0400 Body temperature 98.71 [degF] Consuelo Almodovar MD, PhD Work Phone: 7(568)753-655284 [place] [address] 03-30-2025 07:24-0400 Respiratory rate 16 /min Consuelo Almodovar MD, PhD Work Phone: 8(994)737-241184 [place] [address] 03-30-2025 03:10-0400 Body mass index (BMI) [Ratio] 26.06 kg/m2 Conseulo Almodovar MD, PhD Work Phone: 6(575)175-290884 [place] [address] 03-30-2025 03:10-0400 Body weight 80.03 kg Consuelo Almodovar MD, PhD Work Phone: 2(142)525-634984 [place] [address] Comment on above: Standing 03-29-2025 09:16-0400 Body height 175.3 cm Consuelo Almodovar MD, PhD Work Phone: 2(933)500-861084 [place] [address] 02-13-2025 11:28-0400 Body height 175.3 cm Consuelo Almodovar MD, PhD Work Phone: 9(716)921-997584 [place] [address] 02-13-2025 11:28-0400 Body mass index (BMI) [Ratio] 26.29 kg/m2 Consuelo Almodovar MD, PhD Work Phone: 9(830)375-191684 [place] [address] 02-13-2025 11:28-0400 Body weight 80.74 kg Consuelo Almodovar MD, PhD Work Phone: 9(166)856-465484 [place] [address] 02-13-2025 11:28-0400 Diastolic blood pressure 60 mm[Hg] Consuelo Almodovar MD, PhD Work Phone: 1(358)994-942584 [place] [address] 02-13-2025 11:28-0400 Heart rate 57 /min Consuelo Almodovar MD, PhD Work Phone: 5(381)027-462084 [place] [address] 02-13-2025 11:28-0400 SaO2% (BldA) [Mass fraction] 99 % Consuelo Almodovar MD, PhD Work Phone: 0(772)771-433984 [place] [address] 02-13-2025 11:28-0400 Systolic blood pressure 140 mm[Hg] Consuelo Almodovar MD, PhD Work Phone: [facility] 02-05-2025 16:08-0400 Body temperature 98.2 [degF] Dr. Lali Taylor MD Work Phone: [facility] 02-05-2025 16:08-0400 Body weight 81.[address] Lali Taylor MD Work Phone: [facility] 02-05-2025 16:08-0400 Diastolic blood pressure 74 mm[Hg] Dr. Lali Taylor MD Work Phone: [facility] 02-05-2025 16:08-0400 Heart rate 62 /min Dr. Lali Taylor MD Work Phone: [facility] 02-05-2025 16:08-0400 Respiratory rate 16 /min Dr. Lali Taylor MD Work Phone: [facility] 02-05-2025 16:08-0400 SaO2% (BldA) [Mass fraction] 98 % Dr. Lali Taylor MD Work Phone: [facility] 02-05-2025 16:08-0400 Systolic blood pressure 158 mm[Hg] Dr. Lali Taylor MD Work Phone: [facility] 07-06-2024 08:41-0400 Body mass index (BMI) [Ratio] 25.92 kg/m2 Kalpana Pearce Work Phone: [facility] 07-06-2024 08:41-0400 Body temperature 97.81 [degF] Kalpana Pearce Work Phone: [facility] 07-06-2024 08:41-0400 Body weight 80.29 kg Kalpana Pearce Work Phone: [facility] 07-06-2024 08:41-0400 Diastolic blood pressure 80 mm[Hg] Kalpana Pearce Work Phone: [facility] 07-06-2024 08:41-0400 Heart rate 64 /min Kalpana Pearce Work Phone: [facility] 07-06-2024 08:41-0400 Respiratory rate 12 /min Kalpana Pearce Work Phone: [facility] 07-06-2024 08:41-0400 SaO2% (BldA) [Mass fraction] 99 % Kalpana Pearce Work Phone: [facility] 07-06-2024 08:41-0400 Systolic blood pressure 186 mm[Hg] Kalpana Portia Work Phone: [facility] 06-21-2024 08:44-0400 Body height 176 cm Inocencio Mckeon MD Work Phone: [facility] 06-21-2024 08:44-0400 Body mass index (BMI) [Ratio] 25.19 kg/m2 Inocencio Mckeon MD Work Phone: [facility] 06-21-2024 08:44-0400 Body temperature 98.2 [degF] Inocencio Mckeon MD Work Phone: [facility] 06-21-2024 08:44-0400 Body weight 78.02 kg Inocencio Mckeon MD Work Phone: [facility] 06-21-2024 08:44-0400 Diastolic blood pressure 90 mm[Hg] Inocencio Mckeon MD Work Phone: [facility] 06-21-2024 08:44-0400 Heart rate 55 /min Inocencio Mckeon MD Work Phone: [facility] 06-21-2024 08:44-0400 SaO2% (BldA) [Mass fraction] 98 % Inocencio Mckeon MD Work Phone: [facility] 06-21-2024 08:44-0400 Systolic blood pressure 175 mm[Hg] Inocencio Mckeon MD Work Phone: [facility] Encounters Encounter Date Encounter Type Care Provider Facility Start: 06-27-2025 ambulatory Lali Taylor Facilit y:[facility] Start: 06-25-2025 ambulatory Lali Taylor Facilit y:[facility] Start: 06-21-2025 ambulatory Lali Taylor Facilit y:[facility] Start: 06-13-[address] Jamarcus Redd MD -Cardiac Rehab Work Phone: Start: 06-07-2025 End: 06-07-[address] Lali Taylor MD Work Phone: -Cat Scan [facility] Start: 06-07-2025 End: 06-07-2025 Patient encounter procedure Bailey Sapp PA -Cat Scan [facility] Work Phone: Start: 06-07-2025 End: 06-07-2025 ambulatory Lali Taylor Facility:[facility] Start: 05-30-2025 End: 06-03-[address] Lali Taylor MD Work Phone: -Cardiac Rehab Start: 05-30-2025 End: 06-03-[address] Jamarcus Redd MD -Cardiac Rehab Work Phone: Start: 05-23-2025 End: 05-23-2025 Patient encounter procedure Bailey ELAINE -[facility] Work Phone: Start: 05-23-2025 End: 05-23-[address] Lali Taylor MD Work Phone: -[facility] Start: 05-21-[address] Jamarcus Redd MD -Cardiac Rehab Work Phone: Start: 05-17-2025 End: 05-17-2025 Patient encounter procedure Lali LYN -[facility] Work Phone: Start: 05-17-2025 End: 05-17-[address] Lali Taylor MD Work Phone: -[facility] Start: 05-16-[address] Jamarcus Redd MD -Cardiac Rehab Work Phone: Start: 05-02-2025 ambulatory LALI TAYLOR Facility: [facility] Start: 04-30-2025 End: 05-03-[address] Lali Taylor MD Work Phone: -Cardiac Rehab Start: 04-30-2025 End: 05-03-[address] Jamarcus Redd MD -Cardiac Rehab Work Phone: Start: 04-30-[address] Jamarcus Redd MD -Cardiac Rehab Work Phone: Start: 04-26-2025 Non-patient / Non-visit Dr. Tramaine luong MD -[facility] Start: 04-26-2025 End: 04-26-[address] Lali Taylor MD Work Phone: -Cardiovascular Services Start: 04-26-2025 End: 04-26-2025 Patient encounter procedure Lali Marie TECHNICIAN HELPER INSTRUMENT-C -Cardiovascular Services Work Phone: Start: 04-26-2025 End: 04-26-2025 ambulatory Lali Marie NP Facility:[facility] Start: 04-17-2025 End: 04-17-2025 Patient encounter procedure Lali Marie NP-C -[facility] Work Phone: Start: 04-17-2025 End: 04-17-[address] Lali Taylor MD Work Phone: -[facility] Start: 04-16-[address] Jamarcus Redd MD -Cardiac Rehab Work Phone: Start: 04-10-2025 End: 04-10-[address] Lali Taylor MD Work Phone: -Cardiac Rehab Start: 04-10-2025 End: 04-10-[address] Jamarcus Redd MD -Cardiac Rehab Work Phone: Start: 04-10-2025 End: 04-10-2025 ambulatory Jamarcus Redd Facility:[facility] Start: 04-03-2025 Non-patient / Non-visit Dr. Sharda SMALL -[facility] Start: 04-03-[address] 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 Start: 03-19-2025 End: 03-19-[address] Lali Taylor MD Work Phone: [facility] Work Phone: Start: 03-19-2025 End: 03-19-2025 Patient encounter procedure Consuelo Almodovar MD -Laboratory Work Phone: Start: 03-19-2025 End: 03-19-2025 ambulatory Consuelo Almodovar Facility:[facility] Start: 02-13-2025 End: 02-13-2025 Office consultation new/estab patient 60 min Consuelo Almodovar MD, PhD Work Phone: [facility] Comment on above: ASCVD (arteriosclero tic cardiovascular disease) (Primary Dx); Chronic combined systolic and diastolic congestive heart failure Start: 02-13-2025 ambulatory CONSUELO ALMODOVAR Facili ty:[facility] Start: 02-05-2025 End: 02-05-[address] Tramaine Garrison MD -[facility] Work Phone: Start: 02-05-2025 End: 02-05-2025 ambulatory Lali Taylor Facility:[facility] Start: 01-02-2025 End: 01-02-2025 Subsequent hospital visit by physician Kaylene Anna JUNIOR SOFTWARE DEVELOPER-COATER HELPER Work Phone: [facility] Comment on above: Arrived Start: 01-02-2025 ambulatory KAYLENE ANNA Facility :[facility] Start: 12-13-2024 End: 12-13-2024 Subsequent hospital visit by physician Kaylene Anna JUNIOR SOFTWARE DEVELOPER-COATER HELPER Work Phone: Heart and Vascular [facility] Comment on above: Arrived Start: 12-13-2024 ambulatory KAYLENE ANNA Facility :[facility] Start: 11-21-2024 ambulatory JAMARCUS Lionel REDD Facility: [facility] Start: 11-15-2024 End: 11-15-2024 ambulatory [place] Tramaine Facility:[facility] Start: 11-10-2024 End: 11-10-2024 ambulatory Lali Perez Schliv Facility:[facility] Start: 11-10-2024 End: 11-10-2024 ambulatory [place] Tramaine Facility:[facility] Start: 11-07-2024 ambulatory Lali Perez Schjeannaner Facilit y:[facility] Start: 11-07-2024 End: 11-07-2024 ambulatory Lali Taylor Facility:[facility] Start: 10-16-2024 End: 10-16-2024 ambulatory Lali Taylor Facility:[facility] Start: 10-10-2024 ambulatory Lali Taylor Facilit y:[facility] Start: 10-10-2024 End: 10-10-2024 ambulatory Lali Perez Schliv Facility:[facility] Start: 09-20-2024 ambulatory Lali Perez Schjeannaner Facilit y:[facility] Start: 07-06-2024 End: 07-06-2024 ambulatory KALPANA PEARCE Facility:[facility] Comment on above: Elevated ferritin (P rimary Dx); ETOH abuse Start: 07-06-2024 End: 07-06-2024 Patient encounter procedure Kalpana Pearce Work Phone: Hematology/Oncology Start: 06-27-2024 End: 06-27-2024 ambulatory LALI TAYLOR Facility:[facility] Start: 06-27-2024 End: 06-27-2024 Subsequent hospital visit by physician [facility] Work Phone: Radiology Comment on above: Elevated ferritin [R 79.89] Start: 06-21-2024 End: 06-21-2024 ambulatory Inocencio Mckeon MD Work Phone: Hematology/Oncology Comment on above: Elevated ferritin (P rimary Dx); Elevated LFTs Start: 06-21-2024 End: 06-21-2024 Patient encounter procedure Inocencio Mckeon MD Work Phone: Hematology/Oncology Start: 02-17-2022 End: 02-17-[address] [facility] Start: 12-04-2021 End: 12-04-[address] [facility]-Ultrasound, [facility] Start: 10-30-2021 End: 10-30-[address] [facility]-Laboratory, [facility] Start: 06-23-2021 End: 06-23-2021 Subsequent hospital visit by physician Xr [facility] Work Phone: Radiology Comment on above: Suspected COVID-19 v irus infection [Z20.822] Start: 11-18-2016 Preoperative state Inocencio ceballos MD Work Phone: [facility] Work Phone: Procedures Date Procedure Procedure Detail Performing Clinician Start: 06-07-2025 CT of abdominal aort a with contrast Dr. Lali Taylor MD Work Phone: Start: 03-30-2025 CARDIAC RHYTHM Other Ot her [...] 01-02-2025 Ct angiography chest w/contrast/noncontrast Kaylene Anna JUNIOR SOFTWARE DEVELOPER-COATER HELPER Work Phone: Start: 12-13-2024 Ultrasound elastogra phy parenchyma Kaylene Anna JUNIOR SOFTWARE DEVELOPER-COATER HELPER Work Phone: Start: 12-13-2024 Duplex scan extracra nial art compl bi study Kaylene Ahujastjuan c JUNIOR SOFTWARE DEVELOPER-COATER HELPER Work Phone: Start: 06-27-2024 Us abdominal real ti me w/image limited Inocencio Mckeon MD Work Phone: Start: 12-04-2021 US scan of thyroid Start: 06-23-2021 Radiologic exam ches t 2 views Anirudh Scales JUNIOR SOFTWARE DEVELOPER.COATER HELPER Work Phone: Plan of Treatment Date Care Activity Detail Author Start: 2034 RSV Vaccine (1 - 1-dose 75+ series) RSV Vaccine (1 - 1-dose 75+ series) [facility] Start: 02-13-2030 Lipid panel LIPID SCREENING [facility] Start: 02-13-2026 Potassium [Moles/volume] in Serum or Plasma POTASSIUM [facility] Start: 06-04-2025 Influenza vaccination INFLUENZA VACCINE (Season Ended) [facility] Start: 05-02-2025 End: 05-02-2025 Patient encounter procedure 05/02/2025 2:00 PM EDT Office Visit [facility] [address] [place] [address] Malou Roe, JUNIOR SOFTWARE DEVELOPER-COATER HELPER [address] [place] [address] [facility] Start: 03-29-2025 End: 03-29-2025 Admission to same day surgery center 03/29/2025 11:00 AM EDT - 03/29/2025 12:00 PM EDT Surgery [facility] [address] [place] [id number] Consuelo Almodovar MD, PhD [address] [facility] [address] [place] [address] STENT-CORONARY [facility] Comment on above: STENT-CORONARY Start: 03-29-2025 Subsequent hospital visit by physician 03/29/2025 11:00 AM EDT Hospital Encounter Cardiology [facility] [address] [place] [address] Consuelo Almodovar MD, PhD [address] [place] [address] Atherosclerosis of [place] coronary artery of [place] heart with angina pectoris [facility] Comment on above: Atherosclerosis of [place] coronary arter y of [place] heart with angina pectoris Start: 07-06-2024 End: 07-06-2024 ambulatory 07/06/2024 9:00 AM EDT Visit (SP) Office Hematology/Oncology [address] [place], [place] [id number] Kalpana Pearce [address] [place] [address] OV* Hematology/Oncology Comment on above: OV* Start: 06-27-2024 End: 06-27-2024 Patient encounter procedure 06/27/2024 9:15 AM EDT Appointment Radiology [address] [place], [place] [id number] Elevated ferritin [R79.89] Radiology Comment on above: Elevated ferritin [R79.89] Start: 06-26-2024 Diabetes Screening Diabetes Screening [facility] Start: 06-21-2024 End: 09-20-2024 Ferritin [Mass/volume] in Serum or Plasma [facility] Work Phone: Comment on above: Expected: 06/21/2024, Expires: 4 Start: 06-21-2024 End: 09-20-2024 HFE gene targeted mutation analysis in Blood or Tissue by Molecular genetics method [facility] Comment on above: Expected: 06/21/2024, Expires: 4 Start: 06-04-2024 Covid-19 Vaccine ( season) Covid-19 Vaccine () [facility] Start: 06-04-2024 Covid-19 Vaccine () Covid-19 Vaccine () [facility] Start: 06-04-2024 Influenza vaccination Influenza Vaccine (#1) [facility] Start: 02-20-2024 Abdominal aortic aneurysm screening ABDOMINAL AORTIC ANEURYSM HIGH RISK SCREEN [facility] Start: 02-20-2024 Advance Directive Discussion Advance Directive Discussion [facility] Start: 10-28-2021 Prostate specific antigen measurement Prostate Cancer Screening Discussion [facility] Start: 2019 RSV Vaccine (1 - 1-dose 60+ series) RSV Vaccine (1 - 1-dose 60+ series) [facility] Start: 2014 Prostate specific antigen measurement PROSTATE CANCER SCREENING DISCUSSION [facility] Start: 2009 Pneumococcal vaccination PNEUMOCOCCAL VACCINE SERIES (1 of 1 - PCV) [facility] Start: 2009 Shingrix Vaccine (1 of 2) Shingrix Vaccine (1 of 2) [facility] Start: 2009 Zoster vaccine hzv live for subcutaneous use ZOSTER (SHINGLES) VACCINE (1 of 2) [facility] Start: 02-20-2004 Screening for malignant neoplasm of colon [facility] Start: 1999 Lipid panel LIPID SCREENING [facility] Start: 1994 Lipid panel Lipid Screening [facility] Start: 1978 Pneumococcal vaccination PNEUMOCOCCAL VACCINE SERIES (1 of 2 - PCV) [facility] Start: 1978 Third diphtheria, tetanus and acellular pertussis (DTaP) vaccination TDAP (ADULT) [facility] Start: 1978 Urine microalbumin profile DTaP,Tdap,Td Vaccine (1 - Tdap) [facility] Start: 1977 Anxiety Screening Anxiety Screening [facility] Start: 1977 Depression Screening Depression Screening [facility] Start: 1977 Hepatitis C screening Hepatitis C Screening [facility] Start: 1977 HIV screening HIV Screening [facility] Start: 1965 Pneumococcal Vaccine: 65+ (1 of 2 - PCV) Pneumococcal Vaccine: 65+ (1 of 2 - PCV) [facility] Start: 1959 Abdominal aortic aneurysm screening Abdominal Aortic Aneurysm Screening [facility] Start: 1959 Hepatitis C screening HEPATITIS C VIRUS SCREENING [facility] Start: 1959 Tetanus vaccination TETANUS [facility] Ambulatory ECG SC ECG (OFFICE P ERFORM AND READ ONLY) SC - OFFICE PERFORMED Routine ASCVD (arteriosclerotic cardiovascular disease) Chronic combined systolic and diastolic congestive heart failure Ordered: 02/13/2025 [facility] Comment on above: Ordered: 02/13/2025 Ankle brachial press ure index [facility] Basic metabolic 2008 panel with ionized calcium - Serum or Plasma [facility] Cardiac catheterizat ion study INVASIVE CARDIOVASCULAR PROCEDURE Cardiac Cath Routine Atherosclerosis of [place] coronary artery of [place] heart with angina pectoris Abnormal findings on cardiac catheterization 03/29/2025 11:18 AM EDT [facility] CT of abdominal aort a with contrast [facility] End: 07-21-2025 US Abdomen RUQ US ABD RIGHT UPPER QUADRANT Radiology Routine Elevated ferritin Elevated LFTs 1 Occurrences starting 06/21/2024 until 07/21/2025 [facility] Comment on above: 1 Occurrences starting 06/21/2024 until 07/21/2025 US Heart [facility] Immunizations Immunization Date Immunization Notes Care Provider Srikanth tracy 08-05-2021 influenza virus vaccine, unspecified formulation Inocencio Mckeon MD Work Phone: [facility] 07-24-2020 influenza, injectabl e, quadrivalent, preservative free Dr. Lali Taylor MD Work Phone: [facility] 07-24-2020 influenza, seasonal, injectable [facility] Work Phone: 03-11-2006 tetanus immune globulin Inocencio Mckeon MD Work Phone: [facility] Work Phone: Payers Date Payer Category Payer Managed Care (unspecified) [id number] 2024 Self-pay [id number] 2024 Medicare [id number] 2024 Medicare [id number] 2022 Unknown [id number] 2019 Unknown [id number] [id number] .[id number] 1959 Unknown [id number] 2..840.1.253914.3.579.2.594 1959 Unknown [id number] 2..840.1.679043.3.579.2.594 1959 Unknown [id number] 2.16.840.1.618431.3.579.2.594 1959 Unknown [id number] 2.16.840.1.978433.3.579.2.594 1959 Unknown [id number] 2.16.840.1.291780.3.579.2.594 1959 Unknown [id number] 2.16.840.1.517068.3.579.2.594 1959 Unknown [id number] 2.16.840.1.049785.3.579.2.594 1959 Unknown [id number] 2..840.1.371604.3.579.2.594 1959 Unknown [id number] .840.1.168063.3.579.2.594 Private Health Insurance [id number] Unknown SELF PAY INSURANCE [id number] Unknown [id number] 2.16.840.1.994011.3.579.2.462 Unknown [id number] 2.840.1.448020.3.579.2.462 Unknown [id number] 2.840.1.366843.3.579.2.462 Unknown [id number] 2..840.1.723322.3.579.2.462 Unknown [id number] 2.840.1.957117.3.579.2.462 Unknown [id number] 2..840.1.915488.3.579.2.462 Unknown [id number] 2.16.840.1.047038.3.579.2.462 Unknown [id number] 2.16.840.1.190375.3.579.2.462 Unknown [id number] 2.16.840.1.327351.3.579.2.462 Unknown [id number] 2.840.1.519409.3.579.2.462 Unknown [id number] 2.16.840.1.257889.3.579.2.462 Unknown [id number] 2.16.840.1.056032.3.579.2.462 Unknown [id number] 2.16.840.1.639989.3.579.2.462 Unknown [id number] Unknown [id number] Unknown [id number] Unknown [id number] Unknown [id number] [id number] Unknown [id number] [id number] Unknown [id number] [id number] Unknown [id number] [id number] Unknown [id number] [id number] Unknown [id number] [id number] Unknown [id number] [id number] Unknown [id number] [id number] Unknown [id number] Social History Date Type Detail Facility Start: 08-07-2021 Tobacco smoking stat [facility] Unknown if ever smoked [facility] Work Phone: Start: 1960 Sex Assigned At Male [facility] Start: 06-23-2019 End: 04-10-2025 Tobacco smoking status IDIS Smokes tobacco daily [facility] Start: 10-04-2024 End: 10-04-1976 History of tobacco use Cigarette Smoker [facility] Start: 06-23-2019 End: 02-13-2025 Tobacco use and exposure Smokeless tobacco non-user [facility] Start: 06-21-2024 End: 02-13-2025 Alcoholic beverage intake Current drinker of alcohol (finding) [facility] Start: 06-21-2024 End: 02-13-2025 History of Social function [facility] Start: 06-21-2024 End: 02-13-2025 Tobacco use panel [facility] National Score (1-10 0), lower number is lower risk 51 [facility] Start: 11-20-2016 Alcohol Comment 12 pack beer daily [facility] Start: 1960 [facility] Start: 05-24-2021 End: 06-23-2021 Exposure to SARS-CoV-2 (event) Yes [facility] Start: 11-16-2024 Sex Male (finding) [facility] Start: 02-13-2025 Tobacco smoking stat [facility] Ex-smoker [facility] Start: 10-04-2024 End: 10-04-1976 History of tobacco use Current smoker [facility] Start: 02-13-2025 Alcohol Comment 9 drink a day [facility] Start: 02-08-2025 Gender identity Identifies as male gender (finding) [facility] Start: 02-08-2025 Sexual orientation Heterosexual (fin ding) [facility] Start: 11-15-2024 Tobacco smoking stat [facility] Current Heavy tobacco smoker [facility] Start: 04-17-2025 Tobacco smoking stat [facility] Current Light tobacco smoker [facility] Medical Equipment Procedure Code Equipment Code Equipment Origin al Text Equipment Identifier Dates Device Closure Perclose Proglide 6fr - [id number] Start: 03-29-2025 Coronary Stent 2 8mm 2.5mm Synergy Xd Monorail 144cm - [id number] Start: 03-29-2025 Coronary Stent 3 2mm 3mm Synergy Xd Monorail 144cm Everolimus - [id number] Start: 03-29-2025 Functional Status Date Assessment Result Facility 03-29-2025 Are you deaf, or do you have serious difficulty hearing No 03/29/2025 2:59 PM Mylene Ibrahim, JV No [facility] 03-29-2025 Are you blind, or do you have serious difficulty seeing, even when wearing glasses No 03/29/2025 2:59 PM EDT Mylene Oliveira, JV No [facility] 03-29-2025 Do you have serious difficulty walking or climbing stairs No 03/29/2025 2:59 PM EDT Mylene Oliveira, JV No [facility] 03-29-2025 Do you have difficul ty dressing or bathing No 03/29/2025 2:59 PM EDT Mylene Oliveira, JV No [facility] 03-29-2025 Because of a physica l, mental, or emotional condition, do you have difficulty doing errands alone such as visiting a physician's office or shopping No 03/29/2025 2:59 PM EDT Mylene Oliveira, JV No [facility] Mental Status Date Assessment Result Facility 03-29-2025 Because of a physica l, mental, or emotional condition, do you have serious difficulty concentrating, remembering, or making decisions No 03/29/2025 2:59 PM EDT Mylene Oliveira RN No [facility] Clinical Notes 06-23-2021 to 06-09-2025 Note Date & Type Note Facility 06-09-2025 Radiology Diagnostic study note [facility] Imaging Services [address] [place] [id number] CTA Abd w/Runoff W/WO Contrast MR#: [id number] Acct: [id number] Name: JOHNY SANTAMARIA Rep #: [id number] : 1960 M 65 From: Thom Cid MD PCP: Dr. Lali Taylor MD Status: RE G CLI Study:CTA Abd w/Runoff W/WO Contrast Date of Exam: 06/07/25 Exam# [id number] Ordering Dr: Brent Sapp PROCEDURE: CTA ABD W/RUNOFF W/WO CONTRAST 06/07/2025 REASON FOR EXAM: LLE PAD WITH CLAUDICATION Two-dimensional reconstructions were obtained. TECHNIQUE: Procedure Code: [id number] Modality: CT Procedure: CTA ABD W/RUNOFF W/WO CONTRAST Multiplanar Sagittal and Coronal images were obtained. CONTRAST: Isovue 370 VOLUME: 100 mL One or more dose reduction techniques were used (e.g., Automated exposure control, adjustment of the mA and/or kV according to patient size, use of iterative reconstruction technique). RADIATION DOSE SUMMARY: CTDlvol: 25 mGy DLP: 1249 mGycm COMPARISON: None. FINDINGS: Lung bases: Mild emphysematous changes. ABDOMEN Liver: Moderate fatty infiltration of the liver particularly near the gallbladder fossa. No focal mass. Biliary system: Negative. Negative for intrahepatic or extrahepatic ductal dilatation. Gallbladder: Slightly contracted. Negative for cholecystitis. Spleen: Negative. Pancreas: Negative. Adrenals: Negative. Kidneys: Vascular calcifications of the renal vessels. Negative. Negative for kidney stones, cysts or masses. Bowel: Increased stool in the colon with occasional diverticula. Negative for small or large-bowel obstruction. Appendix: Negative Vasculature: Moderate atherosclerotic vascular calcifications of the abdominal aorta and its branches. Abdominal aorta and iliac vessels. Moderate vascular calcifications. However the mesenteric vessels and renal arteries are patent. Mild disease in both iliac systems without significant stenosis. Right lower extremity: Right common femoral artery patent. No significant stenosis in the proximal or mid right femoral artery. Moderate disease in the distal right femoral artery extends to the adductor canal. Mild disease in the right popliteal artery. Three-vessel origin in the right calf. Moderate disease throughout the calf with poor flow in the calf and single-vessel flow into the right ankle and foot through the posterior tibial artery. Left lower extremity: Mild disease of the left common femoral artery. Severe disease in the left superficial femoral artery which is occluded within 3cm of the hip. There is reconstitution of flow in the distal aspect of the left thigh in the distal left femoral artery as it enters the adductor canal likely through collateralization. The length of occluded segment of left superficial femoral artery is a proximally 20 cm. Vascular disease in the left popliteal artery with moderate stenosis. Three-vessel origin in the left calf with overall poor flow in the left calf and single-vessel flow into the left foot through the posterior tibial artery. No ulcerations. Peritoneum / Retroperitoneum: Negative. PELVIS Lymph nodes: Negative for inguinal or iliac adenopathy. Bladder: Negative. Reproductive Organs: Prostate negative. Bones and Soft Tissues: Age appropriate degenerative changes of the lumbar spine hips and pelvis. CT/CTA Abd w/Runoff W/WO Contrast IMPRESSION: Negative for acute intra-abdominal or pelvic pathology. Diffuse vascular disease throughout the bilateral femoral iliac system with longsegment of occluded left superficial femoral artery as above. Overall poor flow into both calves and feet. Reading Location: [id number] CC: ARGENTINA Hobson; Dr. Lali Taylor MD ~ Will Call Clerk: Signed [facility] 04-17-2025 Evaluation note Diagnosis Onset Date Resolution Alcohol abuse acute April 17, 2025 8:39am Claudication acute April 17, 025 8:39am Decreased cardiac ejection fraction acute April 17 8:39am Mitral valve disease acute April 17, 2025 8:39am Tobacco abuse acute April 17, 2025 8:39am Pulmonary hypertension chronic April 17, 2025 8:39am Stented coronary artery February 27, 2025 chronic April 17, 2025 8:39am Alcohol abuse acute May 8:11am Claudication acute May 17, 2025 8:11am Decreased cardiac ejection fraction acute May 17, 2025 8:11am Essential hypertension acute May 17, 2025 8:11am Mitral valve disease acute May 17, 2025 8:11am Tobacco abuse acute May 8:11am Pulmonary hypertension chronic May 17, 2025 8:11am Stented coronary artery February 27, 2025 chronic May 17, 2025 8:11am Claudication acute May 23, 2025 8:05am PAD (peripheral artery disease) acute May 23, 2025 8:05am [facility] Work Phone: [phone] Nurse Note* Nursing Notes - Nevaeh Pratt RN - 03/30/2025 11:17 AM EDT After Visit Summary instructions provided and reviewed [...] is aware that a discharge suite option isavailable if their ride is not available at the time of discharge. RN will continue to assist as needed. [facility]06-27-2025 Miscellaneous Notes* Nursing Notes - Nevaeh Pratt RN - 03/30/2025 11:17 AM EDT After Visit Summary instructions provided and reviewed [...] is aware that a discharge suite option isavailable if their ride is not available at the time of discharge. RN will continue to assist as needed. * Plan of Care - Nevaeh Pratt RN - 03/30/2025 9:57 AM EDT Problem: Adult Inpatient Plan of Care Goal: [...] Vascular Access Complication Outcome: Adequate for Discharge * Plan of Care - Malou Owusu RN - 03/30/2025 3:05 AM EDT Problem: Adult Inpatient Plan of Care Goal: [...] Access Complication Outcome: Progressing Malou Owusu RN * Nursing Notes - Mylene Oliveira RN - 03/29/2025 3:24 PM EDT ADMISSION/TRANSFER NOTE Patient admitted to [facility] for: Monitoring overnight post cath Patient orientation: A&Ox4 Patient on telemetry: Y Orders reviewed/Labs and ECG obtained if applicable Admitting provider has been notified in regards to the patient's admission to the unit. [facility] welcome packet has been provided and reviewed with patient. Fall prevention policy reviewed-patient safety is our top priority. We're here [...] the hospital. By patients staying on the nursingunit/area of care, the hospital staff s ability to promote the safety of the patient, and to proceed with treatment plans without unexpected delays or interruptions is enhanced. A welcome folder has been provided for more information regarding what to expect on [facility]. Patient verbalized understanding. No further questions currently. RN will continue to assist patient as needed. On admission to [facility] unit at 1451, from [employer] a dual RN initial assessment of skin condition was performed by Mylene Yu RN and Nevaeh Jc RN Skin WDL/NOT WDL: WDL, presents with R femoral sheath site Frank Score: 21 * Brief Op Note - Chris Pelayo MD - 03/29/2025 11:21 AM EDT Preliminary Report - Brief Cardiac Catheterization Procedure Note Johny Santamaria Jr. ([id number]) Pre Procedural Diagnosis Atherosclerosis of [place] coronary artery of [place] heart with angina pectoris [I25.119] Post Procedural [...] Chris Pelayo MD - Fellow Procedural Staff Wool Puller: Danielle Machado RN Sedation Nurse: Bri Hernandez, JV; Noman Camarena RN Documenter: Glenroy Griffith RN [...] Brief Operative Note. Consuelo Almodovar MD, PhD, [facility], [place] defect cutter Director, Division of Cardiovascular Medicine The [facility] Gamino Chair in Cardiology Department of Internal Medicine [facility] * Nursing Notes - Thalia Hardy RN - 03/29/2025 9:24 AM EDTSummary: adm Here today for pci/stent, prep complete, EKG complete * Nursing Notes - Kanchan Christianson RN - 02/28/2025 8:17 AM EDT PREPARING FOR YOUR INVESTOR RELATIONS MANAGER PROCEDURE Your catheterization is scheduled on MARCH 29, 2025 at: [facility] at the [facility] , located at [address] [place] [address]. You are to arrive at [facility] on the 1st floor at 9:00 A.M. You may use knitting machine operator parking ($10) or park in the [employer] [facility] [facility] just past the [place] ($3). There is a walkway from the 2nd floor of the garage into the [facility]. You are to have nothing to eat after midnight. You may drink CLEAR liquids up to the time you arrive for the procedure. (water, juice, clear soda,tea, coffee NO CREAMERS). +++++++++++++++++++++++++++++++++++++++++++++++++++++++++++++++++ MEDICATIONS: YOU ARE TO TAKE YOUR MORNING MEDICATIONS USUAL. +++++++++++++++++++++++++++++++++++++++++++++++++++++++++++++++++ PLEASE BRING A COMPLETE AND ACCURATE LIST OF ALL THE MEDICATIONS THAT YOU TAKE ON A REGULAR BASIS. BRING AN OVERNIGHT BAG JUST IN CASE YOU HAVE TO SPEND THE NIGHT. JUST ESSENTIALS YOU WOULD NEED FORBED. YOU ARE HAVING A STENT PLACED IN YOUR HEART - SINCE YOU WILL BE GETTING THE STENT YOU MAY HAVE TO STAY OVERNIGHT. ++++++++++++++++++++++++++++++++++++++++++++++++++++++++++++++++++ IF YOU HAVE SLEEP APNEA AND YOU REQUIRE CPAP, bring it with you. ++++++++++++++++++++++++++++++++++++++++++++++++++++++++++++++++++ If you have a contrast dye or iodine allergy or if you are on Coumadin also called (Warfarin) or any other major blood thinners like Eliquis, Xarelto, Pradaxa and it was NOT addressed during scheduling, please call NOW to notify the lab ([phone]). You may receive sedation during your procedure [...] of your procedure. Labs: PLEASE GO TO [facility] TO HAVE LAB WORK DRAWN ABOUT 1 WEEK BEFORE YOUR PROCEDURE. GO THE WEEK OF 03/19. THESE ARE NOT FASTING LABS. YOU MAY BE TOLD BY ANOTHER DEPARTMENT THAT YOU WILL RECEIVE A REMINDER CALL THE DAY BEFORE YOUR PROCEDURE, BUT YOU WILL NOT RECEIVE A REMINDER CALL. IF YOU HAVE ANY QUESTIONS REGARDING THE PROCEDURE CALL US AT : [phone] THANK YOU, KANCHAN CARIAS Veneer Press Operator Scheduling The above instructions were given to patient verbally over the phone AND VIA MY CHART CLICK THE LINK BELOW FOR A VIDEO EXPLANATION OF THE CARDIAC CATH PROCEDURE AND OUT PATIENT PROCESS. [email or web address] * Nursing Notes - Surjit Oconnell RN - 02/27/2025 10:07 AM EDT The cardiac blood bank laboratory technologist is attempting to reach you to schedule your cardiac cath ordered by Dr. ALMODOVAR. This is our 1ST attempt at reaching you. Please contact [phone] to schedule. documented [facility] History of Present illness Narrative* Domenica Ramses - 03/30/2025 10:04 AM EDT Inpatient Cardiopulmonary Rehab Consultation AND Activity Session [...] participating in rehab at their local facility: [facility]. Discharge education provided to the patient. Printed materials provided/reviewed: Living with Coronary Artery Disease booklet, Care After Cardiac Cath (R leg) handout. Patient s questions/concerns were addressed and topics below were discussed. 1. Pathophysiology of CAD/PR 2. Left Heart Cath 3. Target Lipid Profile 4. Heart Healthy Dietary Guidelines 5. Cardiac Medications 6. Signs/Symptoms to Monitor/Report 7. Risk Factor Modification/Reduction 8. Activity Guidelines/Recommendations 9. Tobacco Cessation We will continue to follow up with patient as needed until discharge for education review and activity progression. Domenica Pearce Inpatient Cardiopulmonary and Vascular Lifestyle Coordinator Selena Cruz MS ([phone]) Inpatient Cardiopulmonary & Vascular Rehab Cosigned by Selena Cruz at 03/30/2025 10:28 AM EDT Associated attestation - Selena Cruz - 03/30/2025 10:28 AM EDT I, Selena Cruz , provided direct guidance in the room during this patient care session. I attest that all documentation reflects accurate skilled clinical decisions and judgements. Selena VelezdialesMS ([phone]) Inpatient Cardiopulmonary & Vascular Rehab * Tammi Alamo APRN-LIAM - 03/29/2025 11:51 AM EDT March HISTORY: Mr. Johny Santamaria Jr. is a pleasant 65 y.o. male with a history of PR, CAD, 3+ mitral regurgitation, COPD, essential hypertension, subclavian occlusion & alcohol use is here for a possible PCI. PROCEDURE SUMMARY: Cardiac catheterization was completed via right femoral artery approach. A coronary angiography showed a lesion in the mid left anterior descending artery and a lesion in the ramusartery. He received Ticagrelor 180 mg in the lab. A PCI was performed and 1 BASIL was successfully placed into the mid left anterior descending artery and 1 BASIL was successfully deployed into the ramusartery. Post procedure, he was started on IV fluids per hydration protocol. The arterial sheath wasdiscontinued after the ACT was less than 180 [...] has a follow up appointment with His fish net stringer on April 17, 2025 at 0900 and [...] & regular rhythm; S1 normal, S2 normal., nogallop and no friction rub, or murmur is [...] with any questions. [facility] PCI Service [id number] documented in this encounterPrem[facility]06-27-[facility] Plan of care note* Plan of Care - Nevaeh Pratt RN - 03/30/2025 9:57 AM EDT Problem: Adult Inpatient Plan of Care Goal: [...] Access Complication Outcome: Adequate for Discharge [facility]06-27-2025 Hospital course Narrative* Kulwant Damian Jr., JUNIOR SOFTWARE DEVELOPER-COATER HELPER - 03/30/2025 9:03 AM EDT Images from the original note were not included. Discharge Summary Name: Johny Santamaria Jr. Age: 65 y.o. Birthday: 1960 Admit Date: 03/29/2025 8:49 AM Discharge Date:03/30/2025 Discharge Unit: [facility] Admission Information Admitting Physician: Consuelo Almodovar MD, PhD Discharge Information Discharge Physician: Consuelo Almodovar MD, PhD Brief Summary of Hospital Course for Discharge Summary: HISTORY: Mr. Johny Santamaria Jr. is a pleasant 65 y.o. male with a history of PR, CAD, 3+ mitral regurgitation, COPD, essential hypertension, subclavian occlusion & alcohol use is here for a possible PCI. PROCEDURE SUMMARY: Cardiac catheterization was completed via right femoral artery approach by Dr. Consuelo Almodovar. A coronary angiography showed a lesion in the mid left anterior descending artery mago lesion in the ramus artery. He received [...] 75 mg daily uninterrupted on 03/31/2025. He w ill continue on aspirin 81 mg daily and Clopidogrel 75 mg daily for 6 to 12 months then SAPT lifelong. He will remain on Rosuvastatin 40 mg daily. He has a follow up appointment with his cardiologiston April 17, 2025 at 0900 and will follow up with his primary care physician in 7 to 10 days. Cardiac rehabilitation was consulted for education and outpatient referral. He is being kept overnight formonitoring given the complexity of his case. He will follow up with fish net stringer Dr. Consuelo Almodovar. Plavix prescription was sent to his local pharmacy. Conclusion Impression: Successful PCI to mid LAD and proximal ramus intermedius Recommendations: Continue DAPT for ideally 6-12 months then SAPT indefinitely Medical therapy for CAD Cardiac rehab Follow up with outpatient fish net stringer Access: Right femoral artery Left Heart Catheterization / Coronary angiogram: It is a right dominant system. 1. The left main is normal. 2. The LAD has a 99% subtotal occlusion in the mid vessel. There is mild- moderate disease in the proximal LAD. 3. The LCx has moderate disease up to 40% in the mid vessel. 4. There is a large ramus intermedius vessel with serial 80% lesions in the proximal and mid vessel(DFR 0.72) 4. The RCA was not selectively engaged, it is occluded proximally and fills via L to R collaterals. 5. LVEDP is 4 mm Hg; there is no aortic valve gradient. Intervention: The left coronary artery was engaged using a XB 3.5 guide and baseline angiography was performed. AWHisper guidewire was used to cross the mid [...] obtained. The patient was brought to the blood bank laboratory technologist and placed on the table. The planned [...] 28MM 2.5MM SYNERGY XD MONORAIL 144CM - [id number] Implanted Stent CORONARY STENT 32MM 3MM SYNERGY XD MONORAIL 144CM EVEROLIMUS - [id number] Implanted Other DEVICE CLOSURE PERCLOSE PROGLIDE 6FR - [id number] Implanted Overnight, he did well and remained [...] Marie CNP [address] [facility] [address] Follow up Lali Taylor MD [address] [facility] [address] [facility] [address] Follow up in 2 week(s) Cosigned by Consuelo Almodovar MD, PhD at 03/30/2025 9:44 AM EDT documented in this encounterPrem[facility]06-27-[facility] Plan of care note* Plan of Care - Malou Owusu RN - 03/30/2025 3:05 AM EDT Problem: Adult Inpatient Plan of Care Goal: [...] Access Complication Outcome: Progressing Malou Owusu RN [facility]06-26-2025 Nurse Note* Nursing Notes - Mylene Oliveira RN - 03/29/2025 3:24 PM EDT ADMISSION/TRANSFER NOTE Patient admitted to [facility] for: Monitoring overnight post cath Patient orientation: A&Ox4 Patient on telemetry: Y Orders reviewed/Labs and ECG obtained if applicable Admitting provider has been notified in regards to the patient's admission to the unit. [facility] welcome packet has been provided and reviewed with patient. Fall prevention policy reviewed-patient safety is our top priority. We're here [...] the hospital. By patients staying on the nursingunit/area of care, the hospital staff s ability to promote the safety of the patient, and to proceed with treatment plans without unexpected delays or interruptions is enhanced. A welcome folder has been provided for more information regarding what to expect on [facility]. Patient verbalized understanding. No further questions currently. RN will continue to assist patient as needed. On admission to [facility] unit at 1451, from [facility] a dual RN initial assessment of skin condition was performed by Mylene Yu RN and Nevaeh Jc RN Skin WDL/NOT WDL: WDL, presents with R femoral sheath site Frank Score: 21 [facility] Discharge instructions* Discharge Instructions* Tammi Alamo, DELTA-COATER HELPER - 03/29/2025 11:50 AM EDT Care after [...] for the next day or two if yourclothes rub the site. Otherwise, leave the site [...] to stop smoking. For more information: The [employer] Quit Line is . If you have heart failure, we recommend that you weigh yourself every day at about the same time wearing similar clothes. Call your doctor if you gain more than 2 pounds in 48 hours or gain more than5 pounds in one week. Call your doctor if you have: More redness, swelling, bruising, pain or drainage at the wrist/leg site. White or yellow drainage with an odor from the wrist/leg site. Call 911 or get emergency care if you have: Wrist/leg site bleeding that does not stop after applying direct pressure for 15 minutes. Chest pain, shortness of breath or any unusual symptoms including chills, fever, nausea, vomiting, memory problems, confusion, numbness, muscle weakness, trouble swallowing, problems speaking, dizziness, or unsteadiness. Follow-up resources: To schedule or reschedule an appointment or procedure: -Cardiology Central Scheduling at [phone] or [phone] For general questions or concerns about your discharge instructions: Weekdays between 8 AM and 5 PM call: - [facility]iac catheterization laboratory technician at - [facility] catheterization laboratory technician at After 5 PM, on weekends, or if you are not able to reach your doctor, call the [facility] projector booth operator at and ask for the Cardiology attending doctor boning room worker. For prescription refills please call your primary care provider or outpatient fish net stringer. Protect Your Stent A stent is a wire cage that holds the blood vessel open. You had __1___ stent(s) placed in the blood vessel(s) of your: Heart Leg Other Your stent type(s): ___ bare metal _x__drug releasing Medicines to prevent clotting of the stent Antiplatelet medicines prevent platelets in the blood from clumping or clotting to block the stent.These medicines include: Clopidogrel, brand name Plavix The [...] stent before you stop taking your antiplatelet medicineor aspirin. Protect yourself If you have bleeding that you cannot control or is severe, call the doctor who started the antiplatelet medicine or go to the nearest emergency room. Know where your stent or stents are in your body and what medicines you are taking. Carry a card inPolygenta Technologiesur wallet or purse that has the information [...] placed the stent agree to stop it. * Attachments The following attachments cannot be sent through Care Everywhere. * clopidogrel (Hungarian) * Cardiac Cath Care after - Leg Site ([facility]) (Hungarian) * Stent: How to Protect ([facility]) (Hungarian) documented in this encounterOS[facility] Postoperative evaluation and management note* Brief Op Note - Chris Pelayo MD - 03/29/2025 11:21 AM EDT Preliminary Report - Brief Cardiac Catheterization Procedure Note Johny Santamaria Jr. ([id number]) Pre Procedural Diagnosis Atherosclerosis of [place] coronary artery of [place] heart with angina pectoris [I25.119] Post Procedural [...] Chris Pelayo MD - Fellow Procedural Staff Wool Puller: Danielle Machado RN Sedation Nurse: Bri Hernandez [...] Brief Operative Note. Consuelo Almodovar MD, PhD, [facility] defect cutter Director, Division of Cardiovascular Medicine The Zachary Gamino Chair in Cardiology Department of Internal Medicine [facility]06-26-2025 History and physical note* Chris Pelayo MD - 03/29/2025 9:52 AM EDT PRE-CATH H&P UPDATE Patient seen and examined [...] SCr of 1 mg/dL). Chris Pelayo MD Cigar Sorter Pager [phone] Cosigned by Consuelo Almodovar MD, PhD at 03/30/2025 9:44 AM EDT [facility] Work Phone: 1(691) 681-213206-26-2025 History and physical note* Chris Pelayo MD - 03/29/2025 9:52 AM EDT PRE-CATH H&P UPDATE Patient seen and examined [...] SCr of 1 mg/dL). Chris Pelayo MD Cigar Sorter Pager [phone] Cosigned by Consuelo Almodovar MD, PhD at 03/30/2025 9:44 AM EDT documented [facility] Nurse Note* Nursing Notes - Thalia Hardy RN - 03/29/2025 9:24 AM EDTSummary: adm Here today for pci/stent, prep complete, EKG complete [facility] Chief complaint+Reason for visit Narrative* Chief Complaint Admit Date LABS March 19, 2025 9:30 am Referral [...] PCI w/stenting May 30, 2025 9: 15am LLE PAD WITH CLAUDICATION June 07, 2025 6:14am PCI w/stenting June 13, 2025 9:15am Reason for Visit Admit Date Alcohol abuse April 17, 2025 8:39 am [...] 8: 11am Decreased cardiac ejection fraction Augu 2024 8:11am Essential hypertension May 17, 2025 8:11am Mitral valve disease May 17, 2025 8 :11am Tobacco abuse May 17, 2025 8: 11am Pulmonary hypertension May 17, 2025 8:11am Stented coronary artery May 17 8:11am Claudication May 23, 2025 8: 05am PAD (peripheral artery disease) May 052024 8:05am [facility] Work Phone: 1(853) 579-286705-28-2025 Nurse Note* Nursing Notes - Kanchan Christianson RN - 02/28/2025 8:17 AM EDT PREPARING FOR YOUR INVESTOR RELATIONS MANAGER PROCEDURE Your catheterization is scheduled on MARCH 29, 2025 at: [facility] at the [facility] , located at [address] [place] [address]. You are to arrive at [facility] on the 1st floor at 9:00 A.M. You may use knitting machine operator parking ($10) or park in the [employer] [facility] [facility] just past the [place] ($3). There is a walkway from the 2nd floor of the garage into the [place] Lobby. You are to have nothing to eat after midnight. You may drink CLEAR liquids up to the time you arrive for the procedure. (water, juice, clear soda,tea, coffee NO CREAMERS). +++++++++++++++++++++++++++++++++++++++++++++++++++++++++++++++++ MEDICATIONS: YOU ARE TO TAKE YOUR MORNING MEDICATIONS USUAL. +++++++++++++++++++++++++++++++++++++++++++++++++++++++++++++++++ PLEASE BRING A COMPLETE AND ACCURATE LIST OF ALL THE MEDICATIONS THAT YOU TAKE ON A REGULAR BASIS. BRING AN OVERNIGHT BAG JUST IN CASE YOU HAVE TO SPEND THE NIGHT. JUST ESSENTIALS YOU WOULD NEED FORBED. YOU ARE HAVING A STENT PLACED IN YOUR HEART - SINCE YOU WILL BE GETTING THE STENT YOU MAY HAVE TO STAY OVERNIGHT. ++++++++++++++++++++++++++++++++++++++++++++++++++++++++++++++++++ IF YOU HAVE SLEEP APNEA AND YOU REQUIRE CPAP, bring it with you. ++++++++++++++++++++++++++++++++++++++++++++++++++++++++++++++++++ If you have a contrast dye or iodine allergy or if you are on Coumadin also called (Warfarin) or any other major blood thinners like Eliquis, Xarelto, Pradaxa and it was NOT addressed during scheduling, please call NOW to notify the lab ([phone]). You may receive sedation during your procedure [...] of your procedure. Labs: PLEASE GO TO Go Vocab TO HAVE LAB WORK DRAWN ABOUT 1 WEEK BEFORE YOUR PROCEDURE. GO THE WEEK OF 03/19. THESE ARE NOT FASTING LABS. YOU MAY BE TOLD BY ANOTHER DEPARTMENT THAT YOU WILL RECEIVE A REMINDER CALL THE DAY BEFORE YOUR PROCEDURE, BUT YOU WILL NOT RECEIVE A REMINDER CALL. IF YOU HAVE ANY QUESTIONS REGARDING THE PROCEDURE CALL US AT : [phone] THANK YOU, KANCHAN CARIAS Veneer Press Operator Scheduling The above instructions were given to patient verbally over the phone AND VIA MY CHART CLICK THE LINK BELOW FOR A VIDEO EXPLANATION OF THE CARDIAC CATH PROCEDURE AND OUT PATIENT PROCESS. [email or web address] [facility]05-27-2025 Nurse Note* Nursing Notes - Surjit Oconnell RN - 02/27/2025 10:07 AM EDT The cardiac blood bank laboratory technologist is attempting to reach you to schedule your cardiac cath ordered by Dr. ALMODOVAR. This is our 1ST attempt at reaching you. Please contact [phone] to schedule. [facility]05-13-2025 History of Present illness Narrative* Consuelo Almodovar MD, PhD - 02/13/2025 11:30 AM EDT [facility] CARDIOVASCULAR MEDICINE CLINIC NEW PATIENT ENCOUNTER PRIMARY CARE PHYSICIAN: No primary care provider on file. No primary provider on file. Phone: None REFERRING PHYSICIAN: Kaylene Anna, JUNIOR SOFTWARE DEVELOPER-COATER HELPER [address] [place] [address] PATIENT ID: Johny Santamaria Jr. is a 65 y.o. male ENCOUNTER DATE: 02/13/2025 CHIEF COMPLAINT(S): Heart Problem (Follow up after heart cath, echo stress test heart cath. Still slight of sob) HISTORY OF THE PRESENT ILLNESS: Mr. Santamaria is a pleasant 65 y.o. male who is being [facility] today for the above chief complaint(s). His history is remarkable for ASCVD. Hewas referred to Dr. Oliva for CAGB surgery evaluation and deferred due to continued EtOH use and s ubclavian occlusion and inability to use the SALES as a graft. He was referred for evaluation for possible PCI approach to his ASCVD. Of note he has 3+ MR on echocardiogram. His stress test notes SOB.On my exam he is resting comfortably. His main complaint is GOYAL/SOB. Denies nicole JONES. PAST MEDICAL HISTORY: Past Medical History: Diagnosis Date Asthma COPD (chronic obstructive pulmonary disease) Essential hypertension, benign PR (myocardial infarction) PAST SURGICAL HISTORY: No past [...] 3 vessel ASCVD - small caliber vessel. SALES PROMOTION OFFICER RCA CT: images reviewed - Proximally occluded 4.7 cm segment of the proximal left subclavian artery, with distal reconstitution. ASSESSMENT AND PLAN: Johny Santamaria Jr. is a 65 y.o. male referred to our cardiovascular medicine clinic for: ICD-10-CM 1. ASCVD (arteriosclerotic cardiovascular disease) I25.10 CHEM 6 (LYTES, BUN CREA) LIPID PANEL W CALCULATED LDL CBC,PLATELETS SC ECG (OFFICE PERFORM AND READ ONLY) 2. Chronic combined systolic and diastolic congestive heart failure I50.42 CHEM 6 (LYTES, BUN CREA) LIPID PANEL W CALCULATED LDL CBC,PLATELETS SC ECG (OFFICE PERFORM AND READ ONLY) He has 3 vessel ASCVD with an occluded RCA (SALES PROMOTION OFFICER) that fills via collaterals form the LCX/LAD. The stress test shows anteroseptal ischemia that is likely due to the middle LAD lesion. The coronary arteries are smaller caliber. We will review his case and I will contact him to determine if we proceedwith a high risk PCI of the LAD. I have ordered the following: Orders Placed This Encounter CHEM 6 (LYTES, BUN CREA) LIPID PANEL W CALCULATED LDL CBC,PLATELETS SC ECG (OFFICE PERFORM AND READ ONLY) We will plan on Return in about 3 months (around 05/16/2025).. If I can be of any further assistance, please do not hesitate to contact me. Consuelo Almodovar MD, PhD, [facility] defect cutter Director, Division of Cardiovascular Medicine The Zachary Gamino Chair in Cardiology Division of Cardiovascular Medicine Department of Medicine [facility] 8:45 AM, 02/13/2025 * Consuelo Almodovar MD, PhD - 02/13/2025 11:30 AM EDT We have reviewed Mr. Stanford case. Given his anatomy and valvular disease, it seems reasonable to reassess the LAD stenosis and treat this with PCI to see if his cardiac function improves and severity of the MR improves. We will make arrangements to proceed with a repeat coronary angiogram with PCIof the LAD and potentially any other vessel that has progressed documented in this encounterU [facility] Instructions* Patient Instructions* Consuelo Almodovar MD, PhD - 02/13/2025 11:30 AM EDT I will call you after we review on our blood bank laboratory technologist conference documented in this encounterOSU [facility]05-[facility] Evaluation note * Diagnosis Onset Date Resolution Status Admit Date Left subclavian artery occlusion chr onic February 05, 2025 3:47pm [facility] Work Phone: 1(105) 283-872205-05-2025 Evaluation note* Diagnosis Onset Date Resolution Status [...] 27, 2025 chronic April 17, 2025 8:39am [facility] Work Phone: 1(181) 579-865505-05-2025 Evaluation note* Diagnosis Onset Date Resolution Status [...] 2025 chronic April 17, 2025 8:39am [facility] Work Phone: 1(342) 541-417505-05-2025 Evaluation note* Diagnosis Onset Date Resolution Status [...] 27, 2025 chronic May 17, 2025 8:11am [facility] Work Phone: 1(945) 168-122505-05-2025 Evaluation note* Diagnosis Onset Date Resolution Status [...] (peripheral artery disease) acute May 23 8:05am [facility] Work Phone: 1(869) 311-101004-01-2025 Hospital Discharge instructions* Patient Instructions* Abimbola Aubrey - 01/02/2025 10:45 AM EDT The Department [...] choosing the Department of Radiology at [facility]. If you need further follow up please do not hesitate to contact us. Contact documented in this encounterOSU [facility]10-[facility]-2024 NoteHNO ID: [id number] Author: KALPANA PEARCE, ? Service: ? Author [...] Mother Blindness Mother Heart Father Hypertension Father PR multiple around age 60; stents and CABG [...] to correlate with current findings. Kalpana Pearce APRN.COATER HELPER I spent a total of 30 minutes on the date of the service which included preparing to see the patient, [id number] patient care, completing clinical documentation, and counseling and educating the patient/family/caregiver. Portions of this note including HPI, ROS, impression/plan may have been copied forward as to provide important historical information essential in contributing to medical decision making. Documentation has been reviewed and edited as necessary to support clinical decision making for today's visit and to reflect my own independent evaluation of this patient.[facility] 07-06-2024 History of Present illness Narrative* [...] Mother Blindness Mother Heart Father Hypertension Father PR multiple around age 60; stents and CABG [...] to correlate with current findings. Kalpana Pearce APRN.COATER HELPER I spent a total of 30 minutes on the date of the service which included preparing to see the patient, [id number] patient care, completing clinical documentation, and counseling [...] evaluation of this patient. documented in this encounterUniversity [facility]09-24-[facility]24 History of Present illness Narrative* Serene Godwin RDMS - 06/27/2024 9:15 AM EDT Radiology Service [...] PATIENT PRESENTS WITH AN IMPLANTABLE OR ATTACHED HAND PICKER: No RADIOLOGY DEPARTMENT: Ultrasound PERIPHERAL IV DATA: Not applicable SIGNED BY: Serene Godwin RDMS June 27, 2024 9:53 AM documented in this encounterUniversity Hospitals Geneva [facility] Center09-24-2024 NoteHNO ID: [id number] Author: SERENE GODWIN RDMS Service: ? Author Type: Spark Plug Assembler Type: Progress Notes Filed: 06/27/2024 09:54 Note [...] PATIENT PRESENTS WITH AN IMPLANTABLE OR ATTACHED HAND PICKER: No RADIOLOGY DEPARTMENT: Ultrasound PERIPHERAL IV DATA: Not applicable SIGNED BY: Serene Godwin RDMS June 27, 2024 9:53 [facility]09-18-2024 NoteHNO ID: [id number] Author: INOCENCIO MCKEON MD Service: ? Author [...] Mother Blindness Mother Heart Father Hypertension Father PR multiple around age 60; stents and CABG [...] which included preparing to see the patient, [id number] patient care, completing clinical documentation, obtaining and/or reviewing separately obtained history, counseling and educating the patient/family/caregiver, ordering medications, tests, or procedures, independently interpreting results (not separately reported), and communicating results to the patient/family/caregiver. Electronically Signed: Inocencio Mckeon MD June 21, 2024 9:01 [facility]09-18-2024 History of Present illness Narrative* Inocencio Mckeon [...] Mother Blindness Mother Heart Father Hypertension Father PR multiple around age 60; stents and CABG [...] which included preparing to see the patient, [id number] patient care, completing clinical documentation, obtaining and/or reviewing separately obtained history, counseling and educating the patient/family/caregiver, ordering medications, crystal ts, or procedures, independently interpreting results (not separately reported), and communicating results to the patient/family/caregiver. Electronically Signed: Inocencio Mckeon MD June 21, 2024 9:01 AM documented in this encounterUniversity Hospitals Geneva Medical Center09-20-2021 History of Present illness Narrative* Iwona Rice, RT(R) - 06/23/2021 1:40 PM EDT Radiology [...] 23, 2021 1:47 PM documented in [place] encounterCent[place] noteNo assessment information availableWWVUMedicine [facility]ville Hospital Work Phone: Evaluation note* Diagnosis Elevated ferritin- Primary Other abnormal blood chemistry Elevated LFTs Other abnormal blood chemistry documented in this encounter [place] note* Diagnosis Elevated ferritin Other abnormal blood chemistry Elevated LFTs Other abnormal blood chemistry documented in this encounter [place] note* Diagnosis Suspected COVID-19 virus infection documented in this encounter [place] note* Diagnosis Elevated ferritin- Primary Other abnormal blood chemistry ETOH abuse Alcohol abuse, unspecified documented in this encounter [place] note* Diagnosis ETOH abuse Alcohol abuse, unspecified Other specified symptoms and signs involving the circulatory and respiratory systems documented in this encounter [facility]Evaludelaware [facility]* Diagnosis ETOH abuse Alcohol abuse, unspecified documented [facility] encounter [facility]* Diagnosis Subclavian artery stenosis, left Atherosclerosis of other specified arteries documented in this encounter [facility] note* Diagnosis ASCVD (arteriosclerotic cardiovascular disease)- Primary Unspecified cardiovascular disease Chronic combined systolic and diastolic congestive heart failure Chronic combined systolic and diastolic heart failure Atherosclerosis of [place] coronary artery of [place] heart with angina pectoris Abnormal findings on cardiac catheterization Atherosclerosis of [place] coronary artery of [place] heart with angina pectoris Abnormal findings on cardiac catheterization documented in this encounter [facility] note* Diagnosis Atherosclerosis of [place] coronary artery of [place] heart with angina pectoris Abnormal findings on cardiac catheterization Atherosclerosis of [place] coronary artery of [place] heart with angina pectoris Abnormal findings on cardiac catheterization documented in this encounter [facility] HospitalHospital Discharge instructionsAmbulatory Orders* Phase II, Outpatient Cardiac Rehab Location: None Selected [facility] Work Phone: Reason for referral (narrative)* Diagnostic Procedure Only (Routine) - Authorized Specialty Diagnoses / Procedures Referred By Alyssa t Referred To Contact US IMAGING Diagnoses Elevated ferritin Elevated LFTs Procedures US ABD RIGHT UPPER QUADRANT US ABDOMINAL REAL TIME W/[place] [address] [place] [address] Us Imaging [facility]95 Referral ID Status Reason Start Date Expiration Date Visits Requested Visits Authorized [id number] Authorized Auto-Generat ed Referral 06/21/2024 07/21/2025 1 1 [facility] for referral (narrative)* Diagnostic Procedure Only (Routine) - Closed Specialty Diagnoses / Procedures Referred By Contac t Referred To Contact US IMAGING Diagnoses Elevated ferritin Elevated LFTs Procedures US ABD RIGHT UPPER QUADRANT US ABDOMINAL REAL TIME W/[place] [address] [place] [id number] Us Imaging [facility]95 Referral ID Status Reason Start Date Expiration Date V isits Requested Visits Authorized [id number] Closed Auto-Generate d Referral 06/21/2024 07/21/2025 1 1 [facility] for referral (narrative)No reason for referral information availableWWVUMedicine [facility] Hospital Work Phone: [facility] Narrative* Radiology (Routine) - New Request Specialty Diagnoses / Procedures Referred By Contac t Referred To Contact Diagnoses ETOH abuse Other specified symptoms and signs involving the circulatory and respiratory systems Procedures VASC DUPLEX CAROTID BILATERAL SC DUPLEX SCAN EXTRACRANIAL ART COMPL BI STUDY Kaylene Anna, JUNIOR SOFTWARE DEVELOPER-COATER HELPER [address] [place] [address] Phone: tel: fax: Referral ID Status Reason Start Date Expiration Date V isits Requested Visits Authorized [id number] New Request 11/28/2024 12/23/2025 1 1 [facility] for visit Narrative* Radiology (Routine) - New Request Specialty Diagnoses / Procedures Referred By Contac t Referred To Contact Diagnoses ETOH abuse Procedures US ABDOMEN LIVER W/ ELASTOGRAPHY Kaylene Anna, JUNIOR SOFTWARE DEVELOPER-COATER HELPER [address] [place] [phone] Phone: tel: fax: Referral ID Status Reason Start Date Expiration Date V isits Requested Visits Authorized [id number] New Request 11/28/2024 12/23/2025 1 1 [facility] Narrative* MRI/CAT Scan (Routine) - Closed Specialty Diagnoses / Procedures Referred By Alyssa nielsen Referred To Contact Diagnoses Subclavian artery stenosis, left Procedures CT ANGIO CHEST (NONCORONARY) CHG CT ANGIOGRAPHY CHEST W/CONTRAST/NONCONTRAST Kaylene Anna, JUNIOR SOFTWARE DEVELOPER-COATER HELPER [address] [place] [phone] Phone: tel: fax: Referral ID Status Reason Start Date Expiration Date Visits Re quested Visits Authorized [id number] Closed 12/18/2024 01/12/2026 1 1 [facility] Narrative* Auth/Cert Specialty Diagnoses / Procedures Referred By Alyssa nielsen Referred To Contact Diagnoses Atherosclerosis of [place] coronary artery of [place] heart with angina pectoris Abnormal findings on cardiac catheterization Atherosclerosis of [place] coronary artery of [place] heart with angina pectoris [I25.119] Procedures SC PRQ TRLUML CORONARY STENT W/ANGIO ONE ART/BRNCH STENT-CORONARY Scooby, Consuelo Gómez MD, PhD [address] [place] [address] Phone: tel: fax: [facility] [address] [place] [address] Referral ID Status Reason Start Date Expiration Date Visits Re quested Visits Authorized [id number] 1 1 [facility] Chief Complaint and Reason for Visit [...] 8: 11am Decreased cardiac ejection fraction Augu 2024 8:11am Essential hypertension May 17, 2025 [...] 8: 11am Decreased cardiac ejection fraction Augu 2024 8:11am Essential hypertension May 17, 2025 [...] Will No August 07 3:56pm Power of Improvement Specialist No August 07, 2021 3:56pm Advance Directive Response Recorded Date/ Time Advance Directives Yes November 11:37am Advance Directive Response Recorded Date/ Time Advance Directives on File No April 10, 2025 9:39am Living Will Yes April 10, 2025 9 :53am Do you have a Healthcare Power of Improvement Specialist? Yes April 10, 2025 9:53am Advance Directives [...] or prosecute any alcohol or drug abuse patient.[facility] CenterIn the event this information is protected by the Federal Confidentiality of Alcohol and Drug Abuse Patient Records regulations: The Federal rules restrict any use of the information to criminally investigate or prosecute any alcohol or drug abuse patient.[facility] CenterIn the event this information is protected by the Federal Confidentiality of Alcohol and Drug Abuse Patient Records regulations: The Federal rules restrict any use of the information to criminally investigate or prosecute any alcohol or drug abuse patient.[facility] CenterIn the event this information is protected by the Federal Confidentiality of Alcohol and Drug Abuse Patient Records regulations: The Federal rules restrict any use of the information to criminally investigate or prosecute any alcohol or drug abuse patient.[facility] Reason for Visit (unrecogniz ed section and content) Reason Comments New Patient Reason Comments Radiology US Specialty Diagnoses / Procedures Referred By Contac t Referred To Contact US IMAGING Diagnoses Elevated ferritin Elevated LFTs Procedures US ABD RIGHT UPPER QUADRANT US ABDOMINAL REAL TIME W/[place] [address] [place] [address] [place] [address] Referral ID Status Reason Start Date Expiration Date V isits Requested Visits Authorized [id number] Closed Auto-Generate d Referral 06/21/2024 07/21/2025 1 1 Reason Comments Established Patient OV, US 06/27/24 Reason Comments Heart Problem Follow up after hear t cath, echo stress test heart cath. Still slight of sob Specialty Diagnoses / Procedures Referred By Contac t Referred To Contact Cardiovascular Medicine Diagnoses Atherosclerosis of [place] coronary artery of [place] heart with angina pectoris Kaylene Anna, JUNIOR SOFTWARE DEVELOPER-COATER HELPER [address] [place] [address] Phone: tel: fax: Referral ID Status Reason Start Date Expiration Date V isits Requested Visits Authorized [id number] New Request 02/06/2025 03/03/2026 1 1 Care Teams (unrecognized sec tion and content) Cruise Coordinator Relationship Specialty Start Date End Date Lali Taylor MD [address] [place] [address] PCP - General Family Medicine 06/21/24 Noman Burroughs [address] [place] [address] Ophthalmology 06/21/24 Cruise Coordinator Relationship Specialty Start Date End Date Lali Taylor MD [address] [facility] [address] [place] [address] PCP - General Family Medicine 06/21/24 Noman Burroughs [address] [place] [address] Ophthalmology 06/21/24 Inocencio Mckeon MD [address] [place] [address] Hematology/Oncology 06/26/24 Cruise Coordinator Relationship Specialty Start Date End Date Lali Taylor MD [address] [facility] [address] [place] [address] PCP - General Family Medicine 06/21/24 Noman Burroughs [address] [place] [address] Ophthalmology 06/21/24 Inocencio Mckeon MD [address] [place] [address] Hematology/Oncology 06/26/24 Team Status: Active Member Role [...] March 19, 2025 End: March 19, 2025 Cruise Coordinator Relationship Specialty Start Date End Date Lali Taylor MD [address] [place] [id number] PCP - General Family Medicine 03/29/25 Lali Marie CNP [facility] [place] [id number] Cardiovascular Disease 03/29/25 Team Status: Active Member [...] 2025 End: April 17, 2025 Lali Marie TECHNICIAN HELPER INSTRUMENT, TECHNICIAN HELPER INSTRUMENT-C Attending Provider Active S tart: April 17, 2025 End: April 17, 2025 Team Status: Inactive Member Role/Relationship Status Dates Dr. Lali Taylor MD Primary Care Provider Active Start: April 17, 2025 End: April 17, 2025 Dr. Lali Taylor MD Referring Provider Active Start: April 17, 2025 End: April 17, 2025 Lali Marie TECHNICIAN HELPER INSTRUMENT, TECHNICIAN HELPER INSTRUMENT-C Attending Provider Active S tart: April 17, 2025 End: April 17, 2025 Team Status: Inactive Member Role/Relationship Status Dates Dr. Lali Taylor MD Primary Care Provider Active Start: April 26, 2025 End: April 26, 2025 Lali Marie TECHNICIAN HELPER INSTRUMENT, TECHNICIAN HELPER INSTRUMENT-C Attending Provider Active S tart: April 26, 2025 End: April 26, 2025 Lali Marie TECHNICIAN HELPER INSTRUMENT, TECHNICIAN HELPER INSTRUMENT-C Referring Provider Active S tart: April 26, [...] 2025 End: May 17, 2025 Lali Marie TECHNICIAN HELPER INSTRUMENT, TECHNICIAN HELPER INSTRUMENT-C Attending Provider Active S tart: May 17, 2025 End: May 17, 2025 Team Status: Active Member Role/Relationship Status Dates Dr. Lali Taylor MD Primary Care Provider Active Start: April 26, 2025 Dr. Tramaine Garrison MD Attending Provider Active S tart: April 26, 2025 Lali Marie TECHNICIAN HELPER INSTRUMENT, TECHNICIAN HELPER INSTRUMENT-C Referring Provider Active S tart: April 26, 2025 Team Status: Inactive Member Role/Relationship Status Dates Dr. Lali Taylor MD Primary Care Provider Active Start: May 17, 2025 End: May 17, 2025 Dr. Lali Taylor MD Referring Provider Active Start: May 17, 2025 End: May 17, 2025 Lali Marie TECHNICIAN HELPER INSTRUMENT, TECHNICIAN HELPER INSTRUMENT-C Attending Provider Active S tart: May 17, 2025 End: May 17, 2025 Team Status: Active Member Role/Relationship Status Dates Dr. aLli Taylor MD Primary Care Provider Active Start: [...] May 30, 2025 End: June 03, 2025 Team Status: Inactive Member Role/Relationship [...] 2025 End: April 10, 2025 Team Status: Inactive Member Role/Relationship Status Dates Dr. Lali Taylor MD Primary Care Provider Active Start: April 17, 2025 End: April 17, 2025 Dr. Lali Taylor MD Referring Provider Active Start: April 17, 2025 End: April 17, 2025 Lali Marie TECHNICIAN HELPER INSTRUMENT, TECHNICIAN HELPER INSTRUMENT-C Attending Provider Active S tart: April 17, 2025 End: April 17, 2025 Team Status: Inactive Member Role/Relationship Status Dates Dr. Lali Taylor MD Primary Care Provider Active Start: April 26, 2025 End: April 26, 2025 Lali Marie TECHNICIAN HELPER INSTRUMENT, TECHNICIAN HELPER INSTRUMENT-C Attending Provider Active S tart: April 26, 2025 End: April 26, 2025 Lali Marie TECHNICIAN HELPER INSTRUMENT, TECHNICIAN HELPER INSTRUMENT-C Referring Provider Active S tart: April 26, 2025 End: April 26, 2025 Team Status: Active Member Role/Relationship Status Dates Dr. Lali Taylor MD Primary Care Provider Active Start: April 26, 2025 Dr. Tramaine Garrison MD Attending Provider Active S tart: April 26, 2025 Lali Marie TECHNICIAN HELPER INSTRUMENT, TECHNICIAN HELPER INSTRUMENT-C Referring Provider Active S tart: April 26, [...] 2025 End: May 03, 2025 Team Status: Inactive Member Role/Relationship Status Dates Dr. Lali Taylor MD Primary Care Provider Active Start: May 17, 2025 End: May 17, 2025 Dr. Lali Taylor MD Referring Provider Active Start: May 17, 2025 End: May 17, 2025 Lali Marie TECHNICIAN HELPER INSTRUMENT, TECHNICIAN HELPER INSTRUMENT-C Attending Provider Active S tart: May 17, 2025 End: May 17, 2025 Team Status: Inactive Member Role/Relationship [...] May 30, 2025 End: June 03, 2025 Team Status: Inactive Member Role/Relationship Status Dates Dr. Lali Taylor MD Primary Care Provider Active Start: June 07, 2025 End: June 07, 2025 ARGENTINA Hobson Attending Provider Active Star t: June 07, 2025 End: June 07, 2025 ARGENTINA Hobson Referring Provider Active Star t: June 07, 2025 End: June 07, 2025 Team Status: Active Member Role/Relationship Status Dates Dr. Lali Taylor MD Primary Care Provider Active Start: June 13, 2025 Dr. Jamarcus Redd MD Attending Provider Active S tart: June 13, 2025 Dr. Jamarcus Redd MD Referring Provider Active S tart: June 13, 2025 (unrecognized sect ion and content) No Status Records FoundNo Status Records FoundNo Status Records Found INFORMATION SOURCE (unrecogn ized section and content) DATE CREATED AUTHOR 07/10/2024 [facility] DATE CREATED AUTHOR AUTHOR'S ORGANIZ ATION 05/04/2025 [facility] DATE CREATED AUTHOR AUTHOR'S ORGANIZ ATION 06/25/2025 [facility] Scheduled Active and Recently Administ ered Medications [...] dose on Wed03/30/25 at 0900, Until Discontinued 08 (Given - Provid er: Nevaeh Pratt RN) clopidogrel (PLAVIX) tablet 600 mg (COMPLETED) 600 mg, Oral, ONCE, 1 dose, On Wed03/30/25 at 1000, Post-op/Post-Proc 08 (Given - Provid er: Nevaeh Pratt RN) Clopidogrel (PLAVIX) tablet 75 mg 75 mg, Oral, DAILY, First dose on Wed03/31/25 at 0900, Until Discontinued dorzolamide (TRUSOPT) 2 % ophthalmic solution 1 drop 1 drop, Both Eyes, 2 TIMES DAILY, First dose on Aida 03/29/25 at 1400, Until Discontinued, If given with other meds, separate by 5 minutes 173 (Given - Provider: Mylene Oliveira RN) 0813 (Given - Provider: Nevaeh Pratt, JV) furOSEmide (LASIX) tablet 20 mg 20 mg, Oral, DAILY, First dose on Wed03/30/25 at 0900, Until Discontinued 08 (Given - Provid er: Nevaeh Pratt RN) Latanoprost (XALATAN) 0.005 % ophthalmic solution 1 drop 1 drop, Both Eyes, DAILY, First dose on Aida 03/29/25 at 1400, Until Discontinued, Remove contact lenses 173 (Given - Provider: Mylene Oliveira RN) 0813 (Not Given - Provider: Nevaeh Pratt, JV - Reason: Patient/family refused) Lisinopril (PRINIVIL) tablet [...] 2 puff, Inhalation, DAILY, First dose on Wed03/29/25 at 1215, Until Discontinued, For self-administered inhalers, contact Respiratory Therapy for canister activation. 1215 (Not Given - Provider: García Abreu RCP - Reason: Not in room - Comment: pt not in room at the time of order, will start in am)2203 (Given - Provider: Wilma Simons RCP) Continuous Medication Order 03/28/2025 03/29/2025 03/30/2025 Sodium chloride 0.9% IV solution (CANCELED) Intravenous, at 75 mL/hr, CONTINUOUS, Starting on Wed03/29/25 at 0900, Until Wed03/29/25 at 1442, Pre-op/Pre-Proc 0921 ($$New Bag$$ - Provider : Thalia Hardy RN)1146 (Stopped - Provider: Thalia Hardy RN) Sodium chloride 0.9% IV solution () 3 mL/kg/hr 81.6 kg Dosing weight (244.8 mL/hr), Intravenous, CONTINUOUS, Starting on Aida 03/29/25 at 1130, Until Aida 03/29/25 at 1429, Administer for Post Veneer Press Operator Hydration to Prevent Acute Kidney Injury. , [...] Hernandez RN)1102 (Given - Provider: Noman Camarena RN)1115 (Given - Provider: Bri Hernandez RN)1120 (Given - Provider: Danielle Machado RN) Heparin injection (CANCELED) NEEDED, Starting on Aida 03/29/25 at 1029, Until Aida 03/29/25 at 1124, Intra-op/Intra-Proc 1029 (Given - Provider: Lex Camarena RN)1114 (Given - Provider: Bri Hernandez, JV) iodixanol (VISIPAQUE) injection 320 mg/mL for [facility] [...] 1041 ($$New Bag$$ - Provider : Bri Heranndez RN) FOR RECORDS PERTAINING TO PATIENTS WHO [...] BE BASED ON THE PRIMARY CLINICAL RECORDS. [employer] [facility]. provides no warranty or guarantee of the accuracy or completeness of information in this document.
== END | disposition home or self-care (01) ==
LOC: CT 07:30
PROVIDERS: PCP Family Medicine; Referring Provider Internal Medicine Pulmonary Disease; Visit Provider Internal Medicine Pulmonary Disease
DX: Z12.2 Encounter for screening for malignant neoplasm of respiratory organs (principal); Z87.891 Personal history of nicotine dependence
CPT/HCPCS: 71271

== ENCOUNTER 2025-07-02 09:15 | Outpatient (RCR) | payer BC, MEDICARE, SELFPAY ==
[2025-05-07 07:14] VITALS: BMI 26.0
--- NOTE | 2025-06-05 09:36 | CR.ITP_ITS ---
Exercise - Initial Assessment Visit Session #:: 13 Physician Prescribed Exercise Modalities: Treadmill, Schwinn Airdyne AD-7 and SciFit Stepper Nutrition - Initial Assessment Weight Mgt (Other Care) Height: 5 ft 9 in Weight:: 175 lb BMI: 25.8 BMI (Report if calculated above): 25.5 Core - Initial Assessment Hypertension Resting Blood Pressure:: 128/50 [place] [employer] Hypertension Guidelines Psychosocial - Initial Assess Target Goals Target Goals Referral to Behavioral Health PS - Interventions: Yes: Attend Stress Management Classes Patient Health Questionnaire PHQ-9 Screening 60-Day Re-eval Assessment: 1. Little interest or pleasure in doing things: Not at all 2. Feeling down, depressed, or hopeless: Not at all 3. Trouble falling or staying asleep, or sleeping too much: Not at all 4. Feeling tired or having little energy: Several days 5. Poor appetite or overeating: Not at all 6. Feeling bad about yourself -- or that you are a failure or have let yourself or your family down: Not at all 7. Trouble concentrating on things, such as reading the newspaper or watching television: Not at all 8. Moving or speaking so slowly that other people could have noticed. Or the opposite - being so fidgety or restless that you have been moving around a lot more than usual: Nearly every day 9. Thoughts that you would be better off , or of hurting yourself in some way: Not at all How difficult have these problems made it for you to do your work, take care of things at home, or get along with other people?: Not difficult at all Total Score: 4 Self-Efficacy 6-Item Scale 60-Day Re-eval Assessment: We would like to know how confident you are in doing certain activities. Please select your confidence level for: Fatigue Select Number: 5 Physical Discomfort or Pain Select Number: 5 Emotional Distress Select Number: 10 Other Symptoms or Health Problems Select Number: 5 Different Tasks and Activities Select Number: 5 Medication Select Number: 5 Total Score:: 5 Nutrition Survey Nutrition Survey Instructions Scoring Instructions Nutrition Survey Discharge: Have you lost >10 lbs over the past 2 months without trying?: No Are you following a special diet at home for diabetes, low fat, or low salt?: No Are you interested in meeting with a dietitian for help understanding your diet?: No Do you eat less than 3 meals a day?: Yes Do you eat fatty meats (garner, sausage, ribs, etc), fried foods, desserts, large amounts of salad dressings, margarine, butter, or cheese most days?: Yes Do you have food allergies? [Enter types in comment field]: No Do you eat in restaurants more than 3 times a week?: No Do you season food with salt, seasoning salt, or garlic salt?: Yes Do you used canned, boxed, frozen meals, or soups, seasoning packets?: Yes Total Score:: 4 Exercise - 30-day Assessment Physician Prescribed Exercise Modalities: Treadmill, Schwinn Airdyne AD-7 and SciFit Stepper Exercise - 60-day Assessment Visit Date of Eval: 06/05/25 Session #:: 13 Physician Prescribed Exercise Modalities: Treadmill, Schwinn Airdyne AD-7 and SciFit Stepper Frequency: 2x/week for 18 weeks [36 sessions] Intensity: 60-80% of age predicted maximum heart rate reserve Duration: 30 - 45 minutes METs - Progression 0.5-1.0 weekly:: 0.5-1.0 Current METSs:: 3.9 Target Heart Rate:: 92-116 Target RPE 11-14 Current RPE:: 11-14 Current RPE:: 13 Maximum Excercise HR:: 81 Resting Blood Pressure: 142/60 Maximum Exercise Blood Pressure: 160/64 EKG Type: SB to NSR rare to occ pac/pvc Current Physical Activity or Exercising minutes: 30-45 Outcomes & Goals Goals:: Verbalizes understanding of THR, RPE & goal METS by session 6, Documents in home exercise log/reports 30 min aerobic 5 day/wk by DC and Demonstrates accurate pulse taking by DC Intervention & Plan Exercise Program Goals: Instruct on personal THR & RPE, Instruct on MET level & personal MET goal, Show patient to take own pulse /validate performance until accurate and Instruct on home exercise 30-day Reassessments 30 day Reassessments:: Met Physical Activity Home Exercise Physical Activity - Home Exercise: Safe Exercise, Warm-up, Self-monitoring, Cool-Down, Home Exercise > 30 min Daily and Sitting Time <3 hours/daily Outcomes & Goals Outcomes/Goals: Demonstrates correct Warm-up/exercise Cool-Down (S3) if = 2.5 METs, Verbalizes symptoms of exercise intolerance by Session 3 (S3) and Demonstrate safe equipment use (S3) & follows exercise prescrition (6) Intervention & Plan Plan/Intervention: Instruct warm-up & cool-down if exercising at > 2 METs, Instruct on symptoms of exercise intolerance & actions to take, Instruct & monitor on saf and Assess intial functional capacity & safety risk 30-day Reassessments 30 day Reassessments:: Progressing Reassessment Notes & Comments:: Pt warms up and cools down with minimal guidance, pt follows exercise prescription and demonstrates safe use of equipment. Exercise - 90-day Assessment Physician Prescribed Exercise Modalities: Treadmill, Schwinn Airdyne AD-7 and SciFit Stepper Exercise - Final/Discharge Physician Prescribed Exercise Modalities: Treadmill, Schwinn Airdyne AD-7 and SciFit Stepper Nutrition - 30-Day Assessment Weight Mgt (Other Care) Height: 5 ft 9 in Weight:: 175 lb BMI: 25.8 BMI (Report if calculated above): 25.5 Nutrition - 60-Day Assessment Program Goals Nutrition Program Goals Patient has diagnosis of Hyperlipidemia (ICD E78)?: Yes Visit Date of Eval: 06/05/25 Session #:: 13 Cholesterol/Lipids (Other Core Measures) Total Triglycerides (mg/dL): 145 Total Cholesterol: 193 LDL Cholesterol (mg/dL): 125 HDL Cholesterol (mg/dL): 39 Lipid Medication: rosuvastatin 40mg QD Determine presence & major risk factors that modify LDL goal: Cigarette smoking, Hypertension or hypertensive medication, Low HDL cholesterol <40 mg/dL*, Family history of premature CHD in Male < 55 years: female <65 yearsFa and Age men > 45 years; women >/= 55 years Outcomes/Goals: Pt IDs own risk factors & lifestyle modifications by Session 10, Verbalizes symptoms of angina & response by session 3. and Pt independently manages Intervention/Plan: Advocate for lipid panel cholesterol medication if applicable, Instruct on personal lipid levels & lipid goals/NCEP guidelines and Instruct on cholesterol 30-day Reassessments:: Progressing Reassessment Notes & Comments:: Pt taking stating medications as prescribed, pt with recent lipid panel Diabetes (Other Core Measures) Diabetes Type: Not Applicable Weight Mgt (Other Care) Height: 5 ft 9 in Weight:: 175 lb BMI: 25.8 BMI (Report if calculated above): 25.5 Diagnosis Overweight/Obesity BMI> 30% ICD-10 E66: No Diagnosis High BMI/Morbid Obesity BMI> 35% ICD-10 Z68: No Outcomes/Goals: Pt sets, maintains & shows weight loss goal & trend during rehab Intervention/Plan: Instruct on ideal BMI & set weight loss goal w/patient, Assist pt to ID & incorporate diet changes for weight loss by S9, Refer to Structured Weight Loss program as appropriate and Encourage goal of using 250- 300dcal per session for weight loss 30 day Reassessments:: Met Healthy Eating Habits Will attend diet classes:: Yes Outcomes/Goals:: Consume diet rich in vegs,fruits,whole grain/high fiber,fish,lean meat and Limit sat/trans fats,cholesterol & added salts & sugars Intervention/Plan:: Assess current eating habits 30-day Reassessments:: Progressing Reassessment Notes & Comments:: Pt to attend diet classes while in rehab. Education Gave educational materials for:: Signs & symptoms of hypoglycemia, Signs & symptoms of hyperglycemia, Relate diabetes to coronary artery disease and Healthy eating Core - 30-Day Assessment Visit Session #:: 13 Core - Final Assessment Tobacco Use How many cigarettes do you smoke per day?: 2 Years Smokin Hypertension Resting Blood Pressure:: 128/50 [place] [employer] Hypertension Guidelines Core - 60-Day Assessment Visit Date of Eval: 06/05/25 Session #:: 13 Medication Compliance Preventative Medication(s):: Aspirin, Clopidogrel/P2Y12 inhibit and Statin/lipid H/O mental health issues: depression, anxiety, or addiction?: No Doesn?t believe in the benefits of treatment?: No Believes medications are unnecessary or harmful?: No Has a concern about medication side effects?: No Expresses concern over the cost of medications?: No Outcomes/Goals: Verbalizes medications,desired effect & common side effects @ DC, Pt self-reports following medication regimen and Keeps card in wallet w/medications listed by DC Interventions/plans: Instruct on medication effects & side effects, Review medication list w/patient every two weeks and Instruct importance of taking meds as ordered & assist problem solving 30-day Reassessments:: Progressing Reassessment Notes & Comments:: Pt taking all medications as prescribed Tobacco Use Tobacco Use: Cigarettes How many cigarettes do you smoke per day?: 2 Years Smokin Outcomes/Goals: Smoking cessation achieved or maintained by discharge and Identify aids/strategies for achieving smoking cessation by session 6 Interventions/plan: Instruct on effects of smoking & provide smoking cessation resource, Assist pt to set quit date & provide encouragement, Assist pt to develop strategies to achieve/maintain quit date and Assist pt w/nicotine replacement & medication for cessation success 30-day Reassessments:: Progressing Reassessment Notes & Comments:: Pt will attend smoking cessation class, pt encouraged to participate in 1 on 1 smoking cessation Hypertension Hypertension Diagnosis:: Hypertension ICD-10 I10 Resting Blood Pressure:: 142/60 Resting Blood Pressure:: 128/50 [place] [employer] Hypertension Guidelines Peak Exercise Blood Pressure:: 160/64 Outcomes/Goals: Able to verbalize/achieve optimal blood pressure <130/80 and Incorporates diet changes & exercise for blood pressure control by DC Interventions/plan: Instruct on optimal blood pressure, hypertension & medications and Instruct on effects of sodium, alcohol, stress, exercise &hypertension 30 day Reassessments:: Progressing Reassessment Notes & Comments:: Pt getting work up for PAD and working with physician to optimize blood pressure, 04/23 bp medications increased, still trending BP during rehab Tobacco Cessation Referral Education Schedule Given:: Yes Psychosocial - 30-Day Assess Target Goals Target Goals Referral to Behavioral Health PS - Interventions: Yes: Attend Stress Management Classes Outcomes/Goals: See list Psychosocial Outcomes/Goals:: ID's personal stressors & 2 strategies to manage stress by discharge Psychosocial - 60-Day Assess VIsit Date of [place]: 06/05/25 Session #:: 13 Not Applicable: No History of Emotional Disorders: None Target Goals Target Goals Psychosocial Test phq-9 Severity See PHQ-9 Score: 4 Referral to Behavioral Health PS - Interventions: Yes: Attend Stress Management Classes Outcomes/Goals: See list Psychosocial Outcomes/Goals:: ID's personal stressors & 2 strategies to manage stress by discharge Intervention/Plan: See List Interventions/Plan:: Assess stressors,coping strategies & signs of derpression on admission, Instruct/assist pt to develop coping & personal stress Mgt strategies, Refer to Behavioral Health if appropriate, Refer to Physician if appropriate, Instruct patient to recognize signs & symptoms of depression and Instruct patient to recog 30-day Reassessments: 30 day Reassessments:: Progressing Reassessment Notes & Comments:: Pt to attend stress management classes, pt denies any psychosocial needs at this time Psychosocial - 90-Day Assess Target Goals Target Goals Referral to Behavioral Health PS - Interventions: Yes: Attend Stress Management Classes Psychosocial - Final Assessmen Target Goals Target Goals Referral to Behavioral Health PS - Interventions: Yes: Attend Stress Management Classes Nutrition - 90-Day Assessment Weight Mgt (Other Care) Height: 5 ft 9 in Weight:: 175 lb BMI: 25.8 BMI (Report if calculated above): 25.5 Nutrition - Final Assessment Weight Mgt (Other Care) Height: 5 ft 9 in Weight:: 175 lb BMI: 25.8 BMI (Report if calculated above): 25.5
[2025-06-05 09:41] VITALS: BP 142/60
[2025-06-05 09:53] VITALS: BP 128/50; BP 142/60; BMI 25.5; BMI 25.8
== END 2025-07-03 23:59 ==
LOC: CR 09:15
PROVIDERS: PCP Family Medicine; Referring Provider Internal Medicine Cardiovascular Disease; Visit Provider Internal Medicine Cardiovascular Disease
DX: Z95.5 Presence of coronary angioplasty implant and graft (principal); I70.8 Atherosclerosis of other arteries; Z72.0 Tobacco use; F10.10 Alcohol abuse, uncomplicated; R93.1 Abnormal findings on diagnostic imaging of heart and coronary circulation; I05.9 Rheumatic mitral valve disease, unspecified; I25.10 Atherosclerotic heart disease of native coronary artery without angina pectoris; R06.00 Dyspnea, unspecified; E78.5 Hyperlipidemia, unspecified; I27.20 Pulmonary hypertension, unspecified; J45.909 Unspecified asthma, uncomplicated; I21.4 Non-ST elevation (NSTEMI) myocardial infarction; J44.1 Chronic obstructive pulmonary disease with (acute) exacerbation
CPT/HCPCS: 93798

== ENCOUNTER → 2025-07-11 | Outpatient (CLI) | payer BC, MEDICARE, SELFPAY ==
[2025-07-04 08:48] VITALS: BMI 25.8
[2025-07-11 12:31] LABS: Hematocrit 46.6 % (40-54); Hemoglobin 15.8 g/dL (13.0-16.5); Immature Granulocytes Count 0.020 X10^3/uL (0.0-0.0); Mean Corp Hgb Conc 33.9 g/dL (32-36); Mean Corpuscular Volume 99.1 fL (80-94); Mean Platelet Vol. 11.4 fl (6.2-12.0); NRBC Flagged by Analyzer 0 % (0-5); Platelet Count 195 K/mm3 (150-450); RBC Distribution Width CV 12.6 % (11.6-14.6); RBC Distribution Width SD 46.3 fl (35.1-43.9); Red Blood Count 4.70 M/mm3 (4.6-6.2); White Blood Count 8.9 K/mm3 (4.4-11.0)
[2025-07-11 13:15] LABS: AST(SGOT) 57 U/L (<=37); Alanine Aminotransfer ALT/SGPT 46 U/L (<=46); Albumin, Serum 4.5 g/dL (3.4-4.8); Alkaline Phosphatase 65 U/L (40-129); Anion Gap 13 (5-15); BUN 14 mg/dL (4-19); BUN/Creat Ratio 10.8 RATIO (10-20); Calcium,Total 9.9 mg/dL (7.6-11.0); Carbon Dioxide 22.2 mmol/L (21.0-32.0); Chloride 98 mmol/L (98-108); Cholesterol 163 mg/dL (<=200); Globulin 3.3 g/dL (2.2-4.2); Glucose 92 mg/dL (70-99); Low Density Lipoprotein Calc. 87 mg/dL; Potassium 5.5 mmol/L (3.3-5.1); Triglycerides 157 mg/dL; Very Low Density Lipoprotein 31 mg/dL (5-40); cholesterol:hdl ratio screen 3.69
== END | disposition home or self-care (01) ==
LOC: MFPLAB 10:38
PROVIDERS: PCP Family Medicine; Visit Provider Family Medicine
DX: I25.10 Atherosclerotic heart disease of native coronary artery without angina pectoris (principal)
CPT/HCPCS: 36415; 80053; 80061; 85025

== ENCOUNTER → 2025-07-19 | Outpatient (CLI) | payer BC, MEDICARE, SELFPAY ==
[2025-07-04 08:48] VITALS: BMI 25.8
[2025-07-19 10:20] LABS: Mucous, Urine 0 SEEN /hpf (<or=2+); Red Blood Cells-Urine 0 SEEN /hpf (0-5)
[2025-07-19 12:33] LABS: Color, Urine Straw (Yellow); Glucose, Dipstick 250 mg/dl (Normal); Hematocrit 47.6 % (40-54); Hemoglobin 15.8 g/dL (13.0-16.5); Immature Granulocytes Count 0.030 X10^3/uL (0.0-0.0); Ketone-Dipstick Negative (Negative); Leukocyte Esterase-Dipstick Negative /ul (Negative); Mean Corp Hgb Conc 33.2 g/dL (32-36); Mean Corpuscular Volume 99.6 fL (80-94); Mean Platelet Vol. 11.5 fl (6.2-12.0); NRBC Flagged by Analyzer 0 % (0-5); Nitrite-Dipstick Negative (Negative); Occult Blood-Urine Negative /ul (Negative); Platelet Count 196 K/mm3 (150-450); Protein-Dipstick Negative (Negative); RBC Distribution Width CV 12.8 % (11.6-14.6); RBC Distribution Width SD 47.3 fl (35.1-43.9); Red Blood Count 4.78 M/mm3 (4.6-6.2); Specific Gravity, Urine 1.010 (1.002-1.030); Urine Bilirubin Dipstick Negative (Negative); White Blood Count 9.5 K/mm3 (4.4-11.0)
[2025-07-19 13:10] LABS: Squamous Epithelial Cells - UA 0-5 SEEN /hpf (0-5)
[2025-07-19 13:32] LABS: AST(SGOT) 48 U/L (<=37); Alanine Aminotransfer ALT/SGPT 42 U/L (<=46); Albumin, Serum 4.4 g/dL (3.4-4.8); Alkaline Phosphatase 66 U/L (40-129); Anion Gap 12 (5-15); BUN 13 mg/dL (4-19); BUN/Creat Ratio 10.4 RATIO (10-20); Calcium,Total 9.9 mg/dL (7.6-11.0); Carbon Dioxide 23.1 mmol/L (21.0-32.0); Chloride 100 mmol/L (98-108); Cholesterol 161 mg/dL (<=200); Globulin 3.1 g/dL (2.2-4.2); Glucose 101 mg/dL (70-99); Hepatitis B Surface Antigen Nonreactive (Nonreactive); Hepatitis C Antibody Nonreactive (Nonreactive); Low Density Lipoprotein Calc. 93 mg/dL; Potassium 5.1 mmol/L (3.3-5.1); Triglycerides 99 mg/dL; Very Low Density Lipoprotein 20 mg/dL (5-40); cholesterol:hdl ratio screen 3.36
== END | disposition home or self-care (01) ==
LOC: MFPLAB 10:16
PROVIDERS: PCP Family Medicine; Visit Provider Family Medicine
DX: E87.5 Hyperkalemia (principal); I25.10 Atherosclerotic heart disease of native coronary artery without angina pectoris; F17.210 Nicotine dependence, cigarettes, uncomplicated; R79.89 Other specified abnormal findings of blood chemistry; R73.09 Other abnormal glucose
CPT/HCPCS: 36415; 80053; 80061; 81001; 83036; 85025; 86706; 86803; 87340

== ENCOUNTER 2025-08-01 09:15 | Outpatient (RCR) | payer BC, MEDICARE, SELFPAY ==
[2025-06-05 09:53] VITALS: BMI 25.8
--- NOTE | 2025-07-04 08:34 | CR.ITP_ITS ---
Exercise - Initial Assessment Physician Prescribed Exercise Modalities: Treadmill, Schwinn Airdyne AD-7 and SciFit Stepper Nutrition - Initial Assessment Weight Mgt (Other Care) Height: 5 ft 9 in Weight:: 175 lb BMI: 25.8 Psychosocial - Initial Assess Referral to Behavioral Health PS - Interventions: Yes: Attend Stress Management Classes Exercise - 30-day Assessment Physician Prescribed Exercise Modalities: Treadmill, Schwinn Airdyne AD-7 and SciFit Stepper Exercise - 60-day Assessment Physician Prescribed Exercise Modalities: Treadmill, Schwinn Airdyne AD-7 and SciFit Stepper Exercise - 90-day Assessment Visit Date of Eval: 07/04/25 Session #:: 21 Physician Prescribed Exercise Modalities: Treadmill, Schwinn Airdyne AD-7 and SciFit Stepper Frequency: 2x/week for 18 weeks [36 sessions] Intensity: 60-80% of age predicted maximum heart rate reserve Duration: 30 - 45 minutes Current METSs:: 7.8 Target Heart Rate:: 92-131 Current RPE:: 14 Maximum Excercise HR:: 103 Resting Blood Pressure: 124/48 Maximum Exercise Blood Pressure: 144/84 EKG Type: NSR to ST w/rare PAC/PVC Outcomes & Goals Goals:: Verbalizes understanding of THR, RPE & goal METS by session 6, Documents in home exercise log/reports 30 min aerobic 5 day/wk by DC, Demonstrates accurate pulse taking by DC and Other additional outcome/goals: see below Intervention & Plan Exercise Program Goals: Instruct on personal THR & RPE, Instruct on MET level & personal MET goal, Show patient to take own pulse /validate performance until accurate, Instruct on home exercise and Other additional plan/int Physical Activity Home Exercise Physical Activity - Home Exercise: Safe Exercise, Warm-up, Self-monitoring, Cool-Down, Home Exercise > 30 min Daily and Sitting Time <3 hours/daily Outcomes & Goals Outcomes/Goals: Demonstrates correct Warm-up/exercise Cool-Down (S3) if = 2.5 METs, Verbalizes symptoms of exercise intolerance by Session 3 (S3), Demonstrate safe equipment use (S3) & follows exercise prescrition (6) and Other: See below Intervention & Plan Plan/Intervention: Instruct warm-up & cool-down if exercising at > 2 METs, Instruct on symptoms of exercise intolerance & actions to take, Instruct & monitor on saf, Assess intial functional capacity & safety risk and Other See below 30-day Reassessments 30 day Reassessments:: Progressing Reassessment Notes & Comments:: Pt has bee able to increase his exercise intensity to 7.8 METS. Pt also has PVD. Pt is working through the leg pain and is doing very well. Exercise - Final/Discharge Physician Prescribed Exercise Modalities: Treadmill, Schwinn Airdyne AD-7 and SciFit Stepper Nutrition - 30-Day Assessment Weight Mgt (Other Care) Height: 5 ft 9 in Weight:: 175 lb BMI: 25.8 Nutrition - 60-Day Assessment Weight Mgt (Other Care) Height: 5 ft 9 in Weight:: 175 lb BMI: 25.8 Core - 30-Day Assessment Hypertension [employer] Hypertension Guidelines Reassessment Notes & Comments:: Pt's BP has improved. BP's are now within AHA normal limits. Will continue to monitor and report to pt's physician if nece ssary. Core - Final Assessment Hypertension [employer] Hypertension Guidelines Reassessment Notes & Comments:: Pt's BP has improved. BP's are now within AHA normal limits. Will continue to monitor and report to pt's physician if necessary. Core - 90 Day Assessment Visit Date of Evsawyer: 07/04/25 Session #:: 21 Medication Compliance Preventative Medication(s):: Aspirin, Clopidogrel/P2Y12 inhibit and Statin/lipid H/O mental health issues: depression, anxiety, or addiction?: No Doesn’t believe in the benefits of treatment?: No Believes medications are unnecessary or harmful?: No Has a concern about medication side effects?: No Expresses concern over the cost of medications?: No Outcomes/Goals: Verbalizes medications,desired effect & common side effects @ DC, Pt self-reports following medication regimen, Keeps card in wallet w/medications listed by DC and Other additional outcome/goals: Interventions/plans: Instruct on medication effects & side effects, Review medication list w/patient every two weeks, Instruct importance of taking meds as ordered & assist problem solving and Other additional Tobacco Use Tobacco Use: Cigarettes How many cigarettes do you smoke per day?: 2 Years Smokin Outcomes/Goals: Smoking cessation achieved or maintained by discharge, Identify aids/strategies for achieving smoking cessation by session 6 and Other additional outcome/goals Interventions/plan: Instruct on effects of smoking & provide smoking cessation resource, Assist pt to set quit date & provide encouragement, Assist pt to develop strategies to achieve/maintain quit date, Assist pt w/nicotine replacement & medication for cessation success and Other additional plan/interventions 30-day Reassessments:: Progressing Reassessment Notes & Comments:: Pt is encouraged to attend smoking class. Pt is also encouraged to attend 1 on 1 smoking cessation counseling. Will continue to monitor and encourage. Hypertension Hypertension Diagnosis:: Hypertension ICD-10 I10 Resting Blood Pressure:: 124/48 [place] [employer] Hypertension Guidelines Peak Exercise Blood Pressure:: 144/84 Outcomes/Goals: Able to verbalize/achieve optimal blood pressure <130/80, Incorporates diet changes & exercise for blood pressure control by DC and Other additional outcomes/goals Interventions/plan: Instruct on optimal blood pressure, hypertension & medications, Instruct on effects of sodium, alcohol, stress, exercise &hypertension and Other additional plan/interventions 30 day Reassessments:: Progressing Reassessment Notes & Comments:: Pt's BP has improved. BP's are now within AHA normal limits. Will continue to monitor and report to pt's physician if necessary. Tobacco Cessation Referral Education Schedule Given:: Yes Psychosocial - 30-Day Assess Referral to Behavioral Health PS - Interventions: Yes: Attend Stress Management Classes Psychosocial - 60-Day Assess Referral to Behavioral Health PS - Interventions: Yes: Attend Stress Management Classes Psychosocial - 90-Day Assess VIsit Date of Eval: 07/04/25 Session #:: 21 History of previous Mental disease:: No Psychosocial Test Tool Used:: PHQ-9 Questionnaire phq-9 Severity See PHQ-9 Score: 4 Referral to Behavioral Health PS - Interventions: Yes: Attend Stress Management Classes Outcomes/Goals: See list Psychosocial Outcomes/Goals:: ID's personal stressors & 2 strategies to manage stress by discharge and Other Additional outcome/goals: Intervention/Plan: See List Interventions/Plan:: Assess stressors,coping strategies & signs of derpression on admission, Instruct/assist pt to develop coping & personal stress Mgt strateg ies, Refer to Behavioral Health if appropriate, Refer to Physician if appropriate, Instruct patient to recognize signs & symptoms of depression, Instruct patient to recog and Other additional plan/intervention 30-day Reassessments: Reassessment Notes & Comments:: Pt denies any psychosocial issues at this time. Pt to attend stress management class. Will reassess every 30 days. Psychosocial - Final Assessmen Referral to Behavioral Health PS - Interventions: Yes: Attend Stress Management Classes Nutrition - 90-Day Assessment Program Goals Nutrition Program Goals Patient has diagnosis of Hyperlipidemia (ICD E78)?: Yes Visit Date of Eval: 07/04/25 Session #:: 21 (Nutrition score of 4.) Cholesterol/Lipids (Other Core Measures) Determine presence & major risk factors that modify LDL goal: Cigarette smoking, Hypertension or hypertensive medication, Low HDL cholesterol <40 mg/dL*, Family history of premature CHD in Male < 55 years: female <65 yearsFa and Age men > 45 years; women >/= 55 years Outcomes/Goals: Pt IDs own risk factors & lifestyle modifications by Session 10, Verbalizes symptoms of angina & response by session 3., Pt independently manages and Other Additional Outcomes/Goals: Intervention/Plan: Advocate for lipid panel cholesterol medication if applicable, Instruct on personal lipid levels & lipid goals/NCEP guidelines, Instruct on cholesterol and Other additional plan/int Diabetes (Other Core Measures) Diabetes Type: Not Applicable Weight Mgt (Other Care) Height: 5 ft 9 in Weight:: 175 lb BMI: 25.8 Diagnosis Overweight/Obesity BMI> 30% ICD-10 E66: No Diagnosis High BMI/Morbid Obesity BMI> 35% ICD-10 Z68: No Outcomes/Goals: Pt sets, maintains & shows weight loss goal & trend during rehab and Other additional outcomes/goals Intervention/Plan: Instruct on ideal BMI & set weight loss goal w/patient, Assist pt to ID & incorporate diet changes for weight loss by S9, Refer to Structured Weight Loss program as appropriate, Encourage goal of using 250- 300dcal per session for weight loss and Other additional plan/interventions 30 day Reassessments:: Met Reassessment Notes & Comments:: Pt is at a healthy weight. Pt is scheduled to attend nutrition classes. Heart healthy low sodium diet encouraged. Healthy Eating Habits Will attend diet classes:: Yes Outcomes/Goals:: Consume diet rich in vegs,fruits,whole grain/high fiber,fish,lean meat, Limit sat/trans fats,cholesterol & added salts & sugars and Other additional outcome/goals: Intervention/Plan:: Assess current eating habits and Other Additional plan/interventions 30-day Reassessments:: Progressing Reassessment Notes & Comments:: Pt is scheduled to attend nutrition classes. Heart healthy low sodium diet encouraged. Education Gave educational materials for:: Signs & symptoms of hypoglycemia, Signs & symptoms of hyperglycemia, Relate diabetes to coronary artery disease and Healthy eating Nutrition - Final Assessment Weight Mgt (Other Care) Height: 5 ft 9 in Weight:: 175 lb BMI: 25.8
[2025-07-04 08:48] VITALS: BP 124/48; BMI 25.8
--- NOTE | 2025-08-03 08:04 | PCM.CR.ITP ---
Exercise - Initial Assessment Physician Prescribed Exercise Modalities: Treadmill, Schwinn Airdyne AD-7 and SciFit Stepper Nutrition - Initial Assessment Weight Mgt (Other Care) Height: 5 ft 9 in Weight:: 172 lb 8 oz BMI: 25.4 Psychosocial - Initial Assess Referral to Behavioral Health PS - Interventions: Yes: Attend Stress Management Classes Exercise - 30-day Assessment Physician Prescribed Exercise Modalities: Treadmill, Schwinn Airdyne AD-7 and SciFit Stepper Exercise - 60-day Assessment Physician Prescribed Exercise Modalities: Treadmill, Schwinn Airdyne AD-7 and SciFit Stepper Exercise - 90-day Assessment Visit Date of Eval: 08/03/25 Session #:: 29 (120 day ITP) Physician Prescribed Exercise Modalities: Treadmill, Schwinn Airdyne AD-7 and SciFit Stepper Frequency: 2x/week for 18 weeks [36 sessions] Intensity: 60-80% of age predicted maximum heart rate reserve Duration: 30 - 45 minutes Current METSs:: 7.8 Target Heart Rate:: 92-131. Current RPE:: 13-14 Maximum Excercise HR:: 97 Resting Blood Pressure: 102/54 Maximum Exercise Blood Pressure: 140/70 EKG Type: NSR w/ rare PAC, PVC Outcomes & Goals Goals:: Verbalizes understanding of THR, RPE & goal METS by session 6, Documents in home exercise log/reports 30 min aerobic 5 day/wk by DC, Demonstrates accurate pulse taking by DC and Other additional outcome/goals: see below Intervention & Plan Exercise Program Goals: Instruct on personal THR & RPE, Instruct on MET level & personal MET goal, Show patient to take own pulse /validate performance until accurate, Instruct on home exercise and Other additional plan/int Physical Activity Home Exercise Physical Activity - Home Exercise: Safe Exercise, Warm-up, Self-monitoring, Cool-Down, Home Exercise > 30 min Daily and Sitting Time <3 hours/daily Outcomes & Goals Outcomes/Goals: Demonstrates correct Warm-up/exercise Cool-Down (S3) if = 2.5 METs, Verbalizes symptoms of exercise intolerance by Session 3 (S3), Demonstrate safe equipment use (S3) & follows exercise prescrition (6) and Other: See below Intervention & Plan Plan/Intervention: Instruct warm-up & cool-down if exercising at > 2 METs, Instruct on symptoms of exercise intolerance & actions to take, Instruct & monitor on saf, Assess intial functional capacity & safety risk and Other See below 30-day Reassessments 30 day Reassessments:: Progressing Reassessment Notes & Comments:: Pt is progressing his exercise intensity. Will continue to encourage and increase intensity as tolerated. Pt understands the importance of warming up and cooling down. Pt also understands symptoms of exercise intolerance and how to exercise safely. Exercise - Final/Discharge Physician Prescribed Exercise Modalities: Treadmill, Schwinn Airdyne AD-7 and SciFit Stepper Nutrition - 30-Day Assessment Weight Mgt (Other Care) Height: 5 ft 9 in Weight:: 172 lb 8 oz BMI: 25.4 Nutrition - 60-Day Assessment Weight Mgt (Other Care) Height: 5 ft 9 in Weight:: 172 lb 8 oz BMI: 25.4 Core - 30-Day Assessment Hypertension [place] [employer] Hypertension Guidelines Reassessment Notes & Comments:: Pt's BP's are within AHA normal limits. Will continue to monitor and report to pt's physician if necessary. Core - Final Assessment Hypertension [place] [employer] Hypertension Guidelines Reassessment Notes & Comments:: Pt's BP's are within AHA normal limits. Will continue to monitor and report to pt's physician if necessary. Core - 90 Day Assessment Visit Date of Eval: 08/03/25 Session #:: 29 Medication Compliance Preventative Medication(s):: Aspirin, Clopidogrel/P2Y12 inhibit and Statin/lipid H/O mental health issues: depression, anxiety, or addiction?: No Doesn’t believe in the benefits of treatment?: No Believes medications are unnecessary or harmful?: No Has a concern about medication side effects?: No Expresses concern over the cost of medications?: No Outcomes/Goals: Verbalizes medications,desired effect & common side effects @ DC, Pt self-reports following medication regimen, Keeps card in wallet w/medications listed by DC and Other additional outcome/goals: Interventions/plans: Instruct on medication effects & side effects, Review medication list w/patient every two weeks, Instruct importance of taking meds as ordered & assist problem solving and Other additional 30-day Reassessments:: Progressing Reassessment Notes & Comments:: 07/23 Zetia 10 mg QD added. Tobacco Use Tobacco Use: Cigarettes How many cigarettes do you smoke per day?: 2 Years Smokin Interventions/plan: Instruct on effects of smoking & provide smoking cessation resource, Assist pt to set quit date & provide encouragement, Assist pt to develop strategies to achieve/maintain quit date, Assist pt w/nicotine replacement & medication for cessation success and Other additional plan/interventions 30-day Reassessments:: Progressing Reassessment Notes & Comments:: Pt encouraged to attend smoking cessation class. Hypertension Hypertension Diagnosis:: Hypertension ICD-10 I10 Resting Blood Pressure:: 102/54 [place] [employer] Hypertension Guidelines Peak Exercise Blood Pressure:: 140/70 Outcomes/Goals: Able to verbalize/achieve optimal blood pressure <130/80, Incorporates diet changes & exercise for blood pressure control by DC and Other additional outcomes/goals Interventions/plan: Instruct on optimal blood pressure, hypertension & medications, Instruct on effects of sodium, alcohol, stress, exercise &hypertension and Other additional plan/interventions 30 day Reassessments:: Met Reassessment Notes & Comments:: Pt's BP's are within AHA normal limits. Will continue to monitor and report to pt's physician if necessary. Tobacco Cessation Referral Education Schedule Given:: Yes Psychosocial - 30-Day Assess Referral to Behavioral Health PS - Interventions: Yes: Attend Stress Management Classes Psychosocial - 60-Day Assess Referral to Behavioral Health PS - Interventions: Yes: Attend Stress Management Classes Psychosocial - 90-Day Assess VIsit Date of Eval: 08/03/25 Session #:: 29 History of previous Mental disease:: No Psychosocial Test Tool Used:: [employer] QOL Cardiac and PHQ-9 Questionnaire phq-9 Severity See PHQ-9 Score: 4 Referral to Behavioral Health PS - Interventions: Yes: Attend Stress Management Classes Outcomes/Goals: See list Psychosocial Outcomes/Goals:: ID's personal stressors & 2 strategies to manage stress by discharge and Other Additional outcome/goals: Intervention/Plan: See List Interventions/Plan:: Assess stressors,coping strategies & signs of derpression on admission, Instruct/assist pt to develop coping & personal stress Mgt strategies, Refer to Behavioral Health if appropriate, Refer to Physician if appropriate, Instruct patient to recognize signs & symptoms of depression, Instruct patient to recog and Other additional plan/intervention 30-day Reassessments: 30 day Reassessments:: Progressing Reassessment Notes & Comments:: Pt denies any psychosocial issues at this time. Pt to attend stress management class. Will reassess every 30 days. Psychosocial - Final Assessmen Referral to Behavioral Health PS - Interventions: Yes: Attend Stress Management Classes Nutrition - 90-Day Assessment Program Goals Nutrition Program Goals Patient has diagnosis of Hyperlipidemia (ICD E78)?: Yes Visit Date of Eval: 08/03/25 Session #:: 29 (Nutrition survey score of 4.) Cholesterol/Lipids (Other Core Measures) Determine presence & major risk factors that modify LDL goal: Cigarette smoking, Hypertension or hypertensive medication, Low HDL cholesterol <40 mg/dL*, Family history of premature CHD in Male < 55 years: female <65 yearsFa and Age men > 45 years; women >/= 55 years Outcomes/Goals: Pt IDs own risk factors & lifestyle modifications by Session 10, Verbalizes symptoms of angina & response by session 3., Pt independently manages and Other Additional Outcomes/Goals: Intervention/Plan: Advocate for lipid panel cholesterol medication if applicable, Instruct on personal lipid levels & lipid goals/NCEP guidelines, Instruct on cholesterol and Other additional plan/int Diabetes (Other Core Measures) Diabetes Type: Not Applicable Weight Mgt (Other Care) Height: 5 ft 9 in Weight:: 172 lb 8 oz BMI: 25.4 Diagnosis Overweight/Obesity BMI> 30% ICD-10 E66: No Diagnosis High BMI/Morbid Obesity BMI> 35% ICD-10 Z68: No Outcomes/Goals: Pt sets, maintains & shows weight loss goal & trend during rehab and Other additional outcomes/goals Intervention/Plan: Instruct on ideal BMI & set weight loss goal w/patient, Assist pt to ID & incorporate diet changes for weight loss by S9, Refer to Structured Weight Loss program as appropriate, Encourage goal of using 250-300dcal per session for weight loss and Other additional plan/interventions 30 day Reassessments:: Progressing Reassessment Notes & Comments:: Pt is at a healthy weight. Pt is scheduled to attend nutrition classes with our non destructive evaluation specialist. Heart healthy low sodium diet encouraged. Healthy Eating Habits Outcomes/Goals:: Consume diet rich in vegs,fruits,whole grain/high fiber,fish,lean meat, Limit sat/trans fats,cholesterol & added salts & sugars and Other additional outcome/goals: Intervention/Plan:: Assess current eating habits and Other Additional plan/interventions 30-day Reassessments:: Progressing Reassessment Notes & Comments:: Pt is at a healthy weight. Pt is scheduled to attend nutrition classes with our non destructive evaluation specialist. Heart healthy low sodium diet encouraged. Education Gave educational materials for:: Signs & symptoms of hypoglycemia, Signs & symptoms of hyperglycemia, Relate diabetes to coronary artery disease and Healthy eating Nutrition - Final Assessment Weight Mgt (Other Care) Height: 5 ft 9 in Weight:: 172 lb 8 oz BMI: 25.4
[2025-08-03 08:13] VITALS: BP 102/54
[2025-08-03 08:22] VITALS: BP 102/54; BMI 25.4
== END 2025-08-03 23:59 ==
LOC: CR 09:15
PROVIDERS: PCP Family Medicine; Referring Provider Internal Medicine Cardiovascular Disease; Visit Provider Internal Medicine Cardiovascular Disease
DX: Z95.5 Presence of coronary angioplasty implant and graft (principal); I70.8 Atherosclerosis of other arteries; Z72.0 Tobacco use; F10.10 Alcohol abuse, uncomplicated; R93.1 Abnormal findings on diagnostic imaging of heart and coronary circulation; I05.9 Rheumatic mitral valve disease, unspecified; I25.10 Atherosclerotic heart disease of native coronary artery without angina pectoris; R06.00 Dyspnea, unspecified; E78.5 Hyperlipidemia, unspecified; I27.20 Pulmonary hypertension, unspecified; J45.909 Unspecified asthma, uncomplicated; I21.4 Non-ST elevation (NSTEMI) myocardial infarction; J44.1 Chronic obstructive pulmonary disease with (acute) exacerbation
CPT/HCPCS: 93798

== ENCOUNTER 2025-08-27 09:15 | Outpatient (RCR) | payer BC, MEDICARE, SELFPAY ==
--- NOTE | 2025-08-27 08:48 | CR.ITP_ITS ---
Exercise - Initial Assessment Physician Prescribed Exercise Modalities: Treadmill, Schwinn Airdyfelciia AD-7 and SciFit Stepper Nutrition - Initial Assessment Program Goals Nutrition Program Goals Patient has diagnosis of Hyperlipidemia (ICD E78)?: Yes Weight Mgt (Other Care) Height: 5 ft 9 in Weight:: 174 lb BMI: 25.7 Core - Initial Assessment Hypertension Resting Blood Pressure:: 130/56 [place] [employer] Hypertension Guidelines Psychosocial - Initial Assess Psychosocial Test phq-9 Severity See PHQ-9 Score: 2 Patient Health Questionnaire PHQ-9 Screening Discharge Assessment: 1. Little interest or pleasure in doing things: Not at all 2. Feeling down, depressed, or hopeless: Not at all 3. Trouble falling or staying asleep, or sleeping too much: Not at all 4. Feeling tired or having little energy: More than half the days 5. Poor appetite or overeating: Not at all 6. Feeling bad about yourself -- or that you are a failure or have let yourself or your family down: Not at all 7. Trouble concentrating on things, such as reading the newspaper or watching television: Not at all 8. Moving or speaking so slowly that other people could have noticed. Or the opposite - being so fidgety or restless that you have been moving around a lot more than usual: Not at all 9. Thoughts that you would be better off , or of hurting yourself in some way: Not at all How difficult have these problems made it for you to do your work, take care of things at home, or get along with other people?: Somewhat difficult Total Score: 2 Self-Efficacy 6-Item Scale Discharge Assessment: We would like to know how confident you are in doing certain activities. Please select your confidence level for: Fatigue Select Number: 5 Physical Discomfort or Pain Select Number: 5 Emotional Distress Select Number: 5 Other Symptoms or Health Problems Select Number: 5 Different Tasks and Activities Select Number: 5 Medication Select Number: 5 Total Score:: 5 Nutrition Survey Nutrition Survey Discharge: Have you lost >10 lbs over the past 2 months without trying?: No Are you following a special diet at home for diabetes, low fat, or low salt?: No Are you interested in meeting with a dietitian for help understanding your diet?: No Do you eat less than 3 meals a day?: Yes Do you eat fatty meats (garner, sausage, ribs, etc), fried foods, desserts, large amounts of salad dressings, margarine, butter, or cheese most days?: Yes Do you have food allergies? [Enter types in comment field]: No Do you eat in restaurants more than 3 times a week?: No Do you season food with salt, seasoning salt, or garlic salt?: Yes Do you used canned, boxed, frozen meals, or soups, seasoning packets?: Yes Total Score:: 4 Exercise - 30-day Assessment Physician Prescribed Exercise Modalities: Treadmill, Schwinn Airdyne AD-7 and SciFit Stepper Exercise - 60-day Assessment Physician Prescribed Exercise Modalities: Treadmill, Schwinn Airdyne AD-7 and SciFit Stepper Exercise - 90-day Assessment Physician Prescribed Exercise Modalities: Treadmill, Schwinn Airdyne AD-7 and SciFit Stepper Exercise - Final/Discharge Visit Date of Eval: 08/27/25 (discharge from cardiac rehab) Session #:: 36 Physician Prescribed Exercise Modalities: Treadmill, Schwinn Airdyne AD-7 and SciFit Stepper Frequency: 3x/week for 12 weeks [36 sessions] Intensity: 60-80% of age predicted maximum heart rate reserve Duration: 30 - 45 minutes METs - Progression 0.5-1.0 weekly:: 0.5 Current METSs:: 7.8 Target Heart Rate:: 92-131 Target RPE 12-16:: 12-16 Current RPE:: 13 Maximum Heart Rate:: 93 Resting Blood Pressure: 130/56 Maximum Exercise Blood Pressure: 152/64 EKG Type: sinus katy to NSR rare pvc, pac. Current Physical Activity or Exercising minutes: 30 mins Outcomes & Goals Goals:: Verbalizes understanding of THR, RPE & goal METS by session 6, Documents in home exercise log/reports 30 min aerobic 5 day/wk by DC and Demonstrates accurate pulse taking by DC Intervention & Plan Exercise Program Goals: Instruct on personal THR & RPE, Instruct on MET level & personal MET goal, Show patient to take own pulse /validate performance until accurate and Instruct on home exercise 30-day Reassessments 30 day Reassessments:: Met Reassessment Notes & Comments:: pt demonstrates understanding of RPE scale and THR parameters. Physical Activity Home Exercise Physical Activity - Home Exercise: Safe Exercise, Warm-up, Self-monitoring, Cool-Down, Home Exercise > 30 min Daily and Sitting Time <3 hours/daily Outcomes & Goals Outcomes/Goals: Demonstrates correct Warm-up/exercise Cool-Down (S3) if = 2.5 METs, Verbalizes symptoms of exercise intolerance by Session 3 (S3), Demonstrate safe equipment use (S3) & follows exercise prescrition (6) and Other: See below 30-day Reassessments 30 day Reassessments:: Met Reassessment Notes & Comments:: Pt demonstrates safe warm up and cooldown during exercise sessions. educated on safe exercise, including signs and symptoms that would require seeking medical attention during exercise. educated on how/when to increase exercise workloads using rpe scale. Nutrition - 30-Day Assessment Weight Mgt (Other Care) Height: 5 ft 9 in Weight:: 174 lb BMI: 25.7 Nutrition - 60-Day Assessment Weight Mgt (Other Care) Height: 5 ft 9 in Weight:: 174 lb BMI: 25.7 Core - 30-Day Assessment Hypertension [place] [employer] Hypertension Guidelines Reassessment Notes & Comments:: takes BP meds as prescribed. Core - Final Assessment Visit Date of Eval: 08/27/25 Session #:: 36 Medication Compliance Preventative Medication(s):: Aspirin, Clopidogrel/P2Y12 inhibit and Statin/lipid H/O mental health issues: depression, anxiety, or addiction?: No Doesn’t believe in the benefits of treatment?: No Believes medications are unnecessary or harmful?: No Has a concern about medication side effects?: No Expresses concern over the cost of medications?: No Outcomes/Goals: Verbalizes medications,desired effect & common side effects @ DC, Pt self-reports following medication regimen, Keeps card in wallet w/medications listed by DC and Other additional outcome/goals: Interventions/plans: Instruct on medication effects & side effects, Review medication list w/patient every two weeks, Instruct importance of taking meds as ordered & assist problem solving and Other additional 30-day Reassessments:: Met Reassessment Notes & Comments:: reports taking medication as prescribed. Tobacco Use Tobacco Use: Cigarettes Outcomes/Goals: Smoking cessation achieved or maintained by discharge, Identify aids/strategies for achieving smoking cessation by session 6 and Other additional outcome/goals Interventions/plan: Instruct on effects of smoking & provide smoking cessation resource, Assist pt to set quit date & provide encouragement, Assist pt to develop strategies to achieve/maintain quit date, Assist pt w/nicotine replacement & medication for cessation success and Other additional zayra n/interventions 30 day Reassessments:: Progressing Reassessment Notes & Comments:: down to smoking 3 packs/week. denies need for smoking cessation resources at this time. says he has been decreasing his smoking usage and will continue to do so. Hypertension Hypertension Diagnosis:: Hypertension ICD-10 I10 Resting Blood Pressure:: 130/56 [place] [employer] Hypertension Guidelines Peak Exercise Blood Pressure:: 152/64 Outcomes/Goals: Able to verbalize/achieve optimal blood pressure <130/80, Incorporates diet changes & exercise for blood pressure control by DC and Other additional outcomes/goals Interventions/plan: Instruct on optimal blood pressure, hypertension & medications, Instruct on effects of sodium, alcohol, stress, exercise &hypertension and Other additional plan/interventions 30 day Reassessments:: Met Reassessment Notes & Comments:: takes BP meds as prescribed. Core - 90 Day Assessment Hypertension [place] [employer] Hypertension Guidelines Reassessment Notes & Comments:: takes BP meds as prescribed. Core - 60-Day Assessment Tobacco Use Reassessment Notes & Comments:: down to smoking 3 packs/week. denies need for smoking cessation resources at this time. says he has been decreasing his smoking usage and will continue to do so. Hypertension Resting Blood Pressure:: 130/56 [place] [employer] Hypertension Guidelines Psychosocial - Final Assessmen VIsit Date of Eval: 08/27/25 Session #:: 36 History of previous Mental disease:: No Psychosocial Test Tool Used:: PHQ-9 Questionnaire phq-9 Severity See PHQ-9 Score: 2 Outcomes/Goals: See list Psychosocial Outcomes/Goals:: ID's personal stressors & 2 strategies to manage stress by discharge and Other Additional outcome/goals: Intervention/Plan: See List Interventions/Plan:: Assess stressors,coping strategies & signs of derpression on admission, Instruct/assist pt to develop coping & personal stress Mgt strategies, Refer to Behavioral Health if appropriate, Refer to Physician if appropriate, Instruct patient to recognize signs & symptoms of depression and Instruct patient to recog 30-day Reassessments: 30 day Reassessments:: Met Reassessment Notes & Comments:: phq-9 score improved from 4 to 2. Nutrition - 90-Day Assessment Weight Mgt (Other Care) Height: 5 ft 9 in Weight:: 174 lb BMI: 25.7 Nutrition - Final Assessment Program Goals Patient has diagnosis of Hyperlipidemia (ICD E78)?: Yes Visit Date of Assessment:: 08/27/25 Session #:: 36 Cholesterol/Lipids (Other Core Measures) Determine presence & major risk factors that modify LDL goal: Cigarette smoking, Hypertension or hypertensive medication, Low HDL cholesterol <40 mg/dL*, Family history of premature CHD in Male < 55 years: female <65 yearsFa and Age men > 45 years; women >/= 55 years Outcomes/Goals: Pt IDs own risk factors & lifestyle modifications by Session 10, Verbalizes symptoms of angina & response by session 3., Pt independently manages and Other Additional Outcomes/Goals: Intervention/Plan: Advocate for lipid panel cholesterol medication if applicable, Instruct on personal lipid levels & lipid goals/NCEP guidelines, Instruct on cholesterol and Other additional plan/int Referral to dietitian:: No 30-day Reassessments:: Met Reassessment Notes & Comments:: encouraged pt to continue to get lipids checked at least once per year. takes cholesterol medications as prescribed. Diabetes (Other Core Measures) Diabetes Type: Not Applicable Weight Mgt (Other Care) Height: 5 ft 9 in Weight:: 174 lb BMI: 25.7 Outcomes/Goals: Pt sets, maintains & shows weight loss goal & trend during rehab and Other additional outcomes/goals Intervention/Plan: Instruct on ideal BMI & set weight loss goal w/patient, Assist pt to ID & incorporate diet changes for weight loss by S9, Refer to Structured Weight Loss program as appropriate, Encourage goal of using 250- 300dcal per session for weight loss and Other additional plan/interventions 30 day Reassessments:: Met Reassessment Notes & Comments:: pt maintained healthy weight during cardiac rehab program. Healthy Eating Habits Will attend diet classes:: Yes Outcomes/Goals:: Consume diet rich in vegs,fruits,whole grain/high fiber,fish,lean meat, Limit sat/trans fats,cholesterol & added salts & sugars and Other additional outcome/goals: Intervention/Plan:: Assess current eating habits and Other Additional plan/interventions 30-day Reassessments:: Progressing Reassessment Notes & Comments:: encouraged to maintain low sodium diet. Education Gave educational materials for:: Signs & symptoms of hypoglycemia, Signs & symptoms of hyperglycemia, Relate diabetes to coronary artery disease and Healthy eating
[2025-08-27 09:02] VITALS: BP 130/56; BMI 25.7
[2025-08-27 09:11] VITALS: BP 130/56
== END 2025-09-02 23:59 ==
LOC: CR 09:15
PROVIDERS: PCP Family Medicine; Referring Provider Internal Medicine Cardiovascular Disease; Visit Provider Internal Medicine Cardiovascular Disease
DX: Z95.5 Presence of coronary angioplasty implant and graft (principal); I70.8 Atherosclerosis of other arteries; Z72.0 Tobacco use; F10.10 Alcohol abuse, uncomplicated; R93.1 Abnormal findings on diagnostic imaging of heart and coronary circulation; I05.9 Rheumatic mitral valve disease, unspecified; I25.10 Atherosclerotic heart disease of native coronary artery without angina pectoris; R06.00 Dyspnea, unspecified; E78.5 Hyperlipidemia, unspecified; I27.20 Pulmonary hypertension, unspecified; J45.909 Unspecified asthma, uncomplicated; I21.4 Non-ST elevation (NSTEMI) myocardial infarction; J44.1 Chronic obstructive pulmonary disease with (acute) exacerbation
CPT/HCPCS: 93798